=== PATIENT | female | born 2000 | race Caucasian/White ===

== ENCOUNTER 2023-10-17 19:55 | Emergency (ER) | payer BC, SELFPAY ==
[2023-10-17 19:58] VITALS: BP 161/100
[2023-10-17 20:13] LABS: % Basophils 0.4 % (0-2); % Immature Granulocytes 0.2 % (0-0.5); % Lymphocytes 36.6 % (20.5-51.1); % Monocytes 11.4 % (1.7-9.3); % Neutrophils 51.4 % (42.2-75.2); Absolute Lymphocytes 1.9 10^3/uL (1.2-3.4); Absolute Monocytes 0.6 10^3/uL (0.1-0.6); Absolute Neutrophils 2.6 10^3/uL (1.4-6.5); Hematocrit 35.4 % (37.0-47.0); Mean Corp Hgb Conc. 33.9 g/dL (33.0-37.0); Mean Corpuscular Hgb 26.4 pg (27.0-31.0); Mean Platelet Volume 10.5 fL (7.4-10.4); Nucleated Red Blood Cells % 0 %; Platelet Count 199 10^3/uL (130-400); Red Blood Cell Count 4.54 10^6/uL (4.20-5.40); Red Cell Dist. Width 13.1 % (11.5-14.5); White Blood Cell Count 5.1 10^3/uL (4.8-10.8)
[2023-10-17 20:27] LABS: ALT (SGPT) 13 U/L (0-35); AST (SGOT) 17 U/L (14-36); Albumin 4.2 g/dl (3.5-5.0); Alkaline Phosphatase 86 U/L (38-126); Blood Urea Nitrogen 29 mg/dl (7-17); Calcium 9.1 mg/dl (8.4-10.2); Carbon Dioxide 22 mmol/L (22-30); Chloride 103 mmol/L (98-107); Glucose 369 mg/dl (70-99); Potassium 4.7 mmol/L (3.5-5.1); Total Bilirubin 0.6 mg/dl (0.2-1.3); Total Protein 6.9 g/dl (6.3-8.2); eGFR 58.52
[2023-10-17 20:36] LABS: Sodium 131 mmol/L (135-145)
[2023-10-17] MEDS: NSS 1000 IV (23:38)
--- NOTE | 2023-10-17 23:49 | ED.GENMED ---
History of Present Illness
General
Chief Complaint: Skin Problem
Source: patient
Exam Limitations: none
Time Seen by Provider: 10/17/23 23:08
Nursing documentation reviewed up to this point in time: agreed with
Travel History
Have you had any contact with someone who has COVID-19?: No
Do you have any symptoms of coronavirus? Fever > 100 degrees, chills, cough, shortness of breath, sore throat, loss of taste or smell, muscle aches, or headache?: No
History of Present Illness
History of Present Illness:
This a pleasant 23-year-old female that presents with redness and pain on her right thigh. She is an insulin-dependent diabetic and had an insulin pump affixed to her right thigh. 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
ripping the IV pump out of her thigh. She noticed some redness. She states that she squeezed the area and some scant purulent discharge was expressed. She marked the area with a pen but the slight redness extended outside of the area so she came
into the emergency department. Denies fever or chills. Reports no nausea or vomiting. Patient has had cellulitis in the past and is concerned at this point.
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
ED Past Medical History: Asthma, IDDM, Hypothyroidism, Psychiatric, Other (EMPHASEMATOUS PYELONEPHRITIS, neutropenia) and Other (Anemia, Escherichia coli sepsis, multiple abscesses, Cellulitis, Pyelonephritis, vaginal herpes, polysubstance drug
abuse)
ED Past Surgical History: Appendectomy, Tonsilectomy (T&A) and Other (tympanostomy, buttocks I&D, NEPHROSTOMY RIGHT)
Social History
Tobacco: Former smoker
Alcohol: None
Drug: Marijuana, Narcotics, IVDA (Heroin user) and Other (Methamphetamine)
Personal: Single
Living: with family
Employment: Employed ([employer])
Family History
Family History: Other (Noncontributory)
Review of Systems
Review of Systems
Allergies reviewed?: Yes
All Other Systems: ROS reviewed and negative except as documented in HPI and ROS
Constitutional: Denies fever, fatigue or chills
EENT: Reports no symptoms
Respiratory: Reports no symptoms
Cardiac: Reports no symptoms
ABD/GI: Reports no symptoms
: Reports no symptoms
Musculoskeletal: Denies joint pain, muscle stiffness or edema
Skin: Reports other (Erythema)
Neurological: Denies dizzy or headache
Endocrine: Reports no symptoms
Hematologic/Lymphatic: Reports no symptoms
Psychiatric: Reports no symptoms
Phy Exam
General Physical Exam
General Presentation: well appearing and no apparent distress
General age: appears stated age
General Skin: warm and dry
General Habitus: normal
General Mental: alert
Cardiovascular Exam
Cardiovascular Exam: regular rate/rhythm and no edema
Pulmonary Exam
Pulmonary Exam: lungs clear and no respiratory distress
Neurological Exam
Neurological Exam: alert and oriented x3
Musculoskeletal Exam
Musculoskeletal Exam: full ROM, no edema and neuro vasc intact
Skin Exam
Skin Exam: warm/dry, redness (Right thigh), tenderness and warmth
Psychiatric Exam
Psychiatric Exam: normal mood/affect and anxious
Course
Orders/Labs/Results
Orders:
Orders
10/17/23 20:05
Complete Blood Count/With Diff Urgent
Comprehensive Metabolic Panel Urgent
HCG, Serum Qualitative Screen Urgent
Comment: ADD ON
10/17/23 23:22
0.9% Sodium Chloride 1000 ml [Nss] 1,000 ml IV BOLUS
10/17/23 23:23
Add On- LAB Urgent
Tests Added?: serum hcg
10/18/23 01:48
Doxycycline [Vibramycin] 100 mg PO NOW STA
Abnormal Lab Results
10/17/23
20:05
Hct 35.4 L %
(37.0-47.0)
MCV 78.0 L fL
(81.0-99.0)
MCH 26.4 L pg
(27.0-31.0)
MPV 10.5 H fL
(7.4-10.4)
Monocytes % 11.4 H %
(1.7-9.3)
Sodium 131 L mmol/L
(135-145)
BUN 29 H mg/dl
(7-17)
Creatinine 1.3 H mg/dL
(0.6-1.0)
Glucose 369 H mg/dl
(70-99)
10/17/23 20:05
10/17/23 20:05
Vital Signs
Initial and Last Documented VS:
Initial Vital Signs
Temp Pulse Resp BP Pulse Ox
98.7 F 92 18 161/100 100
10/17/23 19:58 10/17/23 19:58 10/17/23 19:58 10/17/23 19:58 10/17/23 19:58
Last Documented Vital Signs
Temp Pulse Resp BP Pulse Ox
98.7 F 84 16 120/79 97
10/17/23 19:58 10/18/23 02:14 10/18/23 02:14 10/18/23 02:14 10/18/23 02:14
*Critical Care Note
Total Time (30-74mins, 75-104mins- exclusive of procedures): Not Applicable
Update Note
Update Note:
Patient feeling better. Glucose is 170 and acceptable to her.
ED Attending Note
-
Portions of this chart may have been created with voice recognition software.� Occasional wrong word or��sound alike� substitutions may have occurred due to the inherent limitations of voice recognition software.
Discharge Plan
Departure
Patient Disposition: Home (Routine Discharge)
Date of Disposition: 10/18/23
Time of Disposition: 01:47
Patient with high blood pressure during this ER visit?: Yes
Condition: Good
Discharge Problem:
Cellulitis
Instructions: Cellulitis (Skin Infection), Adult (DC), BLOOD PRESSURE
Prescriptions:
New
doxycycline monohydrate 100 mg capsule
100 mg PO BID Qty: 20 0RF
No Action
levothyroxine 100 mcg capsule
100 mcg PO DAILY Qty: 60 0RF
Rx Instructions:
total 175 mcg take along with 75 mcg tab
levothyroxine [Synthroid] 75 mcg tablet
75 mcg PO DAILY Qty: 60 0RF
Rx Instructions:
total 175 mcg take along with 100 mcg tab
Medical Marijuana
0.5 ml PO BIDPRN PRN (Reason: ANXIETY)
fluticasone propion-salmeterol [Wixela Inhub] 250-50 mcg/dose blister with device
1 inh INHALATION R DAILY
acetaminophen 325 mg tablet
650 mg PO Q6HPRN PRN (Reason: MILD PAIN)
fluticasone propionate 50 mcg/actuation spray,suspension
1 spray INTRANASAL DAILYPRN PRN (Reason: ALLERGIES)
Insulin Pump [Patient's Own Insulin Pump]
0 unit SC .CONTINOUS
Patient Comments:
Due to change tomorrow
Rx Instructions:
03/19/23 PATIENT USING HUMALOG AND PATIENT'S DEVICE HOLDS 175 UNITS
cyclobenzaprine 10 mg Tablet
10 mg PO TID Qty: 30 0RF
acetaminophen [Pain Relief ES (acetaminophen)] 500 mg Tablet
1,000 mg PO QID Qty: 120 0RF
ferrous sulfate [FeroSul] 325 mg (65 mg iron) Tablet
325 mg PO DAILY Qty: 30 0RF
oxycodone 5 mg Tablet
5 mg PO Q4HPRN PRN (Reason: moderate pain) Qty: 20 0RF
polyethylene glycol 3350 17 gram/dose powder
17 g PO BID Qty: 510 0RF
sennosides-docusate sodium [Senna-S] 8.6-50 mg tablet
1 tab-cap PO BID Qty: 60 0RF
Referrals:
Juan A Martinez MD [Family Provider] -
Activity Restrictions/Additional Instructions:
It was a pleasure meeting you and taking part in your care. We hope for your continued healing and wellness.
Please read discharge instructions in their entirety. However, they are for general education and may not describe your exact diagnosis at discharge. Information on your ER visit and medical conditions were discussed with you along with appropriate
follow up information...
If indicated, please take your medications as instructed and indicated on discharge paperwork.
Please schedule a follow up appointment as directed. Call to schedule an appointment
Please return to the emergency department with ANY change in, persisting, or worsening of symptoms. If any of your symptoms do not improve, or persist, or become more severe within 6-12 hours, please return to the emergency department for further
care.
Please return to the emergency department if you develop a headache, neck pain/stiffness, fever greater than 100.4F, chest pain, shortness of breath, persistent nausea, vomiting, slurred speech, difficulty walking, numbness/tingling, weakness, signs
of infection or any other symptoms that are worrisome to you.
If you have any questions or concerns please do not hesitate to call the Hospital at
Interventions
Interventions:
*Risk Screen - Suicide Last Done: 10/17/23 19:59
*General Assessment Last Done: 10/17/23 19:59
*Neglect/Abuse Screening Last Done: 10/17/23 19:59
ED- Fall Risk Assessment Last Done: 10/18/23 00:03
*ED COVID-19 Vaccine History Last Done: 10/17/23 19:59
*Nursing Disposition Last Done: 10/18/23 02:14
ED-Skin Assessment Last Done: 10/18/23 01:18
Discharge Date and Time
Discharge Date/Time: 10/18/23 02:16
Print Language: KAZAKH
[2023-10-18 00:26] LABS: HCG, Serum Qualitative Screen Negative
[2023-10-18 01:17] VITALS: BP 125/88
[2023-10-18 02:05] VITALS: BMI 24.2
[2023-10-18] MEDS: VIBRAMYCIN 100 MG PO (02:06)
[2023-10-18 02:14] VITALS: BP 120/79
== END 2023-10-18 02:16 | disposition home or self-care (01) ==
LOC: EMR 19:55
PROVIDERS: Emergency Medicine; EMERGENCY PHYSICIAN Student in an Organized Health Care Education/Training Program; FAMILY PHYSICIAN Family Medicine
DX: L03.115 Cellulitis of right lower limb (principal); M79.651 Pain in right thigh; W22.8XXA Striking against or struck by other objects, initial encounter; Y93.89 Activity, other specified; Y92.89 Other specified places as the place of occurrence of the external cause; Y99.0 Civilian activity done for income or pay; R03.0 Elevated blood-pressure reading, without diagnosis of hypertension; E11.9 Type 2 diabetes mellitus without complications; J45.909 Unspecified asthma, uncomplicated; E03.9 Hypothyroidism, unspecified; D64.9 Anemia, unspecified; F19.11 Other psychoactive substance abuse, in remission; Z79.4 Long term (current) use of insulin; Z96.41 Presence of insulin pump (external) (internal); Z87.891 Personal history of nicotine dependence; Z88.1 Allergy status to other antibiotic agents
CPT/HCPCS: 99284; 96360; 80053; 84703; 85025

== ENCOUNTER 2023-10-22 00:57 | Emergency (ER) | payer BC, SELFPAY ==
[2023-10-22 01:01] VITALS: BP 155/111
[2023-10-22 01:26] LABS: % Basophils 0.4 % (0-2); % Immature Granulocytes 0.2 % (0-0.5); % Monocytes 12.2 % (1.7-9.3); % Neutrophils 50.2 % (42.2-75.2); Absolute Lymphocytes 1.7 10^3/uL (1.2-3.4); Absolute Monocytes 0.6 10^3/uL (0.1-0.6); Absolute Neutrophils 2.4 10^3/uL (1.4-6.5); Hemoglobin 12.6 g/dL (12.0-16.0); Mean Corp Hgb Conc. 33.2 g/dL (33.0-37.0); Mean Corpuscular Hgb 25.9 pg (27.0-31.0); Mean Corpuscular Volume 78.2 fL (81.0-99.0); Mean Platelet Volume 10.6 fL (7.4-10.4); Nucleated Red Blood Cells % 0 %; Platelet Count 222 10^3/uL (130-400); Red Blood Cell Count 4.86 10^6/uL (4.20-5.40); Red Cell Dist. Width 13.2 % (11.5-14.5); White Blood Cell Count 4.7 10^3/uL (4.8-10.8)
[2023-10-22 01:43] LABS: ALT (SGPT) 13 U/L (0-35); AST (SGOT) 16 U/L (14-36); Albumin 4.2 g/dl (3.5-5.0); Alkaline Phosphatase 103 U/L (38-126); Blood Urea Nitrogen 24 mg/dl (7-17); Calcium 9.6 mg/dl (8.4-10.2); Carbon Dioxide 21 mmol/L (22-30); Chloride 103 mmol/L (98-107); Glucose 340 mg/dl (70-99); Potassium 4.4 mmol/L (3.5-5.1); Sodium 135 mmol/L (135-145); Total Bilirubin 0.7 mg/dl (0.2-1.3); Total Protein 6.8 g/dl (6.3-8.2); eGFR 58.52
[2023-10-22 02:01] LABS: Urine Albumin 3+ (Neg - Trace); Urine Bilirubin Negative (Negative); Urine Character Clear (Clear); Urine Color Yellow; Urine Glucose 3+ (Negative); Urine Ketone 1+ (Negative); Urine Leukocyte Trace (Negative); Urine Nitrite Negative (Negative); Urine Occult Blood 2+ (Negative); Urine Specific Gravity 1.015 (<1.030); Urine Urobilinogen Negative (Neg - 1+)
[2023-10-22 02:27] LABS: Urine Squamous Cell >30 /LPF (Few)
[2023-10-22 02:32] LABS: Urine Bacteria Moderate (Negative); Urine Red Blood Cell 16-20 /HPF (0-2); Urine White Cell >100 /HPF (0-5)
--- NOTE | 2023-10-22 06:50 | ED.GENMED ---
History of Present Illness
General
Chief Complaint: Medication Reaction
Time Seen by Provider: 10/22/23 06:46
Travel History
Have you had any contact with someone who has COVID-19?: No
Do you have any symptoms of coronavirus? Fever > 100 degrees, chills, cough, shortness of breath, sore throat, loss of taste or smell, muscle aches, or headache?: No
History of Present Illness
History of Present Illness:
HPI: The patient was seen here 5 days ago diagnosed with cellulitis. She has IDDM and while working accidentally ripped half access out of right thigh. She was placed on doxycycline. She comes in today because of ongoing signs of infection on the
right thigh and now is developed right flank pain similar to when she has had kidney infections in the past. She states she had a temperature max of 101.
EXAM:
GENERAL: Well appearing in minimal distress
HEENT: Moist oral mucosa
CARDIOVASCULAR: No murmurs, normal heart rate, regular rhythm, No chest wall tenderness
PULMONARY: No respiratory distress, breath sounds are clear and equal
ABDOMEN: Soft with no peritoneal signs, minimal diffuse tenderness, very mild bilateral CVA tenderness
NEUROLOGIC: Excellent strength all extremities, no coordination deficits
PSYCHIATRIC: Appropriate mental status, normal insight and judgement
EXTREMITIES: Nontender, no edema, moves all extremities equally
SKIN: There is a 3 cm abscess versus indurated tissue to the lateral aspect mid right thigh
TIME OF INITIAL ENCOUNTER: 7 AM
NUMBER AND COMPLEXITY OF PROBLEMS ADDRESSED AT THE ENCOUNTER
� Chronic conditions affecting care: IDDM, PTSD, personality disorder, anxiety/depression, bipolar disorder, substance abuse, vitiligo, hypothyroidism
� Acute Exacerbation and/or Progression of Chronic Illness: This is an acute problem
� Differential Diagnosis includes: Cellulitis, pyelonephritis, abscess, feel bacteremia is unlikely
AMOUNT AND/OR COMPLEXITY OF DATA TO BE REVIEWED AND ANALYZED
� I performed an independent evaluation of and my interpretation is:
EKG:
CT:
X-rays:
Laboratory Studies: White count 4.7, hemoglobin 12.6, creatinine 1.3 with GFR of 58.5, glucose 340, urinalysis shows 1+ ketones, 2+ blood, greater than 100 WBC per high-power field. Of note there is a lot of squamous epithelial
cells.
Other:
� Review of other/old records: The creatinine chronically is around 1.3-1.4
� Clinical information was obtained by an independent historian: None needed
� Prescriptions/Medications Considered but not given:
� Further testing considered but not performed:
RISK OF COMPLICATIONS AND/OR MORBIDITY OR MORTALITY OF PATIENT MANAGEMENT
� Social determinants of health affecting care: Lives at home
� Discussion with other providers:
� Escalation of care including admission/observation vs risk of discharge considered: Other than hyperglycemia in known diabetic, her labs are relatively unremarkable. I did review old urinalyses which frequently show elevated
number of white cells. I incised and drained a relatively large amount of pus from the right thigh. Will give just a few more days of doxycycline. Wound culture will be sent. Consider renal dosing of Levaquin however the patient has a GFR of
about 58. I have placed her on Levaquin as she has strong suspicion for pyelonephritis. I reviewed old records and she has grown E. coli in the past that was sensitive to Levaquin, resistant to Bactrim.
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
ED Past Medical History: Asthma, IDDM, Hypothyroidism, Psychiatric, Other (EMPHASEMATOUS PYELONEPHRITIS, neutropenia) and Other (Anemia, Escherichia coli sepsis, multiple abscesses, Cellulitis, Pyelonephritis, vaginal herpes, polysubstance drug
abuse)
ED Past Surgical History: Appendectomy, Tonsilectomy (T&A) and Other (tympanostomy, buttocks I&D, NEPHROSTOMY RIGHT)
Social History
Tobacco: Former smoker
Alcohol: None
Drug: Marijuana, Narcotics, IVDA (Heroin user) and Other (Methamphetamine)
Personal: Single
Living: with family
Employment: Employed ([employer])
Family History
Family History: Other (Noncontributory)
Phy Exam
Physical Exam
Physical Exam:
See HPI
Course
Orders/Labs/Results
Orders:
Orders
10/22/23 01:10
CMP [Comprehensive Metabolic Panel] Urgent
Complete Blood Count/With Diff Urgent
Urinalysis Urgent
Date Specimen was Collected: 10/22/23
Time Specimen was Collected: 01:05
Urine Microscopic Urgent
Date Specimen was Collected: 10/22/23
Time Specimen was Collected: 01:05
10/22/23 07:28
LevoFLOXacin [Levaquin] 500 mg PO NOW STA
10/22/23 07:34
Wound Culture [Wound/Abscess/Other Culture] Urgent
ROBE Source: Abscess
Specimen Description:
Abnormal Lab Results
10/22/23
01:10
WBC 4.7 L 10^3/uL
(4.8-10.8)
MCV 78.2 L fL
(81.0-99.0)
MCH 25.9 L pg
(27.0-31.0)
MPV 10.6 H fL
(7.4-10.4)
Monocytes % 12.2 H %
(1.7-9.3)
Carbon Dioxide 21 L mmol/L
(22-30)
BUN 24 H mg/dl
(7-17)
Creatinine 1.3 H mg/dL
(0.6-1.0)
Glucose 340 H mg/dl
(70-99)
Urine Ketones 1+ A
(Negative)
Urine Occult Blood 2+ A
(Negative)
Ur Leukocyte Esterase Trace A
(Negative)
Urine RBC 16-20 A /HPF
(0-2)
Urine WBC >100 A /HPF
(0-5)
Urine Bacteria Moderate A
(Negative)
Urine Glucose 3+ A
(Negative)
Urine Albumin 3+ A
(Neg - Trace)
10/22/23 01:10
10/22/23 01:10
Vital Signs
Initial and Last Documented VS:
Initial Vital Signs
Temp Pulse Resp BP Pulse Ox
98.2 F 122 24 155/111 100
10/22/23 01:01 10/22/23 01:01 10/22/23 01:01 10/22/23 01:01 10/22/23 01:01
Last Documented Vital Signs
Temp Pulse Resp BP Pulse Ox
98.2 F 122 24 155/111 98
10/22/23 01:01 10/22/23 01:01 10/22/23 01:01 10/22/23 01:01 10/22/23 07:20
Procedures
Incision/Drainage/Joint Aspiration
Right Thigh:
Anethesia: 1% Lidocaine with Epi
Preparation: cleaned with alcohol wipe
Type of procedure: incise and drain
Nature of site: abscess
Description of abscess: less than 3cm
Loculations broken up: Yes
How much fluid was obtained?: number in mls (2)
Fluid description: purulent
Treatment: left open for drainage and bandaid applied
*Critical Care Note
Total Time (30-74mins, 75-104mins- exclusive of procedures): Not Applicable
ED Attending Note
-
Portions of this chart may have been created with voice recognition software.� Occasional wrong word or��sound alike� substitutions may have occurred due to the inherent limitations of voice recognition software.
Discharge Plan
Departure
Patient Disposition: Home (Routine Discharge)
Date of Disposition: 10/22/23
Time of Disposition: 07:28
Patient with high blood pressure during this ER visit?: Yes
Discharge Problem:
Abscess
Prescriptions:
New
levofloxacin 500 mg tablet
500 mg PO DAILY Qty: 6 0RF
No Action
levothyroxine 100 mcg capsule
100 mcg PO DAILY Qty: 60 0RF
Rx Instructions:
total 175 mcg take along with 75 mcg tab
levothyroxine [Synthroid] 75 mcg tablet
75 mcg PO DAILY Qty: 60 0RF
Rx Instructions:
total 175 mcg take along with 100 mcg tab
Medical Marijuana
0.5 ml PO BIDPRN PRN (Reason: ANXIETY)
fluticasone propion-salmeterol [Wixela Inhub] 250-50 mcg/dose blister with device
1 inh INHALATION R DAILY
acetaminophen 325 mg tablet
650 mg PO Q6HPRN PRN (Reason: MILD PAIN)
fluticasone propionate 50 mcg/actuation spray,suspension
1 spray INTRANASAL DAILYPRN PRN (Reason: ALLERGIES)
Insulin Pump [Patient's Own Insulin Pump]
0 unit SC .CONTINOUS
Patient Comments:
Due to change tomorrow
Rx Instructions:
03/19/23 PATIENT USING HUMALOG AND PATIENT'S DEVICE HOLDS 175 UNITS
cyclobenzaprine 10 mg Tablet
10 mg PO TID Qty: 30 0RF
acetaminophen [Pain Relief ES (acetaminophen)] 500 mg Tablet
1,000 mg PO QID Qty: 120 0RF
ferrous sulfate [FeroSul] 325 mg (65 mg iron) Tablet
325 mg PO DAILY Qty: 30 0RF
oxycodone 5 mg Tablet
5 mg PO Q4HPRN PRN (Reason: moderate pain) Qty: 20 0RF
polyethylene glycol 3350 17 gram/dose powder
17 g PO BID Qty: 510 0RF
sennosides-docusate sodium [Senna-S] 8.6-50 mg tablet
1 tab-cap PO BID Qty: 60 0RF
doxycycline monohydrate 100 mg capsule
100 mg PO BID Qty: 20 0RF
Referrals:
Juan A Martinez MD [Family Provider] -
Stand Alone Forms: Return to Work
Activity Restrictions/Additional Instructions:
I recommend just taking the doxycycline for only 2 more days. We did drain a relatively large amount of pus from the abscess which is the main treatment for this type of infection. I also recommend that you start Levaquin for the next week for the
possibly of urinary tract infection/kidney infection.
Interventions
Interventions:
*Risk Screen - Suicide Last Done: 10/22/23 01:01
*General Assessment Last Done: 10/22/23 07:16
*Neglect/Abuse Screening Last Done: 10/22/23 01:01
ED- Fall Risk Assessment Last Done: 10/22/23 07:16
*ED COVID-19 Vaccine History Last Done: 10/22/23 07:16
ED-Skin Assessment Last Done: 10/22/23 07:16
ED- Pulmonary Assessment Last Done: 10/22/23 07:16
Discharge Date and Time
Print Language: MONGOLIAN
[2023-10-22 07:16] VITALS: BMI 23.2
[2023-10-22 07:20] VITALS: BP 126/90
[2023-10-22] MEDS: LEVAQUIN 500 MG PO (07:32)
== END 2023-10-22 07:42 | disposition home or self-care (01) ==
LOC: EMR 00:57
PROVIDERS: Emergency Medicine; EMERGENCY PHYSICIAN Emergency Medicine; FAMILY PHYSICIAN Family Medicine
DX: L02.415 Cutaneous abscess of right lower limb (principal); E11.65 Type 2 diabetes mellitus with hyperglycemia; R03.0 Elevated blood-pressure reading, without diagnosis of hypertension; Z87.891 Personal history of nicotine dependence
CPT/HCPCS: 99283; 10060; 80053; 81003; 81015; 85025; 87070; 87147; 87186; 87205

== ENCOUNTER 2024-01-21 18:15 | Emergency (ER) | payer BC, SELFPAY ==
[2024-01-21 18:17] VITALS: BP 176/74
--- NOTE | 2024-01-21 19:40 | ED.GENMED ---
History of Present Illness
General
Chief Complaint: Skin Problem
Source: patient
Exam Limitations: none
Time Seen by Provider: 01/21/24 19:08
Nursing documentation reviewed up to this point in time: agreed with
History of Present Illness
History of Present Illness:
23-year-old female presents emergency room complaining of an abscess above her vagina that started 3 days ago. She describes pain without drainage or fever. She has had abscesses and cellulitis in the past. Her blood sugars have been normal.
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
ED Past Medical History: Asthma, IDDM, Hypothyroidism, Psychiatric, Other (EMPHASEMATOUS PYELONEPHRITIS, neutropenia) and Other (Anemia, Escherichia coli sepsis, multiple abscesses, Cellulitis, Pyelonephritis, vaginal herpes, polysubstance drug
abuse)
ED Past Surgical History: Appendectomy, Tonsilectomy (T&A) and Other (tympanostomy, buttocks I&D, NEPHROSTOMY RIGHT)
Social History
Tobacco: Former smoker
Alcohol: None
Drug: Marijuana, Narcotics, IVDA (Heroin user) and Other (Methamphetamine)
Personal: Single
Living: with family
Employment: Employed ([employer])
Family History
Family History: Other (Noncontributory)
Review of Systems
Review of Systems
Allergies reviewed?: Yes
All Other Systems: Not applicable
Constitutional: Reports no symptoms; Denies fever
EENT: Reports no symptoms
Respiratory: Reports no symptoms
Cardiac: Reports no symptoms
ABD/GI: Reports no symptoms
: Reports no symptoms
Musculoskeletal: Reports no symptoms
Skin: Reports rash
Neurological: Reports no symptoms
Endocrine: Reports no symptoms
Hematologic/Lymphatic: Reports no symptoms
Psychiatric: Reports no symptoms
Phy Exam
Physical Exam
Physical Exam:
Physical Exam
General: no apparent distress, not acutely ill
Neck: supple. no meningeal signs. normal posterior pharynx
HEENT: EOMI
Lungs: no acute respiratory distress.
Abdomen: not tender.
Neuro: alert and oriented. no focal neurological deficits
Skin: no rash, 1.5 cm abscess with redness, mons pubis
Psychiatric: well kept. interactive and cooperative
Extremities: no edema.
Course
Vital Signs
Initial and Last Documented VS:
Initial Vital Signs
Temp Pulse Resp BP Pulse Ox
99.5 F 112 20 176/74 99
01/21/24 18:17 01/21/24 18:17 01/21/24 18:17 01/21/24 18:17 01/21/24 18:17
Last Documented Vital Signs
Temp Pulse Resp BP Pulse Ox
99.5 F 112 20 176/74 99
01/21/24 18:17 01/21/24 18:17 01/21/24 18:17 01/21/24 18:17 01/21/24 18:17
Procedures
Incision/Drainage/Joint Aspiration
Middle Groin:
Anethesia: 1% Lidocaine with Epi
Preparation: cleaned with Betadine
Type of procedure: incise and drain
Nature of site: abscess
Description of abscess: less than 3cm
Loculations broken up: No
How much fluid was obtained?: scant amount
Fluid description: bloody
Treatment: left open for drainage and antibiotics started
MDM/Problems Addressed
Differential Diagnosis Includes:
abscess, bartholin's gland abscess
MDM/Problems Addressed:
33-year-old female with abscess at mons pubis. Incision and drainage completed. No fever. No signs of cellulitis. Stable for discharge.
Chronic conditions affecting care: DM
*Pulse Oximetry
Patient hypoxic: no
*Critical Care Note
Total Time (30-74mins, 75-104mins- exclusive of procedures): Not Applicable
Patient Management
Social determinants of health affecting care: Living situation
Escalation/DeEscalation of care consider admission/obs:
admit not indicated
ED Attending Note
-
Portions of this chart may have been created with voice recognition software.� Occasional wrong word or��sound alike� substitutions may have occurred due to the inherent limitations of voice recognition software.
Discharge Plan
Departure
Patient Disposition: Home (Routine Discharge)
Date of Disposition: 01/21/24
Time of Disposition: 19:48
Patient with high blood pressure during this ER visit?: Yes
Discharge Problem:
Abscess of groin
Instructions: BLOOD PRESSURE, Skin Abscess
Prescriptions:
New
cephalexin 500 mg capsule
500 mg PO BID 7 Days Qty: 14 0RF
No Action
levothyroxine 100 mcg capsule
100 mcg PO DAILY Qty: 60 0RF
Rx Instructions:
total 175 mcg take along with 75 mcg tab
levothyroxine [Synthroid] 75 mcg tablet
75 mcg PO DAILY Qty: 60 0RF
Rx Instructions:
total 175 mcg take along with 100 mcg tab
Medical Marijuana
0.5 ml PO BIDPRN PRN (Reason: ANXIETY)
fluticasone propion-salmeterol [Wixela Inhub] 250-50 mcg/dose blister with device
1 inh INHALATION R DAILY
acetaminophen 325 mg tablet
650 mg PO Q6HPRN PRN (Reason: MILD PAIN)
fluticasone propionate 50 mcg/actuation spray,suspension
1 spray INTRANASAL DAILYPRN PRN (Reason: ALLERGIES)
Insulin Pump [Patient's Own Insulin Pump]
0 unit SC .CONTINOUS
Patient Comments:
Due to change tomorrow
Rx Instructions:
03/19/23 PATIENT USING HUMALOG AND PATIENT'S DEVICE HOLDS 175 UNITS
cyclobenzaprine 10 mg Tablet
10 mg PO TID Qty: 30 0RF
acetaminophen [Pain Relief ES (acetaminophen)] 500 mg Tablet
1,000 mg PO QID Qty: 120 0RF
ferrous sulfate [FeroSul] 325 mg (65 mg iron) Tablet
325 mg PO DAILY Qty: 30 0RF
oxycodone 5 mg Tablet
5 mg PO Q4HPRN PRN (Reason: moderate pain) Qty: 20 0RF
polyethylene glycol 3350 17 gram/dose powder
17 g PO BID Qty: 510 0RF
sennosides-docusate sodium [Senna-S] 8.6-50 mg tablet
1 tab-cap PO BID Qty: 60 0RF
doxycycline monohydrate 100 mg capsule
100 mg PO BID Qty: 20 0RF
levofloxacin 500 mg tablet
500 mg PO DAILY Qty: 6 0RF
Referrals:
Juan A Martinez MD [Family Provider] -
Interventions
Interventions:
*Risk Screen - Suicide Last Done: 01/21/24 18:17
*General Assessment Last Done: 01/21/24 18:17
*Neglect/Abuse Screening Last Done: 01/21/24 18:17
Discharge Date and Time
Print Language: DIVEHI
[2024-01-21] MEDS: CLEOCIN 450 MG PO (20:06)
== END 2024-01-21 20:10 | disposition home or self-care (01) ==
LOC: EMR 18:15
PROVIDERS: EMERGENCY PHYSICIAN Emergency Medicine; FAMILY PHYSICIAN Family Medicine
DX: L02.214 Cutaneous abscess of groin (principal); J45.909 Unspecified asthma, uncomplicated; E11.9 Type 2 diabetes mellitus without complications; E03.9 Hypothyroidism, unspecified; D64.9 Anemia, unspecified; Z87.891 Personal history of nicotine dependence; Z90.49 Acquired absence of other specified parts of digestive tract
CPT/HCPCS: 99282; 10060

== ENCOUNTER 2024-02-23 19:12 | Emergency (ER) | payer BC, SELFPAY ==
[2024-02-23 19:12] VITALS: BMI 25.1
[2024-02-23 19:19] VITALS: BP 170/109
[2024-02-23 19:44] LABS: % Basophils 0.2 % (0-2); % Immature Granulocytes 0.3 % (0-0.5); % Lymphocytes 23.9 % (20.5-51.1); % Neutrophils 68.6 % (42.2-75.2); Absolute Lymphocytes 2.1 10^3/uL (1.2-3.4); Absolute Monocytes 0.6 10^3/uL (0.1-0.6); Hematocrit 37.4 % (37.0-47.0); Mean Corp Hgb Conc. 34.8 g/dL (33.0-37.0); Mean Corpuscular Hgb 26.8 pg (27.0-31.0); Mean Corpuscular Volume 77.1 fL (81.0-99.0); Mean Platelet Volume 9.6 fL (7.4-10.4); Nucleated Red Blood Cells % 0 %; Platelet Count 212 10^3/uL (130-400); Red Blood Cell Count 4.85 10^6/uL (4.20-5.40); Red Cell Dist. Width 13.1 % (11.5-14.5); White Blood Cell Count 8.8 10^3/uL (4.8-10.8)
[2024-02-23 19:56] LABS: HCG, Serum Qualitative Screen Negative
[2024-02-23 20:00] LABS: ALT (SGPT) 19 U/L (0-35); AST (SGOT) 25 U/L (14-36); Albumin 3.6 g/dl (3.5-5.0); Alkaline Phosphatase 71 U/L (38-126); Blood Urea Nitrogen 29 mg/dl (7-17); Calcium 8.5 mg/dl (8.4-10.2); Carbon Dioxide 25 mmol/L (22-30); Chloride 108 mmol/L (98-107); Glucose 87 mg/dl (70-99); Potassium 3.9 mmol/L (3.5-5.1); Sodium 137 mmol/L (135-145); Total Bilirubin 0.6 mg/dl (0.2-1.3); Total Protein 5.8 g/dl (6.3-8.2); eGFR > 60.00
[2024-02-23 20:05] LABS: NT-proBNP 214 pg/ml
[2024-02-23 22:00] VITALS: BP 125/88
--- NOTE | 2024-02-23 22:20 | ED.GENMED ---
History of Present Illness
<Janet Mondragon MD, Resident - Last Filed: 02/24/24 02:02>
General
Chief Complaint: Skin Problem
Source: patient
Time Seen by Provider: 02/23/24 21:58
History of Present Illness
History of Present Illness:
The patient is a 23 yo female who presented to ER complaining from skin rashes which was already settled down. Patient reports she had these skin issues for at least 1 month and she was recently prescribed steroids about 10 days ago by a physician
who is covering her PCP. She was started with 40 mg of steroid daily and was tapered in 10 days. Her last dose of steroid was yesterday morning. She reports she started to have skin rash today again. She reported that she has been taking
Benadryl and Zyrtec daily to help her skin problem. She denies allergic severe allergic reaction or having difficulty with her breathing. She was not seen by a microsoft application developer because of this problem. Additionally she reported some joint stiffness
especially in the mornings and in her stiffness resolves in about 4 hours. The patient denies fever, chills, swollen lips/difficulty breathing while having rashes.
The patient also reported having right flank pain for last one month and reported her PCP follows her for that reason and reported preferring to be followed up by her PCP for that reason.
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
ED Past Medical History: Asthma, IDDM, Hypothyroidism, Psychiatric, Other (EMPHYSEMATOUS PYELONEPHRITIS, neutropenia) and Other (Anemia, vitiligo, Escherichia coli sepsis, multiple abscesses, Cellulitis, Pyelonephritis, vaginal herpes,
polysubstance drug abuse)
ED Past Surgical History: Appendectomy, Tonsillectomy (T&A) and Other (tympanostomy, buttocks I&D, NEPHROSTOMY RIGHT)
Social History
Tobacco: Former smoker
Alcohol: None
Drug: Polysubstance use
Personal: Single
Living: with family
Family History
Family History: Other (Noncontributory)
If applicable-neuro sx onset
Date of onset of symptoms: 02/23/24
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
<Janet Mondragon MD, Resident - Last Filed: 02/24/24 02:02>
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
ED Past Medical History: Asthma, IDDM, Hypothyroidism, Psychiatric, Other (EMPHASEMATOUS PYELONEPHRITIS, neutropenia) and Other (Anemia, Escherichia coli sepsis, multiple abscesses, Cellulitis, Pyelonephritis, vaginal herpes, polysubstance drug
abuse)
ED Past Surgical History: Appendectomy, Tonsilectomy (T&A) and Other (tympanostomy, buttocks I&D, NEPHROSTOMY RIGHT)
Social History
Tobacco: Former smoker
Alcohol: None
Drug: Marijuana, Narcotics, IVDA (Heroin user) and Other (Methamphetamine)
Personal: Single
Living: with family
Employment: Employed ([employer])
Family History
Family History: Other (Noncontributory)
Phy Exam
<Janet Mondragon MD, Resident - Last Filed: 02/24/24 02:02>
General Physical Exam
General Presentation: well appearing and no apparent distress
General age: appears stated age
General Skin: warm
General Mental: alert
General Hydration: appears well hydrated
Cardiovascular Exam
Cardiovascular Exam: regular rate/rhythm and no edema
Pulmonary Exam
Pulmonary Exam: lungs clear, no respiratory distress, no crackles, no stridor and no wheezing
Neurological Exam
Neurological Exam: alert and oriented x3
Course
<Janet Mondragon MD, Resident - Last Filed: 02/24/24 02:02>
Orders/Labs/Results
Orders:
Orders
02/23/24 19:24
Test Result ONCE
02/23/24 19:35
CBC/With Diff [Complete Blood Count/With Diff] Urgent
CMP [Comprehensive Metabolic Panel] Urgent
HCG, Serum Qualitative Screen Urgent
Pro-BNP [NT-proBNP] Urgent
02/23/24 23:56
Dexamethasone Pf [Decadron] 10 mg PO NOW STA
Abnormal Lab Results
02/23/24
19:35
MCV 77.1 L fL
(81.0-99.0)
MCH 26.8 L pg
(27.0-31.0)
Chloride 108 H mmol/L
(98-107)
BUN 29 H mg/dl
(7-17)
Creatinine 1.2 H mg/dL
(0.6-1.0)
Total Protein 5.8 L g/dl
(6.3-8.2)
02/23/24 19:35
02/23/24 19:35
Vital Signs
Initial and Last Documented VS:
Initial Vital Signs
Temp Pulse Resp BP Pulse Ox
98.1 F 115 19 170/109 97
02/23/24 19:19 02/23/24 19:19 02/23/24 19:19 02/23/24 19:19 02/23/24 19:19
Last Documented Vital Signs
Temp Pulse Resp BP Pulse Ox
98.1 F 115 19 131/102 98
02/23/24 19:19 02/23/24 19:19 02/23/24 19:19 02/24/24 00:08 02/24/24 00:08
Lillianlt;Germain Henry, DO - Last Filed: 02/23/24 23:56>
Orders/Labs/Results
Orders:
Orders
02/23/24 19:24
Test Result ONCE
02/23/24 19:35
CBC/With Diff [Complete Blood Count/With Diff] Urgent
CMP [Comprehensive Metabolic Panel] Urgent
HCG, Serum Qualitative Screen Urgent
Pro-BNP [NT-proBNP] Urgent
02/23/24 23:56
Dexamethasone Pf [Decadron] 10 mg PO NOW STA
Abnormal Lab Results
02/23/24
19:35
MCV 77.1 L fL
(81.0-99.0)
MCH 26.8 L pg
(27.0-31.0)
Chloride 108 H mmol/L
(98-107)
BUN 29 H mg/dl
(7-17)
Creatinine 1.2 H mg/dL
(0.6-1.0)
Total Protein 5.8 L g/dl
(6.3-8.2)
02/23/24 19:35
02/23/24 19:35
Vital Signs
Initial and Last Documented VS:
Initial Vital Signs
Temp Pulse Resp BP Pulse Ox
98.1 F 115 19 170/109 97
02/23/24 19:19 02/23/24 19:19 02/23/24 19:19 02/23/24 19:19 02/23/24 19:19
Last Documented Vital Signs
Temp Pulse Resp BP Pulse Ox
98.1 F 115 19 131/102 98
02/23/24 19:19 02/23/24 19:19 02/23/24 19:19 02/24/24 00:08 02/24/24 00:08
<Janet Mondragon MD, Resident - Last Filed: 02/24/24 02:02>
MDM/Problems Addressed
Differential Diagnosis Includes:
[place] diseases, allergic reaction, infection, angioedema
MDM/Problems Addressed:
CBC, CMP, Pro-BNP, tests were ordered.
CBC, CMP and Pro-BNP results are unremarkable. Creatinine level of the patient was found 1.2 and it was 1.3 on 10/22/2023. There is no any significant changes regarding her creatinine levels and patient is aware of that patient is aware of her high
level of creatinine.
By the patient report, the patient has this problem at least for one month. It was discussed with the patient. Skin problem and joint problem of the patient's need to be assessed by a microsoft application developer and industrial gas servicer. The patient reported she
was able to manage her symptoms and her discomfort when she was on 20 mg of steroid daily. She reported 10 mg of steroid was not enough her to prevent her skin reactions recently. It was decided to prescribe steroid until the patient see her
primary care physician to be assessed for the referrals.
The patient reported that her PCP follows her for her kidney problem and reported that she prefers to be followed up by her PCP for this problem. She did not want to give urine sample.
<Germain Henry DO - Last Filed: 02/23/24 23:56>
MDM/Problems Addressed
Differential Diagnosis Includes:
Autoimmune diseases, allergic reaction, infection, angioedema
<Janet Mondragon MD, Resident - Last Filed: 02/24/24 02:02>
*Critical Care Note
Total Time (30-74mins, 75-104mins- exclusive of procedures): Not Applicable
ED Attending Note
<Janet Mondragon MD, Resident - Last Filed: 02/24/24 02:02>
-
Portions of this chart may have been created with voice recognition software.� Occasional wrong word or��sound alike� substitutions may have occurred due to the inherent limitations of voice recognition software.
<Germain Hnery DO - Last Filed: 02/23/24 23:56>
ED Attending Note
Patient seen and examined by attending physician: Yes
I performed the substantive portion of visit, reviewed & personally made and approve the management plan that is documented in note by myself or DEJUAN.: Yes
I performed a history and physical exam of patient and discussed management with resident, I reviewed resident's note and agree with documented findings and plan of care.: Yes
ED Attending Note:
23-year-old female with a 1 month history of welts on her body. She was seen by her primary care provider and started on steroids. She states that the steroids ended in the rash returned. Patient has been having swollen feet and right flank pain.
Denies fever or chills. Reports no chest pain or shortness of breath. Denies nausea or vomiting. Patient was seen in conjunction with the resident. I have reviewed and agree with her history and treatment plan. My independent physical exam,
patient not in any distress. Skin is normal. It is warm and dry without any evidence of urticaria. Moves all 4 extremities. Patient is mentating appropriately.
Discharge Plan
Departure
Patient Disposition: Home (Routine Discharge)
Date of Disposition: 02/23/24
Time of Disposition: 23:29
Patient with high blood pressure during this ER visit?: No
Condition: Good
Discharge Problem:
rashes
Instructions: Skin Rash (DC)
Prescriptions:
New
prednisone 10 mg tablet
10 mg PO BID MDD 20 mg Qty: 14 0RF
No Action
levothyroxine 100 mcg capsule
100 mcg PO DAILY Qty: 60 0RF
Rx Instructions:
total 175 mcg take along with 75 mcg tab
levothyroxine [Synthroid] 75 mcg tablet
75 mcg PO DAILY Qty: 60 0RF
Rx Instructions:
total 175 mcg take along with 100 mcg tab
Medical Marijuana
0.5 ml PO BIDPRN PRN (Reason: ANXIETY)
fluticasone propion-salmeterol [Wixela Inhub] 250-50 mcg/dose blister with device
1 inh INHALATION R DAILY
acetaminophen 325 mg tablet
650 mg PO Q6HPRN PRN (Reason: MILD PAIN)
fluticasone propionate 50 mcg/actuation spray,suspension
1 spray INTRANASAL DAILYPRN PRN (Reason: ALLERGIES)
Insulin Pump [Patient's Own Insulin Pump]
0 unit SC .CONTINOUS
Patient Comments:
Due to change tomorrow
Rx Instructions:
03/19/23 PATIENT USING HUMALOG AND PATIENT'S DEVICE HOLDS 175 UNITS
cyclobenzaprine 10 mg Tablet
10 mg PO TID Qty: 30 0RF
acetaminophen [Pain Relief ES (acetaminophen)] 500 mg Tablet
1,000 mg PO QID Qty: 120 0RF
ferrous sulfate [FeroSul] 325 mg (65 mg iron) Tablet
325 mg PO DAILY Qty: 30 0RF
oxycodone 5 mg Tablet
5 mg PO Q4HPRN PRN (Reason: moderate pain) Qty: 20 0RF
polyethylene glycol 3350 17 gram/dose powder
17 g PO BID Qty: 510 0RF
sennosides-docusate sodium [Senna-S] 8.6-50 mg tablet
1 tab-cap PO BID Qty: 60 0RF
doxycycline monohydrate 100 mg capsule
100 mg PO BID Qty: 20 0RF
levofloxacin 500 mg tablet
500 mg PO DAILY Qty: 6 0RF
clindamycin HCl 150 mg capsule
450 mg PO TID 7 Days Qty: 62 0RF
Referrals:
Juan A Martinez MD [Family Provider] -
Hawa Malone MD [Active] - Call in 1-3 days for appt
Tami Chu MD [Consulting Staff] - Next open appointment
Activity Restrictions/Additional Instructions:
Your prescriptions were sent to the pharmacy you requested.
It was a pleasure meeting you and taking part in your care. We hope for your continued healing and wellness.
Please read discharge instructions in their entirety. However, they are for general education and may not describe your exact diagnosis at discharge. Information on your ER visit and medical conditions were discussed with you along with appropriate
follow up information...
If indicated, please take your medications as instructed and indicated on discharge paperwork.
Please schedule a follow up appointment as directed with your PCP. �
Please return to the emergency department with ANY change in, persisting, or worsening of symptoms.� If any of your symptoms do not improve, or persist, or become more severe within 6-12 hours, please return to the emergency department for further
care.
Please return to the emergency department if you develop a headache, neck pain/stiffness, fever greater than 100.4F, chest pain, shortness of breath, persistent nausea, vomiting, slurred speech, difficulty walking, numbness/tingling, weakness, signs
of infection or any other symptoms that are worrisome to you.
Interventions
Interventions:
*Risk Screen - Suicide Last Done: 02/24/24 00:09
*General Assessment Last Done: 02/24/24 00:09
*Neglect/Abuse Screening Last Done: 02/24/24 00:09
ED- Fall Risk Assessment Last Done: 02/24/24 00:09
*ED COVID-19 Vaccine History Last Done: 02/24/24 00:09
*Nursing Disposition Last Done: 02/24/24 00:12
ED-Skin Assessment Last Done: 02/23/24 21:42
Discharge Date and Time
Discharge Date/Time: 02/24/24 00:14
Print Language: SETSWANA
[2024-02-24] MEDS: DECADRON 10 MG PO (00:05)
[2024-02-24 00:08] VITALS: BP 131/102
== END 2024-02-24 00:14 | disposition home or self-care (01) ==
LOC: EMR 19:12
PROVIDERS: Emergency Medicine; EMERGENCY PHYSICIAN Student in an Organized Health Care Education/Training Program; FAMILY PHYSICIAN Family Medicine
DX: R21 Rash and other nonspecific skin eruption (principal); Z87.891 Personal history of nicotine dependence
CPT/HCPCS: 99283; 80053; 83880; 84703; 85025

== ENCOUNTER 2024-05-15 22:38 | Inpatient (IN) | payer BC, SELFPAY ==
[2024-05-15 19:25] VITALS: BP 148/97
[2024-05-15 19:29] LABS: Glucose - Point of Care 80 mg/dl (70-99)
[2024-05-15 20:00] LABS: Urine Albumin 2+ (Neg - Trace); Urine Bilirubin Negative (Negative); Urine Character Clear (Clear); Urine Color Straw; Urine Glucose Negative (Negative); Urine Ketone Negative (Negative); Urine Leukocyte Negative (Negative); Urine Nitrite Negative (Negative); Urine Occult Blood 2+ (Negative); Urine Specific Gravity 1.015 (<1.030); Urine Urobilinogen Negative (Neg - 1+)
[2024-05-15 20:13] LABS: Urine Bacteria Few (Negative); Urine Red Blood Cell 21-25 /HPF (0-2); Urine White Cell 0-2 /HPF (0-5)
[2024-05-15 20:14] LABS: HCG, Serum Qualitative Screen Negative
[2024-05-15 20:17] LABS: ALT (SGPT) 16 U/L (0-35); AST (SGOT) 25 U/L (14-36); Alkaline Phosphatase 67 U/L (38-126); Blood Urea Nitrogen 22 mg/dl (7-17); Calcium 8.9 mg/dl (8.4-10.2); Carbon Dioxide 22 mmol/L (22-30); Chloride 107 mmol/L (98-107); Glucose 106 mg/dl (70-99); Potassium 4.3 mmol/L (3.5-5.1); Sodium 143 mmol/L (135-145); Total Bilirubin 0.6 mg/dl (0.2-1.3); Total Protein 6.7 g/dl (6.3-8.2); eGFR 45.62
[2024-05-15 20:38] LABS: Band Neutrophils 0 % (0-3); Hematocrit 35.1 % (37.0-47.0); Hemoglobin 11.7 g/dL (12.0-16.0); Lymphocytes 64 % (20-51); Mean Corp Hgb Conc. 33.3 g/dL (33.0-37.0); Mean Corpuscular Hgb 26.1 pg (27.0-31.0); Mean Corpuscular Volume 78.2 fL (81.0-99.0); Mean Platelet Volume 10.3 fL (7.4-10.4); Monocytes 36 % (2-9); Normal RBC Morphology Yes; Platelet Count 241 10^3/uL (130-400); Platelets Checked Yes; Red Blood Cell Count 4.49 10^6/uL (4.20-5.40); Red Cell Dist. Width 13.2 % (11.5-14.5); Segmented Neutrophils 0 % (42-75); White Blood Cell Count 1.9 10^3/uL (4.8-10.8)
[2024-05-15 20:39] LABS: Total Cells Counted 100
[2024-05-15 20:43] VITALS: BMI 25.0
[2024-05-15] MEDS: NSS 1000 IV (20:48)
[2024-05-15] MEDS: MORPHINE SULFATE 4 MG IV (20:49)
[2024-05-15 20:53] VITALS: BP 142/97
[2024-05-15] MEDS: DILAUDID 0.5 MG IV (21:19)
[2024-05-15] MEDS: ZOSYN 50 IV (21:20)
[2024-05-15 21:36] LABS: Lactic Acid < 0.5 mmol/L (0.7-2.0)
--- NOTE | 2024-05-15 21:41 | ED.GENMED ---
History of Present Illness
General
Chief Complaint: Flank Pain
Source: patient and records
Exam Limitations: none
Time Seen by Provider: 05/15/24 20:25
Nursing documentation reviewed up to this point in time: agreed with
History of Present Illness
History of Present Illness:
23-year-old female with history as documented notable for insulin-dependent diabetes, pyelonephritis, frequent UTIs who presents to the emergency room for evaluation of flank pain and urinary symptoms, fever. Patient reports that she has been
symptomatic for the past week�she said she initially started with malaise and low-grade fever and increased urinary frequency. Those symptoms have been consistent but she is having increasing left flank/abdominal pain. She says the symptoms are
identical to prior UTIs. She saw her PCP today and was given a prescription for Levaquin 500 mg daily and she took 1 dose of this but this evening she had fever to 100.3 �F and was having increased pain and so she came to the ER for assessment.
She denies any vaginal bleeding. She denies any vomiting but has had some mild nausea. Denies diarrhea or constipation. She denies any other complaints.
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
ED Past Medical History: Asthma, IDDM, Hypothyroidism, Psychiatric, Other (EMPHASEMATOUS PYELONEPHRITIS, neutropenia) and Other (Anemia, Escherichia coli sepsis, multiple abscesses, Cellulitis, Pyelonephritis, vaginal herpes, polysubstance drug
abuse)
ED Past Surgical History: Appendectomy, Tonsilectomy (T&A) and Other (tympanostomy, buttocks I&D, NEPHROSTOMY RIGHT)
Social History
Tobacco: Former smoker
Alcohol: None
Drug: Marijuana, Narcotics, IVDA (Heroin user) and Other (Methamphetamine)
Personal: Single
Living: with family
Employment: Employed ([employer])
Family History
Family History: Other (Noncontributory)
Review of Systems
Review of Systems
All Other Systems: ROS reviewed and negative except as documented in HPI and ROS
Constitutional: Reports fever, fatigue and chills
EENT: Denies sore throat
Respiratory: Denies cough or trouble breathing
Cardiac: Denies chest pain
ABD/GI: Reports abdominal pain and nausea; Denies vomiting or diarrhea
: Reports frequency and flank pain; Denies dysuria or bleeding
Musculoskeletal: Denies neck pain or back pain
Neurological: Denies dizzy or headache
Phy Exam
Physical Exam
Physical Exam:
General: Awake, alert, oriented x3; appears uncomfortable
Head: Normocephalic, atraumatic
Eyes: Conjunctiva normal, EOMI
Throat: Airway intact, somewhat dry mucous membranes
Neck: Trachea midline, supple without meningismus
Lungs: Clear to auscultation bilaterally, no wheezing, rales, rhonchi
Heart: Tachycardia with regular rhythm, no murmurs, gallops, or rubs
Abd: Soft, non distended, mild left lower quadrant tenderness with no masses, no peritoneal signs
Back: Left CVA tenderness
Neuro: No gross deficits
Extremities: Warm and well-perfused
Scores
Heart Failure Risk
Heart Failure Risk Score: Not Applicable
Heart Score for Chest Pain Patients
STEMI patient?: Not applicable
Withdrawal Assessment of Alcohol
Withdrawal Assessment Completed?: Not applicable
Sepsis
Sepsis Screening
Sepsis Assessment: Sepsis
Sepsis Screen
Sepsis Screen: Sepsis
Date: 05/15/24
Time: 22:54
Course
Orders/Labs/Results
Orders:
Orders
05/15/24 19:30
Electrocardiogram (*1) Urgent
Reason for Study: Chest Pain
EKG- Treatment ONCE
Test Result ONCE
05/15/24 19:45
Complete Blood Count/With Diff Urgent
Comprehensive Metabolic Panel Urgent
HCG, Serum Qualitative Screen Urgent
Manual Differential Urgent
Urinalysis Reflex To Culture Urgent
Date Specimen was Collected: 05/15/24
Time Specimen was Collected: 19:30
Urine Microscopic Reflex Cult Urgent
05/15/24 20:26
CT Abd/pel Without Iv Or Oral Urgent
Comment:
Reason For Exam: left flank pain
05/15/24 20:27
0.9% Sodium Chloride 1000 ml [Nss] 1,000 ml IV BOLUS
05/15/24 20:38
Morphine Sulfate 4 mg IV NOW STA
05/15/24 20:52
Piperacillin/Tazo 3.375 Gram [Zosyn] 3.375 gram in 50 ml IV NOW
05/15/24 21:13
HYDROmorphone [Dilaudid] 0.5 mg IV NOW STA
05/15/24 21:17
Lactate Level [Lactic Acid] Urgent
Blood Culture Q30M
ROBE Source: Blood/Venous
Specimen Description:
05/15/24 21:22
Blood Culture Q30M
ROBE Source: Blood/Venous
Specimen Description:
05/15/24 22:15
Acyclovir [Zovirax] 1,000 mg PO NOW STA
05/15/24 22:16
Admit/Transfer Patient As Directed
Co-Sign Provider:
Level of Care: Inpatient admission
Assign to:: Telemetry
Physician / Group: lemuel
Diagnosis: sepsis
Reason for Telemetry: Other
Other Reason for Telemetry: tacycardia
Date to Stop Telemetry: 05/17/24
Time to Stop Telemetry: 11:00
Reason for Hospitalization: sepsis
Expected length of stay greater than two midnights?: Yes
ELOS- Estimated Length of Stay in days: 3
I certify the patient meets the requirements for IP care: Yes
PRN Pain Medication Management As Directed
May give lesser potent ordered pain med per pt: Yes
preference::
Protocol:: Medication orders for pain may be administered in a
manner that supports deferring to patient preference
when the pt is:
- Requesting an ordered lesser potent pain medication.
Least to most potent pain medications are defined
as: acetaminophen < NSAID < tramadol < opioids
(morphine, oxycodone, hydromorphone).
- Requesting a lesser dose of the same medication IF
ORDERED.
- Requesting a less intrusive route of administration
if both routes are prescribed by the provider (PO <
IV).
05/15/24 22:17
Code Status As Directed
Resuscitation Status: Full Code
05/15/24 22:21
Consult Notification Routine
Specialty to Notify: Oncology
ONCOLOGY CONSULT Routine
Consulting Provider: Miguelangel Maloney
Was physician already notified: No
Reason for consult: leukpenia
05/15/24 22:29
Valacyclovir HCl [Valtrex] 1,000 mg PO ONCE ONE
05/17/24 11:00
DC Protocol for Telemetry ONCE
Abnormal Lab Results
05/15/24 05/15/24
19:45 21:17
WBC 1.9 L* 10^3/uL
(4.8-10.8)
Hgb 11.7 L g/dL
(12.0-16.0)
Hct 35.1 L %
(37.0-47.0)
MCV 78.2 L fL
(81.0-99.0)
MCH 26.1 L pg
(27.0-31.0)
Abs Neuts (Manual) 0.0 L* 10^3/uL
(1.4-6.5)
Segmented Neutrophils 0 L %
(42-75)
Lymphocytes (Manual) 64 H %
(20-51)
Monocytes (Manual) 36 H %
(2-9)
BUN 22 H mg/dl
(7-17)
Creatinine 1.6 H mg/dL
(0.6-1.0)
Glucose 106 H mg/dl
(70-99)
Lactic Acid < 0.5 L mmol/L
(0.7-2.0)
Ur Occult Blood Reflex 2+ A
(Negative)
Urine RBC 21-25 A /HPF
(0-2)
Urine Bacteria (Reflex) Few A
(Negative)
Urine Albumin (Reflex) 2+ A
(Neg - Trace)
05/15/24 19:45
05/15/24 19:45
Vital Signs
Initial and Last Documented VS:
Initial Vital Signs
Temp Pulse Resp BP Pulse Ox
37.6 C 122 18 148/97 99
05/15/24 19:25 05/15/24 19:25 05/15/24 19:25 05/15/24 19:25 05/15/24 19:25
Last Documented Vital Signs
Temp Pulse Resp BP Pulse Ox
37.6 C 100 16 142/97 98
05/15/24 19:25 05/15/24 22:30 05/15/24 22:30 05/15/24 20:53 05/15/24 22:30
MDM/Problems Addressed
Differential Diagnosis Includes:
UTI, nephrolithiasis, diverticulitis
MDM/Problems Addressed:
23-year-old female presents with fever, fatigue, urinary symptoms, flank pain�similar to prior UTIs. Tachycardic, borderline fever here, normal respiratory rate, normal pulse ox, normotensive. Physical exam as above. Place an IV send labs
including a CBC and a CMP, urinalysis. Check CT abdomen pelvis. Provide fluids and pain control. Reassess after the above.
Labs reviewed: CBC significant for leukopenia and severe neutropenia with ANC 0. CMP shows creatinine of 1.6 which is essentially stable. Added lactic and blood cultures. Urinalysis positive for bacteria, RBCs no significant pyuria but clinical
picture seems most consistent with urine infection. Will treat with Zosyn. Awaiting CT.
CT shows no stone but does show signs concerning for pyelonephritis. Heart rate improving, remains normotensive. Lactate was less than 2. Will admit for continued treatment of pyelonephritis and concern for sepsis. Discussed case with
hospitalist.
*Radiology
Radiology exam reviewed: radiology read reviewed
*Pulse Oximetry
Patient hypoxic: no
*EKG
Interpreted by ED Provider?: Yes
Heart Rate: 121
Rate: tachycardiac
Rhythm: sinus and sinus tachycardia
[place]: normal axis
Interval: normal interval
QRS Pattern: normal QRS
Ischemia: no ischemia
*Critical Care Note
Total Time (30-74mins, 75-104mins- exclusive of procedures): Not Applicable
Data Reviewed
Review of Other/Old Records Reveals: Labs and Records
Source: patient and records
Patient Management
Discussion with other providers: Hospitalist (Discussed with hospitalist)
Escalation/DeEscalation of care consider admission/obs:
Admission indicated
ED Attending Note
-
Portions of this chart may have been created with voice recognition software.� Occasional wrong word or��sound alike� substitutions may have occurred due to the inherent limitations of voice recognition software.
Discharge Plan
Departure
Patient Disposition: Admit
Date of Disposition: 05/15/24
Time of Disposition: 21:41
Admit to doctor: Lemuel
Presentation/result/management discussed w/ accepting MD/DO: Hospitalist
Discharge Problem:
Pyelonephritis, Sepsis
Interventions
Interventions:
*Risk Screen - Suicide Last Done: 05/15/24 19:25
*General Assessment Last Done: 05/15/24 19:25
*Neglect/Abuse Screening Last Done: 05/15/24 19:25
ED- Fall Risk Assessment Last Done: 05/15/24 21:46
*ED COVID-19 Vaccine History Last Done: 05/15/24 20:43
ZM-Vyjkxk-Daffluoqjs Assessment Last Done: 05/15/24 21:46
ED-Female Genitourinary Assessment Last Done: 05/15/24 21:46
--- NOTE | 2024-05-15 21:44 | HPS.HSE ---
Family Physician
-
Family Physician: Juan A Martinez
Chief Complaint
-
urinary frequency
left sided flank pain
History of Present Illness
23-year-old with manage medical history for asthma, type 1 diabetes, hypothyroidism, pyelonephritis, neutropenia, herpes presented to us with left-sided flank pain since last Saturday. Patient stated urinary frequency. Patient had a fever of 103.
Patient also noted to have herpes flare up in her mouth. Patient went to PCP today, her UA was positive for UTI, urine cultures were sent. Patient was started on Levaquin today. Patient also took Valtrex. Patient stated worsening left-sided
flank pain as well as chills which prompted her to come to the ER. Patient stated vomited once and had an episode of diarrhea in the ER. Patient denied any headache, dizziness, syncopal episode. Patient denied any chest pain or short of breath.
Patient was also noted to have leukopenia. She did see Dr. Caballero once. She got iron infusion. Never good to follow-up since then.
Patient received Zosyn for possible pyelonephritis. Admitting for further management
Medical History
Past Medical History
Past Medical History: Reports Other
Additional Past Medical History:
Bipolar
Anxiety
Posttraumatic stress disorder
Hypothyroidism
Type 1 diabetes
Asthma
(UTI
Deficiency anemia
Hyperkalemia
CKD stage II
Pyelonephritis
Past Surgical History: Reports Other
Additional Past Surgical History:
Tonsillectomy
Appendectomy
Social History
Tobacco: Smoker (Marijuana occasionally)
Alcohol: Occasional
Drug: None
Living: With Family
Employment: Employed
Family History
Family History: Not pertinent
Allergies / Home Medications
Allergies reflects when Allergies were last updated in [employer].
Home Medications with original date entered in [employer]
Allergy/Medication List:
Allergies
Allergy/AdvReac Type Severity Reaction Status Date / Time
vancomycin Allergy Mild Itching Verified 02/23/24 19:23
Home Medications
levothyroxine 100 mcg capsule 100 mcg PO DAILY Thyroid #60 caps 03/07/23
levothyroxine 75 mcg tablet (Synthroid) 75 mcg PO DAILY Thyroid #60 tabs 03/07/23
Insulin Pump [Patient's Own Insulin Pump] 0 unit SC .CONTINOUS 03/19/23
Medical Marijuana 0.5 ml PO BIDPRN PRN ANXIETY 03/19/23
acetaminophen 325 mg tablet 650 mg PO Q6HPRN PRN MILD PAIN 03/19/23
fluticasone 250 mcg-salmeterol 50 mcg/dose blistr powdr for inhalation (Wixela Inhub) 1 inh inhalation R DAILYPRN PRN sob 03/19/23
fluticasone propionate 50 mcg/actuation nasal spray,suspension 1 spray intranasal DAILY 03/19/23
levofloxacin 500 mg tablet 500 mg PO DAILY #6 tabs 10/22/23
albuterol sulfate 90 mcg/actuation aerosol inhaler 2 puff inhalation R Q4HPRN PRN sob 05/15/24
ferrous sulfate 325 mg (65 mg iron) tablet (FeroSul) 325 mg PO HS 05/15/24
medroxyprogesterone 150 mg/mL intramuscular syringe 150 mg IM [id number] 05/15/24
therapeutic multivitamin 1 tab PO DAILY 05/15/24
valacyclovir 1 gram tablet 1,000 mg PO BID 05/15/24
Review of Systems
-
Constitutional: Reports Fever and Chills
EENT: Reports No Symptoms
Respiratory: Reports No Symptoms
Cardiac: Reports No Symptoms
Abdomen/GI: Reports No Symptoms
: Reports Frequency and Flank Pain (Left-sided)
Musculoskeletal: Reports No Symptoms
Skin: Reports No Symptoms
Neurological: Reports No Symptoms
Endocrine: Reports No Symptoms
Hematologic/Lymphatic: Reports No Symptoms
Psych: Reports No Symptoms
Physical Exam
Vital Signs
Vital Signs
Temp Pulse Resp BP Pulse Ox
99.6 F 122 18 148/97 99
05/15/24 19:25 05/15/24 19:25 05/15/24 19:25 05/15/24 19:25 05/15/24 19:25
Physical Exam
General: Well Developed, Well Nourished and No Apparent Distress
HEENT: NormoCephalic, Moist mucous membranes and Atraumatic
Respiratory: Clear
Cardiac: S1/S2 and Regular Rhythm; No Murmur or Rub
GI: Soft, Non Tender, Non Distended and Normal Bowel Sounds; No Organomegaly
Rectal: Deferred by Provider
Genito-urinary: Costovertebral angle tend
Musculoskeletal: No Clubbing, No Cyanosis and No Edema
Skin: No Rash
Neuro: AO x 3 and Nonfocal/grossly intact
Psych: Calm
Laboratory Results
-
05/15/24 19:45
05/15/24 19:45
Laboratory Results
Lactic Acid < 0.5 mmol/L (0.7-2.0) L 05/15/24 21:17
Total Bilirubin 0.6 mg/dl (0.2-1.3) 05/15/24 19:45
AST 25 U/L (14-36) 05/15/24 19:45
ALT 16 U/L (0-35) 05/15/24 19:45
Alkaline Phosphatase 67 U/L (38-126) 05/15/24 19:45
Data Reviewed
-
CT Scan: Report Reviewed by me
Lab Data: Labs Reviewed by me
Impression/Plan
-
# sepsis likely related to pyelonephritis
-Sepsis as evident by WBC 1.9,Tachycardia
-CT abdomen pelvis with impression of No CT evidence for hydronephrosis or nephroureterolithiasis. Mild bilateral perinephric fat stranding with a similar appearance compared to the CT abdomen/pelvis from 03/19/2023. Findings are nonspecific but
recommend correlation for signs and symptoms of an ascending urinary tract infection.Moderate volume of colonic stool.
-Blood culture sent from ER
-IV cefepime continued
-Tylenol as needed for fever and pain
#GERBER on CKD 2 negative and dehydration
-Creatinine 1.6
-Continue fluids monitor BMP in a.m.
#Leukopenia
#Neutropenia
-Hematology consulted
#Herpes
-will give a dose of Valtrex
#Iron deficiency anemia
-Ferrous sulfate continued
#Type 1 diabetes, uncontrolled
-Patient uses an insulin pump, management as per diabetes nurse practitioner
#Mild intermittent asthma
Stable.� Continue Wixela and as needed albuterol
#History of substance abuse
Use in the past-sober now
#Hypothyroidism
Continue Synthroid
DVT prophylaxis
-Heparin subcu
Full code
--- NOTE | 2024-05-15 22:05 | W.PN.UPDATE ---
Update Note
Progress Note Update
Patient seen in conjunction with YIFAN. I agree with findings on history and physical and concur with the assessment and plan unless stated otherwise.
This is a 23-year-old female with a past medical history of type 1 diabetes on insulin, GERD, CKD, recurrent UTI and prior pyelonephritis as well as a history of leukopenia who presents to the emergency department with fever and right-sided flank
pain. Patient reports approximately 1 week of right-sided flank pain that radiates across the lower back. She denies abdominal pain but did have an episode of nausea and vomiting while she was in the ED. She also had 1 episode of diarrhea. She
reported that she went to see PMD thinking that she had recurrence of urinary tract infection or pyelonephritis states that his similar presentation was previously. A urinalysis and urine culture was done and she was found to have a microscopic
hematuria. Did think it was that she might also have a urinary tract infection and cultures were sent. Patient was started on levofloxacin. She took a dose of levofloxacin today and she continued to have fevers and chills and worsening flank pain
so she came to the emergency department. She also reports a recent oral herpes flare. This is associated with oral pain and neck and throat tenderness. She was started on Valtrex and she had the first 2 g today.
Patient had a prior leukopenic episode last year and was prescribed Granix. It appears that she never to go any of these injections. She reported that the bone marrow biopsy was done which was nonspecific for any particular condition. She
followed up with hematology and had a iron infusion but otherwise no additional treatments or her investigations.
In the emergency department the patient was febrile 29.6 (patient had a temp of 100.3 Fahrenheit at home, blood pressure was stable at 140/90 with a pulse of 122. White count was 1.9 with absolute neutrophil count of 0, hemoglobin was 11.7 with a
plate count of 241. Chemistries were notable for a creatinine of 1.6 and a BUN of 22. CT of the abdomen and pelvis was nonspecific but showed bilateral perinephric fat stranding that is consistent with ascending urinary tract infection. UA showed
RBCs but no WBCs leukocyte esterase and nitrites and only few bacteria.
1. Flank Pain and Fever - Possible nephritis. No florid pyuria but patient with leukopenia and neutropenia may mask findings. No other findings to explain flank pain and fever. CT scan with possibly prior and similar to prior CT 1 year ago.
- admit to med/surg
- blood cultures and urine cultures sent
- obtain external urine cultures prior to starting outpatient levaquin
- cefepime 2 g IV bid for pyelo
- consider ID consult
2. CKD III with mild GERBER - Mild volume loss on history.
- IV fluid with NS overnight
- avoid nephrotoxins
3. Neutropenia - Noted last year. Today CT scan shows spleen was almost normal size at 13.4 cm, no pathologically enlarged lymph nodes on abd CT this admission. Peripheral blood flow on 03/07/2023 was nondiagnostic. 03/2023 ESR 33, EDD negative,
rheumatoid factor less than 10.S/P Bone Marrow biopsy showing 'mildly hypercellular bone marrow (80% overall cellularity) with maturing trilinear hematopoiesis. Aspirate smears showed maturing trilinear hematopoiesis with no significant
morphological abnormalities and mild elevated ME ratio (4.3). Iron deposits are absent (0/6) in the clot and aspirate smear. Reticulin stain shows mild, patchy increase in reticulin fibers' Iron deficiency and nonspecific findings. Unclear
etiology but possibly associated with infection. Did not get the recommended Granix last year but WBC rebounded.
- hematology consult
4. Oral herpes sore
- complete course of valacyclovir for herpes reactivation
5. Type I DM
- patient own insulin pump
- bedside glucose achs
- diabetes management consult
Rest of plan as per MANAGER FORMS note
DVT PPX - hep sq
Code Status - Full code
[2024-05-15] MEDS: VALTREX 1000 MG PO (22:43)
[2024-05-16] VITALS (9 sets, daily range): BP systolic 120–178; BP diastolic 74–118; BMI 24.5
[2024-05-16] MEDS: DILAUDID 0.5 MG IV ×2 (01:31→05:50)
--- NOTE | 2024-05-16 01:40 | PTCARENOTE ---
Pt received from ED at 0020. Pt pleasant, AAOX3, VSS, and able to ambulate into room with assistance. Pt complains of 8/10 L flank pain. MEDICARE SALES REPRESENTATIVE notified and order for PRN Dilaudid placed by MEDICARE SALES REPRESENTATIVE and pain med administered. Pt also sustaining sinus tachy
(100-110), MEDICARE SALES REPRESENTATIVE made aware. Pt bed in lowest position and call shabazz within reach. Pt educated on importance of call shabazz usage, pt relays understanding and cooperation. Will continue with current plan of care.
[2024-05-16] MEDS: MAXIPIME 2000 MG IV ×2 (05:10→17:20)
[2024-05-16] MEDS: STERILE WATER FOR INJECTION 10 ML IV ×2 (05:10→17:21)
[2024-05-16] MEDS: NSS 1000 IV ×2 (05:22→14:18)
[2024-05-16] MEDS: SYNTHROID 75 MCG PO (05:24)
[2024-05-16] MEDS: SYNTHROID 100 MCG PO (05:46)
[2024-05-16] MEDS: ADVAIR HFA 115/21 MCG INHALER 2 PUFF INH ×2 (07:26→19:22)
[2024-05-16 07:32] LABS: Blood Urea Nitrogen 21 mg/dl (7-17); Calcium 7.8 mg/dl (8.4-10.2); Carbon Dioxide 20 mmol/L (22-30); Chloride 107 mmol/L (98-107); Estimated Creatinine Clearance 47 ml/min; Glucose 114 mg/dl (70-99); Potassium 4.4 mmol/L (3.5-5.1); Sodium 137 mmol/L (135-145); eGFR 49.29
[2024-05-16] MEDS: HEPARIN SC ×2 (08:03→19:47)
[2024-05-16 08:14] LABS: Glucose - Point of Care 116 mg/dl (70-99)
[2024-05-16 08:37] LABS: Hematocrit 28.6 % (37.0-47.0); Hemoglobin 9.7 g/dL (12.0-16.0); Mean Corp Hgb Conc. 33.9 g/dL (33.0-37.0); Mean Corpuscular Hgb 26.7 pg (27.0-31.0); Mean Corpuscular Volume 78.8 fL (81.0-99.0); Mean Platelet Volume 10.7 fL (7.4-10.4); Platelet Count 182 10^3/uL (130-400); Red Blood Cell Count 3.63 10^6/uL (4.20-5.40); Red Cell Dist. Width 13.2 % (11.5-14.5)
[2024-05-16] MEDS: DILAUDID 1 MG IV ×4 (10:22→22:31)
[2024-05-16 11:59] LABS: Glucose - Point of Care 115 mg/dl (70-99)
[2024-05-16] MEDS: GRANIX 300 MCG SC (12:06)
[2024-05-16 14:11] LABS: Band Neutrophils 0 % (0-3); Hypochromasia Slight; Lymphocytes 66 % (20-51); Monocytes 33 % (2-9); Normal RBC Morphology No; Platelets Checked Yes; Polychromasia Slight; Segmented Neutrophils 1 % (42-75); Total Cells Counted 100
[2024-05-16 14:12] LABS: Ovalocytes 1+
--- NOTE | 2024-05-16 14:32 | CON.ONC ---
Impression
Impression
Recurrent neutropenia without evidence of underlying hematopoiesis neoplasm
Plan
Plan
She remains anemic likely due to recurrent iron deficiency for which iron studies ordered to ascertain if repletion indicated. 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
symptomatic infections/hospitalization. G-CSF instituted. Discussed need for consistent follow-up as outpatient in this regard. Will follow-up during hospitalization
Patient History
History of Present Illness
23-year-old white female first evaluated for neutropenia during hospitalization at [facility] March 2023 for pyelonephritits during which time bone marrow biopsy was performed. She had no evidence for secondary causes of neutropenia
related to hypogammaglobulinemia, hepatosplenomegaly or medication associated toxicity. At the time of her assessment in the outpatient setting her bone marrow biopsy revealed no evidence of an underlying myelodysplastic syndrome nor overt
malignancy. She was seen in the office in follow-up and received 1 dose of IV iron and failed subsequent follow-up visits. She has a history of pyelonephritis recurrent with renal lithiasis and is now readmitted to the hospital for similar
complaints 1 year prior. Admission reveals similar CBC results with predominant neutropenia with mild anemia and intact platelet count. She notes progressive right flank pain over the past week with concomitant oral ulcerations. She noted
intermittent fevers at home. There is no family history of blood dyscrasias.
Patient Medication
�Medication �Instructions �Recorded �Confirmed �Last Taken �Type
levothyroxine 100 mcg capsule 100 mcg PO DAILY Thyroid #60 caps 03/07/23 05/15/24 05/15/24 Rx
levothyroxine 75 mcg tablet 75 mcg PO DAILY Thyroid #60 tabs 03/07/23 05/15/24 05/15/24 Rx
(Synthroid)
Insulin Pump [Patient's Own 0 unit SC .CONTINOUS 03/19/23 05/15/24 03/19/23 16:12 History
Insulin Pump]
Medical Marijuana 0.5 ml PO BIDPRN PRN ANXIETY 03/19/23 05/15/24 03/17/23 09:00 History
acetaminophen 325 mg tablet 650 mg PO Q6HPRN PRN MILD PAIN 03/19/23 05/15/24 05/15/24 History
fluticasone 250 mcg-salmeterol 50 1 inh inhalation R DAILYPRN PRN sob 03/19/23 05/15/24 03/18/23 21:00 History
mcg/dose blistr powdr for
inhalation (Wixela Inhub)
fluticasone propionate 50 1 spray intranasal DAILY 03/19/23 05/15/24 05/15/24 History
mcg/actuation nasal
spray,suspension
levofloxacin 500 mg tablet 500 mg PO DAILY #6 tabs 10/22/23 05/15/24 05/15/24 Rx
albuterol sulfate 90 mcg/actuation 2 puff inhalation R Q4HPRN PRN sob 05/15/24 05/15/24 Unknown History
aerosol inhaler
ferrous sulfate 325 mg (65 mg 325 mg PO HS 05/15/24 05/15/24 05/14/24 History
iron) tablet (FeroSul)
medroxyprogesterone 150 mg/mL 150 mg IM [id number] 05/15/24 05/15/24 Unknown History
intramuscular syringe
therapeutic multivitamin 1 tab PO DAILY 05/15/24 05/15/24 05/15/24 History
valacyclovir 1 gram tablet 1,000 mg PO BID 05/15/24 05/15/24 05/15/24 History
Active Medications
Generic Name Dose Route Start Last Admin
Trade Name Freq PRN Reason Stop Dose Admin
Acetaminophen 650 mg 05/16/24 02:21
Acetaminophen 325 Mg Tablet PO 06/13/24 02:20
Q4HPRN PRN
mild pain/SUE/temp> 100.4F
Albuterol 2 puff 05/16/24 02:21
Albuterol Hfa [90 Mcg/Dose] Inhaler INH
R Q4HPRN PRN
sob
Protocol
Bisacodyl 10 mg 05/16/24 02:21
Bisacodyl 10 Mg Rectal Suppository RECTAL 06/13/24 02:20
[id number] PRN
constipation
Cefepime HCl 2,000 mg 05/16/24 06:00 05/16/24 05:10
Cefepime Hcl 2,000 Mg/12.5 Ml Vial IV 2,000 mg
Q12H ANDI Administration
Ferrous Sulfate 325 mg 05/16/24 22:00
Ferrous Sulfate 325 Mg Tablet PO 06/13/24 21:59
HS ANDI
Heparin Sodium 5,000 units 05/16/24 08:00 05/16/24 08:03
Heparin 5,000 Units/Ml 1 Ml Vial SC 06/13/24 07:59 Not Given
Q12 ANDI
Hydromorphone HCl 0.5 mg 05/16/24 02:22 05/16/24 05:50
Hydromorphone 0.5 Mg/0.5 Ml Syringe IV 05/30/24 01:12 0.5 mg
Q4HPRN PRN Administration
moderate pain
Hydromorphone HCl 1 mg 05/16/24 02:22 05/16/24 14:18
Hydromorphone 1 Mg/Ml Carpuject IV 05/30/24 02:21 1 mg
Q4HPRN PRN Administration
severe pain
Sodium Chloride 1,000 mls @ 80 mls/hr 05/16/24 02:21 05/16/24 14:18
Nss IV 1,000 mls
[id number] ANDI Administration
Acyclovir Sodium 300 mg/ 56 mls @ 50 mls/hr 05/16/24 14:00
Sodium Chloride IV 05/26/24 13:59
Q12H ANDI
Levothyroxine Sodium 75 mcg 05/16/24 06:00 05/16/24 05:24
Levothyroxine 75 Mcg Tablet PO 06/13/24 05:59 75 mcg
DAILY@0600 ANDI Administration
Levothyroxine Sodium 100 mcg 05/16/24 06:00 05/16/24 05:46
Levothyroxine 100 Mcg Tablet PO 06/13/24 05:59 100 mcg
DAILY @ 0600 ANDI Administration
Multi-Ingredient Mouthwash/Gargle 10 ml 05/16/24 12:46
Magic (Miracle) Mouthwash 90 Ml Bottle PO
Q6HPRN PRN
Oral Ulcers
Non-Formulary Medication 1 spray 05/16/24 08:00
Fluticasone Propionate NASAL 06/13/24 07:59
DAILY ANDI
Non-Formulary Medication 0 unit 05/16/24 02:21
Insulin Pump [Patient's Own Insulin Pump] SC 06/13/24 02:20
.CONTINOUS ANDI
Polyethylene Glycol 17 grams 05/16/24 02:21
Polyethylene Glycol Powder 17 Grams Packet PO 06/13/24 02:20
DAILYPRN PRN
constipation
Fluticasone/Salmeterol 2 puff 05/16/24 08:00 05/16/24 07:26
Advair Hfa 115/21 Inhaler INH 06/13/24 07:59 2 puff
R BID ANDI Administration
Senna/Docusate Sodium 1 tablet 05/16/24 02:21
Docusate W/Senna (Jennifer-Colace) Tablet PO 06/13/24 02:20
BIDPRN PRN
constipation
Sodium Chloride 0 flush 05/16/24 03:00
Sodium Chloride 0.9% (Flush) Syringe IV 06/13/24 02:59
PER PROTOCOL ANDI
Sterile Water 10 ml 05/16/24 06:00 05/16/24 05:10
Sterile Water For Injection 10 Ml Vial IV 06/13/24 05:59 10 ml
Q12H ANDI Administration
Tbo-Filgrastim 300 mcg 05/16/24 11:24 05/16/24 12:06
Tbo-Filgrastim (Granix) 300 Mcg/0.5 Ml Syringe SC 06/13/24 11:23 300 mcg
DAILY ANDI Administration
Review of Systems
-
History Source: Patient
All Other Systems: Reviewed and Negative
Physical Exam
-
General: Appears in Distress and Pain
HEENT: Other (mucositis)
Cardiology: Normal Sinus Rhythm
Pulmonary: Clear
GI: Soft and Normal Bowel Sounds
Neurology: Non Focal
Labs
Lab Results
WBC 2.0 10^3/uL (4.8-10.8) L* 05/16/24 06:10
RBC 3.63 10^6/uL (4.20-5.40) L 05/16/24 06:10
Hgb 9.7 g/dL (12.0-16.0) L 05/16/24 06:10
Hct 28.6 % (37.0-47.0) L 05/16/24 06:10
MCV 78.8 fL (81.0-99.0) L 05/16/24 06:10
MCH 26.7 pg (27.0-31.0) L 05/16/24 06:10
MCHC 33.9 g/dL (33.0-37.0) 05/16/24 06:10
RDW 13.2 % (11.5-14.5) 05/16/24 06:10
Plt Count 182 10^3/uL (130-400) D 05/16/24 06:10
MPV 10.7 fL (7.4-10.4) H 05/16/24 06:10
Creatinine 1.5 mg/dL (0.6-1.0) H 05/16/24 06:10
Vital Signs
Vital Signs
Temp Pulse Resp BP Pulse Ox
99.8 F 105 18 120/80 99
05/16/24 11:00 05/16/24 11:00 05/16/24 11:00 05/16/24 11:00 05/16/24 11:00
[2024-05-16] MEDS: ZOVIRAX INJECTION 56 MG IV (14:34)
--- NOTE | 2024-05-16 15:56 | W.PN.HOSP.TC ---
Addendum entered and electronically signed by Tami Jones MD 05/16/24 16:46:
I saw and evaluated the patient independently. I reviewed the resident�s note and agree with findings and plan as documented by Dr. Reyes.
GENERAL: well developed, well nourished, female in no apparent distress
HEENT: NC/AT--oral ulcers noted--swollen glands in neck
HEART: regular rate and rhythm, +S1, +S2
LUNGS : clear to auscultation bilaterally
ABDOM: soft, nontender, nondistended, + bowel sounds
EXT: no cyanosis, clubbing, or edema
NEUROLOGIC: grossly intact
sepsis--POA-- with Concern for Pyelonephritis--immunosuppressed pt-- CT scan: mild bilateral perinephric fat stranding, similar appearance to CT from 1 year ago--UA: microscopic hematuria --cont cefepime for now--consult ID--follow cultures
CKD III with mild GERBER --baseline creat 1.2-1.3--avoid nephrotoxins--cont IVF--follow creat
Neutropenia (unclear why)/anemia of chronic disease--has had in past and had BM without significant findings--apprec heme--getting G-CSF-- Per heme: remains anemic likely due to recurrent iron deficiency for which iron studies ordered to ascertain
if repletion indicated. 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
regard--- Continue Ferrous Sulfate
Type 1 IDDM - ACHS Checks- Pt brought own insulin pump- Consult Diabetic MINE MANAGER
Mild Intermittent Asthma - Continue home meds: Wixela/PRN Albuterol
Hypothyroidism- Continue home meds: Synthroid
Oral Herpetic Lesions - Magic Mouth Wash- IV Acyclovir; renal/weight dosing (follow up with pharmacy for confirmation of dose/frequency)
DVT Proph- Heparin
code status -- FULL
Original Note:
Today's Communication/Plan
-
.
Assessment / Plan
Assessment / Plan
1. Concern for Pyelonephritis
- CT scan: mild bilateral perinephric fat stranding, similar appearance to CT from 1 year ago
- UA: microscopic hematuria
- Follow up blood cx/urine cx
- Pt started on Cefepime 2 g IV BID (Day 1)
- Infectious Disease made aware, will see patient in evening.
- Consider sepsis; patient tachycardic at admission with potential source of infection; however leukopenia is likely a chronic issue and it is hard to determine if it is a reaction to this acute event.
2. CKD III with mild GERBER
- CrCl 47; avoid or alter dose of nephrotoxic medications
- IV Fluids
- Daily BMPs
3. Neutropenia
- Prior BMB showing a mildly hypercellular BM; no AML or MDS
- WBC 1.9, 0.0 PMNs, Hb 11.7
- Hematology consulted, appreciate reccs
- Per heme: remains anemic likely due to recurrent iron deficiency for which iron studies ordered to ascertain if repletion indicated. 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
in symptomatic infections/hospitalization. G-CSF instituted. Discussed need for consistent follow-up as outpatient in this regard.
- Follow up manual differential
4. Type 1 IDDM
- ACHS Checks
- Pt brought own insulin pump
- Consult Diabetic MINE MANAGER
5. Mild Intermittent Asthma
- Continue home meds: Wixela/PRN Albuterol
6. Hypothyroidism
- Continue home meds: Synthroid
7. CHUCHO
- Continue Ferrous Sulfate
8. Oral Herpetic Lesions
- Magic Mouth Wash
- IV Acyclovir; renal/weight dosing (follow up with pharmacy for confirmation of dose/frequency)
9. DVT PPx
- Heparin
Anticipated Discharge: 24 - 48 hours
Subjective/Interval History
-
Date of Service: May 16, 2024
This is a 23-year-old female with a past medical history of type 1 IDDM, GERD, CKD, recurrent UTI and prior pyelonephritis as well as a history of leukopenia who presented to the ED yesterday with fever and right sided flank pain x 1 week. Pt noted
that this is similar to prior episodes of pyelonephritis. Pt denies a history of kidney stones despite previous documentation. Pt also c/o of painful oromucosal ulcers similar to previous oral herpes flares. Pt notes that the pain is inside the
bottom lip, right buccal mucosa, and radiates to the neck and throat. Pt does not note an interval improvement since being admitted last night.
Objective Data
-
Labs:
Laboratory Results
05/16/24
06:10
WBC 2.0 L*
Hgb 9.7 L
Hct 28.6 L
Plt Count 182 D
Sodium 137
Potassium 4.4
Chloride 107
Carbon Dioxide 20 L
BUN 21 H
Creatinine 1.5 H
Glucose 114 H
Calcium 7.8 L
Vital Signs:
Vital Signs
Temp Pulse Resp BP Pulse Ox
99.8 F 105 18 120/80 99
05/16/24 11:00 05/16/24 11:00 05/16/24 11:00 05/16/24 11:00 05/16/24 11:00
I&O
05/15/24 05/16/24 05/17/24
06:59 06:59 06:59
Intake Total 720 / 720
Balance 720 / 720
Review of Systems
-
History Source: Patient
Constitutional: Reports Fever (controlled)
EENT: Reports Sore Throat, Mouth Pain and Other (referred neck pain)
Respiratory: Reports No Symptoms
Cardiac: Reports No Symptoms
Abdomen/GI: Reports No Symptoms
Genitourinary: Reports Frequency and Flank Pain
Neuro: Reports No Symptoms
Physical Exam
-
General: Appears in Distress and Pain
HEENT: Normocephalic, Atraumatic and Other (sara-mucosal ulcerations consistent with oral herpes flare)
Respiratory: Clear to Auscultation
Cardiac: Regular Rhythm and S1/S2
GI: Soft and Nontender
Skin: Warm
Neuro: Awake, Alert and Other (Negative Kernig's Sign)
Psych: Calm
Data Reviewed
-
CT Scan: Report Reviewed by me and Discussed with Patient
Labs: Labs Reviewed by me and Discussed with Patient
--- NOTE | 2024-05-16 16:40 | CON.ID ---
Consultation
-
Date/Time Consultation Requested: 05/16/24 13:18
Date/Time Consultation Performed: 05/16/24 16:40
Requesting Provider: Dr Reyes
Performing Provider: Dr Mayo
Reason for Consultation: urinary frequency left sided flank pain
Chief Complaint / Past History
Chief Complaint
urinary frequency
left sided flank pain
History of Present Illness
Ms Romeo is a 23 year old female with history of DM1 historically with poor control (last a1c on file 02/27 was 14) now on insulin pump, cyclic neutropenia syndrome, recurrent herpes oralis/genital herpes, who presented here 05/15 for L sided flank
pain x 5 days, urinary frequency, fever of 103. Also with dysphgia for water and food and a herpes lesion on the lower lip. She saw her pcp same day as arrival, ua was positive, urine culture sent and she was given a dose of levaquin and started
valtrex. She noted worsening L flank pain and chills nad decided to come to the ER. Also vomited once and had liquid stool x1. No chest pain, shortness of breath, dizziness or syncope.
Reports too many episodes of herpes to count this year. Has been considering suppression.
Since arrival here tmax 100.7, bp stable, HR 118, wbc on arrival 1.9 and now 2.0, hgb 11.7, plt 182, ANC 0.0, Cr 1.6 on arrival her baseline is 1.3 and today 1.5, ua no pyuria and few bacteria, 05/15 CT a/p without contrast: no
nephroureterolithiasis, possible uti, beta hcg is negative, she is currently on cefepime and acyclovir.
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
Additional Past Medical History:
Bipolar
Anxiety
Posttraumatic stress disorder
Hypothyroidism
Type 1 diabetes
Asthma
Deficiency anemia
Hyperkalemia
CKD stage II
Additional Past Surgical History:
Tonsillectomy
Appendectomy
Allergy History:
vancomycin Allergy (Verified 05/15/24 22:20)
Itching
Medications Reviewed: Yes
Social History
Tobacco: Smoker
Alcohol: Occasional
Drug: Marijuana
Family History
Family History: Not Pertinent
Review of Systems
Review of Systems
General: Fever and Chills
All systems: All other systems were reviewed and were negative
Vital Signs
Temp Pulse Resp BP Pulse Ox
98.6 F 118 18 145/100 98
05/16/24 15:00 05/16/24 15:00 05/16/24 15:00 05/16/24 15:00 05/16/24 15:00
Physical Exam
Physical Exam
Constitutional: Acutely Ill and Chronically Ill
Pharynx: Other (single ulcer on the inner lower lip)
Cardiovascular: Regular Rate and S1/S2; Negative Murmur or Rub
Pulmonary: Clear and Symmetric; Negative Wheezes, Rales or Rhonchi
Gastrointestinal: Soft, Non Tender, Non Distended and Normal Bowel Sounds
Skin: Warm and Dry; Negative Rash or Jaundice
Neurological: Awake
Lab / Diagnostic Study Results
05/16/24 06:10
05/16/24 06:10
Total Counted 100 05/16/24 06:10
Abs Neuts (Manual) 0.0 10^3/uL (1.4-6.5) L* 05/16/24 06:10
Segmented Neutrophils 1 % (42-75) L 05/16/24 06:10
Band Neutrophils 0 % (0-3) 05/16/24 06:10
Lymphocytes (Manual) 66 % (20-51) H 05/16/24 06:10
Lactic Acid < 0.5 mmol/L (0.7-2.0) L 05/15/24 21:17
Ur Squamous Epith Cells 6-10 /LPF (Few) 05/15/24 19:45
Microbiology Results
Micro:
05/15/24 21:22 Blood Culture - Pending
Blood/Venous
05/15/24 21:17 Blood Culture - Pending
Blood/Venous
Assessment / Plan
Febrile Neutropenia
Cyclic Neutropenia Syndrome
Dm1 - historically uncontrolled
CKD
- blood cultures x2 in progress
- ua without significant pyuria, added on urine culture given symptoms, imaging and neutropenia
- will look for outpatient urine culture done at PCP office as well - not expected until saturday
- agree with cefepime - dosed for renal function
Suspected Herpes Esophagitis
Herpes Oralis
- in the setting of immunosuppression favor the 10 mg/kg q12 hour dose; 5 mg/kg q12 is also used - dose adjusted
- when consistently taking PO with ease will switch back to oral valacyclovir
DM1
- director of social media marketing control essential to neutrophil function, would likely decrease the pace of her episodes of herpes etc; will discuss with her further when clinically improved
Care Review
Plan reviewed with: Other Provider (clinical pharmacy - [facility] - acyclovir)
[2024-05-16 16:55] LABS: Glucose - Point of Care 142 mg/dl (70-99)
[2024-05-16] MEDS: MAGIC OR MIRACLE MOUTHWASH 10 ML PO (19:41)
[2024-05-16] MEDS: HEPARIN 5000 UNITS SC (19:56)
[2024-05-16 21:31] LABS: Glucose - Point of Care 145 mg/dl (70-99)
[2024-05-16] MEDS: FEOSOL 325 MG PO (22:30)
[2024-05-16] MEDS: ZOVIRAX INJECTION 112 MG IV (22:30)
[2024-05-16] MEDS: TYLENOL 650 MG PO (23:40)
[2024-05-17] MEDS: DILAUDID 1 MG IV ×2 (02:31→06:36)
[2024-05-17 03:00] VITALS: BP 125/88
[2024-05-17] MEDS: STERILE WATER FOR INJECTION 10 ML IV ×2 (06:01→18:12)
[2024-05-17] MEDS: MAXIPIME 2000 MG IV ×2 (06:01→18:00)
[2024-05-17 06:30] LABS: Hematocrit 26.2 % (37.0-47.0); Hemoglobin 8.5 g/dL (12.0-16.0); Mean Corp Hgb Conc. 32.4 g/dL (33.0-37.0); Mean Corpuscular Hgb 26.1 pg (27.0-31.0); Mean Corpuscular Volume 80.4 fL (81.0-99.0); Mean Platelet Volume 10.9 fL (7.4-10.4); Platelet Count 154 10^3/uL (130-400); Red Blood Cell Count 3.26 10^6/uL (4.20-5.40); Reticulocyte Count 1.8 % (0.4-2.8); White Blood Cell Count 2.9 10^3/uL (4.8-10.8)
[2024-05-17] MEDS: SYNTHROID 75 MCG PO (06:33)
[2024-05-17] MEDS: SYNTHROID 100 MCG PO (06:33)
[2024-05-17] MEDS: NSS 1000 IV (06:41)
[2024-05-17 06:46] LABS: Blood Urea Nitrogen 18 mg/dl (7-17); Calcium 8.2 mg/dl (8.4-10.2); Carbon Dioxide 18 mmol/L (22-30); Chloride 109 mmol/L (98-107); Estimated Creatinine Clearance 51 ml/min; Glucose 153 mg/dl (70-99); Potassium 4.6 mmol/L (3.5-5.1); Sodium 137 mmol/L (135-145); eGFR 53.54
[2024-05-17 06:50] LABS: Iron < 20 ug/dl (37-170)
[2024-05-17 06:56] LABS: Total Iron Binding Capacity 168 ug/dl (265-497)
[2024-05-17 07:00] VITALS: BP 155/113
[2024-05-17] MEDS: ADVAIR HFA 115/21 MCG INHALER 2 PUFF INH ×2 (07:36→19:28)
[2024-05-17 07:51] LABS: Folate 17.3 ng/ml (2.76-20); Vitamin B12 745 pg/ml (239-931)
[2024-05-17 07:57] LABS: Glucose - Point of Care 176 mg/dl (70-99)
[2024-05-17 09:00] LABS: Band Neutrophils 16 % (0-3); Lymphocytes 42 % (20-51); Monocytes 38 % (2-9); Segmented Neutrophils 3 % (42-75)
[2024-05-17 09:01] LABS: Atypical Lymphocytes 1 %
[2024-05-17 09:02] LABS: Anisocytosis 1+; Hypochromasia 1+; Normal RBC Morphology No; Ovalocytes 1+; Platelets Checked Yes; Polychromasia 1+; Total Cells Counted 100
[2024-05-17 09:03] LABS: Absolute Neutrophils -Man Diff 0.5 10^3/uL (1.4-6.5)
[2024-05-17 09:25] LABS: Glycohemoglobin (HgbA1c) 9.6 % (4.0-5.6)
[2024-05-17] MEDS: ZOVIRAX INJECTION 112 MG IV ×2 (10:06→18:12)
[2024-05-17] MEDS: GRANIX 300 MCG SC (10:06)
[2024-05-17] MEDS: MAGIC OR MIRACLE MOUTHWASH 10 ML PO ×2 (10:11→22:28)
[2024-05-17] MEDS: TYLENOL 650 MG PO (10:19)
[2024-05-17] MEDS: HEPARIN 5000 UNITS SC ×2 (10:21→22:06)
[2024-05-17 11:00] VITALS: BP 132/86
--- NOTE | 2024-05-17 12:11 | W.PN.ID1 ---
Addendum entered and electronically signed by Amy Mayo MD 05/17/24 14:07:
small furuncle on the L postierior sclap - tender
in the setting of neutropenia treat for s aureus
warm compresses - if draining then would get culture
start vancomycin for now, offered doxycycline however she reports rash with that, avoid bactrim (renal function), linezolid (bm suppression)
vanc will be run slowly given h/o red man syndrome
Original Note:
Date of Service
Date of Service: May 17, 2024
Today's Communication
c/w cefepime
increased acyclovir dose for improved renal function
Assessment / Plan
Febrile Neutropenia
Cyclic Neutropenia Syndrome
Dm1 - historically uncontrolled
CKD
- blood cultures x2 in progress no growth to date
- ua without significant pyuria, added on urine culture given symptoms, imaging and neutropenia - may be falsely negative with recent levaquin (which would imply levaquin was effective)
- will look for outpatient urine culture done at PCP office as well - not expected until saturday
- agree with cefepime - dosed for renal function
Suspected Herpes Esophagitis
Herpes Oralis
GERBER on CKD
- in the setting of immunosuppression favor the 10 mg/kg dosing - increased to q8 hours given improved renal function today
- when consistently taking PO with ease will switch back to oral valacyclovir
DM1
- senior living control an essential adjunct treatment to improve her limited neutrophil function, would likely decrease the pace of her episodes of herpes etc; discussed with patient who reports she has become motivated in about the last month to
really start taking care of her DM1 both for her sake and her sons. I shared that we do see improvement with her A1c already compared to historically.
- with pump a1c now 9.6
Chief Complaint
-: Fever and Other (Neutropenia, presumed HSV esophagitis)
Subjective / Review of Systems
afebrile x24 hours
bp stable
neutrophil count improving
able to drink a few sips of tea, took a few pills with difficult this am - an improvement though not yet normal
Vital Signs / Physical Exam
Vital Signs
Vital Signs
Temp Pulse Resp BP Pulse Ox
98.2 F 94 16 155/113 99
05/17/24 07:00 05/17/24 07:46 05/17/24 07:46 05/17/24 07:00 05/17/24 07:46
Physical Exam
Constitutional: Acutely Ill and Non-toxic
Head: Other (herpetic lesion on the lip)
Cardiovascular: Regular Rate and S1/S2; Negative Murmur or Rub
Pulmonary: Clear and Symmetric; Negative Wheezes or Rales
Gastrointestinal: Soft, Non Tender, Non Distended and Normal Bowel Sounds
Genito-Urinary: CVA Tenderness
Skin: Warm and Dry; Negative Rash or Jaundice
Objective Data
Lab Data
Lab Results
05/17/24 05:48
05/17/24 05:48
Estimated Creat Clear 51 ml/min 05/17/24 05:48
Lactic Acid < 0.5 mmol/L (0.7-2.0) L 05/15/24 21:17
Total Bilirubin 0.6 mg/dl (0.2-1.3) 05/15/24 19:45
AST 25 U/L (14-36) 05/15/24 19:45
ALT 16 U/L (0-35) 05/15/24 19:45
Alkaline Phosphatase 67 U/L (38-126) 05/15/24 19:45
Most recent labs reviewed.
Micro Results:
05/15/24 19:45 Urine Culture - Pending
Urine
05/15/24 21:22 Blood Culture - Preliminary
Blood/Venous No Growth in 24 hours- Final report to follow
05/15/24 21:17 Blood Culture - Preliminary
Blood/Venous No Growth in 24 hours- Final report to follow
[2024-05-17] MEDS: DILAUDID 0.5 MG IV ×2 (12:15→22:27)
[2024-05-17 12:28] LABS: Glucose - Point of Care 193 mg/dl (70-99)
--- NOTE | 2024-05-17 13:15 | W.PN.HOSP.TC ---
Addendum entered and electronically signed by Tami Jones MD 05/17/24 14:09:
I saw and evaluated the patient independently. I reviewed the resident�s note and agree with findings and plan as documented by Dr. Reyes.
GENERAL: well developed, well nourished, female in no apparent distress
HEENT: NC/AT--oral ulcers noted--swollen glands in neck
HEART: regular rate and rhythm, +S1, +S2
LUNGS : clear to auscultation bilaterally
ABDOM: soft, nontender, nondistended, + bowel sounds
EXT: no cyanosis, clubbing, or edema
NEUROLOGIC: grossly intact
sepsis--POA-- with Concern for Pyelonephritis as cause--immunosuppressed pt-- CT scan: mild bilateral perinephric fat stranding, similar appearance to CT from 1 year ago--UA: microscopic hematuria --cont cefepime for now--apprec ID-- cultures
negative so far
CKD III with mild GERBER --baseline creat 1.2-1.3--avoid nephrotoxins--cont IVF--follow creat
Neutropenia (unclear why)/anemia of chronic disease--has had in past and had BM without significant findings--apprec heme--getting G-CSF-- Per heme: remains anemic likely due to recurrent iron deficiency for which iron studies ordered-- She likely
has an underlying cyclic neutropenia syndrome for which inconsistent occurrence of infection results in symptomatic infections/hospitalization--Discussed need for consistent follow-up as outpatient in this regard--- Continue Ferrous Sulfate
Type 1 IDDM - ACHS Checks- Pt brought own insulin pump- Consult Diabetic BUSINESS PLANNING MANAGER
Mild Intermittent Asthma - Continue home meds: Wixela/PRN Albuterol
Hypothyroidism- Continue home meds: Synthroid
Oral Herpetic Lesions - Magic Mouth Wash- IV Acyclovir; renal/weight dosing (follow up with pharmacy for confirmation of dose/frequency)--apprec ID
DVT Proph- Heparin
code status -- FULL
Original Note:
Today's Communication/Plan
-
.
Assessment / Plan
Assessment / Plan
1. Concern for Pyelonephritis
- CT scan: mild bilateral perinephric fat stranding, similar appearance to CT from 1 year ago
- UA: microscopic hematuria
- Follow up blood cx/urine cx; blood cx x 2 no growth so far, urine pending.
- Pt started on Cefepime 2 g IV BID (Day 2)
- Infectious Disease made aware, will see patient in evening.
- Sepsis present on admission.
2. CKD III with mild GERBER
- CrCl 47; avoid or alter dose of nephrotoxic medications
- IV Fluids
- Daily BMPs
3. Neutropenia
- Prior BMB showing a mildly hypercellular BM; no AML or MDS
- WBC 1.9, 0.0 PMNs, Hb 11.7
- Hematology consulted, appreciate reccs
- Per heme: remains anemic likely due to recurrent iron deficiency for which iron studies ordered to ascertain if repletion indicated. 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
in symptomatic infections/hospitalization. G-CSF instituted. Discussed need for consistent follow-up as outpatient in this regard.
- CBC w/ Diff
4. Type 1 IDDM
- ACHS Checks
- Pt brought own insulin pump
- Consult Diabetic BUSINESS PLANNING MANAGER
5. Mild Intermittent Asthma
- Continue home meds: Wixela/PRN Albuterol
6. Hypothyroidism
- Continue home meds: Synthroid
7. CHUCHO
- Continue Ferrous Sulfate
- Iron studies show ACD picture.
8. Oral Herpetic Lesions
- Magic Mouth Wash PRN; improvement per patient
- IV Acyclovir; renal/weight dosing (follow up with pharmacy for confirmation of dose/frequency)
- Dosing increased by ID; improving renal function.
- Plan to convert to oral valcyclovir as tolerated tomorrow.
9. DVT PPx
- Heparin
10. Hx IVDA
- Dilaudid PRN frequency decreased to q6h severe pain
- Added Toradol for moderate pain
Anticipated Discharge: 24 - 48 hours
Subjective/Interval History
-
Date of Service: May 17, 2024
Patient states that there has not been much improvement in oral pain, neck pain and left sided back pain. States magic mouth wash helps for 30 minutes but then relief wanes. Pt was able to take sips of liquids this morning which is an improvement.
Pt denies feeling febrile, CP, SOB, abdominal complaints.
Objective Data
-
Labs:
Laboratory Results
05/17/24
05:48
WBC 2.9 L
Hgb 8.5 L
Hct 26.2 L
Plt Count 154
Sodium 137
Potassium 4.6
Chloride 109 H
Carbon Dioxide 18 L
BUN 18 H
Creatinine 1.4 H
Glucose 153 H
Calcium 8.2 L
Vital Signs:
Vital Signs
Temp Pulse Resp BP Pulse Ox
97.9 F 100 18 132/86 100
05/17/24 11:00 05/17/24 11:00 05/17/24 11:00 05/17/24 11:00 05/17/24 11:00
I&O
05/16/24 05/17/24 05/18/24
06:59 06:59 06:59
Intake Total 720 / 720 1919
Balance 720 / 720 1919
Review of Systems
-
History Source: Patient
EENT: Reports Sore Throat and Other (oral pain, neck pain)
Respiratory: Reports No Symptoms
Cardiac: Reports No Symptoms
Abdomen/GI: Reports No Symptoms
Genitourinary: Reports Frequency and Other (flank pain)
Skin: Reports No Symptoms
Neuro: Reports No Symptoms
Physical Exam
-
General: Well Developed and Other (appears uncomfortable and ill, but sitting up and talking, improved from yesterday. )
HEENT: Normocephalic, Atraumatic and Other (oral mucosal ulcerations; stiff neck musculature; Kernig's negative. Windows wide open in room without photophobia. )
Respiratory: Clear to Auscultation
Cardiac: Regular Rhythm and S1/S2
GI: Soft and Nontender
Genito-urinary: Deferred by me
Skin: Warm and Dry
Neuro: Awake, Alert, AO x 3 and Nonfocal/Grossly Intact
Psych: Calm
Data Reviewed
-
Labs: Labs Reviewed by me and Discussed with Patient
[2024-05-17] MEDS: NON-FORMULARY ITEM 3.4 UNIT SC (13:16)
--- NOTE | 2024-05-17 14:26 | PHA.VAN.IN ---
Assessment
- Assessment
Renal Function: Appears elevated from baseline
Maximum Temperature: 98.8
Minimum Temperature: 97.9
Concomitant Antimicrobials: Cefepime, Acyclovir
Historical Micro: History of MRSA infection (10/2023)
Plan
- Plan
Initial / Loading Dose: Vanc 1500mg--24mg/kg--administration pending
Maintenance Regimen: Dose by level
Monitoring: Random 05/18
Pharmacokinetics Vancomycin I
- -
Patient Age: 23
Patient Sex: Female
Vancomycin Day #: 1
Indication: Skin And Soft Tissue
Requesting Provider: Maria Esther
Pertinent Antimicrobial Allergies:
Doxycycline = rash. Vanco = itching and history of Jordy Syndrome. Infuse slowly.
Height / Weight:
Height 5 ft 3 in
Actual Weight 62.823 kg
IBW in k.4
Adjusted BW in k.6
Pertinent Past Medical History: GERBER on CKD2; Baseline SCr 1.2-1.3; On Levaquin outpt; h/o Jordy Syndrome
- Vital Signs / Lab Results
Temp Pulse Resp BP Pulse Ox
97.9 F 100 18 132/86 100
05/17/24 11:00 05/17/24 11:00 05/17/24 11:00 05/17/24 11:00 05/17/24 11:00
Lab Results - Hematology
05/15/24 05/16/24 05/17/24
19:45 06:10 05:48
WBC 1.9 L* 2.0 L* 2.9 L
Band Neutrophils 0 0 16 H D
Lab Results - Chemistry
05/15/24 05/16/24 05/17/24
19:45 06:10 05:48
BUN 22 H 21 H 18 H
Creatinine 1.6 H 1.5 H 1.4 H
Estimated Creat Clear 47 51
Albumin 4.0
05/15/24
21:17
Lactic Acid < 0.5 L
Lab Results - Urine
05/15/24
19:45
Urine Nitrite (Reflex) Negative
Leukocyte Esterase Rfl Negative
Urine WBC (Reflex) 0-2
Ur Squamous Epith Cells 6-10
Urine Bacteria (Reflex) Few A
Microbiology Results
05/15/24 21:22 Blood Culture - Preliminary
Blood/Venous No Growth in 24 hours- Final report to follow
05/15/24 21:17 Blood Culture - Preliminary
Blood/Venous No Growth in 24 hours- Final report to follow
--- NOTE | 2024-05-17 14:35 | CM ---
CM met with pt bedside
Pt resides with her mother, brother, and 2 y/o son in a 2nd floor apartment
No elevator, 13 steps up
Pt is independent with her ADLs
Pt has an insulin pump and dexcom
She receives her DM supplies through [facility]
PCP- Juan A Martinez
Rx- [facility]
Mother/Sadnra is primary contact
Admissions notified
Discharge Disposition- home, no needs anticipated
[2024-05-17] MEDS: VANCOCIN 530 MG IV (14:54)
[2024-05-17 15:00] VITALS: BP 160/111
[2024-05-17 16:34] LABS: Glucose - Point of Care 148 mg/dl (70-99)
[2024-05-17] MEDS: TORADOL 15 MG IV (16:36)
[2024-05-17] MEDS: BENADRYL 50 MG IV (17:58)
--- NOTE | 2024-05-17 19:31 | PTCARENOTE ---
Vancomycin was started/infectious disease. Pt became itchy and felt hot in reaction to the ABx. Reached out to ID and got an order for Benadryl. Vanco was paused. The benadryl was given. Orders were due for IV maxipime and Acyclovir so those were
given as a way to give the pt a break from the vanco. Once joanna acyclovir was done, the vanco was restarted at a slightly slower rate that original order. (150ml/hour was the new rate)
[2024-05-17 19:51] VITALS: BP 130/78
[2024-05-17] MEDS: FEOSOL 325 MG PO (22:08)
[2024-05-17 22:34] LABS: Glucose - Point of Care 162 mg/dl (70-99)
[2024-05-17 23:40] VITALS: BP 131/82
[2024-05-18] MEDS: NSS 1000 IV (00:47)
[2024-05-18] MEDS: NSS IV ×2 (00:47→10:00)
[2024-05-18] MEDS: ZOVIRAX INJECTION 112 MG IV ×2 (01:06→10:00)
[2024-05-18 03:20] VITALS: BP 125/82
[2024-05-18] MEDS: TORADOL 15 MG IV (03:37)
[2024-05-18] MEDS: MAGIC OR MIRACLE MOUTHWASH 10 ML PO ×2 (04:34→09:16)
[2024-05-18] MEDS: SYNTHROID 100 MCG PO (06:30)
[2024-05-18] MEDS: SYNTHROID 75 MCG PO (06:30)
[2024-05-18] MEDS: MAXIPIME 2000 MG IV ×2 (06:31→17:06)
[2024-05-18] MEDS: STERILE WATER FOR INJECTION 10 ML IV ×2 (06:31→17:06)
[2024-05-18 07:00] VITALS: BP 150/93
[2024-05-18] MEDS: ADVAIR HFA 115/21 MCG INHALER INH ×2 (07:21→19:47)
[2024-05-18 08:39] LABS: Hematocrit 26.5 % (37.0-47.0); Hemoglobin 8.9 g/dL (12.0-16.0); Mean Corp Hgb Conc. 33.6 g/dL (33.0-37.0); Mean Corpuscular Hgb 26.5 pg (27.0-31.0); Mean Corpuscular Volume 78.9 fL (81.0-99.0); Mean Platelet Volume 10.6 fL (7.4-10.4); Platelet Count 184 10^3/uL (130-400); Red Blood Cell Count 3.36 10^6/uL (4.20-5.40); Red Cell Dist. Width 13.2 % (11.5-14.5); White Blood Cell Count 9.3 10^3/uL (4.8-10.8)
[2024-05-18 08:51] LABS: Glucose - Point of Care 126 mg/dl (70-99)
[2024-05-18] MEDS: DILAUDID 0.5 MG IV ×2 (09:15→15:39)
[2024-05-18] MEDS: HEPARIN 5000 UNITS SC ×2 (09:16→21:16)
[2024-05-18] MEDS: GRANIX 300 MCG SC (09:24)
[2024-05-18 09:30] LABS: Blood Urea Nitrogen 17 mg/dl (7-17); Calcium 8.6 mg/dl (8.4-10.2); Carbon Dioxide 14 mmol/L (22-30); Chloride 114 mmol/L (98-107); Estimated Creatinine Clearance 51 ml/min; Glucose 122 mg/dl (70-99); Potassium 4.7 mmol/L (3.5-5.1); Sodium 140 mmol/L (135-145); eGFR 53.54
--- NOTE | 2024-05-18 10:11 | PN.DE.MGMTRT ---
Insulin Management
- -
05/18/2024: Consulted for insulin pump management
23 year old female well known to Diabetes team from previous hospital admission, where she was treated for Sepsis, Pyelonephritis, Leukopenia and Neutropenia.
She presented to the ED on 05/15/24 c/o Left Flank pain and urinary frequency due to pyelonephritis,
PMH: Recurrent Pyelonephritis, hypothyroidism neutropenia, herpes and T1DM managed on an insulin pump-Omnipod with CGM- Dexcom G6.
Pt was using Tandem T-Slim and transitioned to Ominpod towards the end of last year. Routinely sees Endo and thyroid associates- Dr. Rodas, was last seen back in September. Current A1C is 9.6%, improved from 14.1% in 02/2023. Cr 1.4, eGFR 53.54
Pt awake, alert, sitting up in bed, able to eat lunch, offers no complaints, able to discuss diabetes management.
States her blood sugars have significantly improved since transitioning to Omnipod. Report her pump is currently in Automated mode and glucose has overall been well controlled.
States she recently adjusted her insulin pump settings due to nocturnal hypoglycemia because she was afraid of experiencing further episodes of hypoglycemia.
current insulin settings are
Basal rate
6am- 6pm 1.75 units
6pm - 12am 1.0
12am - 6am 0.85
ICR 12am -12am 1:10
ISF 1:40
Target 130
24 hour basal total 32.1 units.
Will check 3am blood sugar
Pt is independent with insulin pump use and states hse id familiar with the bedside worksheet and has been using it to document her insulin adm.
Will cont to follow
Diabetes History
- -
Type of Diabetes: 1
Pre-Admission Diabetes Regimen
05/18/24
08:21
Creatinine 1.4 H
Lab Results
Hemoglobin A1c 9.6 % (4.0-5.6) H 05/17/24 05:48
Insulin Pump Settings
IP Diabetes Regimen
05/17/24 05/17/24 05/17/24
12:21 16:33 22:25
Glucose
POC Glucose 193 H 148 H 162 H
05/18/24 05/18/24
08:21 08:48
Glucose 122 H
POC Glucose 126 H
Meal type: Dinner
Meal type: Lunch
Amount consumed: 75%
Amount consumed: 40%
Patient Education
--- NOTE | 2024-05-18 10:19 | PHA.VAN.FU ---
Vancomycin Assessment / Plan
- Assessment
Renal Function: Stable (~1.4)
WBC's are: WNL
Neutropenia: ANC ~500
In the past 24 hrs, patient has been: Afebrile
Concomitant Antimicrobials: acyclovir; cefepime
- Assessment - Therapeutic Drug Monitoring
Random Level: 16 ~18 hrs post 1500 mg dose ( infused at slower rate )
- Dosing Plan
Continue: dose by random level for now
Dosing by Level: Re-dose today (1000 mg X 1 at 1200 today)
PK predicts dose of 1000 mg q24 will yield AUC 505, Peak 34; trough 11.8; T 1/2 = 15.1 using wt 63 kg; est CrCL = 50 ml/min; Vd 0.7
- Monitoring Plan
Random Level: 05/19/24 0600
- Follow Up
Pharmacy will continue to follow.
Vancomycin Follow UP
- -
Patient Age: 23
Patient Sex: Female
Vancomycin Day #: 2
Indication: Skin And Soft Tissue
Requesting Provider: Maria Esther
Pertinent Antimicrobial Allergies:
Doxycycline = rash. Vanco = itching and history of Jordy Syndrome. Infuse slowly.
Height / Weight:
Height 5 ft 3 in
Actual Weight 62.823 kg
IBW in k.4
Adjusted BW in k.6
Pertinent Past Medical History: GERBER on CKD2; Baseline SCr 1.2-1.3; On Levaquin outpt; h/o Jordy Syndrome
- Vital Signs / Lab Results
Temp Pulse Resp BP Pulse Ox
98.1 F 103 16 150/93 97
05/18/24 07:00 05/18/24 07:00 05/18/24 07:00 05/18/24 07:00 05/18/24 07:00
Lab Results - Hematology
05/15/24 05/16/24 05/17/24
19:45 06:10 05:48
WBC 1.9 L* 2.0 L* 2.9 L
Band Neutrophils 0 0 16 H D
05/18/24
08:21
WBC 9.3
Band Neutrophils
Lab Results - Chemistry
05/15/24 05/16/24 05/17/24
19:45 06:10 05:48
BUN 22 H 21 H 18 H
Creatinine 1.6 H 1.5 H 1.4 H
Estimated Creat Clear 47 51
Albumin 4.0
05/18/24
08:21
BUN 17
Creatinine 1.4 H
Estimated Creat Clear 51
Albumin
05/15/24
21:17
Lactic Acid < 0.5 L
Microbiology Results
05/15/24 21:22 Blood Culture - Preliminary
Blood/Venous No Growth in 48 hours- Final report to follow
05/15/24 21:17 Blood Culture - Preliminary
Blood/Venous No Growth in 48 hours- Final report to follow
Therapeutic Drug Monitoring
Random Vancomycin 16.0 ug/ml 05/18/24 08:21
[2024-05-18 11:00] VITALS: BP 132/86
--- NOTE | 2024-05-18 11:12 | CM ---
Chart reviewed and transplant case manager spoke with patient and plan is to home when stable.
Plan; Home at discharge.
--- NOTE | 2024-05-18 12:08 | W.PN.ONC ---
Today's Communication / Plan
-
Her white count is up to 9000, differential is pending, but I would have to presume most of them are neutrophils. Continue antibiotics. Unclear why the urine culture is still pending after 3 days. Urinary infections are an unusual manifestation
of neutropenic problems.
Upon discharge, she should be followed up in our office. I would anticipate checking blood counts on her every Saturday and to get some sense of potential underlying rhythm.
Impression
Impression
Recurrent neutropenia without evidence of underlying hematopoiesis neoplasm
Plan
Plan
She remains anemic likely due to recurrent iron deficiency for which iron studies ordered to ascertain if repletion indicated. 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
symptomatic infections/hospitalization. G-CSF instituted. Discussed need for consistent follow-up as outpatient in this regard. Will follow-up during hospitalization
Subjective/Objective
Subjective/Objective
She is feeling a little better. Her pain is improved. Physical examination is unchanged.
Vital Signs:
Vital Signs
Temp Pulse Resp BP Pulse Ox
98.1 F 103 16 150/93 97
05/18/24 07:00 05/18/24 07:00 05/18/24 07:00 05/18/24 07:00 05/18/24 07:00
Lab Results:
Laboratory Data
WBC 9.3 10^3/uL (4.8-10.8) 05/18/24 08:21
Hgb 8.9 g/dL (12.0-16.0) L 05/18/24 08:21
Plt Count 184 10^3/uL (130-400) 05/18/24 08:21
eGFR 53.54 05/18/24 08:21
Orders
Orders
Orders From Last 24 Hours
05/18/24 11:56
Manual Differential Urgent
05/19/24 06:00
Manual Differential IN AM
[2024-05-18] MEDS: VANCOCIN 200 IV (12:26)
[2024-05-18] MEDS: BENADRYL 50 MG IV (12:38)
[2024-05-18] MEDS: TYLENOL 650 MG PO (12:38)
[2024-05-18 12:57] LABS: Glucose - Point of Care 139 mg/dl (70-99)
--- NOTE | 2024-05-18 13:15 | W.PN.UPDATE ---
Addendum entered and electronically signed by Chaparro Frazier MD 05/18/24 14:37:
Correction, metabolic acidosis is NON-AG.
Original Note:
Update Note
Progress Note Update
I saw and evaluated the patient. I reviewed the resident�s note and agree with findings and plan as documented in the resident�s note.
No new complaints.
Gen: NAD, AAOx3.
Eyes: EOMI, PERRLA, no scleral icterus.
Neck: supple.
CV: RRR, +S1/S2, no m/r/g.
Resp: CTAB, no rales, wheezes, or rhonchi.
Skin: No rashes.
Neuro: CN 2-12 intact, non-focal.
Psych: Normal mood and affect.
Sepsis, POA, due to acute pyelonephritis and oral (and suspected esophageal) HSV
-febrile neutropenia in the setting of cyclic neutropenia syndrome without underlying evidence of hematological malignancy
-cont Acyclovir/Cefepime
-furuncle on forehead, Vanco started. Warm compresses, Cx if able.
GERBER on CKD3a:
-cont IVFs but change to IVFs with bicarb as pt now with AG met acidosis. Not with BG 122 this is very unlikely DKA. Check beta hydroxybutyric acid. Lactic acid normal.
Other problems:
DM1: cont insulin pump. a1c 9.6%, c/s family life educator.
Mild intermittent asthma
Hypothyroidism: cont Levoxyl
FULL/Heparin
Total time spent on today's encounter was 50 minutes which included time spent in counseling the patient/family regarding diagnosis and treatment plan as listed above, goals of care, and symptom management. Case was discussed with nursing staff,
specialists, and care coordinators/case management. All labs and imaging personally reviewed by me. Remainder the time spent in detailed review of previous records, lab data, imaging, and other medical provider documentation.
[2024-05-18 13:23] LABS: Hematocrit 30.4 % (37.0-47.0); Hemoglobin 9.8 g/dL (12.0-16.0); Mean Corp Hgb Conc. 32.2 g/dL (33.0-37.0); Mean Corpuscular Hgb 26.1 pg (27.0-31.0); Mean Corpuscular Volume 81.1 fL (81.0-99.0); Mean Platelet Volume 10.2 fL (7.4-10.4); Platelet Count 195 10^3/uL (130-400); Red Blood Cell Count 3.75 10^6/uL (4.20-5.40); Red Cell Dist. Width 13.3 % (11.5-14.5); White Blood Cell Count 10.8 10^3/uL (4.8-10.8)
[2024-05-18 13:24] LABS: Absolute Neutrophils -Man Diff 7.6 10^3/uL (1.4-6.5); Band Neutrophils 23 % (0-3); Lymphocytes 14 % (20-51); Metamyelocytes 1 % (-); Monocytes 14 % (2-9); Segmented Neutrophils 48 % (42-75)
[2024-05-18 13:25] LABS: Anisocytosis 1+; Hypochromasia 1+; Normal RBC Morphology No; Ovalocytes FEW; Platelets Checked Yes; Polychromasia 1+; Total Cells Counted 100
[2024-05-18 14:07] LABS: Lactic Acid 0.6 mmol/L (0.7-2.0)
[2024-05-18] MEDS: SODIUM BICARBONATE 1150 MEQ IV (14:46)
[2024-05-18 14:51] LABS: B-Hydroxybutyrate 1.16 mmol/L (0.02-0.27)
[2024-05-18 15:00] VITALS: BP 135/95
--- NOTE | 2024-05-18 15:12 | W.PN.HOSP.TC ---
Today's Communication/Plan
-
.
Assessment / Plan
Assessment / Plan
1. Concern for Pyelonephritis
- CT scan: mild bilateral perinephric fat stranding, similar appearance to CT from 1 year ago
- UA: microscopic hematuria
- blood cx x 2 no growth so far, urine pending.
- Pt started on Cefepime 2 g IV BID (Day 3)
- Appreciate Infectious Disease
- Sepsis present on admission.
2. CKD III with mild GERBER
- CrCl 47; avoid or alter dose of nephrotoxic medications
- IV Fluids
- Daily BMPs
3. Neutropenia
- Prior BMB showing a mildly hypercellular BM; no AML or MDS
- WBC 10.8, 7.6 PMNs, Hb 9.8
- Hematology consulted, appreciate reccs
- Per heme: remains anemic likely due to recurrent iron deficiency for which iron studies ordered to ascertain if repletion indicated. 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
in symptomatic infections/hospitalization. G-CSF instituted. Discussed need for consistent follow-up as outpatient in this regard.
- CBC w/ Diff; Manual Diff in AM
4. Type 1 IDDM
- ACHS Checks
- Pt brought own insulin pump
- Consult Diabetic SILVER CLEANER
5. Mild Intermittent Asthma
- Continue home meds: Wixela/PRN Albuterol
6. Hypothyroidism
- Continue home meds: Synthroid
7. CHUCHO
- Continue Ferrous Sulfate
- Iron studies show ACD picture.
8. Oral Herpetic Lesions
- Magic Mouth Wash PRN; improvement per patient
- IV Acyclovir; renal/weight dosing (follow up with pharmacy for confirmation of dose/frequency)
- Dosing increased by ID; improving renal function.
- Plan to convert to oral valcyclovir as tolerated.
9. DVT PPx
- Heparin
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
- Dilaudid PRN frequency decreased to q6h severe pain
- Added Toradol for moderate pain
11. Non-AG Metabolic Acidosis
- Changed IVF to w/ HCO3
Anticipated Discharge: 24 - 48 hours
Subjective/Interval History
-
Date of Service: May 18, 2024
Patient feeling a little better compared to yesterday. No new complaints.
Objective Data
-
Labs:
Laboratory Results
05/18/24 05/18/24
08:21 11:56
WBC 9.3 10.8
Hgb 8.9 L 9.8 L
Hct 26.5 L 30.4 L
Plt Count 184 195
Sodium 140
Potassium 4.7
Chloride 114 H
Carbon Dioxide 14 L*
BUN 17
Creatinine 1.4 H
Glucose 122 H
Calcium 8.6
Vital Signs:
Vital Signs
Temp Pulse Resp BP Pulse Ox
97.8 F 94 18 132/86 97
05/18/24 11:00 05/18/24 11:00 05/18/24 11:00 05/18/24 11:00 05/18/24 13:12
I&O
05/17/24 05/18/24 05/19/24
06:59 06:59 06:59
Intake Total 1919 / 2621
Balance 1919 / 2621
Review of Systems
-
History Source: Patient
Constitutional: Reports No Symptoms
EENT: Reports Other (oral pain, reffered neck pain)
Respiratory: Reports No Symptoms
Cardiac: Reports No Symptoms
Genitourinary: Reports Flank Pain
Neuro: Reports No Symptoms
Physical Exam
-
General: Comfortable
HEENT: Normocephalic, Atraumatic and Other (oral mucosal ulcerations)
Respiratory: Clear to Auscultation
Cardiac: Regular Rhythm and S1/S2
GI: Soft and Nontender
Genito-urinary: Deferred by me
Skin: Warm
Neuro: Awake and Alert
Psych: Calm
[2024-05-18 16:47] LABS: Glucose - Point of Care 150 mg/dl (70-99)
[2024-05-18] MEDS: PT'S OWN INSULIN PUMP - HumaLOG SC ×2 (17:07→22:46)
[2024-05-18] MEDS: PT'S OWN INSULIN PUMP - HumaLOG 10 UNIT SC (17:37)
--- NOTE | 2024-05-18 17:41 | W.PN.ID1 ---
Date of Service
Date of Service: May 18, 2024
Today's Communication
- outpatient urine culture 10K mixed prosper
- follow clinically another day - may consider further imaging (MRI with contrast) pending PE tomorrow
- c/w cefepime for now
switched to valtrex
continue vanc for now
Assessment / Plan
Febrile Neutropenia - resolved
Cyclic Neutropenia Syndrome
Dm1 - historically uncontrolled
CKD
- blood cultures x2 in progress no growth to date
- ua without significant pyuria, added on urine culture given symptoms, imaging and neutropenia - may be falsely negative with recent levaquin (which would imply levaquin was effective)
- outpatient urine culture 10K mixed prosper
- follow clinically another day - may consider further imaging (MRI with contrast) pending PE tomorrow
- agree with cefepime - dosed for renal function
Suspected Herpes Esophagitis
Herpes Oralis
GERBER on CKD
- switched to valtrex to complete 7 more days at 1 gm BID then can start 500 mg PO qday as suppression
- when consistently taking PO with ease will switch back to oral valacyclovir
Furuncle L posterior scalp
- continue vancomycin for tonight
- mrsa nasal screen to assist selecting oral therapy
DM1
- [place] [facility] control an essential adjunct treatment to improve her limited neutrophil function, would likely decrease the pace of her episodes of herpes etc; discussed with patient who reports she has become motivated in about the last month to
really start taking care of her DM1 both for her sake and her sons. I shared that we do see improvement with her A1c already compared to historically.
- with pump a1c now 9.6
Chief Complaint
-: Fever and Other (Neutropenia, presumed HSV esophagitis)
Subjective / Review of Systems
afebrile
'I feel ok, better than before'
able to swallow pills
furuncle improved - no longer fluctuant
Vital Signs / Physical Exam
Vital Signs
Vital Signs
Temp Pulse Resp BP Pulse Ox
97.3 F 102 16 135/95 98
05/18/24 15:00 05/18/24 15:00 05/18/24 15:00 05/18/24 15:00 05/18/24 15:00
Physical Exam
Constitutional: No Acute Distress
Cardiovascular: Regular Rate and S1/S2; Negative Murmur or Rub
Pulmonary: Clear and Symmetric; Negative Wheezes or Rales
Gastrointestinal: Soft, Non Tender, Non Distended and Normal Bowel Sounds
Skin: Warm and Dry; Negative Rash or Jaundice
Objective Data
Lab Data
Lab Results
05/18/24 11:56
05/18/24 08:21
Estimated Creat Clear 51 ml/min 05/18/24 08:21
Lactic Acid 0.6 mmol/L (0.7-2.0) L 05/18/24 13:41
Total Bilirubin 0.6 mg/dl (0.2-1.3) 05/15/24 19:45
AST 25 U/L (14-36) 05/15/24 19:45
ALT 16 U/L (0-35) 05/15/24 19:45
Alkaline Phosphatase 67 U/L (38-126) 05/15/24 19:45
Most recent labs reviewed.
Micro Results:
05/18/24 16:59 Nasal Screen MRSA (PCR) - Pending
Nose
05/15/24 19:45 Urine Culture - Final
Urine No Significant Growth
05/15/24 21:22 Blood Culture - Preliminary
Blood/Venous No Growth in 48 hours- Final report to follow
05/15/24 21:17 Blood Culture - Preliminary
Blood/Venous No Growth in 48 hours- Final report to follow
[2024-05-18] MEDS: VALTREX 1000 MG PO (21:17)
[2024-05-18] MEDS: FEOSOL 325 MG PO (21:20)
[2024-05-18 22:14] LABS: Glucose - Point of Care 121 mg/dl (70-99)
[2024-05-18 23:47] VITALS: BP 133/80
[2024-05-19] MEDS: DILAUDID 0.5 MG IV ×4 (00:49→21:08)
[2024-05-19] MEDS: SODIUM BICARBONATE 1150 MEQ IV (02:22)
[2024-05-19 03:14] LABS: Glucose - Point of Care 223 mg/dl (70-99)
[2024-05-19] MEDS: STERILE WATER FOR INJECTION 10 ML IV ×2 (06:39→16:42)
[2024-05-19] MEDS: SYNTHROID 75 MCG PO (06:39)
[2024-05-19] MEDS: SYNTHROID 100 MCG PO (06:39)
[2024-05-19] MEDS: MAXIPIME 2000 MG IV ×2 (06:40→16:42)
[2024-05-19 07:00] LABS: Glucose - Point of Care 191 mg/dl (70-99)
[2024-05-19] MEDS: PT'S OWN INSULIN PUMP - HumaLOG 0.5 UNIT SC ×2 (07:30→12:37)
[2024-05-19 07:56] VITALS: BP 159/99
[2024-05-19] MEDS: VALTREX 1000 MG PO ×2 (08:00→21:03)
[2024-05-19 08:11] LABS: Hematocrit 27.4 % (37.0-47.0); Hemoglobin 9.1 g/dL (12.0-16.0); Mean Corp Hgb Conc. 33.2 g/dL (33.0-37.0); Mean Corpuscular Hgb 26.5 pg (27.0-31.0); Mean Corpuscular Volume 79.9 fL (81.0-99.0); Mean Platelet Volume 10.2 fL (7.4-10.4); Platelet Count 186 10^3/uL (130-400); Red Blood Cell Count 3.43 10^6/uL (4.20-5.40); Red Cell Dist. Width 13.3 % (11.5-14.5); White Blood Cell Count 17.3 10^3/uL (4.8-10.8)
[2024-05-19] MEDS: ADVAIR HFA 115/21 MCG INHALER INH (08:26)
[2024-05-19] MEDS: HEPARIN 5000 UNITS SC ×2 (08:27→21:02)
[2024-05-19 08:32] LABS: Vancomycin Random 14.7 ug/ml
[2024-05-19 08:46] LABS: Blood Urea Nitrogen 19 mg/dl (7-17); Calcium 8.8 mg/dl (8.4-10.2); Carbon Dioxide 22 mmol/L (22-30); Chloride 108 mmol/L (98-107); Estimated Creatinine Clearance 51 ml/min; Glucose 163 mg/dl (70-99); Potassium 4.1 mmol/L (3.5-5.1); Sodium 142 mmol/L (135-145); eGFR 53.54
[2024-05-19 08:50] LABS: Absolute Neutrophils -Man Diff 13.6 10^3/uL (1.4-6.5); Band Neutrophils 15 % (0-3); Segmented Neutrophils 64 % (42-75)
[2024-05-19 08:51] LABS: Lymphocytes 15 % (20-51); Monocytes 6 % (2-9); Normal RBC Morphology Yes; Platelets Checked Yes; Total Cells Counted 100
--- NOTE | 2024-05-19 09:08 | PN.DE.MGMTRT ---
Insulin Management
- -
05/19/2024: Consulted for insulin pump management Follow up
23 year old female well known to Diabetes team from previous hospital admission, where she was treated for Sepsis, Pyelonephritis, Leukopenia and Neutropenia.
She presented to the ED on 05/15/24 c/o Left Flank pain and urinary frequency due to pyelonephritis,
PMH: Recurrent Pyelonephritis, hypothyroidism neutropenia, herpes and T1DM managed on an insulin pump-Omnipod with CGM- Dexcom G6.
Pt was using Tandem T-Slim and transitioned to Ominpod towards the end of last year. Routinely sees Endo and thyroid associates- Dr. Rodas, was last seen back in September. Current A1C is 9.6%, improved from 14.1% in 02/2023. Cr 1.4, eGFR 53.54
Pt awake, alert, ambulating to BR at time of my visit, offers no complaints, able to discuss diabetes management.
States her blood sugars have significantly improved since transitioning to Omnipod. Report her pump is currently in Automated mode and glucose has overall been well controlled.
States she recently adjusted her insulin pump settings due to nocturnal hypoglycemia because she was afraid of experiencing further episodes of hypoglycemia.
current insulin settings are
Basal rate:
12am - 6am 0.85
6am- 6pm 1.75 units
6pm - 12am 1.0
24 hour basal total 32.1 units.
ICR 12am -12am 1:10
ISF 1:40
Target 130
3am blood sugar 223. Discussed with patient, she is agreeable; will repeat 3am glucose tonight and if elevated with change basal rate .
Pt is independent with insulin pump use and states she is familiar with the bedside worksheet and has been using it to document her insulin adm.
Will cont to follow
Diabetes History
- -
Type of Diabetes: 1
Pre-Admission Diabetes Regimen
05/18/24 05/19/24
08:21 07:42
Creatinine 1.4 H 1.4 H
Lab Results
Hemoglobin A1c 9.6 % (4.0-5.6) H 05/17/24 05:48
Insulin Pump Settings
IP Diabetes Regimen
05/18/24 05/18/24 05/18/24
08:21 12:54 16:30
Glucose 122 H
POC Glucose 139 H 150 H
05/18/24 05/19/24 05/19/24
22:13 03:12 06:58
Glucose
POC Glucose 121 H 223 H 191 H
05/19/24
07:42
Glucose 163 H
POC Glucose
Patient Education
--- NOTE | 2024-05-19 09:11 | CM ---
Addendum entered by Lola Cramer 05/19/24 14:01:
Oncology is requesting outpatient labs on patient. internet marketing manager received a consult that patient had financial barriers to outpatient testing and pillowcase maker met with patient and patient states that she uses [facility] as [facility] is out of network with
insurance. Patient owes [facility] and is on payment plan. Patient states she is unable to meet payments and pillowcase maker suggested that she discuss this with [facility] to see if she can reduce payments per month.
Original Note:
Chart reviewed, plan remains to home with family when stable.
Plan; Home with family when stable.
--- NOTE | 2024-05-19 09:32 | PHA.VAN.FU ---
Addendum entered and electronically signed by Sheryl Perla RPH 05/19/24 09:40:
Will infuse dose over 90 mins
Original Note:
Vancomycin Assessment / Plan
- Assessment
Renal Function: Stable
WBC's are: Trending Up
In the past 24 hrs, patient has been: Afebrile
Concomitant Antimicrobials: cefepime, acyclovir
- Assessment - Therapeutic Drug Monitoring
Random Level: 14.7 - drawn ~19H after previous dose of 1000mg
- Dosing Plan
Dosing by Level: Re-dose today (Vanc 1000mg)
- Monitoring Plan
Random Level: 05/20 0600
Level(s) appropriate: Recheck trough at minimum of weekly intervals
- Follow Up
Pharmacy will continue to follow.
Vancomycin Follow UP
- -
Patient Age: 23
Patient Sex: Female
Vancomycin Day #: 3
Indication: Skin And Soft Tissue
Requesting Provider: Dr. Mayo
Pertinent Antimicrobial Allergies:
Doxycycline - rash
Vanco - itching, infusion reaction
Height / Weight:
Height 5 ft 3 in
Actual Weight 62.823 kg
IBW in k.4
Adjusted BW in k.6
Pertinent Past Medical History: CKD (SCr 1.2-1.3); Vancomycin infusion reactions
- Vital Signs / Lab Results
Temp Pulse Resp BP Pulse Ox
98.8 F 105 18 159/99 95
05/19/24 07:56 05/19/24 07:56 05/19/24 07:56 05/19/24 07:56 05/19/24 07:56
Lab Results - Hematology
05/16/24 05/17/24 05/18/24
06:10 05:48 08:21
WBC 2.9 L 9.3
Band Neutrophils 0 16 H D
05/18/24 05/19/24
11:56 07:42
WBC 10.8 17.3 H
Band Neutrophils 23 H D 15 H D
Lab Results - Chemistry
05/17/24 05/18/24 05/19/24
05:48 08:21 07:42
BUN 18 H 17 19 H
Creatinine 1.4 H 1.4 H 1.4 H
Estimated Creat Clear 51 51 51
05/18/24
13:41
Lactic Acid 0.6 L
Microbiology Results
05/15/24 21:22 Blood Culture - Preliminary
Blood/Venous No Growth in 72 hours- Final report to follow
05/15/24 21:17 Blood Culture - Preliminary
Blood/Venous No Growth in 72 hours- Final report to follow
05/18/24 16:59 Nasal Screen MRSA (PCR) - Final
Nose MRSA not detected - performed by PCR methodology.
05/15/24 19:45 Urine Culture - Final
Urine No Significant Growth
Therapeutic Drug Monitoring
Random Vancomycin 14.7 ug/ml 05/19/24 07:42
--- NOTE | 2024-05-19 10:24 | W.PN.ID1 ---
Date of Service
Date of Service: May 19, 2024
Today's Communication
MRI with and without contrast
Assessment / Plan
Acute lumbar back pain
Febrile Neutropenia - resolved
Cyclic Neutropenia Syndrome
Dm1 - historically uncontrolled
CKD
- blood cultures x2 in progress no growth to date
- ua without significant pyuria, added on urine culture given symptoms, imaging and neutropenia - may be falsely negative with recent levaquin (which would imply levaquin was effective)
- outpatient urine culture 10K mixed prosper
- pain most prominent over the L iliac crest - MRI lumbar spine with and without contrast - patient tells me she may need some anxiolytics - relayed to hospitalist team
- c/w with cefepime for now - dosed for renal function
Suspected Herpes Esophagitis
Herpes Oralis
GERBER on CKD
- c/w valtrex to complete 6 more days at 1 gm BID then can start 500 mg PO qday as suppression
- if her Ob (who has been managing her herpes is comfortable, they can take over suppression, if not I can see patient in follow up at her request)
Furuncle L posterior scalp - resolved
- mrsa nasal screen negative
- stopped vancomycin
DM1
- marine oil terminal superintendent control an essential adjunct treatment to improve her limited neutrophil function, would likely decrease the pace of her episodes of herpes etc; discussed with patient who reports she has become motivated in about the last month to
really start taking care of her DM1 both for her sake and her sons. I shared that we do see improvement with her A1c already compared to historically.
- with pump a1c now 9.6
Chief Complaint
-: Fever and Other (Neutropenia, presumed HSV esophagitis)
Subjective / Review of Systems
afebrile
bp stable
tolerating current therapies
reports ongoing intermittent sharp/stabbing pain - when I ask her to show me the most tender area she indicates over the L iliac crest/psoas region, also still some cva tenderness
furuncle is not fluctuant
swallowing with ease now
Vital Signs / Physical Exam
Vital Signs
Vital Signs
Temp Pulse Resp BP Pulse Ox
98.8 F 105 18 159/99 95
05/19/24 07:56 05/19/24 07:56 05/19/24 07:56 05/19/24 07:56 05/19/24 07:56
Physical Exam
Constitutional: No Acute Distress
Cardiovascular: Regular Rate and S1/S2; Negative Murmur or Rub
Pulmonary: Clear and Symmetric; Negative Wheezes or Rales
Gastrointestinal: Soft, Non Tender, Non Distended and Normal Bowel Sounds
Musculoskeletal: Other (marked tenderness over the L iliac crest/psoas, less tenderness over the CVA)
Skin: Warm, Dry and Other (L scalp furuncle not fluctuant, becoming flat); Negative Rash or Jaundice
Objective Data
Lab Data
Lab Results
05/19/24 07:42
05/19/24 07:42
Estimated Creat Clear 51 ml/min 05/19/24 07:42
Lactic Acid 0.6 mmol/L (0.7-2.0) L 05/18/24 13:41
Total Bilirubin 0.6 mg/dl (0.2-1.3) 05/15/24 19:45
AST 25 U/L (14-36) 05/15/24 19:45
ALT 16 U/L (0-35) 05/15/24 19:45
Alkaline Phosphatase 67 U/L (38-126) 05/15/24 19:45
Most recent labs reviewed.
Micro Results:
05/15/24 21:22 Blood Culture - Preliminary
Blood/Venous No Growth in 72 hours- Final report to follow
05/15/24 21:17 Blood Culture - Preliminary
Blood/Venous No Growth in 72 hours- Final report to follow
05/18/24 16:59 Nasal Screen MRSA (PCR) - Final
Nose MRSA not detected - performed by PCR methodology.
05/15/24 19:45 Urine Culture - Final
Urine No Significant Growth
Care Review
Plan reviewed with: Physician (Dr Frazier and Dr Reyes - MRI and anxiolytics)
--- NOTE | 2024-05-19 11:15 | W.PN.ONC ---
Today's Communication / Plan
-
neutropenia resolved w/ GCSF
anti-infectives per ID
rec. outpatient CBC 2x/week to assess pattern of neutropenia, but she has financial barriers - will ask CM to help
heme f/u as outpatient, to consider regular GCSF dosing
outpatient iron infusions, hold for now w/ acute infections
Impression
Impression
cyclic neutropenia
recurrent fevers, oral ulcers
T1DM
anemia - suspect mixed picture of chronic disease/infection and iron def
Plan
Plan
neutropenia resolved w/ GCSF
anti-infectives per ID
rec. outpatient CBC 2x/week to assess pattern of neutropenia, but she has financial barriers - will ask CM to help
heme f/u as outpatient, to consider regular GCSF dosing
outpatient iron infusions, hold for now w/ acute infections
Subjective/Objective
Subjective/Objective
feeling a bit better today, awaiting MRI lumbar spine to evaluate pain
states she doesn't think she can do 2x/week CBCs as outpatient due to cost - currently has a large bill from outpatient labs
Vital Signs:
Vital Signs
Temp Pulse Resp BP Pulse Ox
98.8 F 105 18 159/99 95
05/19/24 07:56 05/19/24 07:56 05/19/24 07:56 05/19/24 07:56 05/19/24 07:56
Lab Results:
Laboratory Data
WBC 17.3 10^3/uL (4.8-10.8) H 05/19/24 07:42
Hgb 9.1 g/dL (12.0-16.0) L 05/19/24 07:42
Plt Count 186 10^3/uL (130-400) 05/19/24 07:42
eGFR 53.54 05/19/24 07:42
[2024-05-19 11:55] LABS: Glucose - Point of Care 197 mg/dl (70-99)
--- NOTE | 2024-05-19 12:20 | W.PN.UPDATE ---
Update Note
Progress Note Update
I saw and evaluated the patient. I reviewed the resident�s note and agree with findings and plan as documented in the resident�s note.
Patient is anxious about MRI. No other new complaints.
Patient seen and examined with nurse Tatiana Arellano present at bedside:
Gen: NAD, AAOx3.
Eyes: EOMI, PERRLA, no scleral icterus.
Neck: supple.
CV: remains RRR, +S1/S2, no m/r/g.
Resp: remains CTAB, no rales, wheezes, or rhonchi.
Skin: No rashes.
Neuro: CN 2-12 intact, non-focal.
Psych: Tearful
Sepsis, POA, due to acute pyelonephritis and oral (and suspected esophageal) HSV
-febrile neutropenia in the setting of cyclic neutropenia syndrome without underlying evidence of hematological malignancy
-cont Valtrex/Cefepime
-MRI pelvis today (discussed with Dr. Mayo)
Other problems:
GERBER on CKD3a: with non-AG met acidosis, resolved with IVFs
DM1: cont insulin pump. a1c 9.6%, family educator following. Check 0300 BG which will determine possible change in basal rate.
Mild intermittent asthma
Hypothyroidism: cont Levoxyl
FULL/Heparin
--- NOTE | 2024-05-19 12:27 | W.PN.HOSP.TC ---
Today's Communication/Plan
-
.
Assessment / Plan
Assessment / Plan
1. Concern for Pyelonephritis
- CT scan: mild bilateral perinephric fat stranding, similar appearance to CT from 1 year ago
- UA: microscopic hematuria
- blood cx x 2 no growth so far
- Pt started on Cefepime 2 g IV BID (Day 4)
- Appreciate Infectious Disease
- Outpatient U/A does not show signs of overt infection; feels flank pain may be of another etiology. MRI ordered today.
- Sepsis criteria present on admission.
2. CKD III with mild GERBER
- CrCl 47; avoid or alter dose of nephrotoxic medications
- IV Fluids
- Daily BMPs
3. Neutropenia
- Prior BMB showing a mildly hypercellular BM; no AML or MDS
- WBC 2.0 --> 10.8 --> 17.3 (due to GCSF); continue to monitor.
- Hematology consulted, appreciate reccs
- Per heme: remains anemic likely due to recurrent iron deficiency for which iron studies ordered to ascertain if repletion indicated. 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
in symptomatic infections/hospitalization. G-CSF instituted. Discussed need for consistent follow-up as outpatient in this regard.
- Serial CBCs
4. Type 1 IDDM
- ACHS Checks
- Pt brought own insulin pump
- Consult Diabetic PRODUCT ARCHITECT
5. Mild Intermittent Asthma
- Continue home meds: Wixela/PRN Albuterol
6. Hypothyroidism
- Continue home meds: Synthroid
7. CHUCHO
- Continue Ferrous Sulfate
- Iron studies show ACD picture.
8. Oral Herpetic Lesions
- Magic Mouth Wash PRN; improvement per patient
- IV Acyclovir; renal/weight dosing (follow up with pharmacy for confirmation of dose/frequency)
- Dosing increased by ID; improving renal function.
- Converted to oral valtrex
9. DVT PPx
- Heparin
10. Hx IVDA
- Dilaudid PRN frequency decreased to q6h severe pain
- Added Toradol for moderate pain
11. Non-AG Metabolic Acidosis
- Changed IVF to w/ HCO3
- HCO3 improving; bicarb d/c
Anticipated Discharge: 24 - 48 hours
Subjective/Interval History
-
Date of Service: May 19, 2024
Pt notes an interval improvement in back pain, mouth pain, neck pain and neck range of motion. States that she is feeling better overall. Pt is sitting up in bed and looking more conversant though still mildly uncomfortable.
Objective Data
-
Labs:
Laboratory Results
05/19/24
07:42
WBC 17.3 H
Hgb 9.1 L
Hct 27.4 L
Plt Count 186
Sodium 142
Potassium 4.1
Chloride 108 H
Carbon Dioxide 22
BUN 19 H
Creatinine 1.4 H
Glucose 163 H
Calcium 8.8
Vital Signs:
Vital Signs
Temp Pulse Resp BP Pulse Ox
98.8 F 105 18 159/99 95
05/19/24 07:56 05/19/24 07:56 05/19/24 07:56 05/19/24 07:56 05/19/24 07:56
I&O
05/18/24 05/19/24 05/20/24
06:59 06:59 06:59
Intake Total 2621 / 2621 2540 / 2540
Balance 2621 254 / 254
Review of Systems
-
History Source: Patient
Constitutional: Reports No Symptoms
EENT: Reports Mouth Pain
Respiratory: Reports No Symptoms
Cardiac: Reports No Symptoms
Abdomen/GI: Reports No Symptoms
Genitourinary: Reports Flank Pain
Musculoskeletal: Reports No Symptoms
Skin: Reports No Symptoms
Physical Exam
-
General: Well Developed, Conversant and Other (uncomfortable, but better today than yesterday. )
HEENT: Normocephalic, Atraumatic, Moist Mucous Membranes and Other (healing oral ulcerations )
Respiratory: Clear to Auscultation
Cardiac: Regular Rhythm and S1/S2
GI: Soft and Nontender
Genito-urinary: Deferred by me
Skin: Warm and Dry
Neuro: Awake and Alert
Psych: Calm
Data Reviewed
-
Labs: Labs Reviewed by me and Discussed with Patient
[2024-05-19] MEDS: TORADOL 15 MG IV (12:33)
[2024-05-19 15:13] VITALS: BP 149/97
[2024-05-19] MEDS: ATIVAN 0.5 MG PO (15:17)
[2024-05-19 16:37] LABS: Glucose - Point of Care 158 mg/dl (70-99)
[2024-05-19] MEDS: PT'S OWN INSULIN PUMP - HumaLOG 10 UNIT SC (18:19)
[2024-05-19] MEDS: ADVAIR HFA 115/21 MCG INHALER 2 PUFF INH (19:53)
[2024-05-19] MEDS: FEOSOL 325 MG PO (21:03)
[2024-05-19 21:28] LABS: Glucose - Point of Care 133 mg/dl (70-99)
[2024-05-19] MEDS: PT'S OWN INSULIN PUMP - HumaLOG SC (21:32)
[2024-05-19 23:13] VITALS: BP 145/81
[2024-05-20 03:05] LABS: Glucose - Point of Care 183 mg/dl (70-99)
[2024-05-20] MEDS: TORADOL 15 MG IV ×2 (03:06→20:08)
[2024-05-20] MEDS: STERILE WATER FOR INJECTION 10 ML IV (05:40)
[2024-05-20] MEDS: SYNTHROID 100 MCG PO (05:40)
[2024-05-20] MEDS: MAXIPIME 2000 MG IV (05:40)
[2024-05-20] MEDS: SYNTHROID 75 MCG PO (05:46)
[2024-05-20 07:09] LABS: Glucose - Point of Care 193 mg/dl (70-99)
[2024-05-20 07:30] VITALS: BP 150/91
[2024-05-20] MEDS: ADVAIR HFA 115/21 MCG INHALER 2 PUFF INH ×2 (07:58→19:35)
--- NOTE | 2024-05-20 07:58 | PN.DE.MGMTRT ---
Insulin Management
- -
05/20/2024: Consulted for insulin pump management Follow up
23 year old female well known to Diabetes team from previous hospital admission, where she was treated for Sepsis, Pyelonephritis, Leukopenia and Neutropenia.
She presented to the ED on 05/15/24 c/o Left Flank pain and urinary frequency due to pyelonephritis,
PMH: Recurrent Pyelonephritis, hypothyroidism neutropenia, herpes and T1DM managed on an insulin pump-Omnipod with CGM- Dexcom G6.
Pt was using Tandem T-Slim and transitioned to Ominpod towards the end of last year. Routinely sees Endo and thyroid associates- Dr. Rodas, was last seen back in September. Current A1C is 9.6%, improved from 14.1% in 02/2023. Cr 1.4, eGFR 53.54
Pt awake, alert, sitting in bed at time of my visit, offers no complaints, able to discuss diabetes management.
States her blood sugars have significantly improved since transitioning to Omnipod. Report her pump is currently in Automated mode and glucose has overall been well controlled.
States she recently adjusted her insulin pump settings due to nocturnal hypoglycemia because she was afraid of experiencing further episodes of hypoglycemia.
current insulin settings are
Basal rate:
12am - 6am 0.95
6am- 6pm 1.75 units
6pm - 12am 1.0
24 hour basal total 32.6 units.
ICR 12am -12am 1:10
ISF 1:40
Target 130
05/20 3am blood sugar on 05/19 223, repeat 3AM glucose 183. Discussed with patient, will change basal rate @ 12 am to .95 . Will again check 3am glucose to determine if further basal insulin changes needed.
Pt is independent with insulin pump use and states she is familiar with the bedside worksheet and has been using it to document her insulin adm.
Will cont to follow
Diabetes History
- -
Type of Diabetes: 1
Pre-Admission Diabetes Regimen
05/19/24
07:42
Creatinine 1.4 H
Lab Results
Hemoglobin A1c 9.6 % (4.0-5.6) H 05/17/24 05:48
Insulin Pump Settings
IP Diabetes Regimen
05/19/24 05/19/24 05/19/24
07:42 11:54 16:36
Glucose 163 H
POC Glucose 197 H 158 H
05/19/24 05/20/24 05/20/24
21:24 03:04 07:08
Glucose
POC Glucose 133 H 183 H 193 H
Meal type: Lunch
Meal type: Breakfast
Amount consumed: 70%
Amount consumed: 100%
Patient Education
[2024-05-20] MEDS: DILAUDID 0.5 MG IV ×3 (08:33→22:06)
[2024-05-20] MEDS: VALTREX 1000 MG PO ×2 (08:34→19:59)
[2024-05-20] MEDS: HEPARIN 5000 UNITS SC ×2 (08:34→19:59)
[2024-05-20 08:46] LABS: Blood Urea Nitrogen 20 mg/dl (7-17); Calcium 8.5 mg/dl (8.4-10.2); Carbon Dioxide 23 mmol/L (22-30); Chloride 108 mmol/L (98-107); Estimated Creatinine Clearance 51 ml/min; Glucose 181 mg/dl (70-99); Potassium 3.8 mmol/L (3.5-5.1); Sodium 140 mmol/L (135-145); eGFR 53.54
[2024-05-20 08:49] LABS: Hematocrit 25.8 % (37.0-47.0); Hemoglobin 8.4 g/dL (12.0-16.0); Mean Corp Hgb Conc. 32.6 g/dL (33.0-37.0); Mean Corpuscular Volume 79.9 fL (81.0-99.0); Mean Platelet Volume 10.1 fL (7.4-10.4); Platelet Count 171 10^3/uL (130-400); Red Blood Cell Count 3.23 10^6/uL (4.20-5.40); Red Cell Dist. Width 13.3 % (11.5-14.5); White Blood Cell Count 12.3 10^3/uL (4.8-10.8)
--- NOTE | 2024-05-20 09:31 | W.PN.ID1 ---
Date of Service
Date of Service: May 20, 2024
Today's Communication
- unasyn
HIDA
Assessment / Plan
Suspected Acalculous Cholecystitis
Acute lumbar back pain
Febrile Neutropenia - resolved
Cyclic Neutropenia Syndrome
Dm1 - historically uncontrolled
CKD
- MRI lumbar spine - possible cholecysitits incidentally noted - abd US and LFTs ordered - US possible acalculous martinez, lfts are normal\\
- for HIDA tomorrow - if positive would favor medical management or cholecystectomy - would hesitate to place a cholecystomy tube when it is unclear if she will comply with follow up for cyclic neutropenia
- blood cultures x2 in progress no growth to date
- inpatient and outpatient urine cultures no c/w UTI
- start unasyn
Suspected Herpes Esophagitis
Herpes Oralis
GERBER on CKD
- c/w valtrex to complete 5 more days at 1 gm BID then can start 500 mg PO qday as suppression
- if her Ob (who has been managing her herpes is comfortable, they can take over suppression, if not I can see patient in follow up at her request)
Furuncle L posterior scalp - resolved
- mrsa nasal screen negative
- on unasyn
Chief Complaint
-: Fever and Other (Neutropenia, presumed HSV esophagitis)
Subjective / Review of Systems
afebrile
bp stable
abdominal pain ongoing
Vital Signs / Physical Exam
Vital Signs
Vital Signs
Temp Pulse Resp BP Pulse Ox
98.6 F 97 20 150/91 95
05/20/24 07:30 05/20/24 07:30 05/20/24 07:30 05/20/24 07:30 05/20/24 07:30
Physical Exam
Constitutional: No Acute Distress and Chronically Ill
Cardiovascular: Regular Rate and S1/S2; Negative Murmur or Rub
Pulmonary: Clear and Symmetric; Negative Wheezes or Rales
Gastrointestinal: Soft, Non Distended and Normal Bowel Sounds
Skin: Warm, Dry and Other (furuncle faint pink, no longer painful); Negative Rash or Jaundice
Objective Data
Lab Data
Lab Results
05/20/24 07:36
05/20/24 07:36
Estimated Creat Clear 51 ml/min 05/20/24 07:36
Lactic Acid 0.6 mmol/L (0.7-2.0) L 05/18/24 13:41
Total Bilirubin 0.6 mg/dl (0.2-1.3) 05/15/24 19:45
AST 25 U/L (14-36) 05/15/24 19:45
ALT 16 U/L (0-35) 05/15/24 19:45
Alkaline Phosphatase 67 U/L (38-126) 05/15/24 19:45
Most recent labs reviewed.
Micro Results:
05/15/24 21:22 Blood Culture - Preliminary
Blood/Venous No Growth in 4 days- Final report to follow
05/15/24 21:17 Blood Culture - Preliminary
Blood/Venous No Growth in 4 days- Final report to follow
05/18/24 16:59 Nasal Screen MRSA (PCR) - Final
Nose MRSA not detected - performed by PCR methodology.
05/15/24 19:45 Urine Culture - Final
Urine No Significant Growth
abd US: The gallbladder is mildly distended. No gallstones, however there is no bladder wall thickening and pericholecystic fluid. Positive sonographic Borjas's sign. Findings may be related to acalculus cholecystitis. If diagnosis is in doubt
clinically, consider HIDA scan.
Care Review
Plan reviewed with: Physician (Dr Karin mccurdy)
[2024-05-20] MEDS: PT'S OWN INSULIN PUMP - HumaLOG SC ×2 (09:40→14:12)
--- NOTE | 2024-05-20 10:29 | W.PN.HOSP.TC ---
Today's Communication/Plan
-
.
Assessment / Plan
Assessment / Plan
1. Concern for Pyelonephritis
- CT scan: mild bilateral perinephric fat stranding, similar appearance to CT from 1 year ago
- UA: microscopic hematuria
- blood cx x 2 no growth so far
- Pt started on Cefepime 2 g IV BID (Day 4)
- Appreciate Infectious Disease
- Outpatient U/A does not show signs of overt infection; feels flank pain may be of another etiology. MRI ordered today.
- MRI shows L3/L4 disc bulge with disc/neuroforaminal protrusion/pericholecystic fluid.
- Sepsis criteria present on admission.
2. CKD III with mild GERBER
- CrCl 47; avoid or alter dose of nephrotoxic medications
- IV Fluids
- Daily BMPs
3. Neutropenia
- Prior BMB showing a mildly hypercellular BM; no AML or MDS
- WBC 2.0 --> 10.8 --> 17.3 (due to GCSF); continue to monitor.
- Hematology consulted, appreciate reccs
- Per heme: remains anemic likely due to recurrent iron deficiency for which iron studies ordered to ascertain if repletion indicated. 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
in symptomatic infections/hospitalization. G-CSF instituted. Discussed need for consistent follow-up as outpatient in this regard.
- Serial CBCs
4. Type 1 IDDM
- ACHS Checks
- Pt brought own insulin pump
- Consult Diabetic COST CONTROL SPECIALIST
5. Mild Intermittent Asthma
- Continue home meds: Wixela/PRN Albuterol
6. Hypothyroidism
- Continue home meds: Synthroid
7. CHUCHO
- Continue Ferrous Sulfate
- Iron studies show ACD picture.
8. Oral Herpetic Lesions
- Magic Mouth Wash PRN; improvement per patient
- IV Acyclovir; renal/weight dosing (follow up with pharmacy for confirmation of dose/frequency)
- Dosing increased by ID; improving renal function.
- Converted to oral valtrex
9. DVT PPx
- Heparin
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
- Dilaudid PRN frequency decreased to q6h severe pain
- Added Toradol for moderate pain
11. Non-AG Metabolic Acidosis
- Changed IVF to w/ HCO3
- HCO3 improving; bicarb d/c
12. Pericholecystic fluid on MRI/RUQ Tenderness on Examination
- US this morning showed mild distension, positive Sonographic [place]
- HIDA scan tomorrow morning after NPO and no opiate medication after midnight
Anticipated Discharge: 24 - 48 hours
Subjective/Interval History
-
Date of Service: May 20, 2024
Patient notes an interval improvement both in the number of oral sores and pain associated with oral sores. Patient notes an interval improvement in back pain, particularly when managed with pain medications. This morning, the patient states that
she is having abdominal pain. She locates the pain in the epigastrium and the right upper quadrant. She describes the pain as a vague dullness. States the pain started this morning, and she woke up with it, though does not know if it is because she
is hungry.
Objective Data
-
Labs:
Laboratory Results
05/20/24 05/20/24
07:36 09:31
WBC 12.3 H
Hgb 8.4 L
Hct 25.8 L
Plt Count 171
Sodium 140
Potassium 3.8
Chloride 108 H
Carbon Dioxide 23
BUN 20 H
Creatinine 1.4 H
Glucose 181 H
Calcium 8.5
Total Bilirubin Pending Cancelled
AST Pending Cancelled
ALT Pending Cancelled
Alkaline Phosphatase Pending Cancelled
Vital Signs:
Vital Signs
Temp Pulse Resp BP Pulse Ox
98.6 F 97 20 150/91 95
05/20/24 07:30 05/20/24 07:30 05/20/24 07:30 05/20/24 07:30 05/20/24 07:30
I&O
05/19/24 05/20/24 05/21/24
06:59 06:59 06:59
Intake Total 2540 / 2540 960 / 960
Output Total 0 / 0
Balance 2540 / 2540 960 / 960
Review of Systems
-
History Source: Patient
Constitutional: Reports No Symptoms
EENT: Reports Mouth Pain (improving)
Respiratory: Reports No Symptoms
Cardiac: Reports No Symptoms
Abdomen/GI: Reports Abdominal Pain (new)
Genitourinary: Reports Flank Pain (improving)
Musculoskeletal: Reports No Symptoms
Neuro: Reports No Symptoms
Physical Exam
-
General: Well Developed, Well Nourished and Other (appears uncomfortable, though improved from admission)
HEENT: Normocephalic, Atraumatic, Moist Mucous Membranes and Other (interval improvement in mouth sores, and ability to open mouth secondary to pain )
Respiratory: Clear to Auscultation
Cardiac: Regular Rhythm
GI: Soft, Nondistended and Other (nontender to palpation in the lower quadrants and LUQ. Mildly tender to palpation in the epigastrium. Upon beginning to palpate the RUQ, the patient became nauseous and requested an emesis basin. Pt did not vomit
while I was in the room. )
Genito-urinary: Deferred by me
Musculoskeletal: No Edema
Skin: Warm and Dry
Neuro: Awake, Alert and AO x 3
Psych: Calm
Data Reviewed
-
MRI: Report Reviewed by me and Discussed with Patient
Labs: Labs Reviewed by me and Discussed with Patient
[2024-05-20 10:53] LABS: ALT (SGPT) 18 U/L (0-35); AST (SGOT) 20 U/L (14-36); Albumin 2.7 g/dl (3.5-5.0); Alkaline Phosphatase 116 U/L (38-126); Direct Bilirubin 0.1 mg/dl (0.0-0.4); Total Bilirubin 0.2 mg/dl (0.2-1.3)
--- NOTE | 2024-05-20 11:56 | CM ---
Chart reviewed and plan is to home with family when stable.
Plan; Home no needs.
[2024-05-20 12:21] LABS: Glucose - Point of Care 184 mg/dl (70-99)
--- NOTE | 2024-05-20 12:50 | W.PN.UPDATE ---
Update Note
Progress Note Update
I saw and evaluated the patient. I reviewed the resident�s note and agree with findings and plan as documented in the resident�s note.
Complains of right upper quadrant pain
Patient seen and examined with nurse Miguelina Thompson present at bedside:
Gen: NAD, AAOx3.
Eyes: EOMI, PERRLA, no scleral icterus.
Neck: supple.
CV: continues to remain RRR, +S1/S2, no m/r/g.
Resp: continues to remain CTAB, no rales, wheezes, or rhonchi.
Abd: +BS, soft, ND, RUQ TTP
Skin: No rashes.
Neuro: CN 2-12 intact, non-focal.
Psych: Normal mood and affect
RUQ U/S:
1. The gallbladder is mildly distended. No gallstones, however there is no bladder wall thickening and pericholecystic fluid. Positive sonographic Borjas's sign. Findings may be related to acalculus cholecystitis. If diagnosis is in doubt
clinically, consider HIDA scan.
2. No biliary ductal dilation.
3. Mild splenomegaly.
4. Pancreas was not well visualized due to overlying bowel gas.
MRI L-spine:
At L3-L4 there is a small disc bulge with superimposed left foraminal disc protrusion with resultant mild left neuroforaminal narrowing with apparent contacting of the exiting left L3 nerve. There are no findings suggestive of
discitis/osteomyelitis. There is no abnormal enhancement within the lumbar spine. There is prominent fluid signal along the gallbladder, likely pericholecystic fluid which can be seen as a sequelae of liver disease or cholecystitis most of the
etiologies. Consider dedicated abdominal ultrasound for further evaluation. This appears to be new from recent prior CT.
Sepsis, POA, due to oral (and suspected esophageal) HSV and possibly acalculous cholecystitis
-febrile neutropenia in the setting of cyclic neutropenia syndrome without underlying evidence of hematological malignancy
-cont Valtrex/Cefepime
-imaging above, no evidence of discitis or osteomyelitis in the lumbar spine. Concern for acalculous cholecystitis.
-note, LFTs unremarkable
-Check HIDA scan (NPO and no opioids after MN)
Other problems:
GERBER on CKD3a: with non-AG met acidosis, resolved with IVFs
DM1: cont insulin pump. a1c 9.6%, medical educator following. Check 0300 BG to determine further changes in basal rate.
Mild intermittent asthma
Hypothyroidism: cont Levoxyl
FULL/Heparin
[2024-05-20] MEDS: PT'S OWN INSULIN PUMP - HumaLOG 3.2 UNIT SC (13:05)
[2024-05-20 14:48] VITALS: BP 156/102
[2024-05-20] MEDS: UNASYN IV ×2 (16:12→22:05)
[2024-05-20 16:59] LABS: Glucose - Point of Care 152 mg/dl (70-99)
[2024-05-20] MEDS: PT'S OWN INSULIN PUMP - HumaLOG 6.4 UNIT SC (17:08)
[2024-05-20 20:51] LABS: Glucose - Point of Care 210 mg/dl (70-99)
[2024-05-20] MEDS: FEOSOL 325 MG PO (22:06)
[2024-05-20] MEDS: PT'S OWN INSULIN PUMP - HumaLOG 0.75 UNIT SC (22:16)
[2024-05-20 23:30] VITALS: BP 141/91
[2024-05-21] MEDS: SYNTHROID 100 MCG PO (05:05)
[2024-05-21] MEDS: SYNTHROID 75 MCG PO (05:05)
[2024-05-21] MEDS: UNASYN IV ×4 (05:05→21:20)
[2024-05-21 05:59] LABS: Glucose - Point of Care 132 mg/dl (70-99)
[2024-05-21 07:30] VITALS: BP 165/108
[2024-05-21 07:37] LABS: Glucose - Point of Care 136 mg/dl (70-99)
[2024-05-21] MEDS: ADVAIR HFA 115/21 MCG INHALER 2 PUFF INH (07:43)
--- NOTE | 2024-05-21 07:44 | PN.DE.MGMTRT ---
Insulin Management
- -
05/21/2024: Consulted for insulin pump management Follow up
23 year old female well known to Diabetes team from previous hospital admission, where she was treated for Sepsis, Pyelonephritis, Leukopenia and Neutropenia.
She presented to the ED on 05/15/24 c/o Left Flank pain and urinary frequency due to pyelonephritis,
PMH: Recurrent Pyelonephritis, hypothyroidism neutropenia, herpes and T1DM managed on an insulin pump-Omnipod with CGM- Dexcom G6.
Pt was using Tandem T-Slim and transitioned to Ominpod towards the end of last year. Routinely sees Endo and thyroid associates- Dr. Rodas, was last seen back in September. Current A1C is 9.6%, improved from 14.1% in 02/2023. Cr 1.4, eGFR 53.54
Pt awake, alert, sitting in bed at time of my visit, offers no complaints, able to discuss diabetes management.
States her blood sugars have significantly improved since transitioning to Omnipod. Report her pump is currently in Automated mode and glucose has overall been well controlled.
States she recently adjusted her insulin pump settings due to nocturnal hypoglycemia because she was afraid of experiencing further episodes of hypoglycemia.
current insulin settings are
Basal rate:
12am - 6am 0.95
6am- 6pm 1.75 units
6pm - 12am 1.0
24 hour basal total 32.6 units.
ICR 12am -12am 1:10
ISF 1:40
Target 130
05/20 3am blood sugar on 05/19 223, repeat 3AM glucose 183. Discussed with patient, will change basal rate @ 12 am to .95 . Will again check 3am glucose to determine if further basal insulin changes needed.
05/21 Glucose checked at 5:56am, 132, fasting 136. Will make no further adjustments to basal rates.
Pt is independent with insulin pump use and states she is familiar with the bedside worksheet and has been using it to document her insulin adm.
Will cont to follow
Diabetes History
- -
Type of Diabetes: 1
Pre-Admission Diabetes Regimen
05/20/24
07:36
Creatinine 1.4 H
Lab Results
Hemoglobin A1c 9.6 % (4.0-5.6) H 05/17/24 05:48
Insulin Pump Settings
IP Diabetes Regimen
05/20/24 05/20/24 05/20/24
07:36 12:14 16:56
Glucose 181 H
POC Glucose 184 H 152 H
05/20/24 05/21/24 05/21/24
20:50 05:56 07:16
Glucose
POC Glucose 210 H 132 H 136 H
Meal type: Breakfast
Amount consumed: 55%
Patient Education
[2024-05-21] MEDS: PT'S OWN INSULIN PUMP - HumaLOG SC ×3 (08:21→21:29)
[2024-05-21] MEDS: ZOFRAN 4 MG IV ×2 (08:27→14:18)
[2024-05-21 08:43] LABS: % Basophils 0.3 % (0-2); % Immature Granulocytes 2.3 % (0-0.5); % Lymphocytes 16.8 % (20.5-51.1); % Monocytes 8.2 % (1.7-9.3); % Neutrophils 72.4 % (42.2-75.2); Absolute Immature Granulocytes 0.2 10^3/uL (0-0.05); Absolute Lymphocytes 1.3 10^3/uL (1.2-3.4); Absolute Monocytes 0.7 10^3/uL (0.1-0.6); Absolute Neutrophils 5.7 10^3/uL (1.4-6.5); Hematocrit 26.8 % (37.0-47.0); Hemoglobin 8.8 g/dL (12.0-16.0); Mean Corp Hgb Conc. 32.8 g/dL (33.0-37.0); Mean Corpuscular Hgb 26.3 pg (27.0-31.0); Mean Corpuscular Volume 80.2 fL (81.0-99.0); Mean Platelet Volume 10.3 fL (7.4-10.4); Nucleated Red Blood Cells % 0 %; Platelet Count 159 10^3/uL (130-400); Red Blood Cell Count 3.34 10^6/uL (4.20-5.40); Red Cell Dist. Width 13.2 % (11.5-14.5); White Blood Cell Count 7.9 10^3/uL (4.8-10.8)
[2024-05-21 08:46] LABS: ALT (SGPT) 16 U/L (0-35); AST (SGOT) 18 U/L (14-36); Albumin 3.1 g/dl (3.5-5.0); Alkaline Phosphatase 126 U/L (38-126); Blood Urea Nitrogen 19 mg/dl (7-17); Calcium 8.4 mg/dl (8.4-10.2); Carbon Dioxide 23 mmol/L (22-30); Chloride 107 mmol/L (98-107); Estimated Creatinine Clearance 51 ml/min; Glucose 132 mg/dl (70-99); Potassium 3.9 mmol/L (3.5-5.1); Sodium 142 mmol/L (135-145); Total Bilirubin 0.2 mg/dl (0.2-1.3); Total Protein 5.5 g/dl (6.3-8.2); eGFR 53.54
--- NOTE | 2024-05-21 09:15 | W.PN.HOSP.TC ---
Today's Communication/Plan
-
.
Assessment / Plan
Assessment / Plan
1. Concern for Pyelonephritis
- CT scan: mild bilateral perinephric fat stranding, similar appearance to CT from 1 year ago
- UA: microscopic hematuria
- blood cx x 2 no growth so far
- Pt started on Cefepime 2 g IV BID (Day 5)
- Appreciate Infectious Disease
- Outpatient U/A does not show signs of overt infection; feels flank pain may be of another etiology. MRI ordered today.
- MRI shows L3/L4 disc bulge with disc/neuroforaminal protrusion/pericholecystic fluid.
- Sepsis criteria present on admission.
2. CKD III with mild GERBER
- CrCl 47; avoid or alter dose of nephrotoxic medications
- IV Fluids
- Daily BMPs
3. Neutropenia
- Prior BMB showing a mildly hypercellular BM; no AML or MDS
- WBC 2.0 --> 10.8 --> 17.3 --> 7.9 (due to GCSF); continue to monitor.
- Hematology consulted, appreciate reccs
- Per heme: remains anemic likely due to recurrent iron deficiency for which iron studies ordered to ascertain if repletion indicated. 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
in symptomatic infections/hospitalization. G-CSF instituted. Discussed need for consistent follow-up as outpatient in this regard.
- Serial CBCs
4. Type 1 IDDM
- ACHS Checks
- Pt brought own insulin pump
- Consult Diabetic INSPECTOR CASING
5. Mild Intermittent Asthma
- Continue home meds: Wixela/PRN Albuterol
6. Hypothyroidism
- Continue home meds: Synthroid
7. CHUCHO
- Continue Ferrous Sulfate
- Iron studies show ACD picture.
8. Oral Herpetic Lesions
- Magic Mouth Wash PRN; improvement per patient
- IV Acyclovir; renal/weight dosing (follow up with pharmacy for confirmation of dose/frequency)
- Dosing increased by ID; improving renal function.
- Converted to oral valtrex
9. DVT PPx
- Heparin
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
- Dilaudid PRN frequency decreased to q6h severe pain
- Added Toradol for moderate pain
11. Non-AG Metabolic Acidosis
- Changed IVF to w/ HCO3
- HCO3 improving; bicarb d/c
12. Pericholecystic fluid on MRI/RUQ Tenderness on Examination
- US yesterday showed mild distension, positive Sonographic [place]
- HIDA scan this morning, follow up results.
13. Headache
- Notes hx of migraines; no overt photophobia, Kernigs negative
- Given dose of Imitrex; consult neurology if continues despite abortive meds
Anticipated Discharge: 24 - 48 hours
Subjective/Interval History
-
Date of Service: May 21, 2024
Patient was NPO and no opiate medications after midnight in preperation for her HIDA scan this morning. Patient states that she woke up with a unilateral aching headache on the right side of her head. Patient noted nausea this morning that was not
alleviated by IV Zofran prior to her scan. Pt also endorses continued abdominal pain in the epigastrium and RUQ. Pt denies vomiting, notes oral pain and neck pain improved from admission.
Objective Data
-
Labs:
Laboratory Results
05/21/24
07:13
WBC 7.9
Hgb 8.8 L
Hct 26.8 L
Plt Count 159
Sodium 142
Potassium 3.9
Chloride 107
Carbon Dioxide 23
BUN 19 H
Creatinine 1.4 H
Glucose 132 H
Calcium 8.4
Total Bilirubin 0.2
AST 18
ALT 16
Alkaline Phosphatase 126
Vital Signs:
Vital Signs
Temp Pulse Resp BP Pulse Ox
98.1 F 89 18 165/108 97
05/21/24 07:30 05/21/24 07:48 05/21/24 07:48 05/21/24 07:30 05/21/24 07:48
I&O
05/20/24 05/21/24 05/22/24
06:59 06:59 06:59
Intake Total 960 / 960 600 / 600
Output Total 0 / 0
Balance 960 / 960 600 / 600
Review of Systems
-
History Source: Patient
Constitutional: Reports No Symptoms
Respiratory: Reports No Symptoms
Cardiac: Reports No Symptoms
Abdomen/GI: Reports Abdominal Pain and Nausea
Genitourinary: Reports No Symptoms
Neuro: Reports Headache
Physical Exam
-
General: Well Developed, Well Nourished and Pain
HEENT: Normocephalic, Atraumatic, Neck Non Tender and Other (Kernig's sign negative; patient sitting in bright room without issue. )
Respiratory: Clear to Auscultation
Cardiac: Regular Rhythm and S1/S2
GI: Tender (mild, RUP, epigastrium)
Genito-urinary: Deferred by me
Skin: Warm and Dry
Neuro: Awake, Alert and Oriented
Psych: Calm
Data Reviewed
-
Ultrasound: Report Reviewed by me and Discussed with Patient
Labs: Labs Reviewed by me and Discussed with Patient
--- NOTE | 2024-05-21 09:50 | W.PN.ID1 ---
Date of Service
Date of Service: May 21, 2024
Today's Communication
awaiting HIDA
c/w unasyn
new headache today, overall suspect migraine, if not responding then would consider LP
Assessment / Plan
Suspected Acalculous Cholecystitis
Acute lumbar back pain
Febrile Neutropenia - resolved
Cyclic Neutropenia Syndrome
Dm1 - historically uncontrolled
CKD
- MRI lumbar spine - possible cholecystitis incidentally noted - US possible acalculous martinez, lfts are normal
- for HIDA - if positive would favor medical management or cholecystectomy - would hesitate to place a cholecystomy tube when it is unclear if she will comply with follow up for cyclic neutropenia
- blood cultures x2 in progress no growth to date
- inpatient and outpatient urine cultures no c/w UTI
- c/w unasyn
Headache
H/o Migraine
- agree with treatment as for migraine
- if not responding may consider LP
Suspected Herpes Esophagitis
Herpes Oralis
GERBER on CKD
- c/w valtrex to complete 4 more days at 1 gm BID then can start 500 mg PO qday as suppression
- if her Ob (who has been managing her herpes is comfortable, they can take over suppression, if not I can see patient in follow up at her request)
Furuncle L posterior scalp - resolving
- mrsa nasal screen negative
- on unasyn
Chief Complaint
-: Fever and Other (Neutropenia, presumed HSV esophagitis)
Subjective / Review of Systems
afebrile
bp stable
leukocytosis and L shift resolved
progression of headache today, does have a history of migraines - complains of nausea with the light, nausea is new, not frankly photophobic
ongoing abdominal pain
frustrated
Vital Signs / Physical Exam
Vital Signs
Vital Signs
Temp Pulse Resp BP Pulse Ox
98.1 F 89 18 165/108 97
05/21/24 07:30 05/21/24 07:48 05/21/24 07:48 05/21/24 07:30 05/21/24 07:48
Physical Exam
Constitutional: No Acute Distress and Chronically Ill
Head: Other (no dora photophobia, some pain in the neck with neck flexion)
Cardiovascular: Regular Rate and S1/S2; Negative Murmur or Rub
Pulmonary: Clear and Symmetric; Negative Wheezes or Rales
Gastrointestinal: Soft, Tender (worse in the RUQ), Non Distended and Normal Bowel Sounds
Skin: Warm and Dry; Negative Rash or Jaundice
Objective Data
Lab Data
Lab Results
05/21/24 07:13
05/21/24 07:13
Estimated Creat Clear 51 ml/min 05/21/24 07:13
Lactic Acid 0.6 mmol/L (0.7-2.0) L 05/18/24 13:41
Total Bilirubin 0.2 mg/dl (0.2-1.3) 05/21/24 07:13
AST 18 U/L (14-36) 05/21/24 07:13
ALT 16 U/L (0-35) 05/21/24 07:13
Alkaline Phosphatase 126 U/L (38-126) 05/21/24 07:13
Most recent labs reviewed.
Micro Results:
05/15/24 21:22 Blood Culture - Final
Blood/Venous No Growth - Final Report
05/15/24 21:17 Blood Culture - Final
Blood/Venous No Growth - Final Report
05/18/24 16:59 Nasal Screen MRSA (PCR) - Final
Nose MRSA not detected - performed by PCR methodology.
05/15/24 19:45 Urine Culture - Final
Urine No Significant Growth
abd US: The gallbladder is mildly distended. No gallstones, however there is no bladder wall thickening and pericholecystic fluid. Positive sonographic Borjas's sign. Findings may be related to acalculus cholecystitis. If diagnosis is in doubt
clinically, consider HIDA scan.
--- NOTE | 2024-05-21 10:12 | W.PN.ONC2 ---
Today's Communication / Plan
-
OP follow up will be arranged upon discharge
Impression
Impression
cyclic neutropenia
recurrent fevers, HSV ulcers, possible cholecystitis
T1DM
anemia - suspect mixed picture of chronic disease/infection and iron def
Plan
Plan
neutropenia resolved w/ GCSF
anti-infectives per ID
HIDA scan
rec. outpatient CBC 2x/week to assess pattern of neutropenia, but she has financial barriers - will ask CM to help
heme f/u as outpatient, to consider regular GCSF dosing
outpatient iron infusions, hold for now w/ acute infections
Subjective/Objective
Subjective
headache, nausea, and RUQ discomfort
Vital Signs:
Vital Signs
Temp Pulse Resp BP Pulse Ox
98.1 F 89 18 165/108 97
05/21/24 07:30 05/21/24 07:48 05/21/24 07:48 05/21/24 07:30 05/21/24 07:48
Lab Results:
Laboratory Data
WBC 7.9 10^3/uL (4.8-10.8) 05/21/24 07:13
Hgb 8.8 g/dL (12.0-16.0) L 05/21/24 07:13
Plt Count 159 10^3/uL (130-400) 05/21/24 07:13
eGFR 53.54 05/21/24 07:13
--- NOTE | 2024-05-21 10:54 | W.PN.UPDATE ---
Update Note
Progress Note Update
I saw and evaluated the patient. I reviewed the resident�s note and agree with findings and plan as documented in the resident�s note.
Complains of right upper quadrant pain and right-sided headache
Patient seen and examined with Dr. Joseph Reyes present at bedside:
Gen: NAD, AAOx3.
Eyes: EOMI, PERRLA, no scleral icterus.
Neck: supple.
CV: RRR, +S1/S2, no m/r/g.
Resp: CTAB, no rales, wheezes, or rhonchi.
Abd: remains +BS, soft, ND, RUQ TTP
Skin: No rashes.
Neuro: CN 2-12 intact, non-focal.
Psych: Normal mood and affect
RUQ U/S:
1. The gallbladder is mildly distended. No gallstones, however there is no bladder wall thickening and pericholecystic fluid. Positive sonographic Borjas's sign. Findings may be related to acalculus cholecystitis. If diagnosis is in doubt
clinically, consider HIDA scan.
2. No biliary ductal dilation.
3. Mild splenomegaly.
4. Pancreas was not well visualized due to overlying bowel gas.
MRI L-spine:
At L3-L4 there is a small disc bulge with superimposed left foraminal disc protrusion with resultant mild left neuroforaminal narrowing with apparent contacting of the exiting left L3 nerve. There are no findings suggestive of
discitis/osteomyelitis. There is no abnormal enhancement within the lumbar spine. There is prominent fluid signal along the gallbladder, likely pericholecystic fluid which can be seen as a sequelae of liver disease or cholecystitis most of the
etiologies. Consider dedicated abdominal ultrasound for further evaluation. This appears to be new from recent prior CT.
Sepsis, POA, due to oral (and suspected esophageal) HSV and possibly acalculous cholecystitis
-febrile neutropenia in the setting of cyclic neutropenia syndrome without underlying evidence of hematological malignancy
-cont Valtrex/Unasyn as per ID
-imaging above, no evidence of discitis or osteomyelitis in the lumbar spine. Concern for acalculous cholecystitis.
-note, LFTs unremarkable
-Check HIDA scan
-leukocytosis now resolved
Headache:
-Imitrex PRN
Other problems:
GERBER on CKD3a: with non-AG met acidosis, resolved with IVFs
DM1: cont insulin pump. a1c 9.6%, nurses educator following.
Mild intermittent asthma
Hypothyroidism: cont Levoxyl
FULL/Heparin
[2024-05-21] MEDS: DILAUDID 0.5 MG IV ×2 (11:17→20:09)
[2024-05-21] MEDS: HEPARIN 5000 UNITS SC (11:18)
[2024-05-21] MEDS: VALTREX 1000 MG PO ×2 (11:18→20:01)
[2024-05-21 12:09] LABS: Glucose - Point of Care 163 mg/dl (70-99)
[2024-05-21] MEDS: IMITREX 25 MG PO (12:35)
[2024-05-21] MEDS: PT'S OWN INSULIN PUMP - HumaLOG 0.5 UNIT SC (12:35)
[2024-05-21] MEDS: BENADRYL 25 MG IV (16:25)
[2024-05-21] MEDS: COMPAZINE 10 MG IV (16:26)
[2024-05-21] MEDS: MAXALT MLT (ORALLY DISINTEGRATING) 10 MG PO (16:28)
[2024-05-21] MEDS: ATIVAN 0.5 MG IV ×2 (17:08→21:21)
[2024-05-21] MEDS: NSS (PRESERVATIVE FREE) 0.25 ML IV ×2 (17:08→21:21)
[2024-05-21 17:53] LABS: Glucose - Point of Care 140 mg/dl (70-99)
[2024-05-21] MEDS: ADVAIR HFA 115/21 MCG INHALER INH (20:00)
[2024-05-21] MEDS: HEPARIN SC ×2 (20:02→20:05)
[2024-05-21 20:45] LABS: Glucose - Point of Care 122 mg/dl (70-99)
[2024-05-21] MEDS: FEOSOL 325 MG PO (21:21)
[2024-05-21 23:30] VITALS: BP 164/102
[2024-05-21 23:56] VITALS: BP 164/102
[2024-05-22] MEDS: UNASYN IV ×2 (04:27→09:38)
[2024-05-22] MEDS: DILAUDID 0.5 MG IV ×4 (04:27→23:54)
[2024-05-22] MEDS: SYNTHROID 75 MCG PO (05:31)
[2024-05-22] MEDS: SYNTHROID 100 MCG PO (05:31)
[2024-05-22 07:00] VITALS: BP 168/106
[2024-05-22 07:12] LABS: % Basophils 0.2 % (0-2); % Immature Granulocytes 3.1 % (0-0.5); % Lymphocytes 15.2 % (20.5-51.1); % Monocytes 8.3 % (1.7-9.3); % Neutrophils 73.2 % (42.2-75.2); Absolute Immature Granulocytes 0.3 10^3/uL (0-0.05); Absolute Lymphocytes 1.3 10^3/uL (1.2-3.4); Absolute Monocytes 0.7 10^3/uL (0.1-0.6); Absolute Neutrophils 6.4 10^3/uL (1.4-6.5); Hemoglobin 8.8 g/dL (12.0-16.0); Mean Corp Hgb Conc. 32.6 g/dL (33.0-37.0); Mean Corpuscular Hgb 26.2 pg (27.0-31.0); Mean Corpuscular Volume 80.4 fL (81.0-99.0); Mean Platelet Volume 9.9 fL (7.4-10.4); Nucleated Red Blood Cells % 0 %; Platelet Count 152 10^3/uL (130-400); Red Blood Cell Count 3.36 10^6/uL (4.20-5.40); Red Cell Dist. Width 13.2 % (11.5-14.5); White Blood Cell Count 8.7 10^3/uL (4.8-10.8)
--- NOTE | 2024-05-22 07:44 | PN.DE.MGMTRT ---
Insulin Management
- -
05/22/2024: Consulted for insulin pump management F/U:
23 year old female well known to Diabetes team from previous hospital admission, where she was treated for Sepsis, Pyelonephritis, Leukopenia and Neutropenia.
She presented to the ED on 05/15/24 c/o Left Flank pain and urinary frequency due to pyelonephritis,
PMH: Recurrent Pyelonephritis, hypothyroidism neutropenia, herpes and T1DM managed on an insulin pump-Omnipod with CGM- Dexcom G6.
Pt was using Tandem T-Slim and transitioned to Ominpod towards the end of last year. Routinely sees Endo and thyroid associates- Dr. Rodas, was last seen back in September. Current A1C is 9.6%, improved from 14.1% in 02/2023. Cr 1.4, eGFR 53.54
Pt awake, alert, sitting in bed at time of my visit, offers no complaints, able to discuss diabetes management.
States her blood sugars have significantly improved since transitioning to Omnipod. Report her pump is currently in Automated mode and glucose has overall been well controlled. States she recently adjusted her insulin pump settings due to nocturnal
hypoglycemia because she was afraid of experiencing further episodes of hypoglycemia.
current insulin pump settings are
Basal rate:
12am - 6am 0.95
6am- 6pm 1.75 units
6pm - 12am 1.0
24 hour basal total 32.6 units.
ICR 12am -12am 1:10
ISF 1:40
Target 130
Premeal blood sugar stable and in range 136 to 163. Will make no adjustments to basal rates.
Pt is independent with insulin pump use and states she is familiar with the bedside worksheet and has been using it to document her insulin adm.
Will cont to follow
Diabetes History
- -
Type of Diabetes: 1
Pre-Admission Diabetes Regimen
05/21/24
07:13
Creatinine 1.4 H
Lab Results
Hemoglobin A1c 9.6 % (4.0-5.6) H 05/17/24 05:48
Insulin Pump Settings
IP Diabetes Regimen
05/21/24 05/21/24 05/21/24
07:13 12:08 17:52
Glucose 132 H
POC Glucose 163 H 140 H
05/21/24
20:45
Glucose
POC Glucose 122 H
Patient Education
[2024-05-22 08:02] LABS: ALT (SGPT) 13 U/L (0-35); AST (SGOT) 17 U/L (14-36); Alkaline Phosphatase 112 U/L (38-126); Blood Urea Nitrogen 16 mg/dl (7-17); Calcium 8.4 mg/dl (8.4-10.2); Carbon Dioxide 20 mmol/L (22-30); Chloride 110 mmol/L (98-107); Estimated Creatinine Clearance 51 ml/min; Glucose 125 mg/dl (70-99); Potassium 4.2 mmol/L (3.5-5.1); Sodium 144 mmol/L (135-145); Total Bilirubin 0.4 mg/dl (0.2-1.3); Total Protein 5.4 g/dl (6.3-8.2); eGFR 53.54
[2024-05-22 08:07] LABS: Glucose - Point of Care 140 mg/dl (70-99)
[2024-05-22] MEDS: ADVAIR HFA 115/21 MCG INHALER INH ×2 (08:27→19:29)
[2024-05-22] MEDS: VALTREX 1000 MG PO (09:36)
[2024-05-22] MEDS: PT'S OWN INSULIN PUMP - HumaLOG SC ×3 (09:38→17:06)
[2024-05-22] MEDS: HEPARIN SC (09:39)
--- NOTE | 2024-05-22 09:44 | CM ---
Chart reviewed and patient to return to home when stable, case sharri will follow with patient progress.
Plan; Home with family when stable.
[2024-05-22] MEDS: TYLENOL 650 MG PO (09:57)
--- NOTE | 2024-05-22 10:01 | W.PN.UPDATE ---
Update Note
Progress Note Update
I saw and evaluated the patient. I reviewed the resident�s note and agree with findings and plan as documented in the resident�s note.
Patient reports only minimal headache at this time
Patient seen and examined with Dr. Joseph Reyes present at bedside:
Gen: NAD, AAOx3.
Eyes: EOMI, PERRLA, no scleral icterus.
Neck: supple.
CV: Remains RRR, +S1/S2, no m/r/g.
Resp: Remains CTAB, no rales, wheezes, or rhonchi.
Abd: +BS, soft, ND, mild RUQ TTP
Skin: No rashes.
Neuro: CN 2-12 intact, non-focal.
Psych: Normal mood and affect
RUQ U/S:
1. The gallbladder is mildly distended. No gallstones, however there is no bladder wall thickening and pericholecystic fluid. Positive sonographic Borjas's sign. Findings may be related to acalculus cholecystitis. If diagnosis is in doubt
clinically, consider HIDA scan.
2. No biliary ductal dilation.
3. Mild splenomegaly.
4. Pancreas was not well visualized due to overlying bowel gas.
MRI L-spine:
At L3-L4 there is a small disc bulge with superimposed left foraminal disc protrusion with resultant mild left neuroforaminal narrowing with apparent contacting of the exiting left L3 nerve. There are no findings suggestive of
discitis/osteomyelitis. There is no abnormal enhancement within the lumbar spine. There is prominent fluid signal along the gallbladder, likely pericholecystic fluid which can be seen as a sequelae of liver disease or cholecystitis most of the
etiologies. Consider dedicated abdominal ultrasound for further evaluation. This appears to be new from recent prior CT.
HIDA: No scintigraphic evidence of cystic duct or common bile duct obstruction.
Sepsis, POA, due to oral (and suspected esophageal) HSV and possibly acalculous cholecystitis
-febrile neutropenia in the setting of cyclic neutropenia syndrome without underlying evidence of hematological malignancy
-cont Valtrex/Unasyn as per ID
-imaging above, no evidence of discitis or osteomyelitis in the lumbar spine. Concern for acalculous cholecystitis.
-note, LFTs unremarkable
-HIDA NEG
-leukocytosis now resolved
-will d/w ID
Other problems:
Headache, s/p migraine cocktail
GERBER on CKD3a: with non-AG met acidosis, resolved with IVFs
DM1: cont insulin pump. a1c 9.6%, breastfeeding educator following.
Mild intermittent asthma
Hypothyroidism: cont Levoxyl
FULL/Heparin
[2024-05-22 12:01] VITALS: BP 160/100
--- NOTE | 2024-05-22 12:05 | PTCARENOTE ---
patient's BP remains elevated 160/100 post pain medication administration. MD Reyes notified of patients BP trends. per MD Reyes 'sending for LP so will hold off on BP med for now ill take another look after the procedure' patient Ox4. Patient in
NAD. will continue to monitor.
--- NOTE | 2024-05-22 12:05 | W.PN.ID1 ---
Date of Service
Date of Service: May 22, 2024
Today's Communication
LP.
Start IV acyclovir
DC Unasyn
Rib Xray
Assessment / Plan
Acute lumbar back pain
Febrile Neutropenia - resolved
Cyclic Neutropenia Syndrome
Dm1 - historically uncontrolled
CKD
- blood cultures x2 in progress no growth to date
- inpatient and outpatient urine cultures no c/w UTI
- MRI lumbar spine - possible cholecystitis incidentally noted - US possible acalculous martinez, lfts are normal
- HIDA scan normal. Suspected acalculous cholecystitis ruled out
- DC Unasyn
-RUQ pain could be due to right lower breast/rib pain
- Check rib xray
Headache - ?HSV
H/o Migraine
- SUE without significant improvement on treatment for migraine
- Recommend LP for cell count/diff, protein, glucose, meningoencephalitis panel, culture, VDRL, cryptococcal antigen.
- Replace po valacyclovir with empiric IV acyclovir for now.
Suspected Herpes Esophagitis
Herpes Oralis
GERBER on CKD
- On IV acyclovir. Hold valtrex (to complete 4 more days at 1 gm BID then can start 500 mg PO qday as suppression )
- if her Ob (who has been managing her herpes is comfortable, they can take over suppression, if not, Dr. Mayo can see patient in follow up at her request)
Furuncle L posterior scalp - resolving
- mrsa nasal screen negative
Chief Complaint
-: Other (Neutropenia, presumed HSV esophagitis)
Subjective / Review of Systems
c/o of severe right sided SUE, no significant improvement from yesterday.
Also has severe right chest pain medial to right breast to inferior.
Vital Signs / Physical Exam
Vital Signs
Vital Signs
Temp Pulse Resp BP Pulse Ox
98.9 F 104 18 160/100 96
05/22/24 07:00 05/22/24 07:00 05/22/24 07:00 05/22/24 12:01 05/22/24 07:00
Physical Exam
Constitutional: Other (Looks uncomfortable)
Eyes: No Conjunctival Hemorrhage, Sclera Anicteric and Other (no photophobia)
Oropharyngeal: Ulcers (inner lip and buccal mucosa)
Cardiovascular: S1/S2 and Other (tachycardic)
Pulmonary: Clear and Other (+ tenderness over lower right sternum to rib)
Gastrointestinal: Soft, Non Distended and Normal Bowel Sounds
Genito-Urinary: Negative CVA Tenderness
Extremities: Negative Edema
Skin: Negative Rash
Neurological: AO x 3 and Meningeal Signs (somewhat stiff)
Objective Data
Lab Data
Lab Results
05/22/24 06:49
05/22/24 06:49
Estimated Creat Clear 51 ml/min 05/22/24 06:49
Lactic Acid 0.6 mmol/L (0.7-2.0) L 05/18/24 13:41
Total Bilirubin 0.4 mg/dl (0.2-1.3) 05/22/24 06:49
AST 17 U/L (14-36) 05/22/24 06:49
ALT 13 U/L (0-35) 05/22/24 06:49
Alkaline Phosphatase 112 U/L (38-126) 05/22/24 06:49
Most recent labs reviewed.
Micro Results:
05/15/24 21:22 Blood Culture - Final
Blood/Venous No Growth - Final Report
05/15/24 21:17 Blood Culture - Final
Blood/Venous No Growth - Final Report
05/18/24 16:59 Nasal Screen MRSA (PCR) - Final
Nose MRSA not detected - performed by PCR methodology.
05/15/24 19:45 Urine Culture - Final
Urine No Significant Growth
abd US: The gallbladder is mildly distended. No gallstones, however there is no bladder wall thickening and pericholecystic fluid. Positive sonographic Borjas's sign. Findings may be related to acalculus cholecystitis. If diagnosis is in doubt
clinically, consider HIDA scan.
HIDA scan: normal
Care Review
Plan reviewed with: Physician (Drs. dillon, Amy)
[2024-05-22 13:25] LABS: INR 1.01; PT 13.6 Sec (11.4-14.6)
[2024-05-22 13:30] VITALS: BP 156/68; BP_SYST 91
--- NOTE | 2024-05-22 14:00 | W.PN.HOSP.TC ---
Today's Communication/Plan
-
.
Assessment / Plan
Assessment / Plan
1. Concern for Pyelonephritis
- CT scan: mild bilateral perinephric fat stranding, similar appearance to CT from 1 year ago
- UA: microscopic hematuria
- blood cx x 2 no growth so far
- Appreciate Infectious Disease
- Outpatient U/A does not show signs of overt infection; feels flank pain may be of another etiology. MRI ordered today.
- MRI shows L3/L4 disc bulge with disc/neuroforaminal protrusion/pericholecystic fluid.
- Sepsis criteria present on admission.
2. CKD III with mild GERBER
- CrCl 47; avoid or alter dose of nephrotoxic medications
- IV Fluids
- Daily BMPs
3. Neutropenia
- Prior BMB showing a mildly hypercellular BM; no AML or MDS
- WBC 2.0 --> 10.8 --> 17.3 --> 7.9 (due to GCSF); continue to monitor.
- Hematology consulted, appreciate reccs
- Per heme: remains anemic likely due to recurrent iron deficiency for which iron studies ordered to ascertain if repletion indicated. 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
in symptomatic infections/hospitalization. G-CSF instituted. Discussed need for consistent follow-up as outpatient in this regard.
- Serial CBCs
4. Type 1 IDDM
- ACHS Checks
- Pt brought own insulin pump
- Consult Diabetic ELECTRICAL MAINTENANCE MAN
5. Mild Intermittent Asthma
- Continue home meds: Wixela/PRN Albuterol
6. Hypothyroidism
- Continue home meds: Synthroid
7. CHUCHO
- Continue Ferrous Sulfate
- Iron studies show ACD picture.
8. Oral Herpetic Lesions
- Magic Mouth Wash PRN; improvement per patient
- IV Acyclovir; renal/weight dosing (follow up with pharmacy for confirmation of dose/frequency)
- Dosing increased by ID; improving renal function.
- Converted to oral valtrex
- (05/22): Converted back to IV Acyclovir given headache concern. (See Below)
9. DVT PPx
- Heparin
10. Hx IVDA
- Dilaudid PRN frequency decreased to q6h severe pain
- Added Toradol for moderate pain
11. Non-AG Metabolic Acidosis
- Changed IVF to w/ HCO3
- HCO3 improving; bicarb d/c
12. Pericholecystic fluid on MRI/RUQ Tenderness on Examination
- US yesterday showed mild distension, positive Sonographic [place]
- HIDA scan yesterday, negative for pathology.
- Patient continues to have pain in the area. Rib XR r/o fx.
13. Headache
- Notes hx of migraines; no overt photophobia, Kernigs negative
- Given dose of Imitrex; consult neurology if continues despite abortive meds/workup.
- Continues to have headaches; in the setting of oral mucocutaneous herpes and herpes esophagitis, LP to be performed today to r/o meningitis.
Anticipated Discharge: 24 - 48 hours
Subjective/Interval History
-
Date of Service: May 22, 2024
Patient states that she still has right sided headaches with no improvement from yesterday and right upper quadrant pain with some improvement from yesterday with pain medications.
Objective Data
-
Labs:
Laboratory Results
05/22/24 05/22/24
06:49 13:02
WBC 8.7
Hgb 8.8 L
Hct 27.0 L
Plt Count 152
PT 13.6
INR 1.01
Sodium 144
Potassium 4.2
Chloride 110 H
Carbon Dioxide 20 L
BUN 16
Creatinine 1.4 H
Glucose 125 H
Calcium 8.4
Total Bilirubin 0.4
AST 17
ALT 13
Alkaline Phosphatase 112
Vital Signs:
Vital Signs
Temp Pulse Resp BP Pulse Ox
98.9 F 104 18 160/100 96
05/22/24 07:00 05/22/24 07:00 05/22/24 07:00 05/22/24 12:01 05/22/24 07:00
I&O
05/21/24 05/22/24 05/23/24
06:59 06:59 06:59
Intake Total 600 / 600 2377 / 2377
Balance 600 / 600 2377 / 2377
Review of Systems
-
History Source: Patient
Constitutional: Reports No Symptoms
EENT: Reports No Symptoms Reported
Respiratory: Reports No Symptoms
Cardiac: Reports No Symptoms
Abdomen/GI: Reports Abdominal Pain
Genitourinary: Reports No Symptoms
Musculoskeletal: Reports No Symptoms
Skin: Reports No Symptoms
Neuro: Reports Headache
Physical Exam
-
General: Well Developed, Well Nourished, No Apparent Distress and Other (mild distress; patient appears more comfortable and less toxic than days past)
HEENT: Normocephalic, Atraumatic and Moist Mucous Membranes
Respiratory: Clear to Auscultation
Cardiac: Regular Rhythm and S1/S2
GI: Soft and Tender (mild, RUQ, epigastrium)
Musculoskeletal: No Cyanosis and No Edema
Skin: Warm and Dry
Neuro: Awake, Alert, Oriented, No Motor Deficits and Nonfocal/Grossly Intact
Psych: Calm
Data Reviewed
-
Medical Tests (Nuc Med, Echo etc): Report Reviewed by me and Discussed with Patient
Labs: Labs Reviewed by me and Discussed with Patient
[2024-05-22 14:45] VITALS: BP 157/96
[2024-05-22] MEDS: NORVASC PO (14:59)
[2024-05-22 15:00] VITALS: BP 167/98
[2024-05-22] MEDS: ZOVIRAX INJECTION 112 MG IV ×2 (15:21→22:00)
[2024-05-22 16:12] LABS: Glucose - Point of Care 153 mg/dl (70-99)
[2024-05-22 16:23] LABS: CSF Color Colorless; CSF Tube # 4; CSF Tube # Clarity Clear
[2024-05-22 16:24] LABS: CSF Lymphocytes 98 %; Red Cell Count/CSF 1 mm^3; Spinal Fluid Macrophages 2 %; White Blood Cell Count/CSF 2 mm^3 (0-5)
[2024-05-22 16:58] LABS: CSF Clarity Clear; CSF Color Colorless; CSF Tube # 1; Red Cell Count/CSF 34 mm^3; Spinal Fluid Granulocytes 4 %; Spinal Fluid Lymphocytes 82 %; Spinal Fluid Macrophages 14 %; White Cell Count/CSF 1 mm^3 (0-5)
[2024-05-22] MEDS: NORVASC 5 MG PO (17:01)
[2024-05-22] MEDS: PT'S OWN INSULIN PUMP - HumaLOG 11.7 UNIT SC (17:57)
[2024-05-22] MEDS: HEPARIN 5000 UNITS SC (19:53)
[2024-05-22] MEDS: NSS (PRESERVATIVE FREE) 0.25 ML IV (19:57)
[2024-05-22] MEDS: ATIVAN 0.5 MG IV (19:57)
[2024-05-22] MEDS: FEOSOL 325 MG PO (19:57)
[2024-05-22 21:51] LABS: Glucose - Point of Care 226 mg/dl (70-99)
[2024-05-22] MEDS: PT'S OWN INSULIN PUMP - HumaLOG 1.25 UNIT SC (22:03)
[2024-05-22 23:47] VITALS: BP 142/85
[2024-05-23] MEDS: SYNTHROID 75 MCG PO (05:17)
[2024-05-23] MEDS: SYNTHROID 100 MCG PO (05:17)
[2024-05-23] MEDS: ZOVIRAX INJECTION 112 MG IV (05:18)
[2024-05-23] MEDS: DILAUDID 0.5 MG IV (05:55)
[2024-05-23 06:54] LABS: % Basophils 0.1 % (0-2); % Immature Granulocytes 2.8 % (0-0.5); % Lymphocytes 19.2 % (20.5-51.1); % Monocytes 9.7 % (1.7-9.3); % Neutrophils 68.2 % (42.2-75.2); Absolute Immature Granulocytes 0.2 10^3/uL (0-0.05); Absolute Lymphocytes 1.6 10^3/uL (1.2-3.4); Absolute Monocytes 0.8 10^3/uL (0.1-0.6); Absolute Neutrophils 5.6 10^3/uL (1.4-6.5); Hematocrit 25.5 % (37.0-47.0); Hemoglobin 8.5 g/dL (12.0-16.0); Mean Corp Hgb Conc. 33.3 g/dL (33.0-37.0); Mean Corpuscular Hgb 26.4 pg (27.0-31.0); Mean Corpuscular Volume 79.2 fL (81.0-99.0); Mean Platelet Volume 10.1 fL (7.4-10.4); Nucleated Red Blood Cells % 0 %; Platelet Count 157 10^3/uL (130-400); Red Blood Cell Count 3.22 10^6/uL (4.20-5.40); Red Cell Dist. Width 13.2 % (11.5-14.5); White Blood Cell Count 8.2 10^3/uL (4.8-10.8)
[2024-05-23 07:00] VITALS: BP 156/96
[2024-05-23 07:18] LABS: ALT (SGPT) 15 U/L (0-35); AST (SGOT) 19 U/L (14-36); Albumin 2.9 g/dl (3.5-5.0); Alkaline Phosphatase 111 U/L (38-126); Blood Urea Nitrogen 16 mg/dl (7-17); Calcium 8.2 mg/dl (8.4-10.2); Carbon Dioxide 22 mmol/L (22-30); Chloride 110 mmol/L (98-107); Estimated Creatinine Clearance 55 ml/min; Glucose 142 mg/dl (70-99); Potassium 3.9 mmol/L (3.5-5.1); Sodium 142 mmol/L (135-145); Total Bilirubin 0.3 mg/dl (0.2-1.3); Total Protein 5.3 g/dl (6.3-8.2); eGFR 58.52
[2024-05-23] MEDS: ADVAIR HFA 115/21 MCG INHALER 2 PUFF INH (07:57)
[2024-05-23 08:21] LABS: Glucose - Point of Care 152 mg/dl (70-99)
[2024-05-23] MEDS: ZOFRAN 4 MG IV (08:39)
[2024-05-23] MEDS: HEPARIN SC (08:43)
[2024-05-23] MEDS: PT'S OWN INSULIN PUMP - HumaLOG SC ×2 (08:43→12:37)
--- NOTE | 2024-05-23 09:35 | W.PN.HOSP.TC ---
Addendum entered and electronically signed by Chaparro Frazier MD 05/23/24 13:13:
Patient cleared for discharge by Dr. Ayala.
Total time spent on d/c = 38 min. This included today's physical exam, progress note, review of laboratory and diagnostic data, preparation of discharge documents and prescriptions, and discussions about the pt's hospital course and discharge plan
with the patient and other medical delivery driver involved in the patient's care.
Original Note:
Today's Communication/Plan
-
follow CSF studies
Assessment / Plan
Assessment / Plan
Patient seen and examined with nurse Rena Taylor present at bedside:
Gen: NAD, AAOx3.
Eyes: EOMI, PERRLA, no scleral icterus.
Neck: supple.
CV: continues to remain RRR, +S1/S2, no m/r/g.
Resp: continues to remain CTAB, no rales, wheezes, or rhonchi.
Abd: +BS, soft, ND, NT to light palpation
Skin: No rashes.
Neuro: CN 2-12 intact, non-focal.
Psych: Normal mood and affect
RUQ U/S:
1. The gallbladder is mildly distended. No gallstones, however there is no bladder wall thickening and pericholecystic fluid. Positive sonographic Borjas's sign. Findings may be related to acalculus cholecystitis. If diagnosis is in doubt
clinically, consider HIDA scan.
2. No biliary ductal dilation.
3. Mild splenomegaly.
4. Pancreas was not well visualized due to overlying bowel gas.
MRI L-spine:
At L3-L4 there is a small disc bulge with superimposed left foraminal disc protrusion with resultant mild left neuroforaminal narrowing with apparent contacting of the exiting left L3 nerve. There are no findings suggestive of
discitis/osteomyelitis. There is no abnormal enhancement within the lumbar spine. There is prominent fluid signal along the gallbladder, likely pericholecystic fluid which can be seen as a sequelae of liver disease or cholecystitis most of the
etiologies. Consider dedicated abdominal ultrasound for further evaluation. This appears to be new from recent prior CT.
HIDA: No scintigraphic evidence of cystic duct or common bile duct obstruction.
Sepsis, POA, due to oral (and suspected esophageal) HSV and possibly meningitis:
-febrile neutropenia in the setting of cyclic neutropenia syndrome without underlying evidence of hematological malignancy
-cont Acyclovir at this time (was on abx prior, now off) as per ID
-imaging above, no evidence of discitis or osteomyelitis in the lumbar spine. Concern for acalculous cholecystitis.
-note, LFTs unremarkable
-HIDA NEG
-leukocytosis now resolved
-LP done 05/22/24. CSF clear, WBC 2, unremarkable. Note glucose and protein need to be added on.
-Follow rest of CSF studies including cryptococcal antigen, VDRL, meningitis/encephalitis panel
Other problems:
Headache, s/p migraine cocktail
GERBER on CKD3a: with non-AG met acidosis, resolved with IVFs
DM1: cont insulin pump. a1c 9.6%, cosmetology educator following.
Mild intermittent asthma
Hypothyroidism: cont Levoxyl
FULL/Heparin
Anticipated Discharge: 24 - 48 hours
Subjective/Interval History
-
Date of Service: May 23, 2024
Patient reports mild to moderate headache. Had vomiting earlier this morning.
Objective Data
-
Labs:
Laboratory Results
05/23/24
06:42
WBC 8.2
Hgb 8.5 L
Hct 25.5 L
Plt Count 157
Sodium 142
Potassium 3.9
Chloride 110 H
Carbon Dioxide 22
BUN 16
Creatinine 1.3 H
Glucose 142 H
Calcium 8.2 L
Total Bilirubin 0.3
AST 19
ALT 15
Alkaline Phosphatase 111
Vital Signs:
Vital Signs
Temp Pulse Resp BP Pulse Ox
99.3 F 111 20 142/85 92
05/22/24 23:47 05/22/24 23:47 05/22/24 23:47 05/22/24 23:47 05/22/24 23:47
I&O
05/22/24 05/23/24 05/24/24
06:59 06:59 06:59
Intake Total 2377 / 2377 240 / 240
Balance 2377 / 2377 240 / 240
[2024-05-23] MEDS: NORVASC 5 MG PO (10:05)
--- NOTE | 2024-05-23 11:02 | W.PN.ID1 ---
Date of Service
Date of Service: May 23, 2024
Today's Communication
Resume valtrex (to complete 2 more days at 1 gm BID then can start 500 mg PO qday as suppression )
Assessment / Plan
Acute lumbar back pain
Febrile Neutropenia - resolved
Cyclic Neutropenia Syndrome
Dm1 - historically uncontrolled
CKD
- blood cultures x2 in progress no growth to date
- inpatient and outpatient urine cultures no c/w UTI
- MRI lumbar spine - possible cholecystitis incidentally noted - US possible acalculous martinez, lfts are normal
- HIDA scan normal. Acalculous cholecystitis ruled out
-RUQ pain could be due to right lower rib pain - ? costochondritis
Right sided Headache - suspect migraine
H/o Migraine
- CSF: only 2 wbc, meningoencephalitis panel negative, culture neg to date.
VDRL, CRAG pending
- DC IV acuclovir
Suspected Herpes Esophagitis
Herpes Oralis
GERBER on CKD
- Resume valtrex (to complete 2 more days at 1 gm BID then can start 500 mg PO qday as suppression )
- if her Ob (who has been managing her herpes is comfortable, they can take over suppression, if not, Dr. Mayo can see patient in follow up at her request)
Furuncle L posterior scalp - resolved
- mrsa nasal screen negative
Chief Complaint
-: Other (Neutropenia, presumed HSV esophagitis)
Subjective / Review of Systems
Still with right side SUE and right side chest/breast pain.
Vital Signs / Physical Exam
Vital Signs
Vital Signs
Temp Pulse Resp BP Pulse Ox
98.6 F 93 19 156/96 97
05/23/24 07:00 05/23/24 07:00 05/23/24 07:00 05/23/24 07:00 05/23/24 07:00
Physical Exam
Constitutional: Non-toxic
Eyes: No Conjunctival Hemorrhage and Sclera Anicteric
Oropharyngeal: Ulcers and Other
Cardiovascular: Regular Rate and S1/S2
Pulmonary: Other (point tenderness right lower sternum to right rib)
Gastrointestinal: Soft, Non Tender, Non Distended and Normal Bowel Sounds
Extremities: Negative Edema
Wound: Other (left scalp furuncle resolved)
Neurological: AO x 3; Negative Meningeal Signs (more supple today)
Objective Data
Lab Data
Lab Results
05/23/24 06:42
05/23/24 06:42
PT 13.6 Sec (11.4-14.6) 05/22/24 13:02
INR 1.01 05/22/24 13:02
Estimated Creat Clear 55 ml/min 05/23/24 06:42
Lactic Acid 0.6 mmol/L (0.7-2.0) L 05/18/24 13:41
Total Bilirubin 0.3 mg/dl (0.2-1.3) 05/23/24 06:42
AST 19 U/L (14-36) 05/23/24 06:42
ALT 15 U/L (0-35) 05/23/24 06:42
Alkaline Phosphatase 111 U/L (38-126) 05/23/24 06:42
Most recent labs reviewed.
Micro Results:
05/22/24 14:30 CSF Culture - Preliminary
Csf No Growth After 18-24 Hours
Gram Stain - Preliminary
05/22/24 14:30 Meningitis/Encephalitis Panel (PCR) - Final
Csf
05/15/24 21:22 Blood Culture - Final
Blood/Venous No Growth - Final Report
05/15/24 21:17 Blood Culture - Final
Blood/Venous No Growth - Final Report
05/18/24 16:59 Nasal Screen MRSA (PCR) - Final
Nose MRSA not detected - performed by PCR methodology.
05/15/24 19:45 Urine Culture - Final
Urine No Significant Growth
abd US: The gallbladder is mildly distended. No gallstones, however there is no bladder wall thickening and pericholecystic fluid. Positive sonographic Borjas's sign. Findings may be related to acalculus cholecystitis. If diagnosis is in doubt
clinically, consider HIDA scan.
HIDA scan: normal
Care Review
Plan reviewed with: Physician ()
[2024-05-23 12:02] LABS: Glucose - Point of Care 165 mg/dl (70-99)
[2024-05-23] MEDS: ATIVAN 0.5 MG PO (12:16)
[2024-05-23] MEDS: TYLENOL 650 MG PO (12:31)
--- NOTE | 2024-05-23 13:12 | CM ---
Patient is for discharge to home today with family no needs.
Plan; Home with family
--- NOTE | 2024-05-23 13:15 | W.DCSUMMARY ---
Discharge Summary
Discharge Data
Date of Admission: 05/15/24
Date of Discharge: 05/23/24
-
Pending Results: Yes
Additional Pending Results:
CSF cryptococcal antigen and VDRL
Hospital Course
Primary diagnoses:
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
Acute kidney injury on chronic kidney disease with nonanion gap metabolic acidosis
Migraine headaches
Cyclic neutropenia syndrome
Secondary diagnoses:
Type 1 diabetes mellitus
Mild intermittent asthma
Hypothyroidism
Consultants:
Infectious disease
Hematology
Diabetes nurse practitioner
Imaging:
RUQ U/S:
1. The gallbladder is mildly distended. No gallstones, however there is no bladder wall thickening and pericholecystic fluid. Positive sonographic Borjas's sign. Findings may be related to acalculus cholecystitis. If diagnosis is in doubt
clinically, consider HIDA scan.
2. No biliary ductal dilation.
3. Mild splenomegaly.
4. Pancreas was not well visualized due to overlying bowel gas.
MRI L-spine:
At L3-L4 there is a small disc bulge with superimposed left foraminal disc protrusion with resultant mild left neuroforaminal narrowing with apparent contacting of the exiting left L3 nerve. There are no findings suggestive of
discitis/osteomyelitis. There is no abnormal enhancement within the lumbar spine. There is prominent fluid signal along the gallbladder, likely pericholecystic fluid which can be seen as a sequelae of liver disease or cholecystitis most of the
etiologies. Consider dedicated abdominal ultrasound for further evaluation. This appears to be new from recent prior CT.
HIDA: No scintigraphic evidence of cystic duct or common bile duct obstruction.
23-year-old female presented with chief complaints of urinary frequency and left-sided flank pain as outlined in the H&P done on admission. Hospital course by problem list:
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 Patient had extensive workup as evidenced by the imaging above.
Prior to admission she was on antibiotics and was on antibiotics while hospitalized. They were stopped prior to discharge. She was continued on Valtrex and then given IV acyclovir. As her workup progressed, it was noted that urine studies prior
to admission and during admission were not consistent with UTI/pyelonephritis. MRI L-spine did not show any evidence of discitis or osteomyelitis. There was concern for acalculous cholecystitis but she had normal liver function tests and had a
negative HIDA scan. Her leukocytosis resolved. She had a lumbar puncture on 05/22/24 which did not show evidence of infection. Her meningitis/encephalitis PCR panel was negative. CSF showed 2 white cells and was clear, not suggestive of CSF
infection. Blood cultures were no growth. At the time of discharge infectious disease recommended 2 further days of Valtrex 1 g twice daily followed by maintenance Valtrex 500 mg twice daily.
Acute kidney injury on chronic kidney disease with nonanion gap metabolic acidosis: Patient's creatinine improved from 1.6-1.3 with IV fluids. Her non-anion gap metabolic acidosis resolved with IV fluids containing bicarbonate.
Discharge Plan
-
Patient Disposition: Home (Routine Discharge)
Discharge Diagnosis/Procedures: Herpes esophagitis and oralis, acute kidney injury on chronic kidney disease, migraine headaches, cyclic neutropenia
Diet: Diabetic, Carb Controlled
Activity: As tolerated
Driving Restrictions: As prior to admission
Activity Restrictions/Additional Instructions:
You will take 5 more doses of the 1 g of Valtrex twice daily. Then you will start Valtrex 500 mg twice daily.
Referrals:
Juan A Martinez MD [Family Provider] - in less than 1 week
Prescriptions:
New
amlodipine 5 mg Tablet
5 mg PO DAILY Qty: 30 0RF
valacyclovir 500 mg Tablet
500 mg PO DAILY Qty: 30 0RF
Continued
levothyroxine 100 mcg capsule
100 mcg PO DAILY Qty: 60 0RF
Rx Instructions:
total 175 mcg take along with 75 mcg tab
levothyroxine [Synthroid] 75 mcg tablet
75 mcg PO DAILY Qty: 60 0RF
Rx Instructions:
total 175 mcg take along with 100 mcg tab
Medical Marijuana
0.5 ml PO BIDPRN PRN (Reason: ANXIETY)
fluticasone propion-salmeterol [Wixela Inhub] 250-50 mcg/dose blister with device
1 inh INHALATION R DAILYPRN PRN (Reason: sob)
acetaminophen 325 mg tablet
650 mg PO Q6HPRN PRN (Reason: MILD PAIN)
fluticasone propionate 50 mcg/actuation spray,suspension
1 spray INTRANASAL DAILY
Insulin Pump [Patient's Own Insulin Pump]
0 unit SC .CONTINOUS
Rx Instructions:
03/19/23 PATIENT USING HUMALOG AND PATIENT'S DEVICE HOLDS 175 UNITS
therapeutic multivitamin Tablet
1 tab PO DAILY
albuterol sulfate 90 mcg/actuation Hfa Aerosol Inhaler
2 puff INHALATION R Q4HPRN PRN (Reason: sob)
medroxyprogesterone 150 mg/mL Syringe
150 mg IM [id number]
ferrous sulfate [FeroSul] 325 mg (65 mg iron) tablet
325 mg PO HS
valacyclovir 1 gram Tablet
1,000 mg PO BID Qty: 5 0RF
Discontinued
levofloxacin 500 mg tablet
500 mg PO DAILY Qty: 6 0RF
Patient Comments:
05/15/24: to take for 10 days, started 05/15/24.
Discharge Orders:
Discharge Patient (As Directed); Ordered 05/23/24
Ordered By: Chaparro Frazier
Discharge Date and Time
Print Language: ROMANSH
[2024-05-23 14:33] VITALS: BP 158/88
[2024-05-25 00:46] LABS: C.neoformans Antigen Negative (Negative)
[2024-05-26 09:07] LABS: CSF VDRL (T. pallidum) Non Reactive (Non Reactive)
== END 2024-05-23 14:45 | disposition home or self-care (01) | DRG 872 ==
LOC: 4 WEST ACU 22:38
PROVIDERS: Emergency Medicine; Internal Medicine; Internal Medicine Hematology & Oncology; Radiology Vascular & Interventional Radiology; Registered Nurse; ADMITTING PHYSICIAN Internal Medicine; ATTENDING PHYSICIAN Internal Medicine; CONSULT PHYSICIAN Internal Medicine Hematology & Oncology; CONSULT PHYSICIAN Student in an Organized Health Care Education/Training Program; EMERGENCY PHYSICIAN Emergency Medicine; FAMILY PHYSICIAN Family Medicine
PROC: 009U3ZX Drainage of Spinal Canal, Percutaneous Approach, Diagnostic (ICD-10-PCS; 2024-05-22)
DX: A41.9 Sepsis, unspecified organism (principal); B00.89 Other herpesviral infection; N17.9 Acute kidney failure, unspecified; N10 Acute pyelonephritis; D84.9 Immunodeficiency, unspecified; K20.80 Other esophagitis without bleeding; N18.31 Chronic kidney disease, stage 3a; D70.4 Cyclic neutropenia; D50.9 Iron deficiency anemia, unspecified; E03.9 Hypothyroidism, unspecified; J45.20 Mild intermittent asthma, uncomplicated; E10.22 Type 1 diabetes mellitus with diabetic chronic kidney disease
CPT/HCPCS: 62328; 72158; 74176; 76700; 78226; 80048; 80053; 80202; 81003; 81015; 82010; 82248; 82607; 82728; 82746; 82962; 83036; 83540; 83550; 83605; 84703; 85025; 85027; 85045; 85610; 86592; 87015; 87040; 87070; 87086; 87205; 87327; 87483; 87641; 89051; 93005; 94640; 96361; 96365; 96375; 99285; A9537; J1447

== ENCOUNTER 2024-05-27 20:26 | Emergency (ER) | payer BC, SELFPAY ==
--- NOTE | 2024-05-27 21:45 | ED.GENMED ---
History of Present Illness
General
Chief Complaint: Urinary Symptoms
Source: patient
Exam Limitations: none
Time Seen by Provider: 05/27/24 21:06
Nursing documentation reviewed up to this point in time: agreed with
History of Present Illness
History of Present Illness:
23 yr old female with a past medical history of pyelonephritis, insulin dependent and diabetes hypothyroidism herpes presents today for evaluation. Patient was recently admitted May 15 and discharged May 23 for sepsis due to herpes
esophagitis and oralis and acute kidney injury with history of chronic kidney disease. Patient reports while here she did receive Dilaudid and has been constipated for the past at least 5 days. She denies any associated nausea vomiting. She has
been eating with this. Today however she presents because she has not been able to urinate for the past 7 hours and complains of lower abdominal discomfort
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
ED Past Medical History: Asthma, IDDM, Hypothyroidism, Psychiatric, Other (EMPHASEMATOUS PYELONEPHRITIS, neutropenia) and Other (Anemia, Escherichia coli sepsis, multiple abscesses, Cellulitis, Pyelonephritis, vaginal herpes, polysubstance drug
abuse)
ED Past Surgical History: Appendectomy, Tonsilectomy (T&A) and Other (tympanostomy, buttocks I&D, NEPHROSTOMY RIGHT)
Social History
Tobacco: Former smoker
Alcohol: None
Drug: Marijuana, Narcotics, IVDA (Heroin user) and Other (Methamphetamine)
Personal: Single
Living: with family
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
Family History
Family History: Other (Noncontributory)
Review of Systems
Review of Systems
Allergies reviewed?: Yes
All Other Systems: ROS reviewed and negative except as documented in HPI and ROS
Constitutional: Reports no symptoms; Denies fever, fatigue or chills
ABD/GI: Reports constipated; Denies nausea or vomiting
: Reports difficulty voiding
Musculoskeletal: Reports no symptoms
Skin: Reports no symptoms
Neurological: Reports no symptoms
Psychiatric: Reports no symptoms
Phy Exam
General Physical Exam
General Presentation: no apparent distress
General age: appears stated age
General Skin: warm and dry
General Habitus: normal
General Mental: alert
General Hydration: appears well hydrated
Gastrointestinal Exam
Gastrointestinal Exam: soft and other (Tender over suprapubic region; + small external hemorrhoid)
Neurological Exam
Neurological Exam: alert
Musculoskeletal Exam
Musculoskeletal Exam: full ROM
Skin Exam
Skin Exam: normal color and warm/dry
Psychiatric Exam
Psychiatric Exam: normal mood/affect
Course
Orders/Labs/Results
Orders:
Orders
05/27/24 21:47
Vanegas [Vanegas Placement- Treatment] ONCE
Reason for insertion: Acute Retention
05/27/24 22:08
Obstruct Series W/PA Chest [CR Obstruct Series W/pa Chest] Urgent
Comment:
Reason For Exam: constipation
05/27/24 22:45
Complete Blood Count/With Diff Urgent
Comprehensive Metabolic Panel Urgent
05/27/24 23:08
Urinalysis Reflex To Culture Urgent
Date Specimen was Collected: 05/27/24
Time Specimen was Collected: 23:00
Urine Microscopic Reflex Cult Urgent
Urine Culture Urgent
ROBE Source: U
Specimen Description:
Date Specimen was Collected: 05/27/24
Time Specimen was Collected: 23:00
05/27/24 23:16
Enema- Treatment ONCE
Type: Milk of Molasses
Amount: x1
Abnormal Lab Results
05/27/24 05/27/24
22:45 23:08
RBC 3.53 L 10^6/uL
(4.20-5.40)
Hgb 9.2 L g/dL
(12.0-16.0)
Hct 28.4 L %
(37.0-47.0)
MCV 80.5 L fL
(81.0-99.0)
MCH 26.1 L pg
(27.0-31.0)
MCHC 32.4 L g/dL
(33.0-37.0)
RDW 14.6 H %
(11.5-14.5)
MPV 10.5 H fL
(7.4-10.4)
Chloride 112 H mmol/L
(98-107)
BUN 21 H mg/dl
(7-17)
Creatinine 1.2 H mg/dL
(0.6-1.0)
Glucose 141 H mg/dl
(70-99)
Calcium 8.3 L mg/dl
(8.4-10.2)
Total Protein 5.8 L g/dl
(6.3-8.2)
Ur Occult Blood Reflex 1+ A
(Negative)
Leukocyte Esterase Rfl Trace A
(Negative)
Urine RBC 11-15 A /HPF
(0-2)
Urine WBC (Reflex) 50-60 A /HPF
(0-5)
Urine Bacteria (Reflex) Moderate A
(Negative)
Urine Glucose 1+ A
(Negative)
Urine Albumin (Reflex) 3+ A
(Neg - Trace)
05/27/24 22:45
05/27/24 22:45
Vital Signs
Initial and Last Documented VS:
Initial Vital Signs
Temp Pulse Resp BP Pulse Ox
98.5 F 98 18 146/89 99
05/28/24 00:57 05/28/24 00:57 05/28/24 00:57 05/28/24 00:57 05/28/24 00:57
Last Documented Vital Signs
Temp Pulse Resp BP Pulse Ox
98.5 F 98 18 146/89 99
05/28/24 00:57 05/28/24 00:57 05/28/24 00:57 05/28/24 00:57 05/28/24 00:57
Rim Turning Finisher consulted with Physician
Rim Turning Finisher consulted with physician?: Yes
Name of Physician Consulted: DR Nelson
MDM/Problems Addressed
Differential Diagnosis Includes:
Not limited to urinary retention
MDM/Problems Addressed:
As documented patient is a 23-year-old female who presents with constipation and urinary retention. She has been constipated for greater than 5 days after being admitted here recently. During admission she reports she received Dilaudid which
constipated her. She has not been able to move her bowels for at least the past 5 days. She denies any associate nausea vomiting has been eating with this. Today however she presented because she has also had urinary retention for the past 7
hours. Patient presented very uncomfortable + bladder scan was 329 ml of urine. Pt was tender over the suprapubic area. Vanegas catheter was inserted with significant urine drainage. Patient felt relief of lower abdominal distention.
x-ray does show large volume of colonic stool compatible with constipation.
Case reviewed with ED physician patient was given an local molasses enema and was able to produce a significant amount of stool with relief. In addition Vanegas catheter was removed and patient was able to urinate on her own. Labs reviewed and
unremarkable
Patient was discharged home however I did review urinalysis once patient was discharged which did appear infected. I did speak with patient at home and will call in patient's cefdinir. Again she denies any fever or chills.
*Radiology
Radiology exam reviewed: radiology read reviewed
*Pulse Oximetry
Patient hypoxic: no
*Critical Care Note
Total Time (30-74mins, 75-104mins- exclusive of procedures): Not Applicable
Data Reviewed
Review of Other/Old Records Reveals: Labs and Discharge Summary
ED Attending Note
-
Portions of this chart may have been created with voice recognition software.� Occasional wrong word or��sound alike� substitutions may have occurred due to the inherent limitations of voice recognition software.
Discharge Plan
Departure
Patient Disposition: Home (Routine Discharge)
Date of Disposition: 05/28/24
Time of Disposition: 00:48
Patient with high blood pressure during this ER visit?: Yes
Condition: Fair
Discharge Problem:
Constipation, URINARY RETENTION
Instructions: Constipation, Adult ED, Urinary retention - Discharge instructions, BLOOD PRESSURE
Prescriptions:
New
cefdinir 300 mg capsule
300 mg PO BID Qty: 14 0RF
No Action
levothyroxine 100 mcg capsule
100 mcg PO DAILY Qty: 60 0RF
Rx Instructions:
total 175 mcg take along with 75 mcg tab
levothyroxine [Synthroid] 75 mcg tablet
75 mcg PO DAILY Qty: 60 0RF
Rx Instructions:
total 175 mcg take along with 100 mcg tab
Medical Marijuana
0.5 ml PO BIDPRN PRN (Reason: ANXIETY)
fluticasone propion-salmeterol [Wixela Inhub] 250-50 mcg/dose blister with device
1 inh INHALATION R DAILYPRN PRN (Reason: sob)
acetaminophen 325 mg tablet
650 mg PO Q6HPRN PRN (Reason: MILD PAIN)
fluticasone propionate 50 mcg/actuation spray,suspension
1 spray INTRANASAL DAILY
Insulin Pump [Patient's Own Insulin Pump]
0 unit SC .CONTINOUS
Rx Instructions:
03/19/23 PATIENT USING HUMALOG AND PATIENT'S DEVICE HOLDS 175 UNITS
therapeutic multivitamin Tablet
1 tab PO DAILY
albuterol sulfate 90 mcg/actuation Hfa Aerosol Inhaler
2 puff INHALATION R Q4HPRN PRN (Reason: sob)
medroxyprogesterone 150 mg/mL Syringe
150 mg IM [id number]
ferrous sulfate [FeroSul] 325 mg (65 mg iron) tablet
325 mg PO HS
amlodipine 5 mg Tablet
5 mg PO DAILY Qty: 30 0RF
valacyclovir 500 mg Tablet
500 mg PO DAILY Qty: 30 0RF
valacyclovir 1 gram Tablet
1,000 mg PO BID Qty: 5 0RF
Referrals:
NONE,* [Active] -
Activity Restrictions/Additional Instructions:
Please continue to take MiraLAX for constipation. Use [id number] stool softener such as Colace. Increase water intake, increase diet in fresh fruits and vegetables high-fiber including berries grains oats. Avoid constipating foods such as
bananas.
Follow-up with your family doctor in the next of days return if any worsening of symptoms
Interventions
Interventions:
*Risk Screen - Suicide Last Done: 05/27/24 20:29
*General Assessment Last Done: 05/27/24 20:29
*Neglect/Abuse Screening Last Done: 05/27/24 20:29
ED- Fall Risk Assessment Last Done: 05/28/24 01:03
*ED COVID-19 Vaccine History Last Done: 05/27/24 20:29
*Nursing Disposition Last Done: 05/28/24 01:03
ED-Female Genitourinary Assessment Last Done: 05/27/24 22:40
Discharge Date and Time
Discharge Date/Time: 05/28/24 01:04
Print Language: TAMAZIGHT
[2024-05-27 22:56] LABS: % Basophils 0.2 % (0-2); % Immature Granulocytes 0.2 % (0-0.5); % Lymphocytes 23.4 % (20.5-51.1); % Monocytes 8.3 % (1.7-9.3); % Neutrophils 67.9 % (42.2-75.2); Absolute Lymphocytes 1.4 10^3/uL (1.2-3.4); Absolute Monocytes 0.5 10^3/uL (0.1-0.6); Hematocrit 28.4 % (37.0-47.0); Hemoglobin 9.2 g/dL (12.0-16.0); Mean Corp Hgb Conc. 32.4 g/dL (33.0-37.0); Mean Corpuscular Hgb 26.1 pg (27.0-31.0); Mean Corpuscular Volume 80.5 fL (81.0-99.0); Mean Platelet Volume 10.5 fL (7.4-10.4); Nucleated Red Blood Cells % 0 %; Platelet Count 211 10^3/uL (130-400); Red Blood Cell Count 3.53 10^6/uL (4.20-5.40); Red Cell Dist. Width 14.6 % (11.5-14.5); White Blood Cell Count 5.8 10^3/uL (4.8-10.8)
[2024-05-27 23:05] LABS: ALT (SGPT) 17 U/L (0-35); AST (SGOT) 17 U/L (14-36); Albumin 3.5 g/dl (3.5-5.0); Alkaline Phosphatase 71 U/L (38-126); Blood Urea Nitrogen 21 mg/dl (7-17); Calcium 8.3 mg/dl (8.4-10.2); Carbon Dioxide 22 mmol/L (22-30); Chloride 112 mmol/L (98-107); Glucose 141 mg/dl (70-99); Potassium 4.3 mmol/L (3.5-5.1); Sodium 142 mmol/L (135-145); Total Bilirubin 0.4 mg/dl (0.2-1.3); Total Protein 5.8 g/dl (6.3-8.2); eGFR > 60.00
[2024-05-27 23:23] LABS: Urine Albumin 3+ (Neg - Trace); Urine Bilirubin Negative (Negative); Urine Character Clear (Clear); Urine Glucose 1+ (Negative); Urine Ketone Negative (Negative); Urine Leukocyte Trace (Negative); Urine Nitrite Negative (Negative); Urine Occult Blood 1+ (Negative); Urine Urobilinogen Negative (Neg - 1+)
[2024-05-27 23:36] LABS: Urine Color Yellow
[2024-05-28] LABS: Urine Bacteria Moderate (Negative); Urine White Cell 50-60 /HPF (0-5)
[2024-05-28 00:57] VITALS: BP 146/89
== END 2024-05-28 01:04 | disposition home or self-care (01) ==
LOC: EMR 20:26
PROVIDERS: Nurse Practitioner; EMERGENCY PHYSICIAN Emergency Medicine; FAMILY PHYSICIAN Family Medicine
DX: K59.00 Constipation, unspecified (principal); R33.9 Retention of urine, unspecified; E11.22 Type 2 diabetes mellitus with diabetic chronic kidney disease; N18.9 Chronic kidney disease, unspecified; E03.9 Hypothyroidism, unspecified; J45.909 Unspecified asthma, uncomplicated; Z87.891 Personal history of nicotine dependence; Z90.49 Acquired absence of other specified parts of digestive tract
CPT/HCPCS: 99283; 74022; 80053; 81003; 81015; 85025; 87086

== ENCOUNTER 2024-09-01 03:21 | Inpatient (IN) | payer BC, SELFPAY ==
[2024-08-31 21:00] VITALS: BP 189/120
[2024-08-31 21:30] LABS: ALT (SGPT) 11 U/L (0-35); AST (SGOT) 17 U/L (14-36); Albumin 3.4 g/dl (3.5-5.0); Alkaline Phosphatase 85 U/L (38-126); Blood Urea Nitrogen 21 mg/dl (7-17); Calcium 8.5 mg/dl (8.4-10.2); Carbon Dioxide 18 mmol/L (22-30); Chloride 104 mmol/L (98-107); Glucose 370 mg/dl (70-99); Potassium 4.5 mmol/L (3.5-5.1); Sodium 129 mmol/L (135-145); Total Bilirubin 0.5 mg/dl (0.2-1.3); Total Protein 5.9 g/dl (6.3-8.2); eGFR 48.98
[2024-08-31 21:37] LABS: B-Hydroxybutyrate 0.52 mmol/L (0.02-0.27)
[2024-08-31 21:41] LABS: % Monocytes 16.7 % (1.7-9.3); % Neutrophils 17.3 % (42.2-75.2); Absolute Lymphocytes 1.4 10^3/uL (1.2-3.4); Absolute Monocytes 0.4 10^3/uL (0.1-0.6); Absolute Neutrophils 0.4 10^3/uL (1.4-6.5); Hematocrit 34.6 % (37.0-47.0); Hemoglobin 11.7 g/dL (12.0-16.0); Mean Corp Hgb Conc. 33.8 g/dL (33.0-37.0); Mean Corpuscular Hgb 25.7 pg (27.0-31.0); Mean Corpuscular Volume 75.9 fL (81.0-99.0); Mean Platelet Volume 9.6 fL (7.4-10.4); Nucleated Red Blood Cells % 0 %; Platelet Count 189 10^3/uL (130-400); Red Blood Cell Count 4.56 10^6/uL (4.20-5.40); Red Cell Dist. Width 14.2 % (11.5-14.5); White Blood Cell Count 2.1 10^3/uL (4.8-10.8)
[2024-08-31 21:49] LABS: HCG, Serum Qualitative Screen Negative
[2024-08-31 22:24] VITALS: BP 140/99
[2024-08-31] MEDS: NSS 1000 IV (22:26)
[2024-08-31 22:35] LABS: Free T4 0.71 ng/dl (0.78-2.19)
[2024-08-31 23:00] VITALS: BP 136/99
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
[2024-09-01] VITALS (11 sets, daily range): BP systolic 122–152; BP diastolic 82–104; BMI 23.8
[2024-09-01] MEDS: DUONEB 3 ML INH (00:23)
[2024-09-01] MEDS: NSS 1000 IV ×4 (00:27→21:12)
[2024-09-01 00:37] LABS: Urine Albumin 4+ (Neg - Trace); Urine Bilirubin Negative (Negative); Urine Character Clear (Clear); Urine Color Yellow; Urine Glucose 4+ (Negative); Urine Ketone Negative (Negative); Urine Leukocyte 1+ (Negative); Urine Nitrite Negative (Negative); Urine Occult Blood 3+ (Negative); Urine Specific Gravity 1.015 (<1.030); Urine Urobilinogen Negative (Neg - 1+)
[2024-09-01 00:52] LABS: COVID-19 Antigen Negative (Negative)
[2024-09-01 01:00] LABS: Lactic Acid 0.9 mmol/L (0.7-2.0)
[2024-09-01 01:11] LABS: Urine Hyaline Cast 0-2 /LPF (0-2); Urine Squamous Cell 16-20 /LPF (Few)
[2024-09-01 01:14] LABS: Urine Bacteria Few (Negative); Urine White Cell 21-25 /HPF (0-5); Urine Yeast Moderate (Negative)
[2024-09-01] MEDS: MAXIPIME 1000 MG IV (01:33)
[2024-09-01] MEDS: TAMIFLU 75 MG PO ×2 (01:33→19:46)
--- NOTE | 2024-09-01 03:04 | HPS.HSE ---
Family Physician
-
Family Physician: Juan A Martinez
Chief Complaint
-
Cough, Rhinorrhea, Fatigue
History of Present Illness
Patient is a 24y F with PMH significant for cyclic neutropenia and recurrent infections, DM-I on insulin pump who presents to ED complaining of cold / flu symptoms x 2-3 days. Patient describes runny nose, cough, myalgias and fatigue. She took
a home test yesterday that was positive for influenza. Patient states that she had fever at home as well. She presented to the ED for further evaluation.
Here in the ED patient is afebrile thus far. She is neutropenic with ANC = 400. She is positive for Influenza A.
Medical History
Past Medical History
Past Medical History: Reports Other
Additional Past Medical History:
Cyclic Neutropenia
Bipolar Disorder
Anxiety
Posttraumatic stress disorder
Hypothyroidism
Type 1 diabetes
Asthma
Iron Deficiency Anemia
CKD stage II
Pyelonephritis
Past Surgical History: Reports Other
Additional Past Surgical History:
Tonsillectomy
Appendectomy
Social History
Tobacco: Smoker (Marijuana occasionally)
Alcohol: Occasional
Drug: None
Living: With Family
Employment: Employed
Family History
Family History: Not pertinent
Allergies / Home Medications
Allergies reflects when Allergies were last updated in [facility].
Home Medications with original date entered in [facility]
Allergy/Medication List:
Allergies
Allergy/AdvReac Type Severity Reaction Status Date / Time
doxycycline Allergy Mild Rash Verified 08/31/24 21:03
vancomycin Allergy Red Man Verified 08/31/24 21:03
Syndrome
Home Medications
levothyroxine 100 mcg capsule 100 mcg PO DAILY Thyroid #60 caps 03/07/23
levothyroxine 75 mcg tablet (Synthroid) 75 mcg PO DAILY Thyroid #60 tabs 03/07/23
Insulin Pump [Patient's Own Insulin Pump] 0 unit SC .CONTINOUS 03/19/23
Medical Marijuana 0.5 ml PO BIDPRN PRN ANXIETY 03/19/23
acetaminophen 325 mg tablet 650 mg PO Q6HPRN PRN mild pain/SUE 03/19/23
fluticasone 250 mcg-salmeterol 50 mcg/dose blistr powdr for inhalation (Wixela Inhub) 1 inh inhalation R DAILYPRN PRN sob 03/19/23
fluticasone propionate 50 mcg/actuation nasal spray,suspension 1 spray intranasal DAILY 03/19/23
albuterol sulfate 90 mcg/actuation aerosol inhaler 2 puff inhalation R Q4HPRN PRN sob 05/15/24
medroxyprogesterone 150 mg/mL intramuscular syringe 150 mg IM [id number] 05/15/24
amoxicillin 875 mg-potassium clavulanate 125 mg tablet 1 tab PO BID 08/31/24
famotidine 20 mg tablet (Pepcid) 20 mg PO DAILY 08/31/24
hydroxyzine HCl 25 mg tablet 25 mg PO HS 08/31/24
sumatriptan succinate 50 mg tablet 50 mg PO DAILYPRN PRN migraine 08/31/24
Review of Systems
-
History Source: Patient
A 12 point ROS was completed and negative except as noted: Yes
Constitutional: Reports Fever, Fatigue and Chills
EENT: Reports Runny Nose; Denies Sore Throat
Respiratory: Reports Cough; Denies Trouble Breathing
Cardiac: Denies Chest Pain or Palpitations
Abdomen/GI: Denies Abdominal Pain, Nausea, Vomiting or Diarrhea
: Reports Frequency; Denies Dysuria or Bleeding
Musculoskeletal: Denies Joint Pain or Edema
Neurological: Reports Headache; Denies Dizzy
Physical Exam
Vital Signs
Vital Signs
Temp Pulse Resp BP Pulse Ox
97.8 F 114 20 134/82 98
09/01/24 01:32 08/31/24 21:00 08/31/24 21:00 09/01/24 02:00 09/01/24 02:45
Physical Exam
General: Other (24y F in no acute distress.)
HEENT: Moist mucous membranes and Other (Rhinorrhea.)
Respiratory: Other (Diffuse rales throughout all lung garcia.)
Cardiac: S1/S2 and Regular Rhythm; No Murmur
GI: Soft, Non Tender, Non Distended and Normal Bowel Sounds
Musculoskeletal: No Clubbing, No Cyanosis and No Edema
Neuro: AO x 3
Laboratory Results
-
08/31/24 21:09
08/31/24 21:09
Laboratory Results
Lactic Acid Cancelled 09/01/24 04:15
Total Bilirubin 0.5 mg/dl (0.2-1.3) 08/31/24 21:09
AST 17 U/L (14-36) 08/31/24 21:09
ALT 11 U/L (0-35) 08/31/24 21:09
Alkaline Phosphatase 85 U/L (38-126) 08/31/24 21:09
Impression/Plan
-
A/P: Patient is a 24y F with PMH significant for cyclic neutropenia, DM-I and recurrent infections who presents to ED complaining of fever and several days of flu symptoms.
Influenza A
Sepsis secondary to the above
Cyclic Neutropenia
- Admit for further evaluation and treatment.
- Patient presents with tachycardia, tachypnea, neutropenia and positive Flu A assay.
- Tamiflu BID.
- Supportive care including IVFs, antipyretics, albuterol, etc.
- Follow proper precautions (for flu and neutropenia).
- Follow for clinical improvement.
- Follow for improvement in ANC.
- CXR was done as an outpatient today and is unremarkable.
Possible UTI
- UA with WBC. Patient reports recent urinary frequency but no dysuria, etc.
- Continue cefepime for now pending culture data.
- Follow for any new / worsening symptoms.
DM-I with Hyperglycemia
- Bolused with insulin via her pump in the ED.
- No anion gap suggestive of DKA.
- Continue basal : bolus insulin regimen with patient's own pump.
- Follow glucose for improvement. Follow labs / lytes.
- Update A1C.
Mild Hyponatremia
- Na corrected to 133 after taking hyperglycemia into account.
- Follow for improvement with IVFs.
GERBER on CKD III
- SCr = 1.5 compared to baseline 1.2 - mild GERBER.
- Follow for changes in renal function with IVFs as noted above.
Hypothyroidism
- TFTs done suggest under-replacement of T4.
- Patient reports compliance with all medications, etc.
- Increase T 4 supplementation to 200mcg daily.
- Repeat TFTs in 4-6 weeks.
Chronic Iron Deficiency Anemia
- Stable. Hgb actually increased from known baseline (likely due to degree of volume depletion).
- Follow for changes with IVFs.
DVT Prophylaxis: Subcut Heparin
Code Status: Full
[2024-09-01] MEDS: SYNTHROID 200 MCG PO (04:46)
[2024-09-01 05:14] LABS: Hematocrit 28.7 % (37.0-47.0); Hemoglobin 9.7 g/dL (12.0-16.0); Mean Corp Hgb Conc. 33.8 g/dL (33.0-37.0); Mean Corpuscular Hgb 25.3 pg (27.0-31.0); Mean Corpuscular Volume 74.7 fL (81.0-99.0); Platelet Count 163 10^3/uL (130-400); Red Blood Cell Count 3.84 10^6/uL (4.20-5.40); White Blood Cell Count 2.1 10^3/uL (4.8-10.8)
[2024-09-01 05:17] LABS: Blood Urea Nitrogen 17 mg/dl (7-17); Calcium 7.4 mg/dl (8.4-10.2); Carbon Dioxide 14 mmol/L (22-30); Chloride 114 mmol/L (98-107); Estimated Creatinine Clearance 59 ml/min; Glucose 218 mg/dl (70-99); Sodium 136 mmol/L (135-145); eGFR > 60.00
--- NOTE | 2024-09-01 05:43 | PTCARENOTE ---
Pt's carbon dioxide 14, made aware. labs orfered for 1200.
[2024-09-01] MEDS: TAMIFLU 30 MG PO ×2 (08:06→10:23)
[2024-09-01] MEDS: PEPCID 20 MG PO (08:06)
[2024-09-01 09:14] LABS: Glycohemoglobin (HgbA1c) 10.2 % (4.0-5.6)
[2024-09-01] MEDS: ATARAX 25 MG PO ×2 (09:42→22:17)
--- NOTE | 2024-09-01 09:43 | CON.ID ---
Chief Complaint / Past History
Chief Complaint
Cough, Rhinorrhea, Fatigue
History of Present Illness
Ms Romeo is a 24 year old female with history of DM1 on insulin pump, cyclic neutropenia (planned for outpatient GCSF however failing to follow up with oncology), chronic urticaria (hydroxyzine and famotidine), CKD, chronic noncompliance who
presented here for a 2-3 day history of fever, cough (nonproductive), runny nose, myalgias, fatigue, home test was positive for flu. Also dysuria, urgency and intermittent abdominal pain.
Yet to see allergy outpatient or oncology outpatient.
Also with recurrent herpes oralis - too numerous to count last year - not yet on suppression.
Since arrival here she has been afebrile, bp stable, saturating well on room air, wbc 2.1, hgb 8.7, plt 163, ANC 400, Cr 1.2 (her baseline) na intiailly 129 now 136, CO2 14, lactic acid 0.9, a1c 10.2, BHB 0.52, hcg negative, UA moderate pyuria with
21-25 wbc/hpf and moderate yeast, covid ag negative, CXR no infiltrates, blood cultures x2 in progress, flu A pcr positive, urine culture pending.
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
Additional Past Medical History:
Cyclic Neutropenia
Bipolar Disorder
Anxiety
Posttraumatic stress disorder
Hypothyroidism
Type 1 diabetes
Asthma
Iron Deficiency Anemia
CKD stage II
Pyelonephritis
Endometriosis
PCOS
Additional Past Surgical History:
Tonsillectomy
Appendectomy
Allergy History:
doxycycline Allergy (Mild, Verified 08/31/24 21:03)
Rash
vancomycin Allergy (Verified 08/31/24 21:03)
Red Man Syndrome
Medications Reviewed: Yes
Social History
Tobacco: Smoker
Alcohol: Occasional
Drug: None
Family History
Family History: Not Pertinent
Review of Systems
Review of Systems
General: Fever and Chills
All systems: All other systems were reviewed and were negative
Vital Signs
Temp Pulse Resp BP Pulse Ox
98.9 F 101 18 123/104 100
09/01/24 07:24 09/01/24 07:24 09/01/24 07:24 09/01/24 07:00 09/01/24 07:25
Physical Exam
Physical Exam
Constitutional: Acutely Ill
Cardiovascular: Regular Rate and S1/S2; Negative Murmur or Rub
Pulmonary: Clear, Symmetric and Non Labored; Negative Wheezes, Rales or Rhonchi
Gastrointestinal: Soft, Non Tender, Non Distended and Normal Bowel Sounds
Genito-Urinary: Suprapubic Tenderness
Skin: Warm, Dry and Rash (hives on the bilateral arms); Negative Jaundice
Neurological: Awake
Lab / Diagnostic Study Results
09/01/24 04:37
Abs Immat Gran (auto) 0.0 10^3/uL (0-0.05) 08/31/24 21:09
Absolute Neuts (auto) 0.4 10^3/uL (1.4-6.5) L* 08/31/24 21:09
Absolute Lymphs (auto) 1.4 10^3/uL (1.2-3.4) 08/31/24 21:09
Absolute Monos (auto) 0.4 10^3/uL (0.1-0.6) 08/31/24 21:09
Absolute Basos (auto) 0.0 10^3/uL (0-0.2) 08/31/24 21:09
Immature Gran % 0.0 % (0-0.5) 08/31/24 21:09
Neutrophils % 17.3 % (42.2-75.2) L 08/31/24 21:09
Lymphocytes % 66.0 % (20.5-51.1) H 08/31/24 21:09
Monocytes % 16.7 % (1.7-9.3) H 08/31/24 21:09
Eosinophils % 0.0 % (0-6) 08/31/24 21:09
Basophils % 0.0 % (0-2) 08/31/24 21:09
Lactic Acid Cancelled 09/01/24 04:15
Ur Squamous Epith Cells 16-20 /LPF (Few) 09/01/24 00:10
Microbiology Results
Micro:
09/01/24 00:10 Influenza Types A & B (ANIKA) - Final
Nasal Swab Influenza A Positive, NAAT
09/01/24 00:10 Urine Culture - Pending
Urine
09/01/24 00:10 Blood Culture - Pending
Blood/Venous
09/01/24 00:10 Blood Culture - Pending
Blood/Venous
Assessment / Plan
Influenza
Cyclic Neutropenia
Currently Neutropenic
H/o recurrent HSV oralis
CKD
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
DM1- with ongoing poor control last a1c 10.2
DKA
Possible candidal UTI
Ongoing Noncompliance
- blood cultures x2 in progress - were obtained at the same time
- flu A PCR positive
- increased tamiflu dose to 75 mg PO BID, acknowledge she is near the cut off for dose adjustment however given neutropenia feel the benefits outweigh the potential risks
- screen for nasal colonization with MRSA - negative
- start amoxicillin 1 gm PO TID x5 days
- start fluconazole 400 mg PO qday x7 days
- recheck QTc in the AM
- restart suppressive valtrex given history of HSV oralis 'too numerous to count' over the last year
- my office called [facility] - unfortunately she failed to their clinic outpatient with several no shows and cancellations; I agree with inpatient oncology consultation and appreciate their input
- I feel that her neutropenia may in part be related to her poorly controlled DM1 and have continued to legal counsel Ms Romeo of how essential it is both for neutropenia and for prevention of recurrent infections that she get DM1 under strict control.
Needs close follow up with endocrinology outpatient.
Chronic Urticaria
- ongoing for months
- note correlation between DM1 and chronic urticaria
- can continue atarax for present, also on famotidine
- prefer to avoid systemic steroids if possible; can trial hydrocortisone cream
- recommend outpatient referral to allergy
Care Review
Plan reviewed with: Physician (Dr Ventura - prefer to avoid steroids)
[2024-09-01] MEDS: GRANIX 300 MCG SC (10:33)
[2024-09-01 11:13] LABS: Iron 31 ug/dl (37-170)
--- NOTE | 2024-09-01 11:17 | CON.ONC ---
Impression
Impression
Symptomatic influenza A
Cyclic neutropenia
T1DM
Plan
Plan
I started Granix, to be dose daily
Monitor CBC w/ diff
Iron studies pending
Discussed the importance of outpatient f/u with me, to monitor CBC closely and consider ppx GCSF to minimize infections and hospital stays
Will follow along
Patient History
History of Present Illness
This is a 24yo F, well know to us from prior hospitalization with likely cyclic neutropenia, who presented with symptomatic influenza A (fever, chills, malaise). WBC is 2.1, with ANC of 400. She's been started on Tamiflu.
Hgb was 11.7 at admission yesterday, dropped to 9.7 with hydration, with MCV of 74.7. Iron studies are pending.
Past-Medical/Surgical History
Past Medical History: Reports Other
Additional Past Medical History:
Cyclic Neutropenia
Bipolar Disorder
Anxiety
Posttraumatic stress disorder
Hypothyroidism
Type 1 diabetes
Asthma
Iron Deficiency Anemia
CKD stage II
Pyelonephritis
Past Surgical History: Reports Other
Additional Past Surgical History:
Tonsillectomy
Appendectomy
Social History
Tobacco: Smoker (Marijuana occasionally)
Alcohol: Occasional
Drug: None
Living: With Family
Employment: Employed
Family History
Family History: Not pertinent
Patient Medication
�Medication �Instructions �Recorded �Confirmed �Last Taken �Type
levothyroxine 100 mcg capsule 100 mcg PO DAILY Thyroid #60 caps 03/07/23 08/31/24 05/15/24 Rx
levothyroxine 75 mcg tablet 75 mcg PO DAILY Thyroid #60 tabs 03/07/23 08/31/24 05/15/24 Rx
(Synthroid)
Insulin Pump [Patient's Own 0 unit SC .CONTINOUS Diabetes 0908/31/24 03/19/23 16:12 History
Insulin Pump]
Medical Marijuana 0.5 ml PO BIDPRN PRN ANXIETY 03/19/23 08/31/24 03/17/23 09:00 History
acetaminophen 325 mg tablet 650 mg PO Q6HPRN PRN mild pain/SUE 03/19/23 08/31/24 05/15/24 History
fluticasone 250 mcg-salmeterol 50 1 inh inhalation R DAILYPRN PRN sob 03/19/23 08/31/24 03/18/23 21:00 History
mcg/dose blistr powdr for
inhalation (Wixela Inhub)
fluticasone propionate 50 1 spray intranasal DAILY Congestion 03/19/23 08/31/24 05/15/24 History
mcg/actuation nasal
spray,suspension
albuterol sulfate 90 mcg/actuation 2 puff inhalation R Q4HPRN PRN sob 05/15/24 08/31/24 Unknown History
aerosol inhaler
medroxyprogesterone 150 mg/mL 150 mg IM [id number] Hormonal Agent 05/15/24 08/31/24 Unknown History
intramuscular syringe
amoxicillin 875 mg-potassium 1 tab PO BID Infection 08/31/24 08/31/24 Unknown History
clavulanate 125 mg tablet
famotidine 20 mg tablet (Pepcid) 20 mg PO DAILY Gastrointestinal 08/31/24 08/31/24 Unknown History
Issue
hydroxyzine HCl 25 mg tablet 25 mg PO HS Sleep 08/31/24 08/31/24 Unknown History
sumatriptan succinate 50 mg tablet 50 mg PO DAILYPRN PRN migraine 08/31/24 08/31/24 Unknown History
Active Medications
Generic Name Dose Route Start Last Admin
Trade Name Freq PRN Reason Stop Dose Admin
Acetaminophen 650 mg 09/01/24 03:43
Acetaminophen 325 Mg Tablet PO 09/29/24 03:42
Q4HPRN PRN
Mild Pain / Temp > 101
Albuterol 2 puff 09/01/24 03:43
Albuterol Hfa [90 Mcg/Dose] Inhaler INH
R Q4HPRN PRN
sob
Protocol
Amoxicillin 1,000 mg 09/01/24 10:00
Amoxicillin 500 Mg Capsule PO
Q8H ANDI
Dextrose 12.5 grams 09/01/24 03:43
Dextrose 50% (0.5 Grams/Ml) 50 Ml Syringe IV 09/29/24 03:42
[id number] PRN
hypoglycemia
Protocol
Enoxaparin Sodium 40 mg 09/01/24 18:00
Enoxaparin Sodium 40 Mg/0.4 Ml Syringe SC 09/29/24 17:59
QPM ANDI
Famotidine 20 mg 09/01/24 08:00 09/01/24 08:06
Famotidine 20 Mg Tablet PO 09/29/24 07:59 20 mg
DAILY ANDI Administration
Glucagon 1 mg 09/01/24 03:43
Glucagon 1 Mg Vial IM 09/29/24 03:42
PRN PRN
hypoglycemia
Protocol
Hydroxyzine HCl 25 mg 09/01/24 22:00
Hydroxyzine 25 Mg Tablet PO 09/29/24 21:59
HS ANDI
Sodium Chloride 1,000 mls @ 125 mls/hr 09/01/24 03:43 09/01/24 04:43
Nss IV 1,000 mls
.Q8H ANDI Administration
Levothyroxine Sodium 200 mcg 09/01/24 06:00 09/01/24 04:46
Levothyroxine 200 Mcg Tablet PO 09/29/24 05:59 200 mcg
DAILY @ 0600 ANDI Administration
Oseltamivir Phosphate 75 mg 09/01/24 20:00
Oseltamivir (Tamiflu) 75 Mg Capsule PO 09/06/24 19:59
BID ANDI
Patient Own Medication 0 units 09/01/24 11:30
Insulin Pump - Patient's Own SC 09/29/24 11:29
ACHS ANDI
Patient Own Medication 0 units 09/01/24 09:27
Insulin Pump - Patient's Own SC 09/29/24 09:26
PRN PRN
per patient bolus
Sodium Chloride 0 flush 09/01/24 04:00
Sodium Chloride 0.9% (Flush) Syringe IV 09/29/24 03:59
PER PROTOCOL ANDI
Tbo-Filgrastim 300 mcg 09/01/24 09:00 09/01/24 10:33
Tbo-Filgrastim (Granix) 300 Mcg/0.5 Ml Syringe SC 09/29/24 08:59 300 mcg
DAILY ANDI Administration
Valacyclovir HCl 500 mg 09/01/24 10:00
Valacyclovir Hcl 500 Mg Tablet PO 09/11/24 09:59
BID ANDI
Physical Exam
-
General: Well Developed, No Apparent Distress and Comfortable
HEENT: Negative Jaundice
Neurology: Non Focal
Skin: Warm and Dry
Psych: Calm and Intact Judgement/Insight
Labs
Lab Results
WBC 2.1 10^3/uL (4.8-10.8) L* 09/01/24 04:37
RBC 3.84 10^6/uL (4.20-5.40) L 09/01/24 04:37
Hgb 9.7 g/dL (12.0-16.0) L 09/01/24 04:37
Hct 28.7 % (37.0-47.0) L 09/01/24 04:37
MCV 74.7 fL (81.0-99.0) L 09/01/24 04:37
MCH 25.3 pg (27.0-31.0) L 09/01/24 04:37
MCHC 33.8 g/dL (33.0-37.0) 09/01/24 04:37
RDW 14.0 % (11.5-14.5) 09/01/24 04:37
Plt Count 163 10^3/uL (130-400) 09/01/24 04:37
MPV 10.0 fL (7.4-10.4) 09/01/24 04:37
Abs Immat Gran (auto) 0.0 10^3/uL (0-0.05) 08/31/24 21:09
Absolute Neuts (auto) 0.4 10^3/uL (1.4-6.5) L* 08/31/24 21:09
Absolute Lymphs (auto) 1.4 10^3/uL (1.2-3.4) 08/31/24 21:09
Absolute Monos (auto) 0.4 10^3/uL (0.1-0.6) 08/31/24 21:09
Absolute Eos (auto) 0.0 10^3/uL (0-0.7) 08/31/24 21:09
Absolute Basos (auto) 0.0 10^3/uL (0-0.2) 08/31/24 21:09
Immature Gran % 0.0 % (0-0.5) 08/31/24 21:09
Neutrophils % 17.3 % (42.2-75.2) L 08/31/24 21:09
Lymphocytes % 66.0 % (20.5-51.1) H 08/31/24 21:09
Monocytes % 16.7 % (1.7-9.3) H 08/31/24 21:09
Eosinophils % 0.0 % (0-6) 08/31/24 21:09
Basophils % 0.0 % (0-2) 08/31/24 21:09
Creatinine 1.2 mg/dL (0.6-1.0) H 09/01/24 04:37
Vital Signs
Vital Signs
Temp Pulse Resp BP Pulse Ox
98.9 F 95 18 151/100 100
09/01/24 07:24 09/01/24 09:30 09/01/24 09:30 09/01/24 09:30 09/01/24 09:30
[2024-09-01 11:23] LABS: Percent Saturation 17 % (20-50); Total Iron Binding Capacity 173 ug/dl (265-497)
[2024-09-01 11:42] LABS: Glucose - Point of Care 144 mg/dl (70-99)
[2024-09-01 12:19] LABS: Ferritin 45.6 ng/ml (6.24-137)
[2024-09-01 12:55] LABS: Blood Urea Nitrogen 15 mg/dl (7-17); Calcium 7.9 mg/dl (8.4-10.2); Carbon Dioxide 20 mmol/L (22-30); Chloride 115 mmol/L (98-107); Estimated Creatinine Clearance 59 ml/min; Glucose 75 mg/dl (70-99); Potassium 4.3 mmol/L (3.5-5.1); Sodium 138 mmol/L (135-145); eGFR > 60.00
[2024-09-01] MEDS: AMOXIL 1000 MG PO ×2 (12:59→19:45)
[2024-09-01] MEDS: BENADRYL 25 MG IV (12:59)
[2024-09-01] MEDS: DIFLUCAN 400 MG PO (12:59)
[2024-09-01] MEDS: VALTREX 500 MG PO ×2 (12:59→19:46)
[2024-09-01] MEDS: HYDROCORTISONE 2.5% CREAM 1 APPLIC TOPICAL ×2 (13:02→19:47)
--- NOTE | 2024-09-01 13:41 | PN.DE.MGMTRT ---
Insulin Management
- -
09/01/2024: Consulted for insulin pump
23 year old female well known to Diabetes team from previous hospital admission, where she was treated for Sepsis, Pyelonephritis, Leukopenia and Neutropenia.
Admitted flu like symptoms, Flu A +, neutropenic.
PMH: Recurrent Pyelonephritis, hypothyroidism neutropenia, herpes and T1DM managed on an insulin pump-Omnipod with CGM- Dexcom G6.
Currently using Ominpod routinely sees Endo and thyroid associates- Dr. Rodas. Current A1C is 10.2%, Cr 1.2, eGFR > 60.
Due to patient neutropenic state and + flu I did not enter patient room. Discussed pump settings with nurse.
Current pump settings:
Basal rate:
12am 0.95
6am 1.75 units
6pm 1.0
24 hour basal total 32.6 units.
ICR 12am -12am 1:10
ISF 1:40
Target 130
Patient has orders to use pump. Will make no changes to current pump settings.
Diabetes History
- -
Type of Diabetes: 1
Pre-Admission Diabetes Regimen
08/31/24 09/01/24 09/01/24
21:09 04:37 12:20
Creatinine 1.5 H 1.2 H 1.2 H
Lab Results
Hemoglobin A1c 10.2 % (4.0-5.6) H 09/01/24 04:37
Insulin Pump Settings
IP Diabetes Regimen
08/31/24 09/01/24 09/01/24
21:09 04:37 11:40
Glucose 370 H 218 H
POC Glucose 144 H
09/01/24
12:20
Glucose 75
POC Glucose
Patient Education
[2024-09-01 16:26] LABS: Glucose - Point of Care 137 mg/dl (70-99)
--- NOTE | 2024-09-01 16:35 | CM ---
Met with patient to obtain information for assessment. Patient stated that she lives with her son, brother and mother in an apartment with 14 steps to enter. She described herself as independent with her ADLs, personal care, bathing and dressing.
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 She drives and can transport herself to her appointments and does all of her shopping. 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
Patient has not had VN. She denied any DME. Patient has not been to a SNF.
Patient has a prescription plan and uses, [facility] for all of her medications.
Her PCP is, Juan A Martinez
Plan: Case management will continue to follow and assist with discharge planning. Home when stable.
[2024-09-01] MEDS: PATIENT'S OWN INSULIN PUMP SC (17:37)
[2024-09-01] MEDS: LOVENOX 40 MG SC (17:38)
[2024-09-01] MEDS: PATIENT'S OWN INSULIN PUMP 6 UNITS SC (17:55)
[2024-09-01] MEDS: BENADRYL 50 MG IV (18:43)
[2024-09-01 21:18] LABS: Glucose - Point of Care 42 mg/dl (70-99)
[2024-09-01 21:47] LABS: Glucose - Point of Care 55 mg/dl (70-99)
[2024-09-01 22:09] LABS: Glucose - Point of Care 78 mg/dl (70-99)
[2024-09-01] MEDS: PATIENT'S OWN INSULIN PUMP 3 UNITS SC (22:21)
--- NOTE | 2024-09-01 23:46 | PTCARENOTE ---
Pt reported to RN she felt 'shaky', pt's own Dexcom reading blood sugar of 53. Accuchek obtained by PCT with hospital equipment, resulted 42. 4oz of apple juice and a pack of zuleika crackers given, repeat accuchek 55. Another 4oz of apple juice
given, repeat accuchek 78. Pt has personal insulin pump attached to her R thigh, pt states she placed her insulin pump on hold ~2115. Entered pt's room on rounds, pt states her Dexcom reads a blood sugar of 163, she restarted her insulin pump ~2315
at 1unit/hr.
[2024-09-02] VITALS (7 sets, daily range): BP systolic 132–185; BP diastolic 95–119
[2024-09-02 00:36] LABS: Glucose - Point of Care 141 mg/dl (70-99)
[2024-09-02 03:21] LABS: Glucose - Point of Care 142 mg/dl (70-99)
[2024-09-02] MEDS: AMOXIL 1000 MG PO ×3 (04:53→19:54)
[2024-09-02] MEDS: SYNTHROID 200 MCG PO (04:54)
[2024-09-02] MEDS: NSS 1000 IV (04:59)
[2024-09-02 07:36] LABS: Glucose - Point of Care 87 mg/dl (70-99)
[2024-09-02] MEDS: VALTREX 500 MG PO ×2 (09:46→19:55)
[2024-09-02] MEDS: GRANIX 300 MCG SC (09:46)
[2024-09-02] MEDS: PEPCID 20 MG PO (09:46)
[2024-09-02] MEDS: TAMIFLU 75 MG PO ×2 (09:46→19:55)
[2024-09-02] MEDS: DIFLUCAN 400 MG PO (09:46)
[2024-09-02] MEDS: HYDROCORTISONE 2.5% CREAM 1 APPLIC TOPICAL ×2 (09:47→19:54)
[2024-09-02 10:00] LABS: Hematocrit 30.4 % (37.0-47.0); Hemoglobin 9.9 g/dL (12.0-16.0); Mean Corp Hgb Conc. 32.6 g/dL (33.0-37.0); Mean Corpuscular Hgb 25.8 pg (27.0-31.0); Mean Corpuscular Volume 79.2 fL (81.0-99.0); Mean Platelet Volume 10.3 fL (7.4-10.4); Platelet Count 165 10^3/uL (130-400); Red Blood Cell Count 3.84 10^6/uL (4.20-5.40); Red Cell Dist. Width 14.3 % (11.5-14.5); White Blood Cell Count 2.3 10^3/uL (4.8-10.8)
[2024-09-02 10:06] LABS: Blood Urea Nitrogen 10 mg/dl (7-17); Carbon Dioxide 18 mmol/L (22-30); Chloride 117 mmol/L (98-107); Estimated Creatinine Clearance 54 ml/min; Glucose 116 mg/dl (70-99); Potassium 4.2 mmol/L (3.5-5.1); Sodium 138 mmol/L (135-145); eGFR 58.16
[2024-09-02] MEDS: PATIENT'S OWN INSULIN PUMP SC ×2 (11:08→17:41)
[2024-09-02 11:42] LABS: Absolute Neutrophils -Man Diff 0.4 10^3/uL (1.4-6.5); Band Neutrophils 4 % (0-3); Lymphocytes 62 % (20-51); Metamyelocytes 1 % (-); Monocytes 17 % (2-9); Myelocytes 1 % (-); Segmented Neutrophils 15 % (42-75)
[2024-09-02 11:43] LABS: Normal RBC Morphology No; Platelets Checked Yes
[2024-09-02 11:44] LABS: Anisocytosis 1+; Hypochromasia 1+; Ovalocytes 1+; Total Cells Counted 100
[2024-09-02 11:50] LABS: Glucose - Point of Care 192 mg/dl (70-99)
--- NOTE | 2024-09-02 12:21 | W.PN.ONC2 ---
Today's Communication / Plan
-
.
Impression
Impression
Symptomatic influenza A
Cyclic neutropenia
T1DM
Plan
Plan
Granix, to be dose daily
Monitor CBC w/ diff
anemia with component of CHUCHO, ferritin 45, IS 17, Iron 31. start oral iron every other day and continue at discharge
Discussed the importance of outpatient f/u with me, to monitor CBC closely and consider ppx GCSF to minimize infections and hospital stays and repletion of iron
Will follow along
Subjective/Objective
Subjective
no new complaints
Vital Signs:
Vital Signs
Temp Pulse Resp BP Pulse Ox
99.2 F 90 16 151/100 98
09/02/24 08:10 09/02/24 08:10 09/02/24 08:10 09/02/24 08:10 09/02/24 08:10
Lab Results:
Laboratory Data
WBC 2.3 10^3/uL (4.8-10.8) L* 09/02/24 09:36
Hgb 9.9 g/dL (12.0-16.0) L 09/02/24 09:36
Plt Count 165 10^3/uL (130-400) 09/02/24 09:36
eGFR 58.16 09/02/24 09:41
Physical Exam
General: Well Developed, No Apparent Distress and Comfortable
HEENT: Negative Jaundice
Neurology: Non Focal
Skin: Warm and Dry
Psych: Calm and Intact Judgement/Insight
--- NOTE | 2024-09-02 12:23 | W.PN.HOSP.TC ---
Today's Communication/Plan
-
Assessment / Plan
Assessment / Plan
NAD
Scleral Anicteric
MMM
No JVD
CTABL
RRR, S1/S2
Soft, NT, ND, BS+
Warm, Dry, diffuse [place] area
AAOx3
Influenza A in the setting of cyclic neutropenia
Continue Tamiflu twice daily
Neutropenia
S/p G-CSF. Hematology following.
History of recurrent HSV oralis
Continue Valtrex
Diabetes type 1, poor control, A1c 10.2
Diabetes inpatient team following. Continue long and short acting insulin. Goal blood glucose 1 40-1 80
Hypothyroidism
Continue supplementation
Repeat TFTs in 4 to 6 weeks
Anticipated Discharge: > 48 hours
Subjective/Interval History
-
Date of Service: September 02, 2024
seen an dexamiend. hives imprved after 50mgg iv benadryl at 7pm last night. return around 6am. she feels like she wants to scratch her skin off
Objective Data
-
Labs:
Laboratory Results
09/02/24 09/02/24
09:36 09:41
WBC 2.3 L*
Hgb 9.9 L
Hct 30.4 L
Plt Count 165
Sodium 138
Potassium 4.2
Chloride 117 H
Carbon Dioxide 18 L
BUN 10
Creatinine 1.3 H
Glucose 116 H
Calcium 8.0 L
Vital Signs:
Vital Signs
Temp Pulse Resp BP Pulse Ox
99.2 F 90 16 151/100 98
09/02/24 08:10 09/02/24 08:10 09/02/24 08:10 09/02/24 08:10 09/02/24 08:10
I&O
09/01/24 09/02/24 09/03/24
06:59 06:59 06:59
Intake Total 2560 / 2560
Balance 2560 / 2560
[2024-09-02] MEDS: BENADRYL 50 MG IV ×2 (13:16→19:56)
[2024-09-02] MEDS: PATIENT'S OWN INSULIN PUMP 7.8 UNITS SC (13:22)
[2024-09-02] MEDS: FEOSOL 325 MG PO (16:37)
[2024-09-02] MEDS: LOVENOX 40 MG SC (16:38)
[2024-09-02 16:57] LABS: Glucose - Point of Care 62 mg/dl (70-99)
[2024-09-02 17:17] LABS: Glucose - Point of Care 110 mg/dl (70-99)
[2024-09-02 17:48] LABS: Glucose - Point of Care 71 mg/dl (70-99)
--- NOTE | 2024-09-02 18:34 | PTCARENOTE ---
Staff into assess patient vomiting in bathroom, diaphoretic, c/o 'chest pain between breasts shooting towards back.' VSS obtained a documented. EKG obtained. Blood sugar checked, 71. Dr. Ventura aware of all the above.
[2024-09-02] MEDS: ATARAX 25 MG PO (21:13)
[2024-09-02 21:26] LABS: Glucose - Point of Care 244 mg/dl (70-99)
[2024-09-02] MEDS: PATIENT'S OWN INSULIN PUMP 1.05 UNITS SC (21:28)
[2024-09-02] MEDS: TYLENOL 650 MG PO (23:51)
--- NOTE | 2024-09-03 02:47 | PTCARENOTE ---
late entry 0: pt b/p 150-160/100's with automatic, 150/108 Manual. pt c/o lt side head pain that goes all the way to her back. pt noted to be ambulating in room at this time and previous was sleeping. Geoff El aware. Tylenol given
--- NOTE | 2024-09-03 02:51 | PTCARENOTE ---
0100 pt now c/o lt side flank pain, pt is afebrile, Becca notified, Kpad ordered but machine unavailable at this time per Nsg Supv. Pt requesting ice pack. pt states head no longer hurts.
[2024-09-03] MEDS: AMOXIL 1000 MG PO ×3 (03:47→21:24)
[2024-09-03] MEDS: BENADRYL 50 MG IV ×4 (03:52→21:29)
[2024-09-03] MEDS: SYNTHROID 200 MCG PO (05:05)
[2024-09-03 06:58] LABS: Hematocrit 29.6 % (37.0-47.0); Hemoglobin 9.7 g/dL (12.0-16.0); Mean Corp Hgb Conc. 32.8 g/dL (33.0-37.0); Mean Corpuscular Hgb 25.2 pg (27.0-31.0); Mean Corpuscular Volume 76.9 fL (81.0-99.0); Platelet Count 139 10^3/uL (130-400); Red Blood Cell Count 3.85 10^6/uL (4.20-5.40); Red Cell Dist. Width 14.3 % (11.5-14.5); White Blood Cell Count 2.7 10^3/uL (4.8-10.8)
[2024-09-03 07:00] VITALS: BP 168/108
[2024-09-03 07:18] LABS: Blood Urea Nitrogen 11 mg/dl (7-17); Calcium 8.5 mg/dl (8.4-10.2); Carbon Dioxide 21 mmol/L (22-30); Chloride 114 mmol/L (98-107); Estimated Creatinine Clearance 50 ml/min; Glucose 122 mg/dl (70-99); Potassium 4.2 mmol/L (3.5-5.1); Sodium 139 mmol/L (135-145); eGFR 53.21
[2024-09-03 07:48] LABS: Glucose - Point of Care 104 mg/dl (70-99)
[2024-09-03] MEDS: GRANIX 300 MCG SC (07:54)
[2024-09-03] MEDS: TAMIFLU 75 MG PO ×2 (07:54→21:24)
[2024-09-03] MEDS: VALTREX 500 MG PO ×2 (07:54→21:24)
[2024-09-03] MEDS: DIFLUCAN 400 MG PO (07:54)
[2024-09-03] MEDS: PEPCID 20 MG PO (07:54)
[2024-09-03] MEDS: TYLENOL 650 MG PO ×2 (07:58→14:20)
[2024-09-03] MEDS: HYDROCORTISONE 2.5% CREAM 1 APPLIC TOPICAL ×2 (07:59→18:03)
--- NOTE | 2024-09-03 08:47 | W.PN.ONC2 ---
Today's Communication / Plan
-
.
Impression
Impression
Symptomatic influenza A
Cyclic neutropenia
T1DM
back pain
Plan
Plan
Granix, to be dose daily
Monitor CBC w/ diff
anemia with component of CHUCHO, ferritin 45, IS 17, Iron 31. start oral iron every other day and continue at discharge
continue to monitor CBC closely OP and consider ppx GCSF to minimize infections and hospital stays and repletion of iron
f/u UA & culture
start claritin-back pain may be induced by GCSF
Will follow along
Subjective/Objective
Subjective
concerned that she is developing UTI d/t new back pain
Vital Signs:
Vital Signs
Temp Pulse Resp BP Pulse Ox
98.1 F 95 18 150/108 100
09/02/24 23:15 09/02/24 23:15 09/02/24 23:15 09/02/24 23:18 09/03/24 08:18
Lab Results:
Laboratory Data
WBC 2.7 10^3/uL (4.8-10.8) L 09/03/24 06:28
Hgb 9.7 g/dL (12.0-16.0) L 09/03/24 06:28
Plt Count 139 10^3/uL (130-400) 09/03/24 06:28
eGFR 53.21 09/03/24 06:28
Physical Exam
General: Well Developed, No Apparent Distress and Comfortable
HEENT: Negative Jaundice
Neurology: Non Focal
Skin: Warm and Dry
Psych: Calm and Intact Judgement/Insight
Orders
Orders
Orders From Last 24 Hours
09/02/24 17:00
Ferrous Sulfate [Feosol] 325 mg PO Q48H
[2024-09-03] MEDS: PATIENT'S OWN INSULIN PUMP 5 UNITS SC (09:30)
--- NOTE | 2024-09-03 09:30 | W.PN.ID1 ---
Date of Service
Date of Service: September 03, 2024
Today's Communication
- c/w tamiflu dose to 75 mg PO BID, acknowledge she is near the cut off for dose adjustment however given neutropenia feel the benefits outweigh the potential risks
- c/w amoxicillin 1 gm PO TID day 3 of 5 days - could be extended if neutropenia ongoing
- start fluconazole 400 mg PO qday day 3 of 7 days
- QTc acceptable
- c/w suppressive valtrex given history of HSV oralis 'too numerous to count' over the last year - on discharge please give a 60 day supply
Assessment / Plan
Influenza
Cyclic Neutropenia
Currently Neutropenic
H/o recurrent HSV oralis
CKD
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
DM1- with ongoing poor control last a1c 10.2
DKA
Possible candidal UTI
Ongoing Noncompliance
- blood cultures x2 in progress - were obtained at the same time - no growth to date
- flu A PCR positive
- c/w tamiflu dose to 75 mg PO BID, acknowledge she is near the cut off for dose adjustment however given neutropenia feel the benefits outweigh the potential risks
- c/w amoxicillin 1 gm PO TID day 3 of 5 days - could be extended if neutropenia ongoing
- start fluconazole 400 mg PO qday day 3 of 7 days
- QTc acceptable
- c/w suppressive valtrex given history of HSV oralis 'too numerous to count' over the last year - on discharge please give a 60 day supply
- I feel that her neutropenia may in part be related to her poorly controlled DM1 and have continued to budget counselor Ms Romeo of how essential it is both for neutropenia and for prevention of recurrent infections that she get DM1 under strict control.
Needs close follow up with endocrinology outpatient.
Chronic Urticaria
- ongoing for months
- note correlation between DM1 and chronic urticaria
- can continue atarax for present, also on famotidine
- prefer to avoid systemic steroids if possible; can trial hydrocortisone cream
- recommend outpatient referral to allergy
Chief Complaint
-: Other (cyclic neutropenia, fever, flu)
Subjective / Review of Systems
afebrile
bp stable
remains on room air
wbc count improved today, ANC pending
Vital Signs / Physical Exam
Vital Signs
Vital Signs
Temp Pulse Resp BP Pulse Ox
98.1 F 95 18 150/108 100
09/02/24 23:15 09/02/24 23:15 09/02/24 23:15 09/02/24 23:18 09/03/24 08:18
Physical Exam
Constitutional: No Acute Distress
Cardiovascular: Regular Rate and S1/S2; Negative Murmur or Rub
Pulmonary: Clear and Symmetric; Negative Wheezes or Rales
Gastrointestinal: Soft, Non Tender, Non Distended and Normal Bowel Sounds
Skin: Warm and Dry; Negative Rash or Jaundice
Objective Data
Lab Data
Lab Results
09/03/24 06:28
09/03/24 06:28
Estimated Creat Clear 50 ml/min 09/03/24 06:28
Lactic Acid Cancelled 09/01/24 04:15
Total Bilirubin 0.5 mg/dl (0.2-1.3) 08/31/24 21:09
AST 17 U/L (14-36) 08/31/24 21:09
ALT 11 U/L (0-35) 08/31/24 21:09
Alkaline Phosphatase 85 U/L (38-126) 08/31/24 21:09
Most recent labs reviewed.
repeat UA done today - no pyuria and yeast no longer seen
Micro Results:
09/01/24 00:10 Blood Culture - Preliminary
Blood/Venous No Growth in 48 hours- Final report to follow
09/01/24 00:10 Blood Culture - Preliminary
Blood/Venous No Growth in 48 hours- Final report to follow
09/01/24 00:10 Urine Culture - Final
Urine No Significant Growth
09/01/24 09:40 Nasal Screen MRSA (PCR) - Final
Nose MRSA not detected - performed by PCR methodology.
09/01/24 00:10 Influenza Types A & B (ANIKA) - Final
Nasal Swab Influenza A Positive, NAAT
[2024-09-03 09:37] LABS: Band Neutrophils 1 % (0-3); Lymphocytes 74 % (20-51); Monocytes 13 % (2-9); Platelets Checked Yes; Segmented Neutrophils 12 % (42-75)
[2024-09-03 09:38] LABS: Anisocytosis Slight; Normal RBC Morphology No; Ovalocytes Slight; Total Cells Counted 100
[2024-09-03 09:39] LABS: Absolute Neutrophils -Man Diff 0.3 10^3/uL (1.4-6.5)
--- NOTE | 2024-09-03 10:34 | PN.CDI ---
CDI
- -
CDI:
Physician Documentation Request
Admit Date: 09/01/24 03:21
Dear Doctor Lorenzo,
Clinical Indicators:
The diagnosis of Sepsis was documented on 08/12, but is not consistently noted in subsequent documentation.
09/01 ED Report, 'She has been having fevers and chills.'
09/01 H & P, 'Influenza A Sepsis secondary to the above...Patient presents with tachycardia, tachypnea, neutropenia and positive Flu A assay
HR trend:
08/31/24
21:00 09/01/24
07:24 09/01/24
09:30
Pulse 114 101 95
09/01/24
11:37 09/01/24
15:04 09/01/24
23:20
Pulse 100 96 96
Please clarify the following:
Sepsis was present on admission and is now resolved.
Sepsis was present on admission and is still being monitored, evaluated or treated
Sepsis was ruled out
Other, please specify
Use of terms such as suspected, likely, concern for, or probable (associated with a specific diagnosis that is being evaluated, monitored, or treated as if it exists) are acceptable and can be coded in the inpatient setting, when documented at the
time of discharge.
Thank you,
Mary Beth Stone RN BSN
CDI Specialist
available via tiger text
Please use your independent medical judgment in providing your response.
--- NOTE | 2024-09-03 10:40 | PN.CDI ---
CDI
- -
CDI:
Physician Documentation Request
Admit Date: 09/01/24 03:21
Dear Doctor Lorenzo,
Clinical Indicators:
Patient admitted with Influenza A.
GERBER on CKD III, present on admission
IVF: NSS
Serum bicarbonate levels:
08/31/24 09/01/24 09/01/24
21:09 04:37 12:20
Carbon Dioxide 18 L 14 L* 20 L
09/02/24
09:41
Carbon Dioxide 18 L
Based on the above, could you clarify in the progress notes, the appropriate diagnosis, if significant, that supports the above abnormalities and additional evaluation, monitoring and/or treatment rendered:
Metabolic acidosis
Abnormal lab values, clinically insignificant
Other, please specify
Use of terms such as suspected, likely, concern for, or probable (associated with a specific diagnosis that is being evaluated, monitored, or treated as if it exists) are acceptable and can be coded in the inpatient setting, when documented at the
time of discharge.
Thank you,
Mary Beth Stone RN BSN
CDI Specialist
available via tiger text
Please use your independent medical judgment in providing your response.
--- NOTE | 2024-09-03 10:46 | PN.CDI ---
CDI
- -
CDI:
Physician Documentation Request
Admit Date: 09/01/24 03:21
Dear Doctor Lorenzo,
Clinical Indicators:
Patient admitted with Influenza A.
PMH includes cyclic neutropenia and IDDM
Hematology PN, '...consider ppx GCSF to minimize infections and hospital stays'
ID consult '...essential it is both for neutropenia and for prevention of recurrent infections that she get DM1 under strict control.'
Based on the above, could you clarify in the progress notes, the appropriate diagnosis, if significant, that supports the above abnormalities and additional evaluation, monitoring and/or treatment rendered:
Immunosuppressed
No evidence of immunosuppression
Other, please specify
Use of terms such as suspected, likely, concern for, or probable (associated with a specific diagnosis that is being evaluated, monitored, or treated as if it exists) are acceptable and can be coded in the inpatient setting, when documented at the
time of discharge.
Thank you,
Mary Beth Stone RN BSN
CDI Specialist
available via tiger text
Please use your independent medical judgment in providing your response.
[2024-09-03 11:09] LABS: Urine Albumin 4+ (Neg - Trace); Urine Bilirubin Negative (Negative); Urine Character Clear (Clear); Urine Color Yellow; Urine Glucose 1+ (Negative); Urine Ketone Negative (Negative); Urine Leukocyte Negative (Negative); Urine Nitrite Negative (Negative); Urine Occult Blood 3+ (Negative); Urine Specific Gravity 1.015 (<1.030); Urine Urobilinogen Negative (Neg - 1+)
[2024-09-03] MEDS: CLARITIN 10 MG PO (11:23)
[2024-09-03 11:37] LABS: Glucose - Point of Care 245 mg/dl (70-99)
[2024-09-03 12:48] LABS: Urine Amorphous Seen
[2024-09-03 12:51] LABS: Urine Bacteria Few (Negative); Urine Hyaline Cast 0-2 /LPF (0-2)
[2024-09-03] MEDS: PATIENT'S OWN INSULIN PUMP 2.7 UNITS SC (14:18)
--- NOTE | 2024-09-03 14:25 | W.PN.HOSP.TC ---
Addendum entered and electronically signed by Jimmy Ventura MD 09/03/24 17:39:
Sepsis was present on admission and is now resolved
Metabolic acidosis
Immunosuppressed
Original Note:
Today's Communication/Plan
-
Assessment / Plan
Assessment / Plan
NAD
Scleral Anicteric
MMM
No JVD
CTABL
RRR, S1/S2
Soft, NT, ND, BS+
Warm, Dry, diffuse [place] area
AAOx3
Influenza A in the setting of cyclic neutropenia
Continue Tamiflu twice daily
Neutropenia
S/p G-CSF. Hematology following.
-Now gcsf daily
-Continue amoxcillin and fluconazole
History of recurrent HSV oralis
Continue Valtrex
Diabetes type 1, poor control, A1c 10.2
Diabetes inpatient team following. Continue long and short acting insulin. Goal blood glucose 1 40-1 80
Hypothyroidism
Continue supplementation
Repeat TFTs in 4 to 6 weeks
Anticipated Discharge: > 48 hours
Subjective/Interval History
-
Date of Service: September 03, 2024
seen and examined
no new complaints
hives improved with increased bendaryl dosing
Objective Data
-
Labs:
Laboratory Results
09/03/24
06:28
WBC 2.7 L
Hgb 9.7 L
Hct 29.6 L
Plt Count 139
Sodium 139
Potassium 4.2
Chloride 114 H
Carbon Dioxide 21 L
BUN 11
Creatinine 1.4 H
Glucose 122 H
Calcium 8.5
Vital Signs:
Vital Signs
Temp Pulse Resp BP Pulse Ox
98.3 F 94 17 168/108 100
09/03/24 07:00 09/03/24 07:00 09/03/24 07:00 09/03/24 07:00 09/03/24 08:18
I&O
09/02/24 09/03/24 09/04/24
06:59 06:59 06:59
Intake Total 2560 / 2560 1200 / 1200
Balance 2560 / 2560 1200 / 1200
--- NOTE | 2024-09-03 14:57 | CM ---
Per activity notes, patient functioning at baseline, still requiring acute care.
Plan: Case management will continue to follow and assist with discharge planning. Home when medically cleared.
[2024-09-03 15:29] VITALS: BP 145/98
[2024-09-03 16:38] LABS: Glucose - Point of Care 120 mg/dl (70-99)
[2024-09-03] MEDS: LOVENOX 40 MG SC (18:01)
[2024-09-03] MEDS: PATIENT'S OWN INSULIN PUMP 3 UNITS SC (19:00)
[2024-09-03 21:20] LABS: Glucose - Point of Care 131 mg/dl (70-99)
[2024-09-03] MEDS: ATARAX 25 MG PO (21:24)
[2024-09-03 23:49] VITALS: BP 148/92
[2024-09-04] MEDS: SYNTHROID 200 MCG PO (04:09)
[2024-09-04] MEDS: BENADRYL 50 MG IV ×3 (04:09→12:56)
[2024-09-04] MEDS: AMOXIL 1000 MG PO ×2 (04:09→12:14)
[2024-09-04 07:06] LABS: Hematocrit 30.9 % (37.0-47.0); Hemoglobin 10.5 g/dL (12.0-16.0); Mean Corpuscular Volume 76.5 fL (81.0-99.0); Mean Platelet Volume 9.7 fL (7.4-10.4); Platelet Count 123 10^3/uL (130-400); Red Blood Cell Count 4.04 10^6/uL (4.20-5.40); Red Cell Dist. Width 14.3 % (11.5-14.5); White Blood Cell Count 4.9 10^3/uL (4.8-10.8)
[2024-09-04 07:43] LABS: Glucose - Point of Care 176 mg/dl (70-99)
[2024-09-04 07:48] VITALS: BP 162/99
[2024-09-04 08:01] LABS: Blood Urea Nitrogen 17 mg/dl (7-17); Calcium 8.5 mg/dl (8.4-10.2); Carbon Dioxide 24 mmol/L (22-30); Chloride 109 mmol/L (98-107); Estimated Creatinine Clearance 44 ml/min; Glucose 208 mg/dl (70-99); Potassium 4.4 mmol/L (3.5-5.1); Sodium 138 mmol/L (135-145); eGFR 45.33
[2024-09-04] MEDS: TAMIFLU 75 MG PO (08:45)
[2024-09-04] MEDS: CLARITIN 10 MG PO (08:45)
[2024-09-04] MEDS: DIFLUCAN 400 MG PO (08:45)
[2024-09-04] MEDS: VALTREX 500 MG PO (08:45)
[2024-09-04] MEDS: PEPCID 20 MG PO (08:45)
[2024-09-04] MEDS: HYDROCORTISONE 2.5% CREAM 1 APPLIC TOPICAL (08:46)
[2024-09-04] MEDS: PATIENT'S OWN INSULIN PUMP 3.6 UNITS SC (08:50)
[2024-09-04] MEDS: GRANIX 300 MCG SC (08:53)
--- NOTE | 2024-09-04 09:54 | W.PN.HOSP.TC ---
Today's Communication/Plan
-
Assessment / Plan
Assessment / Plan
NAD
Scleral Anicteric
MMM
No JVD
CTABL
RRR, S1/S2
Soft, NT, ND, BS+
Warm, Dry, diffuse [place] area
AAOx3
Influenza A in the setting of cyclic neutropenia
Continue Tamiflu twice daily
Neutropenia
S/p G-CSF. Hematology following.
-Now gcsf daily
-Continue amoxcillin and fluconazole
History of recurrent HSV oralis
Continue Valtrex
Diabetes type 1, poor control, A1c 10.2
Diabetes inpatient team following. Continue long and short acting insulin. Goal blood glucose 1 40-1 80
Hypothyroidism
Continue supplementation
Repeat TFTs in 4 to 6 weeks
Awaiting ANC today if improved. Potentially could be discharged if cleared by hematology and infectious disease
Anticipated Discharge: Within 24 hours
Subjective/Interval History
-
Date of Service: September 04, 2024
Seen and examined. No new complaints. No acute overnight events.
Continues to have diffuse itchiness. Improved with hydroxyzine Pepcid and Benadryl
Objective Data
-
Labs:
Laboratory Results
09/04/24
06:35
WBC 4.9
Hgb 10.5 L
Hct 30.9 L
Plt Count 123 L
Sodium 138
Potassium 4.4
Chloride 109 H
Carbon Dioxide 24
BUN 17
Creatinine 1.6 H
Glucose 208 H
Calcium 8.5
Vital Signs:
Vital Signs
Temp Pulse Resp BP Pulse Ox
98.3 F 91 16 162/99 99
09/04/24 07:48 09/04/24 07:48 09/04/24 07:48 09/04/24 07:48 09/04/24 07:48
I&O
09/03/24 09/04/24 09/05/24
06:59 06:59 06:59
Intake Total 1200 / 1200 300 / 300
Output Total 480 / 480
Balance 1200 / 1200 -180 / -180
[2024-09-04 11:38] LABS: Glucose - Point of Care 202 mg/dl (70-99)
[2024-09-04 11:54] LABS: Atypical Lymphocytes 3 %; Band Neutrophils 18 % (0-3); Lymphocytes 41 % (20-51); Metamyelocytes 2 % (-); Monocytes 10 % (2-9); Myelocytes 2 % (-); Segmented Neutrophils 24 % (42-75)
[2024-09-04 11:55] LABS: Normal RBC Morphology Yes; Platelets Checked Yes; Total Cells Counted 100
--- NOTE | 2024-09-04 12:36 | W.PN.ID1 ---
Date of Service
Date of Service: September 04, 2024
Today's Communication
Can dc home from ID standpoint.
See below recs.
Assessment / Plan
Influenza A
Cyclic Neutropenia
Neutropenia now resolved with G-CSF
H/o recurrent HSV oralis
CKD
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
DM1- with ongoing poor control last a1c 10.2
DKA
Possible candidal UTI
Ongoing Noncompliance
- blood cultures x2 no growth to date
- flu A PCR positive
- c/w tamiflu dose to 75 mg PO BID to complete 5 days (2 more doses)
- dc amoxicillin 1 gm PO TID day 4
- Continue fluconazole 400 mg PO qday day 4 of 7 days
- QTc acceptable
- c/w suppressive valtrex given history of HSV oralis 'too numerous to count' over the last year - on discharge please give a 60 day supply
Chronic Urticaria
- ongoing for months
- note correlation between DM1 and chronic urticaria
- can continue atarax for present, also on famotidine
- prefer to avoid systemic steroids if possible; can trial hydrocortisone cream
- recommend outpatient referral to allergy
Chief Complaint
-: Other (cyclic neutropenia, fever, flu)
Subjective / Review of Systems
Feeling better.
Vital Signs / Physical Exam
Vital Signs
Vital Signs
Temp Pulse Resp BP Pulse Ox
98.3 F 91 16 162/99 99
09/04/24 07:48 09/04/24 07:48 09/04/24 07:48 09/04/24 07:48 09/04/24 07:48
Physical Exam
Constitutional: No Acute Distress
Cardiovascular: Regular Rate and S1/S2
Pulmonary: Clear
Gastrointestinal: Soft, Non Tender, Non Distended and Normal Bowel Sounds
Extremities: Negative Edema
Skin: Dry
Neurological: AO x 3
Objective Data
Lab Data
Lab Results
09/04/24 06:35
09/04/24 06:35
Estimated Creat Clear 44 ml/min 09/04/24 06:35
Lactic Acid Cancelled 09/01/24 04:15
Total Bilirubin 0.5 mg/dl (0.2-1.3) 08/31/24 21:09
AST 17 U/L (14-36) 08/31/24 21:09
ALT 11 U/L (0-35) 08/31/24 21:09
Alkaline Phosphatase 85 U/L (38-126) 08/31/24 21:09
Most recent labs reviewed.
Micro Results:
09/01/24 00:10 Blood Culture - Preliminary
Blood/Venous No Growth in 72 hours- Final report to follow
09/01/24 00:10 Blood Culture - Preliminary
Blood/Venous No Growth in 72 hours- Final report to follow
09/01/24 00:10 Urine Culture - Final
Urine No Significant Growth
09/01/24 09:40 Nasal Screen MRSA (PCR) - Final
Nose MRSA not detected - performed by PCR methodology.
09/01/24 00:10 Influenza Types A & B (ANIKA) - Final
Nasal Swab Influenza A Positive, NAAT
--- NOTE | 2024-09-04 13:38 | W.DCSUMMARY ---
Addendum entered and electronically signed by Jimmy Ventura MD 09/04/24 14:34:
Added repeat CBC in 1 week with outpatient PCP
Original Note:
Discharge Summary
Discharge Data
Date of Admission: 09/01/24
Date of Discharge: 09/04/24
-
Pending Results: No
Hospital Course
24y F with PMH significant for cyclic neutropenia and recurrent infections, DM-I on insulin pump
Presented with the flu started on Tamiflu complete 5-day course. Additionally he was found to have neutropenia with a known history of cyclic neutropenia will see follow-up with outpatient hematology. Evaluated by hematology and infectious
diseases inpatient. Started on G-CSF with improvement in white count/neutrophil count. ID started fluconazole Valtrex. Complete 7-day course of fluconazole and 60-day course of Valtrex. Completed amoxicillin course in hospital. Will need
outpatient hematology and PCP follow-up.
Discharge Plan
-
Patient Disposition: Home (Routine Discharge)
Discharge Diagnosis/Procedures: flu
neutropenia
Condition: Good
Diet: As tolerated
Activity: As tolerated
Activity Restrictions/Additional Instructions:
Presented with the flu started on Tamiflu complete 5-day course. Additionally he was found to have neutropenia with a known history of cyclic neutropenia will see follow-up with outpatient hematology. Evaluated by hematology and infectious
diseases inpatient. Started on G-CSF with improvement in white count/neutrophil count. ID started fluconazole Valtrex. Complete 7-day course of fluconazole and 60-day course of Valtrex. Completed amoxicillin course in hospital. Will need
outpatient hematology and PCP follow-up.
Referrals:
Juan A Martinez MD [Family Provider] -
Miguelangel Maloney DO [Active] - in one to two weeks
Prescriptions:
New
loratadine 10 mg Tablet
10 mg PO DAILY Qty: 30 0RF
fluconazole 200 mg Tablet
400 mg PO DAILY 3 Days Qty: 3 0RF
ferrous sulfate [FeroSul] 325 mg (65 mg iron) Tablet
325 mg PO Q48H Qty: 30 0RF
acetaminophen 325 mg Tablet
650 mg PO Q4HPRN PRN (Reason: Mild Pain / Temp > 101) Qty: 30 0RF
oseltamivir 75 mg Capsule
75 mg PO BID 2 Days Qty: 4 0RF
levothyroxine 200 mcg Tablet
200 mcg PO DAILY @ 0600 30 Days Qty: 30 0RF
valacyclovir [Valtrex] 500 mg tablet
500 mg PO BID 60 Days Qty: 120 0RF
Continued
levothyroxine 100 mcg capsule
100 mcg PO DAILY Qty: 60 0RF
Rx Instructions:
total 175 mcg take along with 75 mcg tab
Medical Marijuana
0.5 ml PO BIDPRN PRN (Reason: ANXIETY)
fluticasone propion-salmeterol [Wixela Inhub] 250-50 mcg/dose blister with device
1 inh INHALATION R DAILYPRN PRN (Reason: sob)
acetaminophen 325 mg tablet
650 mg PO Q6HPRN PRN (Reason: mild pain/SUE)
Insulin Pump [Patient's Own Insulin Pump]
0 unit SC .CONTINOUS
Rx Instructions:
03/19/23 PATIENT USING HUMALOG AND PATIENT'S DEVICE HOLDS 175 UNITS
albuterol sulfate 90 mcg/actuation Hfa Aerosol Inhaler
2 puff INHALATION R Q4HPRN PRN (Reason: sob)
medroxyprogesterone 150 mg/mL Syringe
150 mg IM [id number]
sumatriptan succinate 50 mg Tablet
50 mg PO DAILYPRN PRN (Reason: migraine)
famotidine [Pepcid] 20 mg Tablet
20 mg PO DAILY
hydroxyzine HCl 25 mg Tablet
25 mg PO HS
fluticasone propionate 50 mcg/actuation spray,suspension
1 spray INTRANASAL DAILY 5 Days Qty: 16 0RF
Discontinued
levothyroxine [Synthroid] 75 mcg tablet
75 mcg PO DAILY Qty: 60 0RF
Rx Instructions:
total 175 mcg take along with 100 mcg tab
amoxicillin-pot clavulanate [Augmentin] 875-125 mg Tablet
1 tab PO BID
Discharge Date and Time
Print Language: ARABIC
--- NOTE | 2024-09-04 14:17 | W.PN.ONC2 ---
Today's Communication / Plan
-
.
Impression
Impression
Symptomatic influenza A
Cyclic neutropenia
T1DM
back pain
Plan
Plan
d/c granix for ANC >2000
Monitor CBC w/ diff
anemia with component of CHUCHO, ferritin 45, IS 17, Iron 31. start oral iron every other day and continue at discharge
continue to monitor CBC closely OP and consider ppx GCSF to minimize infections and hospital stays and repletion of iron
start Claritin -back pain may be induced by GCSF
no objection to discharge
Subjective/Objective
Subjective
no new complaints
Vital Signs:
Vital Signs
Temp Pulse Resp BP Pulse Ox
98.3 F 91 16 162/99 99
09/04/24 07:48 09/04/24 07:48 09/04/24 07:48 09/04/24 07:48 09/04/24 07:48
Lab Results:
Laboratory Data
WBC 4.9 10^3/uL (4.8-10.8) 09/04/24 06:35
Hgb 10.5 g/dL (12.0-16.0) L 09/04/24 06:35
Plt Count 123 10^3/uL (130-400) L 09/04/24 06:35
eGFR 45.33 09/04/24 06:35
Physical Exam
HEENT: Moist Mucous Membranes; No Jaundice
Cardiology: Normal Sinus Rhythm
Pulmonary: Clear
GI: Soft
Extremities: Pulses Present; No Edema
[2024-09-04 15:11] VITALS: BP 166/107
[2024-09-04] MEDS: PATIENT'S OWN INSULIN PUMP SC (15:38)
== END 2024-09-04 15:26 | disposition home or self-care (01) | DRG 872 ==
LOC: 3 WEST ACU 03:21
PROVIDERS: Emergency Medicine; ADMITTING PHYSICIAN Hospitalist; ATTENDING PHYSICIAN Hospitalist; EMERGENCY PHYSICIAN Emergency Medicine; FAMILY PHYSICIAN Family Medicine; OTHER PHYSICIAN Internal Medicine Hematology & Oncology; OTHER PHYSICIAN Student in an Organized Health Care Education/Training Program
DX: A41.51 Sepsis due to Escherichia coli [E. coli] (principal); N17.9 Acute kidney failure, unspecified; E87.20 Acidosis, unspecified; D84.9 Immunodeficiency, unspecified; B00.89 Other herpesviral infection; J10.1 Influenza due to other identified influenza virus with other respiratory manifestations; D70.4 Cyclic neutropenia; F43.10 Post-traumatic stress disorder, unspecified; E10.65 Type 1 diabetes mellitus with hyperglycemia; E03.9 Hypothyroidism, unspecified; F41.9 Anxiety disorder, unspecified; F31.9 Bipolar disorder, unspecified; F17.200 Nicotine dependence, unspecified, uncomplicated; F11.10 Opioid abuse, uncomplicated; F19.10 Other psychoactive substance abuse, uncomplicated; E10.22 Type 1 diabetes mellitus with diabetic chronic kidney disease; E86.9 Volume depletion, unspecified; N80.9 Endometriosis, unspecified; E28.2 Polycystic ovarian syndrome; L50.8 Other urticaria; N18.2 Chronic kidney disease, stage 2 (mild); D50.9 Iron deficiency anemia, unspecified; J45.909 Unspecified asthma, uncomplicated; M54.9 Dorsalgia, unspecified; Z96.41 Presence of insulin pump (external) (internal); Z79.890 Hormone replacement therapy; Z79.51 Long term (current) use of inhaled steroids; Z79.4 Long term (current) use of insulin; Z87.440 Personal history of urinary (tract) infections; Z88.1 Allergy status to other antibiotic agents; Z11.52 Encounter for screening for COVID-19; Z91.199 Patient's noncompliance with other medical treatment and regimen due to unspecified reason; Z22.322 Carrier or suspected carrier of Methicillin resistant Staphylococcus aureus
CPT/HCPCS: 71046; 80048; 80053; 81003; 81015; 82010; 82728; 82962; 83036; 83540; 83550; 83605; 84439; 84443; 84703; 85025; 85027; 87040; 87086; 87502; 87641; 87811; 93005; 94640; 96361; 96374; 99285; J1447

== ENCOUNTER 2024-09-10 18:08 | Emergency (ER) | payer BC, SELFPAY ==
[2024-09-10 18:20] VITALS: BP 155/101
[2024-09-10 18:52] LABS: % Basophils 0.5 % (0-2); % Immature Granulocytes 0.4 % (0-0.5); % Lymphocytes 14.6 % (20.5-51.1); % Monocytes 6.9 % (1.7-9.3); % Neutrophils 77.6 % (42.2-75.2); Absolute Basophils 0.1 10^3/uL (0-0.2); Absolute Immature Granulocytes 0.1 10^3/uL (0-0.05); Absolute Lymphocytes 1.7 10^3/uL (1.2-3.4); Absolute Monocytes 0.8 10^3/uL (0.1-0.6); Absolute Neutrophils 8.9 10^3/uL (1.4-6.5); Hematocrit 32.9 % (37.0-47.0); Hemoglobin 10.8 g/dL (12.0-16.0); Mean Corp Hgb Conc. 32.8 g/dL (33.0-37.0); Mean Corpuscular Hgb 25.3 pg (27.0-31.0); Mean Platelet Volume 10.5 fL (7.4-10.4); Nucleated Red Blood Cells % 0 %; Platelet Count 141 10^3/uL (130-400); Red Blood Cell Count 4.27 10^6/uL (4.20-5.40); Red Cell Dist. Width 14.5 % (11.5-14.5); White Blood Cell Count 11.5 10^3/uL (4.8-10.8)
[2024-09-10 19:00] LABS: Urine Albumin 4+ (Neg - Trace); Urine Bilirubin Negative (Negative); Urine Character Clear (Clear); Urine Color Yellow; Urine Glucose 2+ (Negative); Urine Ketone Negative (Negative); Urine Leukocyte Negative (Negative); Urine Nitrite Negative (Negative); Urine Occult Blood 2+ (Negative); Urine Urobilinogen Negative (Neg - 1+)
[2024-09-10 19:03] LABS: HCG, Serum Qualitative Screen Negative
[2024-09-10 19:06] LABS: ALT (SGPT) 18 U/L (0-35); AST (SGOT) 25 U/L (14-36); Albumin 3.2 g/dl (3.5-5.0); Alkaline Phosphatase 118 U/L (38-126); Blood Urea Nitrogen 26 mg/dl (7-17); Calcium 8.2 mg/dl (8.4-10.2); Carbon Dioxide 22 mmol/L (22-30); Chloride 105 mmol/L (98-107); Glucose 295 mg/dl (70-99); Sodium 132 mmol/L (135-145); Total Bilirubin 0.6 mg/dl (0.2-1.3); Total Protein 5.7 g/dl (6.3-8.2); eGFR 45.33
[2024-09-10 19:08] LABS: Urine Bacteria Moderate (Negative)
[2024-09-10 19:09] LABS: Urine White Cell 60-70 /HPF (0-5)
[2024-09-10 19:15] LABS: COVID-19 Antigen Negative (Negative)
--- NOTE | 2024-09-10 22:43 | ED.GENMED ---
History of Present Illness
General
Chief Complaint: Back Pain
Source: patient, records and previous hospital records
Exam Limitations: none
Time Seen by Provider: 09/10/24 22:31
Nursing documentation reviewed up to this point in time: agreed with
History of Present Illness
History of Present Illness:
24-year-old female with diabetes hypothyroid cyclic neutropenia recurrent UTIs presents with right flank pain nausea fever chills admitted recently with influenza neutropenia seen by oncology and ID
Does not have kidney stones reportedly has pain in her bilateral flank
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
ED Past Medical History: Asthma, IDDM, Hypothyroidism, Psychiatric, Other (EMPHASEMATOUS PYELONEPHRITIS, neutropenia) and Other (Anemia, Escherichia coli sepsis, multiple abscesses, Cellulitis, Pyelonephritis, vaginal herpes, polysubstance drug
abuse)
ED Past Surgical History: Appendectomy, Tonsilectomy (T&A) and Other (tympanostomy, buttocks I&D, NEPHROSTOMY RIGHT)
Social History
Tobacco: Former smoker
Alcohol: None
Drug: Marijuana, Narcotics, IVDA (Heroin user) and Other (Methamphetamine)
Personal: Single
Living: with family
Employment: Employed ([employer])
Family History
Family History: Other (Noncontributory)
Review of Systems
Review of Systems
All Other Systems: Not applicable
Constitutional: Reports fever and fatigue
Respiratory: Reports no symptoms
Cardiac: Reports no symptoms
ABD/GI: Reports abdominal pain and nausea
: Reports dysuria, frequency and flank pain
Skin: Reports no symptoms
Endocrine: Reports no symptoms
Hematologic/Lymphatic: Reports no symptoms
Phy Exam
Physical Exam
Physical Exam:
Physical Exam
General: Chronically ill-appearing
Neck: Dry lips
Heart: s1/s2 regular rate and rhythm, no murmur. equal radial pulses.
Lungs: no acute respiratory distress. clear bilaterally
Abdomen: Tender in the right greater than left flank
Neuro: alert and oriented. no focal neurological deficits
Skin: no rash
Psychiatric: well kept. interactive and cooperative
Extremities: no edema.
Sepsis
Sepsis Screening
Sepsis Assessment: Sepsis Ruled Out
Sepsis Screen
Sepsis Screen: Sepsis Ruled Out
Date: 09/11/24
Time: 00:33
Course
Orders/Labs/Results
Orders:
Orders
09/10/24 18:25
Test Result ONCE
09/10/24 18:37
COVID-19 Antigen Urgent
Source: Nasal Swab
Complete Blood Count/With Diff Urgent
Comprehensive Metabolic Panel Urgent
HCG, Serum Qualitative Screen Urgent
Urinalysis Reflex To Culture Urgent
Date Specimen was Collected: 09/10/24
Time Specimen was Collected: 18:25
Urine Microscopic Reflex Cult Urgent
INF RAPID [Influenza A+B Rapid Molecular] Urgent
ROBE Source: Nasal Swab
Specimen Description:
Date Specimen was Collected: 09/10/24
Time Specimen was Collected: 18:25
Urine Culture Urgent
ROBE Source: U
Specimen Description:
Date Specimen was Collected: 09/10/24
Time Specimen was Collected: 18:25
09/10/24 22:40
0.9% Sodium Chloride 1000 ml [Nss] 1,000 ml IV BOLUS
Renal Only US [US Renal Only W/O Bladder] Urgent
Comment:
Reason For Exam: flank pain
09/10/24 22:41
Acetaminophen [Tylenol] 650 mg PO NOW STA
09/10/24 22:42
CefTRIAXone [Rocephin] 1,000 mg IV NOW STA
09/10/24 23:26
Sterile Water [Sterile Water For Injection] 10 ml .ROUTE .[facility]
09/10/24 23:28
Blood Culture Q30M
ROBE Source: Blood/Venous
Specimen Description:
Blood Culture Q30M
ROBE Source: Blood/Venous
Specimen Description:
09/11/24 00:30
Morphine Sulfate 4 mg IV NOW STA
Abnormal Lab Results
09/10/24
18:37
WBC 11.5 H 10^3/uL
(4.8-10.8)
Hgb 10.8 L g/dL
(12.0-16.0)
Hct 32.9 L %
(37.0-47.0)
MCV 77.0 L fL
(81.0-99.0)
MCH 25.3 L pg
(27.0-31.0)
MCHC 32.8 L g/dL
(33.0-37.0)
MPV 10.5 H fL
(7.4-10.4)
Abs Immat Gran (auto) 0.1 H 10^3/uL
(0-0.05)
Absolute Neuts (auto) 8.9 H 10^3/uL
(1.4-6.5)
Absolute Monos (auto) 0.8 H 10^3/uL
(0.1-0.6)
Neutrophils % 77.6 H %
(42.2-75.2)
Lymphocytes % 14.6 L %
(20.5-51.1)
Sodium 132 L mmol/L
(135-145)
BUN 26 H mg/dl
(7-17)
Creatinine 1.6 H mg/dL
(0.6-1.0)
Glucose 295 H mg/dl
(70-99)
Calcium 8.2 L mg/dl
(8.4-10.2)
Total Protein 5.7 L g/dl
(6.3-8.2)
Albumin 3.2 L g/dl
(3.5-5.0)
Ur Occult Blood Reflex 2+ A
(Negative)
Urine RBC 7-10 A /HPF
(0-2)
Urine WBC (Reflex) 60-70 A /HPF
(0-5)
Urine Bacteria (Reflex) Moderate A
(Negative)
Urine Glucose 2+ A
(Negative)
Urine Albumin (Reflex) 4+ A
(Neg - Trace)
09/10/24 18:37
09/10/24 18:37
Vital Signs
Initial and Last Documented VS:
Initial Vital Signs
Temp Pulse Resp BP Pulse Ox
98.3 F 78 18 155/101 94
09/10/24 18:20 09/10/24 18:20 09/10/24 18:20 09/10/24 18:20 09/10/24 18:20
Last Documented Vital Signs
Temp Pulse Resp BP Pulse Ox
98.3 F 78 18 147/106 100
09/10/24 18:20 09/10/24 18:20 09/10/24 18:20 09/11/24 00:00 09/11/24 00:15
MDM/Problems Addressed
Differential Diagnosis Includes:
UTI pyelonephritis viral syndrome
MDM/Problems Addressed:
Fever UTIs
Chronic conditions affecting care: Immunosuppressed and Kidney disease
Acute Exacerbation and/or Progression of Chronic Illness: Immunosuppressed and Kidney disease
*Critical Care Note
Total Time (30-74mins, 75-104mins- exclusive of procedures): Not Applicable
Update Note
Update Note:
1145 ultrasound report noted
12:30 AM patient looks better still has some mild pain and requested pain med, she will like to go home which is not unreasonable will start her on antibiotics check urine culture
ED Attending Note
-
Portions of this chart may have been created with voice recognition software.� Occasional wrong word or��sound alike� substitutions may have occurred due to the inherent limitations of voice recognition software.
Discharge Plan
Departure
Patient Disposition: Home (Routine Discharge)
Date of Disposition: 09/11/24
Time of Disposition: 00:31
Patient with high blood pressure during this ER visit?: No
Condition: Good
Discharge Problem:
Pyelonephritis
Instructions: Urinary tract infection in adults - ED discharge instructions
Prescriptions:
New
amoxicillin-pot clavulanate 875-125 mg tablet
1 tab PO BID Qty: 20 0RF
oxycodone 5 mg tablet
5 mg PO Q6H PRN (Reason: Pain) Qty: 10 0RF
No Action
Medical Marijuana
0.5 ml PO BIDPRN PRN (Reason: ANXIETY)
fluticasone propion-salmeterol [Wixela Inhub] 250-50 mcg/dose blister with device
1 inh INHALATION R DAILYPRN PRN (Reason: sob)
acetaminophen 325 mg tablet
650 mg PO Q6HPRN PRN (Reason: mild pain/SUE)
Insulin Pump [Patient's Own Insulin Pump]
0 unit SC .CONTINOUS
Rx Instructions:
03/19/23 PATIENT USING HUMALOG AND PATIENT'S DEVICE HOLDS 175 UNITS
albuterol sulfate 90 mcg/actuation Hfa Aerosol Inhaler
2 puff INHALATION R Q4HPRN PRN (Reason: sob)
medroxyprogesterone 150 mg/mL Syringe
150 mg IM [id number]
sumatriptan succinate 50 mg Tablet
50 mg PO DAILYPRN PRN (Reason: migraine)
famotidine [Pepcid] 20 mg Tablet
20 mg PO DAILY
hydroxyzine HCl 25 mg Tablet
25 mg PO HS
loratadine 10 mg Tablet
10 mg PO DAILY Qty: 30 0RF
fluconazole 200 mg Tablet
400 mg PO DAILY 3 Days Qty: 3 0RF
ferrous sulfate [FeroSul] 325 mg (65 mg iron) Tablet
325 mg PO Q48H Qty: 30 0RF
acetaminophen 325 mg Tablet
650 mg PO Q4HPRN PRN (Reason: Mild Pain / Temp > 101) Qty: 30 0RF
oseltamivir 75 mg Capsule
75 mg PO BID 2 Days Qty: 4 0RF
levothyroxine 200 mcg Tablet
200 mcg PO DAILY @ 0600 30 Days Qty: 30 0RF
fluticasone propionate 50 mcg/actuation spray,suspension
1 spray INTRANASAL DAILY 5 Days Qty: 16 0RF
valacyclovir [Valtrex] 500 mg tablet
500 mg PO BID 60 Days Qty: 120 0RF
Referrals:
Juan A Martinez MD [Family Provider] - Next open appointment
Activity Restrictions/Additional Instructions:
Return to the ER for worsening symptoms
Interventions
Interventions:
*Risk Screen - Suicide Last Done: 09/10/24 18:20
*General Assessment Last Done: 09/11/24 00:28
*Neglect/Abuse Screening Last Done: 09/11/24 00:28
*ED- Fall Risk Assessment Last Done: 09/11/24 00:28
*ED COVID-19 Vaccine History Last Done: 09/11/24 00:28
ED-Musculoskeletal Assessment Last Done: 09/11/24 00:27
Discharge Date and Time
Print Language: YI
[2024-09-10] MEDS: TYLENOL 650 MG PO (23:29)
[2024-09-10] MEDS: NSS 1000 IV (23:37)
[2024-09-10] MEDS: ROCEPHIN 1000 MG IV (23:37)
[2024-09-10 23:40] VITALS: BP 140/126
[2024-09-11] VITALS: BP 147/106
[2024-09-11] MEDS: MORPHINE SULFATE 4 MG IV (00:36)
[2024-09-11 01:00] VITALS: BP 137/108
== END 2024-09-11 01:31 | disposition home or self-care (01) ==
LOC: EMR 18:08
PROVIDERS: Student in an Organized Health Care Education/Training Program; EMERGENCY PHYSICIAN Emergency Medicine; FAMILY PHYSICIAN Family Medicine
DX: N12 Tubulo-interstitial nephritis, not specified as acute or chronic (principal); E11.9 Type 2 diabetes mellitus without complications; D70.4 Cyclic neutropenia; D84.81 Immunodeficiency due to conditions classified elsewhere; E03.9 Hypothyroidism, unspecified; J45.909 Unspecified asthma, uncomplicated; Z87.440 Personal history of urinary (tract) infections; Z87.891 Personal history of nicotine dependence; Z90.49 Acquired absence of other specified parts of digestive tract
CPT/HCPCS: 99284; 96374; 96375; 76775; 80053; 81003; 81015; 84703; 85025; 87040; 87086; 87502; 87811

== ENCOUNTER 2024-09-27 17:04 | Inpatient (IN) | payer BC, SELFPAY ==
[2024-09-27 12:21] VITALS: BP 143/102
[2024-09-27 12:54] LABS: Urine Albumin 4+ (Neg - Trace); Urine Bilirubin Negative (Negative); Urine Character Clear (Clear); Urine Color Yellow; Urine Glucose 3+ (Negative); Urine Ketone Negative (Negative); Urine Leukocyte Negative (Negative); Urine Nitrite Negative (Negative); Urine Occult Blood 2+ (Negative); Urine Urobilinogen Negative (Neg - 1+)
[2024-09-27 12:55] LABS: Hematocrit 33.6 % (37.0-47.0); Hemoglobin 11.3 g/dL (12.0-16.0); Mean Corp Hgb Conc. 33.6 g/dL (33.0-37.0); Mean Corpuscular Volume 77.4 fL (81.0-99.0); Mean Platelet Volume 9.8 fL (7.4-10.4); Platelet Count 302 10^3/uL (130-400); Red Blood Cell Count 4.34 10^6/uL (4.20-5.40); Red Cell Dist. Width 14.5 % (11.5-14.5)
[2024-09-27 13:06] LABS: Urine Squamous Cell 0-2 /LPF (Few); Urine White Cell 0-2 /HPF (0-5)
[2024-09-27 13:07] LABS: HCG, Serum Qualitative Screen Negative
[2024-09-27 13:09] LABS: ALT (SGPT) 14 U/L (0-35); AST (SGOT) 16 U/L (14-36); Albumin 3.6 g/dl (3.5-5.0); Alkaline Phosphatase 93 U/L (38-126); Blood Urea Nitrogen 19 mg/dl (7-17); Calcium 9.1 mg/dl (8.4-10.2); Carbon Dioxide 26 mmol/L (22-30); Chloride 104 mmol/L (98-107); Glucose 171 mg/dl (70-99); Sodium 135 mmol/L (135-145); Total Bilirubin 0.4 mg/dl (0.2-1.3); Total Protein 6.2 g/dl (6.3-8.2); eGFR 53.21
[2024-09-27 13:17] LABS: Absolute Neutrophils -Man Diff 0.7 10^3/uL (1.4-6.5); Atypical Lymphocytes 5 %; Band Neutrophils 3 % (0-3); Lymphocytes 60 % (20-51); Monocytes 10 % (2-9); Segmented Neutrophils 22 % (42-75)
[2024-09-27 13:19] LABS: Normal RBC Morphology No; Platelets Checked Yes
[2024-09-27 13:20] LABS: Anisocytosis 1+; Microcytosis 3+; Ovalocytes Slight; Total Cells Counted 100
--- NOTE | 2024-09-27 13:29 | ED.GENMED ---
History of Present Illness
General
Chief Complaint: Flank Pain
Source: patient
Exam Limitations: none
Time Seen by Provider: 09/27/24 13:08
Nursing documentation reviewed up to this point in time: agreed with
History of Present Illness
History of Present Illness:
24-year-old female with past medical history of diabetes, hypothyroidism, GERD presenting to the emergency department today with concerns of worsening back back pain in setting of recent recurrent urinary tract infections. Does of a history of
neutropenia that is currently being evaluated by hematology. Claims that she had fever at home yesterday and throughout the week this week. No nausea vomiting.
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
ED Past Medical History: Asthma, IDDM, Hypothyroidism, Psychiatric, Other (EMPHASEMATOUS PYELONEPHRITIS, neutropenia) and Other (Anemia, Escherichia coli sepsis, multiple abscesses, Cellulitis, Pyelonephritis, vaginal herpes, polysubstance drug
abuse)
ED Past Surgical History: Appendectomy, Tonsilectomy (T&A) and Other (tympanostomy, buttocks I&D, NEPHROSTOMY RIGHT)
Social History
Tobacco: Former smoker
Alcohol: None
Drug: Marijuana, Narcotics, IVDA (Heroin user) and Other (Methamphetamine)
Personal: Single
Living: with family
Employment: Employed ([employer])
Family History
Family History: Other (Noncontributory)
Review of Systems
Review of Systems
Allergies reviewed?: Yes
All Other Systems: ROS reviewed and negative except as documented in HPI and ROS
Phy Exam
Physical Exam
Physical Exam:
GENERAL: Alert , in no apparent distress
EYE: pupils equal and reactive
NECK: Supple, no significant adenopathy.
ENT: o/p clr, mmm.
CARDIAC: Regular rate and rhythm .
LUNGS: Clear breath sounds bilaterally, no acute respiratory distress, no wheezes/rales/rhonchi
ABDOMEN: CVA tenderness to palpation and percussion bilaterally soft, without focal tenderness, no r/g, no cvat
NEUROLOGICAL: Alert and oriented, no focal neuro deficits
SKIN: Warm and dry, skin intact.
MUSCULOSKELETAL: No edema, well perfused.
PSYCH: Normal and appropriate interaction.
Course
Orders/Labs/Results
Orders:
Orders
09/27/24 12:32
Test Result ONCE
09/27/24 12:41
CMP [Comprehensive Metabolic Panel] Urgent
Complete Blood Count/With Diff Urgent
HCG, Serum Qualitative Screen Urgent
Manual Differential Urgent
Urinalysis Reflex To Culture Urgent
Date Specimen was Collected: 09/27/24
Time Specimen was Collected: 12:33
Urine Microscopic Reflex Cult Urgent
09/27/24 13:31
CT Abd/Pel (IV only)-DH only Urgent
Comment:
Reason For Exam: bl flank pain
09/27/24 16:19
CefTRIAXone [Rocephin] 2,000 mg IV NOW STA
09/27/24 16:30
Blood Culture Q30M
ROBE Source: Blood/Venous
Specimen Description:
09/27/24 17:00
Blood Culture Q30M
ROBE Source: Blood/Venous
Specimen Description:
Abnormal Lab Results
09/27/24
12:41
WBC 3.0 L 10^3/uL
(4.8-10.8)
Hgb 11.3 L g/dL
(12.0-16.0)
Hct 33.6 L %
(37.0-47.0)
MCV 77.4 L fL
(81.0-99.0)
MCH 26.0 L pg
(27.0-31.0)
Abs Neuts (Manual) 0.7 L* 10^3/uL
(1.4-6.5)
Segmented Neutrophils 22 L %
(42-75)
Lymphocytes (Manual) 60 H %
(20-51)
Monocytes (Manual) 10 H %
(2-9)
BUN 19 H mg/dl
(7-17)
Creatinine 1.4 H mg/dL
(0.6-1.0)
Glucose 171 H mg/dl
(70-99)
Total Protein 6.2 L g/dl
(6.3-8.2)
Ur Occult Blood Reflex 2+ A
(Negative)
Urine RBC 3-6 A /HPF
(0-2)
Urine Glucose 3+ A
(Negative)
Urine Albumin (Reflex) 4+ A
(Neg - Trace)
09/27/24 12:41
09/27/24 12:41
Vital Signs
Initial and Last Documented VS:
Initial Vital Signs
Temp Pulse BP Pulse Ox
97.7 F 94 143/102 100
09/27/24 12:21 09/27/24 12:21 09/27/24 12:21 09/27/24 12:21
Last Documented Vital Signs
Temp Pulse BP Pulse Ox
97.7 F 94 143/102 100
09/27/24 12:21 09/27/24 12:21 09/27/24 12:21 09/27/24 12:21
MDM/Problems Addressed
MDM/Problems Addressed:
24-year-old female presenting to the emergency department today with concerns of intermittent fevers at home neutropenia worsening back pain history of recurrent urinary tract infections and pyeloitis. Pyelonephritis. Here white count of 3.0
absolute neutrophil count of 0.7. CT scan was obtained that showed ureteritis as well as pyelitis. Concerning the patient is immunosuppressed plan for IV antibiotics observation overnight.
*Critical Care Note
Total Time (30-74mins, 75-104mins- exclusive of procedures): Not Applicable
ED Attending Note
-
Portions of this chart may have been created with voice recognition software.� Occasional wrong word or��sound alike� substitutions may have occurred due to the inherent limitations of voice recognition software.
Discharge Plan
Departure
Patient Disposition: Admit
Date of Disposition: 09/27/24
Time of Disposition: 16:30
Admit to: Med/Surg
Admit to doctor: Kenrick
Presentation/result/management discussed w/ accepting MD/DO: Hospitalist
Patient with high blood pressure during this ER visit?: No
Condition: Good
Covid-19: Not Applicable
Discharge Problem:
Neutropenia, Ureteritis
Prescriptions:
No Action
Medical Marijuana
0.5 ml PO BIDPRN PRN (Reason: ANXIETY)
fluticasone propion-salmeterol [Wixela Inhub] 250-50 mcg/dose blister with device
1 inh INHALATION R DAILYPRN PRN (Reason: sob)
acetaminophen 325 mg tablet
650 mg PO Q6HPRN PRN (Reason: mild pain/SUE)
Insulin Pump [Patient's Own Insulin Pump]
0 unit SC .CONTINOUS
Rx Instructions:
03/19/23 PATIENT USING HUMALOG AND PATIENT'S DEVICE HOLDS 175 UNITS
albuterol sulfate 90 mcg/actuation Hfa Aerosol Inhaler
2 puff INHALATION R Q4HPRN PRN (Reason: sob)
medroxyprogesterone 150 mg/mL Syringe
150 mg IM [id number]
sumatriptan succinate 50 mg Tablet
50 mg PO DAILYPRN PRN (Reason: migraine)
famotidine [Pepcid] 20 mg Tablet
20 mg PO DAILY
hydroxyzine HCl 25 mg Tablet
25 mg PO HS
loratadine 10 mg Tablet
10 mg PO DAILY Qty: 30 0RF
fluconazole 200 mg Tablet
400 mg PO DAILY 3 Days Qty: 3 0RF
ferrous sulfate [FeroSul] 325 mg (65 mg iron) Tablet
325 mg PO Q48H Qty: 30 0RF
acetaminophen 325 mg Tablet
650 mg PO Q4HPRN PRN (Reason: Mild Pain / Temp > 101) Qty: 30 0RF
oseltamivir 75 mg Capsule
75 mg PO BID 2 Days Qty: 4 0RF
levothyroxine 200 mcg Tablet
200 mcg PO DAILY @ 0600 30 Days Qty: 30 0RF
fluticasone propionate 50 mcg/actuation spray,suspension
1 spray INTRANASAL DAILY 5 Days Qty: 16 0RF
valacyclovir [Valtrex] 500 mg tablet
500 mg PO BID 60 Days Qty: 120 0RF
amoxicillin-pot clavulanate 875-125 mg tablet
1 tab PO BID Qty: 20 0RF
oxycodone 5 mg tablet
5 mg PO Q6H PRN (Reason: Pain) Qty: 10 0RF
Referrals:
Juan A Martinez MD [Family Provider] -
Discharge Date and Time
Print Language: BULGARIAN
[2024-09-27 16:42] LABS: Glucose - Point of Care 59 mg/dl (70-99)
[2024-09-27] MEDS: ROCEPHIN 2000 MG IV (16:49)
--- NOTE | 2024-09-27 16:52 | HPS.HSE ---
Family Physician
-
Family Physician: Juan A Martinez
Chief Complaint
-
back pain
History of Present Illness
24-year-old female past medical history of recurrent kidney infections status post nephrostomy tube 3 years ago, cyclical neutropenia, HSV oralis, type 1 diabetes on insulin pump, hypothyroidism, CKD 3, iron deficiency anemia, presenting with
worsening back pain. 4 days ago she developed pain in her right flank/back radiating across her back as well as to her anterior abdomen. She saw her primary care physician the next day and was prescribed Levaquin. A day after that she developed
chills and fever. She has been having nausea and vomiting. She has urinary burning. Denies diarrhea. Denies chest pain or shortness of breath.
Uses medical marijuana. She quit smoking a few years ago. Denies alcohol use.
She states that her blood sugars have been in the 600 yesterday so she took extra insulin through her insulin pump. Blood sugar today has been 60.
Medical History
Past Medical History
Past Medical History: Reports Other (recurrent kidney infections status post nephrostomy tube 3 years ago, cyclical neutropenia, HSV oralis, type 1 diabetes on insulin pump, hypothyroidism, CKD 3, iron deficiency anemia)
Past Surgical History: Reports Other (Appendectomy, Tonsilectomy (T&A) and Other (tympanostomy, buttocks I&D, NEPHROSTOMY RIGHT))
Social History
Tobacco: Former Smoker
Alcohol: None
Drug: Marijuana
Family History
Family History: Not pertinent
Allergies / Home Medications
Allergies reflects when Allergies were last updated in [facility].
Home Medications with original date entered in [facility]
Allergy/Medication List:
Allergies
Allergy/AdvReac Type Severity Reaction Status Date / Time
doxycycline Allergy Mild Rash Verified 09/10/24 18:20
vancomycin Allergy Red Man Verified 09/10/24 18:20
Syndrome
Home Medications
Insulin Pump [Patient's Own Insulin Pump] 0 unit SC .CONTINOUS Diabetes 03/19/23
Medical Marijuana 0.5 ml PO BIDPRN PRN ANXIETY 03/19/23
acetaminophen 325 mg tablet 650 mg PO Q6HPRN PRN mild pain/SUE 03/19/23
fluticasone 250 mcg-salmeterol 50 mcg/dose blistr powdr for inhalation (Wixela Inhub) 1 inh inhalation R DAILYPRN PRN sob 03/19/23
albuterol sulfate 90 mcg/actuation aerosol inhaler 2 puff inhalation R Q4HPRN PRN sob 05/15/24
medroxyprogesterone 150 mg/mL intramuscular syringe 150 mg IM [id number] Hormonal Agent 05/15/24
famotidine 20 mg tablet (Pepcid) 20 mg PO DAILY Gastrointestinal Issue 08/31/24
hydroxyzine HCl 25 mg tablet 25 mg PO HS Sleep 08/31/24
sumatriptan succinate 50 mg tablet 50 mg PO DAILYPRN PRN migraine 08/31/24
acetaminophen 325 mg tablet 650 mg (2 x 325 mg) PO Q4HPRN PRN Mild Pain / Temp > 101 #30 tabs 09/04/24
ferrous sulfate 325 mg (65 mg iron) tablet (FeroSul) 325 mg PO Q48H #30 tabs 09/04/24
fluconazole 200 mg tablet 400 mg (2 x 200 mg) PO DAILY 3 days #3 tabs 09/04/24
fluticasone propionate 50 mcg/actuation nasal spray,suspension 1 spray intranasal DAILY Congestion 5 days #16 grams 09/04/24
levothyroxine 200 mcg tablet 200 mcg PO DAILY @ 0600 30 days #30 tabs 09/04/24
loratadine 10 mg tablet 10 mg PO DAILY #30 tabs 09/04/24
oseltamivir 75 mg capsule 75 mg PO BID 2 days #4 caps 09/04/24
valacyclovir 500 mg tablet (Valtrex) 500 mg PO BID 60 days #120 tabs 09/04/24
amoxicillin 875 mg-potassium clavulanate 125 mg tablet 1 tab PO BID #20 tabs 09/11/24
oxycodone 5 mg tablet 5 mg PO Q6H PRN Pain #10 tabs 09/11/24
Review of Systems
-
History Source: Patient
A 12 point ROS was completed and negative except as noted: Yes
Constitutional: Reports No Symptoms
EENT: Reports No Symptoms
Respiratory: Reports No Symptoms
Cardiac: Reports No Symptoms
Abdomen/GI: Reports See HPI
: Reports See HPI
Musculoskeletal: Reports No Symptoms
Skin: Reports No Symptoms
Neurological: Reports No Symptoms
Endocrine: Reports No Symptoms
Hematologic/Lymphatic: Reports No Symptoms
Psych: Reports No Symptoms
Physical Exam
Vital Signs
Vital Signs
Temp Pulse BP Pulse Ox
97.7 F 94 143/102 100
09/27/24 12:21 09/27/24 12:21 09/27/24 12:21 09/27/24 12:21
Physical Exam
General: Well Developed, Well Nourished and No Apparent Distress
HEENT: NormoCephalic, Moist mucous membranes and Atraumatic
Respiratory: Clear
Cardiac: S1/S2 and Regular Rhythm; No Murmur or Rub
GI: Soft, Non Distended, Normal Bowel Sounds and Tender (bilterally, bilteral flanks ); No Organomegaly
Rectal: Deferred by Provider
Musculoskeletal: No Clubbing, No Cyanosis and No Edema
Skin: No Rash
Neuro: Nonfocal/grossly intact
Laboratory Results
-
09/27/24 12:41
09/27/24 12:41
Laboratory Results
Total Bilirubin 0.4 mg/dl (0.2-1.3) 09/27/24 12:41
AST 16 U/L (14-36) 09/27/24 12:41
ALT 14 U/L (0-35) 09/27/24 12:41
Alkaline Phosphatase 93 U/L (38-126) 09/27/24 12:41
Data Reviewed
-
Lab Data: Labs Reviewed by me
Old Records: Reviewed
Impression/Plan
-
IMPRESSION:
PLAN:
# Ureteritis/pyelitis/possible pyelonephritis
# History of recurrent kidney infections with prior nephrostomy tube
-Urinalysis unremarkable due to being on Levaquin
-CT abdomen pelvis shows prominence of the bilateral renal collecting systems with mild urothelial thickening and enhancement of both renal pelves and bilateral ureters most suspicious for ureteritis and pyelitis, possible pyelonephritis with
bilateral perinephric fat stranding
-Urine culture
-Check blood cultures
-IV fluids
-Ceftriaxone
# Neutropenia secondary to urethritis/pyelitis
#History of cyclical neutropenia
-Absolute neutrophils of 0.7
# Hypoglycemia secondary to infection
# Type 1 diabetes with insulin pump
-Variable blood sugar secondary to infection
-Blood sugar 59 here but was 600 yesterday
-Hold insulin pump for now
-Insulin sliding scale
History of HSV oralis
Hypothyroidism
-Continue levothyroxine
CKD 3
-Renal function at baseline
History of iron deficiency anemia
-Continue iron supplement
Full code
DVT prophylaxis�heparin
Regular diet
[2024-09-27 18:20] VITALS: BP 133/85
[2024-09-27] MEDS: DILAUDID 0.5 MG IV (19:42)
[2024-09-27] MEDS: NSS 1000 IV (19:45)
[2024-09-27] MEDS: HEPARIN 5000 UNITS SC (19:45)
[2024-09-27 19:58] VITALS: BP 152/100; BMI 22.6
[2024-09-27] MEDS: ATARAX 25 MG PO (21:18)
[2024-09-27 21:26] LABS: Glucose - Point of Care 151 mg/dl (70-99)
[2024-09-27 23:20] VITALS: BP 130/88
[2024-09-28] MEDS: DILAUDID 0.5 MG IV ×7 (00:52→22:29)
[2024-09-28] MEDS: NSS 1000 IV (05:29)
[2024-09-28] MEDS: SYNTHROID 200 MCG PO (05:29)
[2024-09-28 08:00] VITALS: BP 136/91
[2024-09-28 08:07] LABS: Glucose - Point of Care 131 mg/dl (70-99)
[2024-09-28] MEDS: ADVAIR HFA 115/21 MCG INHALER 2 PUFF INH ×2 (08:24→20:49)
[2024-09-28 08:36] LABS: Hematocrit 29.1 % (37.0-47.0); Hemoglobin 9.6 g/dL (12.0-16.0); Mean Corpuscular Hgb 25.7 pg (27.0-31.0); Mean Platelet Volume 10.2 fL (7.4-10.4); Platelet Count 240 10^3/uL (130-400); Red Blood Cell Count 3.73 10^6/uL (4.20-5.40); Red Cell Dist. Width 14.4 % (11.5-14.5); White Blood Cell Count 2.9 10^3/uL (4.8-10.8)
[2024-09-28] MEDS: PEPCID 20 MG PO (08:59)
[2024-09-28] MEDS: HEPARIN 5000 UNITS SC ×2 (08:59→22:14)
[2024-09-28 09:10] LABS: Blood Urea Nitrogen 14 mg/dl (7-17)
[2024-09-28 09:11] LABS: ALT (SGPT) 11 U/L (0-35); AST (SGOT) 12 U/L (14-36); Albumin 2.6 g/dl (3.5-5.0); Alkaline Phosphatase 78 U/L (38-126); Calcium 8.1 mg/dl (8.4-10.2); Chloride 108 mmol/L (98-107); Estimated Creatinine Clearance 50 ml/min; Potassium 4.3 mmol/L (3.5-5.1); Total Bilirubin 0.3 mg/dl (0.2-1.3); Total Protein 4.9 g/dl (6.3-8.2); eGFR 53.21
[2024-09-28 09:19] LABS: Carbon Dioxide 22 mmol/L (22-30); Glucose 125 mg/dl (70-99); Sodium 134 mmol/L (135-145)
[2024-09-28 09:21] LABS: % Basophils 0.3 % (0-2); % Immature Granulocytes 0.3 % (0-0.5); % Lymphocytes 54.6 % (20.5-51.1); % Monocytes 16.7 % (1.7-9.3); % Neutrophils 28.1 % (42.2-75.2); Absolute Lymphocytes 1.6 10^3/uL (1.2-3.4); Absolute Monocytes 0.5 10^3/uL (0.1-0.6); Absolute Neutrophils 0.8 10^3/uL (1.4-6.5); Nucleated Red Blood Cells % 0 %
--- NOTE | 2024-09-28 09:22 | W.PN.HOSP.TC ---
Today's Communication/Plan
-
Continue IV antibiotic
Assessment / Plan
Assessment / Plan
Physical exam:
General: Well Developed, Well Nourished and No Apparent Distress
HEENT: Normocephalic, Atraumatic and Moist Mucous Membranes
Respiratory: Clear to Auscultation; Negative Wheezes, Rales or Rhonchi
Cardiac: Regular Rhythm and S1/S2
GI: Soft, Nontender and Nondistended
Musculoskeletal: No Clubbing, No Cyanosis and No Edema
Neuro: Awake, Alert and Oriented
Psych: Calm
A/P:
Possible pyelonephritis (possibility of interstitial cystitis as well):
Given her immunosuppression I think is reasonable to continue broad-spectrum antibiotics
All cultures negative today
Stop IV fluid
Neutropenia:
History of cyclic neutropenia
Continue monitor hematopoietic cell count
Diabetes mellitus type 1:
Restart insulin pump
CKD:
Avoid nephrotoxic
Monitor renal function
History of HSV oralis:
Continue antiviral
Hypothyroidism:
Continue thyroid replacement
DVT prophylaxis:
Heparin SQ
CODE STATUS:
Full code
Anticipated Discharge: 24 - 48 hours
Subjective/Interval History
-
Date of Service: September 28, 2024
Patient complains of urinary urgency and frequency. Afebrile today.
Objective Data
-
Labs:
Laboratory Results
09/28/24
07:59
WBC 2.9 L
Hgb 9.6 L
Hct 29.1 L
Plt Count 240 D
Sodium 134 L
Potassium 4.3
Chloride 108 H
Carbon Dioxide 22
BUN 14
Creatinine 1.4 H
Glucose 125 H
Calcium 8.1 L
Total Bilirubin 0.3
AST 12 L
ALT 11
Alkaline Phosphatase 78
Vital Signs:
Vital Signs
Temp Pulse Resp BP Pulse Ox
97.4 F 83 16 136/91 100
09/28/24 08:00 09/28/24 08:30 09/28/24 08:30 09/28/24 08:00 09/28/24 08:30
--- NOTE | 2024-09-28 09:27 | PTCARENOTE ---
Assumed care of pt at change of shift. AAOx3, c/o of abd pain R > L. Informed pt that next PRN dilaudid dose can be given at 0930, pt agreeable. Call shabazz within reach.
[2024-09-28] MEDS: BENADRYL 25 MG PO (10:42)
--- NOTE | 2024-09-28 11:50 | CM ---
CM reviewed chart, patient seen bedside, very tearful. Patient reports anxiety of losing her job as she has been hospitalized many times. Patient reports she is working to get FMLA but unsure if she will get it. Patient reports she has a two year
old son. Patient reports she has been at job about a year, is in communication with HR. Patient reports she lives with her mother, brother, and son in a multiple story apartment, flight of steps to apartment, no DME, VN/SNF. Patient is independent
with ADLs/IADLs. Patient confirms PCP Dr. Martinez, pharmacy [facility]. Patient reports she does have support from family but doesn't talk to them too much about her medical situation. Update to Nurse. CM offered support to patient, will
continue to follow for all discharge planning needs.
Plan; home no needs likely
[2024-09-28 12:01] LABS: Glucose - Point of Care 258 mg/dl (70-99)
--- NOTE | 2024-09-28 12:26 | PTCARENOTE ---
Patient informed RN she had been self-bolusing with Humalog insulin pump this morning. MD Solorio made aware, orders placed for pt to use own insulin pump. Informed pt that she must let us know whenever she administers a bolus and that we will
continue with accu checks. Pt reports that at 0929 she had administered 3.6u, and at 1130 she administered 1u. From [id number], her pump delivers 1.75u total. From 1800-000 her pump delivers 1u total. From 0000 to 0600 her pump delivers 0.95u total.
Plan of care ongoing.
[2024-09-28] MEDS: TYLENOL 650 MG PO (15:05)
[2024-09-28 15:36] VITALS: BP 138/92
[2024-09-28 16:48] LABS: Glucose - Point of Care 111 mg/dl (70-99)
[2024-09-28] MEDS: STERILE WATER FOR INJECTION 10 ML IV (16:51)
[2024-09-28] MEDS: ROCEPHIN 1000 MG IV (16:51)
[2024-09-28] MEDS: ZOFRAN 4 MG IV (18:13)
[2024-09-28] MEDS: ATARAX 25 MG PO (22:14)
[2024-09-28 22:48] LABS: Glucose - Point of Care 197 mg/dl (70-99)
[2024-09-28 23:14] VITALS: BP 137/93
[2024-09-29] MEDS: DILAUDID 0.5 MG IV ×5 (02:37→20:04)
[2024-09-29] MEDS: SYNTHROID 200 MCG PO (05:54)
[2024-09-29 07:20] LABS: Glucose - Point of Care 224 mg/dl (70-99)
[2024-09-29 07:25] VITALS: BP 144/95
[2024-09-29] MEDS: PEPCID 20 MG PO (07:44)
[2024-09-29] MEDS: HEPARIN 5000 UNITS SC ×2 (07:45→19:56)
[2024-09-29] MEDS: FLUSH (NSS) 2 FLUSH IV (07:48)
[2024-09-29] MEDS: ADVAIR HFA 115/21 MCG INHALER 2 PUFF INH ×2 (07:48→19:25)
[2024-09-29 08:19] LABS: % Basophils 0.3 % (0-2); % Immature Granulocytes 0.3 % (0-0.5); % Lymphocytes 45.5 % (20.5-51.1); % Monocytes 14.4 % (1.7-9.3); % Neutrophils 39.5 % (42.2-75.2); Absolute Lymphocytes 1.7 10^3/uL (1.2-3.4); Absolute Monocytes 0.5 10^3/uL (0.1-0.6); Absolute Neutrophils 1.5 10^3/uL (1.4-6.5); Hemoglobin 9.1 g/dL (12.0-16.0); Mean Corp Hgb Conc. 33.7 g/dL (33.0-37.0); Mean Corpuscular Hgb 26.2 pg (27.0-31.0); Mean Corpuscular Volume 77.8 fL (81.0-99.0); Mean Platelet Volume 10.5 fL (7.4-10.4); Nucleated Red Blood Cells % 0 %; Platelet Count 226 10^3/uL (130-400); Red Blood Cell Count 3.47 10^6/uL (4.20-5.40); Red Cell Dist. Width 14.5 % (11.5-14.5); White Blood Cell Count 3.7 10^3/uL (4.8-10.8)
[2024-09-29 08:53] LABS: Blood Urea Nitrogen 17 mg/dl (7-17); Calcium 8.6 mg/dl (8.4-10.2); Carbon Dioxide 22 mmol/L (22-30); Chloride 112 mmol/L (98-107); Estimated Creatinine Clearance 37 ml/min; Glucose 205 mg/dl (70-99); Potassium 5.2 mmol/L (3.5-5.1); Sodium 137 mmol/L (135-145); eGFR 36.89
--- NOTE | 2024-09-29 09:19 | W.PN.HOSP.TC ---
Addendum entered and electronically signed by Karthik Solorio MD 09/29/24 15:27:
Possible acute pyelonephritis
Original Note:
Today's Communication/Plan
-
Antibiotics. Pain control.
Assessment / Plan
Assessment / Plan
Physical exam:
General: Well Developed, Well Nourished and No Apparent Distress
HEENT: Normocephalic, Atraumatic and Moist Mucous Membranes
Respiratory: Clear to Auscultation; Negative Wheezes, Rales or Rhonchi
Cardiac: Regular Rhythm and S1/S2
GI: Soft, Nontender and Nondistended
Musculoskeletal: No Clubbing, No Cyanosis and No Edema
Neuro: Awake, Alert and Oriented
Psych: Calm
A/P:
Possible pyelonephritis (possibility of interstitial cystitis as well):
Given her immunosuppression I think was reasonable to continue broad-spectrum antibiotics but at this point not quite certain so we will request ID for further evaluation.
All cultures negative today
Stop IV fluid
GERBER on CKD:
Hold NSAIDs
Monitor renal function and electrolyte
Nephrology eval
Hyperkalemia:
Mild
If more than 5.5 would use Lokelma
Continue to monitor
Neutropenia:
History of cyclic neutropenia
Continue monitor hematopoietic cell count
Diabetes mellitus type 1:
Restart insulin pump
CKD:
Avoid nephrotoxic
Monitor renal function
History of HSV oralis:
Continue antiviral
Hypothyroidism:
Continue thyroid replacement
DVT prophylaxis:
Heparin SQ
CODE STATUS:
Full code
Anticipated Discharge: 24 - 48 hours
Subjective/Interval History
-
Date of Service: September 29, 2024
Patient states the pain is about the same but some mild improvement. Afebrile
Objective Data
-
Labs:
Laboratory Results
09/29/24
07:43
WBC 3.7 L
Hgb 9.1 L
Hct 27.0 L
Plt Count 226
Sodium 137
Potassium 5.2 H
Chloride 112 H
Carbon Dioxide 22
BUN 17
Creatinine 1.9 H
Glucose 205 H
Calcium 8.6
Vital Signs:
Vital Signs
Temp Pulse Resp BP Pulse Ox
97.9 F 80 16 144/95 98
09/29/24 07:25 09/29/24 07:51 09/29/24 07:51 09/29/24 07:25 09/29/24 07:25
I&O
09/28/24 09/29/24 09/30/24
06:59 06:59 06:59
Intake Total 800 / 800
Balance 800 / 800
[2024-09-29] MEDS: TYLENOL 1000 MG PO ×3 (11:10→23:07)
[2024-09-29] MEDS: FLUSH (NSS) 1 FLUSH IV ×3 (11:50→17:28)
[2024-09-29 12:10] LABS: Glucose - Point of Care 164 mg/dl (70-99)
[2024-09-29] MEDS: PT'S OWN INSULIN PUMP - HumaLOG 3.25 UNIT SC (12:11)
--- NOTE | 2024-09-29 12:37 | PN.DE.MGMTRT ---
Insulin Management
- -
09/29/2024 Diabetes Management Consult Insulin Pump
Patient admitted 09/27 with flank pain, possible pyelonephritis. Patient know to me from multiple prior admissions. PMH of recurrent kidney infections status post nephrostomy tube 3 years ago, cyclical neutropenia, HSV oralis, type 1 diabetes on
insulin pump, hypothyroidism, CKD 3, iron deficiency anemia. Prior to admission using OmniPod 5 with DexCom G6 and humalog insulin. A1C 10.2%, cr 1.9, eGFR 36.89.
Patient is awake alert and oriented, talking on phone, able to answer questions briefly. Insulin pump settings as follows:
Basal rate I:CHO ratio Correction Factor Target
12am .95 10 40 130
6am 1.75 10 40 130
6pm 1 10 40 130
24 hour basal total 32.6 units.
Will make no change to current pump settings. Patient states she sees [facility] but admits she has not been there in over a year.
Discussed with nurse.
Will follow.
Diabetes History
- -
Type of Diabetes: 1
Pre-Admission Diabetes Regimen
09/29/24
07:43
Creatinine 1.9 H
Insulin Pump Settings
IP Diabetes Regimen
09/28/24 09/28/24 09/29/24
16:45 22:47 07:19
Glucose
POC Glucose 111 H 197 H 224 H
09/29/24 09/29/24
07:43 12:08
Glucose 205 H
POC Glucose 164 H
Meal type: Dinner
Meal type: Lunch
Amount consumed: 100%
Amount consumed: 100%
Patient Education
--- NOTE | 2024-09-29 13:46 | PN.CDI ---
CDI
- -
CDI:
Physician Documentation Request
Admit Date: 09/27/24 17:04
Dear Doctor Osmin,
Please review the following and provide your response in the progress notes.
Clinical Indicators:
- Patient admit with worsening back pain with recent recurrent UTI's
- 09/29 PN 'Possible pyelonephritis'
- per H&P pmh recurrent kidney infections
- 'Urinalysis unremarkable due to being on Levaquin'
Please clarify which of the following accurately represents the acuity of the pyelonephritis
Acute
Acute on chronic
Chronic
Other (please specify)
Use of terms such as suspected, likely, concern for, or probable (associated with a specific diagnosis that is being evaluated, monitored, or treated as if it exists) are acceptable and can be coded in the inpatient setting, when documented at the
time of discharge.
Thank you,
Kenyon Saab RN
CDI Specialist
Please use your independent medical judgment in providing your response.
[2024-09-29 15:39] VITALS: BP 138/95
--- NOTE | 2024-09-29 16:20 | W.CON.NEPH ---
Consultation
-
Date/Time Consultation Requested: 09/29/24 1053
Date/Time Consultation Performed: 09/29/24 1620
Requesting Provider: Karthik Larson
Performing Provider: Svetlana Moran
Reason for Consultation: GERBER
Medical History
-
Chief Complaint: back pain
History of Present Illness:
24-year-old female past medical history of recurrent kidney infections status post nephrostomy tube 3 years ago, cyclical neutropenia follows hematology, HSV oralis, type 1 diabetes on insulin pump, hypothyroidism on levothyroxine, CKD 3 baseline cr
1.2-1.4 , iron deficiency anemia, presenting with worsening back pain on 09/27. 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 She saw her primary care physician the next day and
was prescribed Levaquin. A day after that she developed chills and fever associated with nausea and vomiting. She has urinary burning. Denies diarrhea. Denies chest pain or shortness of breath. CT abd with out contrast shows pyelonephritis
bilat. She started on IV Rocephin. Her cr has been stable at 1.4 but today increased upto 1.9 and potassium of 5.2 hence nephrology asked to evaluate. She still with mild nausea. Did get 1 dose of Toradol yesterday. Still some dysuria.
Uses medical marijuana. She quit smoking a few years ago. Denies alcohol use.
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 She follows [facility] but not seen in last 1yr. She saw JULIO CESAR [facility] in the past for PCN which she does not have now.
Past Medical History
recurrent kidney infections status post nephrostomy tube 3 years ago, cyclical neutropenia, HSV oralis, type 1 diabetes on insulin pump, hypothyroidism, CKD 3, iron deficiency anemia
Past Surgical History: Other ((Appendectomy, Tonsilectomy (T&A) and Other (tympanostomy, buttocks I&D, NEPHROSTOMY RIGHT))
Social History
Tobacco: Former Smoker (drpw5yy ago)
Alcohol: Occasional
Drug: None
Living: With Family (Mom and sister)
Employment: Employed (works at [employer] but likely losing her job)
Family History
paternal uncle with kidney disease
Mom side kidney stone
Allergies / Home Medications
Allergy/AdvReac Type Severity Reaction Status Date / Time
doxycycline Allergy Rash Verified 09/28/24 18:17
vancomycin Allergy Red Man Verified 09/10/24 18:20
Syndrome
�Medication �Instructions �Recorded �Confirmed �Type
Insulin Pump [Patient's Own 0 unit SC .CONTINOUS Diabetes 03/19/23 09/27/24 History
Insulin Pump]
Medical Marijuana 5 mg PO BIDPRN PRN ANXIETY 03/19/23 09/27/24 History
fluticasone 250 mcg-salmeterol 50 1 inh inhalation R DAILYPRN PRN sob 03/19/23 09/27/24 History
mcg/dose blistr powdr for
inhalation (Wixela Inhub)
albuterol sulfate 90 mcg/actuation 2 puff inhalation R Q4HPRN PRN sob 05/15/24 09/27/24 History
aerosol inhaler
medroxyprogesterone 150 mg/mL 150 mg IM [id number] Hormonal Agent 05/15/24 09/27/24 History
intramuscular syringe
famotidine 20 mg tablet (Pepcid) 20 mg PO DAILY Gastrointestinal 08/31/24 09/27/24 History
Issue
hydroxyzine HCl 25 mg tablet 25 mg PO HS Sleep 08/31/24 09/27/24 History
sumatriptan succinate 50 mg tablet 50 mg PO DAILYPRN PRN migraine 08/31/24 09/27/24 History
fluticasone propionate 50 1 spray intranasal DAILY 09/04/24 09/27/24 Rx
mcg/actuation nasal Congestion 5 days #16 grams
spray,suspension
levothyroxine 200 mcg tablet 200 mcg PO DAILY @ 0600 30 days 09/04/24 09/27/24 Rx
#30 tabs
acetaminophen 650 mg 1,300 mg PO DAILYPRN PRN mild pain 09/27/24 09/27/24 History
tablet,extended release
diphenhydramine HCl 25 mg capsule 25 mg PO HSPRN PRN rash 09/27/24 09/27/24 History
(Benadryl)
Review of Systems
-
All other systems: Negative unless noted
Physical Exam
Vital Signs
Vital Signs
Temp Pulse Resp BP Pulse Ox
98.1 F 87 22 138/95 98
09/29/24 15:39 09/29/24 15:39 09/29/24 15:39 09/29/24 15:39 09/29/24 15:39
Lab Results
WBC 3.7 10^3/uL (4.8-10.8) L 09/29/24 07:43
RBC 3.47 10^6/uL (4.20-5.40) L 09/29/24 07:43
Hgb 9.1 g/dL (12.0-16.0) L 09/29/24 07:43
Hct 27.0 % (37.0-47.0) L 09/29/24 07:43
Plt Count 226 10^3/uL (130-400) 09/29/24 07:43
Sodium 137 mmol/L (135-145) 09/29/24 07:43
Potassium 5.2 mmol/L (3.5-5.1) H 09/29/24 07:43
Chloride 112 mmol/L (98-107) H 09/29/24 07:43
Carbon Dioxide 22 mmol/L (22-30) 09/29/24 07:43
BUN 17 mg/dl (7-17) 09/29/24 07:43
Creatinine 1.9 mg/dL (0.6-1.0) H 09/29/24 07:43
eGFR 36.89 09/29/24 07:43
Glucose 205 mg/dl (70-99) H 09/29/24 07:43
Calcium 8.6 mg/dl (8.4-10.2) 09/29/24 07:43
Albumin 2.6 g/dl (3.5-5.0) L 09/28/24 07:59
Physical Exam
General: Awake, Alert, Oriented, AOx3, No Distress and Nontoxic
HEENT: EOMI, Anicteric, Conjunctivae Clear, Ear/Nose Intact and No JVD
Respiratory: Clear, Normal Excursion and Nonlabored Respirations
Cardiac: S1/S2, Regular Rate/Rhythm and Other
Breast: Deferred by me
Abdomen: Soft, Nondistended and Other (right CVA tenderness)
Musculoskeletal: No Cyanosis and No Edema
Skin: No Rash
Neuro: Nonfocal/Grossly Intact
Psych: Insight/judgement good and Appropriate
Data Reviewed
-
Radiology: Report Reviewed by me and Discussed with Patient
Labs: Labs Reviewed by me, Discussed with Nurse and Discussed with Patient
Assessment/Plan
-
IMP:
Possible pyelonephritis (possibility of interstitial cystitis as well)
GERBER on CKD stage3-baseline cr 1.2-1.4
mild Hyperkalemia
Neutropenia
History of cyclic neutropenia
Diabetes mellitus type 1 on pump
History of HSV oralis
Hypothyroidism
Plan:
A/w pyelonephritis noted bilat on CT
bld cx neg so far, cotn abx per primary
GERBER-possible EDUARDO, contrast exposure on 09/27
UTI sample, however she has underlying diabetic nephropathy -need to check U PCR
check Fena. start IVF back
follow bladder scan, no hydro on CT
avoid nephrotoxins, off Toradol
adjust meds renally
BP stable
low potassium diet for mild hyperkalemia
d/w pt in detail
high risk of progressive GERBER-pt aware
[2024-09-29 17:00] LABS: Glucose - Point of Care 84 mg/dl (70-99)
--- NOTE | 2024-09-29 17:08 | CON.ID ---
Consultation
-
Date/Time Consultation Requested: 09/29/2024 0957
Date/Time Consultation Performed: 09/29/2024 1657
Requesting Provider: Dr. Solorio
Performing Provider: Dr. Angel
Reason for Consultation: Pyelonephritis
Chief Complaint / Past History
History of Present Illness
Brooke Romeo is a 24-year-old female being evaluated at the request of Dr. Solorio in regards to possible pyelonephritis. History is obtained from chart review, along with patient interview.
The patient is known to the Infectious Disease service, having been seen in late August 2024. At that time she had had a 2 to 3-day of fever, cough myalgias and fatigue. Ultimately, she was found to be influenza positive and was started on
Tamiflu. A urine culture revealed the presence of Sammie, and she was started on a 7-day course of fluconazole. She was discharged to home on 09/04, but presented back to the emergency room on 09/10 with right flank pain. She was discharged from
the ER on Augmentin x 10 days.
She presents back to the ER on 09/27 with worsening back pain. She had noted back pain approximately 4 days prior to admission radiating across her back. She additionally admitted to nausea, vomiting and dysuria. She reports that she had reached
out to her PCP several days before she came to hospital and was started on Levaquin for a 5-day course. Because of ongoing fevers and chills and ongoing back pain she presented to the hospital for further evaluation. Once here, she was started on
empiric antibiotics (ceftriaxone). Blood cultures have been negative. Admission urinalysis revealed no white cells.
The present time she reports no significant improvement in her symptoms. She continues to have low back discomfort and reported stabbing pain on the right flank area. She notes that she still is having urinary frequency, but reports no current
dysuria. She notes that the urine still appears 'cloudy'.
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
Additional Past Medical History:
Cyclic Neutropenia
Bipolar Disorder
Anxiety
Posttraumatic stress disorder
Hypothyroidism
Type 1 diabetes
Asthma
Iron Deficiency Anemia
CKD stage II
Pyelonephritis
Endometriosis
PCOS
Additional Past Surgical History:
Tonsillectomy
Appendectomy
Allergy History:
doxycycline Allergy (Verified 09/28/24 18:17)
Rash
vancomycin Allergy (Verified 09/10/24 18:20)
Red Man Syndrome
Medications Reviewed: Yes
Current Antibiotics:
Rocephin 1 g IV every 24 hours
Social History
Tobacco: Former Smoker
Alcohol: None
Drug: Marijuana
Family History
Family History: Not Pertinent
Review of Systems
Vital Signs
Temp Pulse Resp BP Pulse Ox
98.1 F 87 22 138/95 98
09/29/24 15:39 09/29/24 15:39 09/29/24 15:39 09/29/24 15:39 09/29/24 15:39
Physical Exam
Physical Exam
Constitutional: No Acute Distress, Well Developed, Comfortable and Non-toxic
Eyes: Pupils Equal, Pupils Round, No Conjunctival Hemorrhage and Sclera Anicteric
Oral: No Thrush and No Ulcers
Cardiovascular: Regular Rate and S1/S2; Negative S3/S4
Pulmonary: Clear and Non Labored; Negative Wheezes, Rales or Rhonchi
Gastrointestinal: Soft, Tender (Diffusely; mild), Non Distended, Normal Bowel Sounds, No Rebound and No Guarding
Genito-Urinary: CVA Tenderness (Bilateral); Negative Vanegas
Extremities: Negative Edema, Cyanosis or Erythema
Skin: Warm and Dry; Negative Rash or Jaundice
Neurological: Awake and Alert
Psychological: Calm
Lab / Diagnostic Study Results
09/29/24 07:43
09/29/24 07:43
Abs Immat Gran (auto) 0.0 10^3/uL (0-0.05) 09/29/24 07:43
Absolute Neuts (auto) 1.5 10^3/uL (1.4-6.5) 09/29/24 07:43
Absolute Lymphs (auto) 1.7 10^3/uL (1.2-3.4) 09/29/24 07:43
Absolute Monos (auto) 0.5 10^3/uL (0.1-0.6) 09/29/24 07:43
Absolute Basos (auto) 0.0 10^3/uL (0-0.2) 09/29/24 07:43
Total Counted 100 09/27/24 12:41
Immature Gran % 0.3 % (0-0.5) 09/29/24 07:43
Neutrophils % 39.5 % (42.2-75.2) L 09/29/24 07:43
Lymphocytes % 45.5 % (20.5-51.1) 09/29/24 07:43
Monocytes % 14.4 % (1.7-9.3) H 09/29/24 07:43
Eosinophils % 0.0 % (0-6) 09/29/24 07:43
Basophils % 0.3 % (0-2) 09/29/24 07:43
Abs Neuts (Manual) 0.7 10^3/uL (1.4-6.5) L* 09/27/24 12:41
Segmented Neutrophils 22 % (42-75) L 09/27/24 12:41
Band Neutrophils 3 % (0-3) 09/27/24 12:41
Lymphocytes (Manual) 60 % (20-51) H 09/27/24 12:41
Ur Squamous Epith Cells 0-2 /LPF (Few) 09/27/24 12:41
Microbiology Results
Micro:
09/27/24 16:49 Blood Culture - Preliminary
Blood/Venous No Growth in 48 hours- Final report to follow
09/27/24 16:49 Blood Culture - Preliminary
Blood/Venous No Growth in 48 hours- Final report to follow
Imaging:
09/27/2024 CT abdomen/pelvis: Prominence of the bilateral renal collecting systems with mild urothelial thickening and enhancement of both renal pelves and bilateral ureters, most suspicious for ureteritis and pyelitis. Possible pyelonephritis with
bilateral perinephric fat stranding but no significant striated hypoenhancement. No nephrolithiasis or ureterolithiasis.
Assessment / Plan
Back pain/flank pain
-No current pyuria
Ureteritis/pyelitis suspected on CT imaging
Leukopenia; cyclic neutropenia
Anemia
GERBER on CKD
Cyclic Neutropenia
Bipolar Disorder
Anxiety
Posttraumatic stress disorder
Hypothyroidism
Type 1 diabetes
Asthma
Iron Deficiency Anemia
CKD stage II
Pyelonephritis
Endometriosis
PCOS
Recommendations:
At present, etiology of patient's back pain not entirely clear, although suspicion of ureteritis/pyelitis noted on CT scanning.
Difficult to interpret admission urinalysis in context of preadmission antibiotic administration.
Continue with ceftriaxone for the present and follow for clinical improvement.
May consider Urology evaluation to assess for other possible etiologies of renal inflammation and flank pain.
[2024-09-29] MEDS: COLACE 100 MG PO (17:27)
[2024-09-29] MEDS: NSS 1000 IV (17:28)
[2024-09-29] MEDS: MIRALAX 17 GRAMS PO (17:28)
[2024-09-29] MEDS: STERILE WATER FOR INJECTION 10 ML IV (17:28)
[2024-09-29] MEDS: ROCEPHIN 1000 MG IV (17:36)
[2024-09-29] MEDS: PT'S OWN INSULIN PUMP - HumaLOG SC (17:46)
[2024-09-29] MEDS: ULTRAM 25 MG PO (17:51)
[2024-09-29 19:55] LABS: Urine Sodium 103 mmol/L (30-90)
[2024-09-29] MEDS: COLACE PO (19:56)
[2024-09-29 20:08] LABS: Urine Protein 327 mg/dl
[2024-09-29 21:18] LABS: Glucose - Point of Care 378 mg/dl (70-99)
[2024-09-29] MEDS: PT'S OWN INSULIN PUMP - HumaLOG 3.8 UNIT SC (21:35)
[2024-09-29] MEDS: ATARAX 25 MG PO (22:32)
[2024-09-29 23:00] VITALS: BP 149/103
[2024-09-29] MEDS: LIDOCAINE 4% PATCH 1 PATCH TOPICAL (23:08)
[2024-09-30] MEDS: DILAUDID 0.5 MG IV ×6 (00:08→21:58)
[2024-09-30] MEDS: NSS 1000 IV ×2 (05:28→17:53)
[2024-09-30] MEDS: SYNTHROID 200 MCG PO (05:28)
[2024-09-30 07:29] VITALS: BP 152/104
[2024-09-30] MEDS: ADVAIR HFA 115/21 MCG INHALER 2 PUFF INH ×2 (07:48→19:29)
[2024-09-30 07:49] LABS: Glucose - Point of Care 248 mg/dl (70-99)
--- NOTE | 2024-09-30 08:12 | PN.DE.MGMTRT ---
Insulin Management
- -
09/30/2024 Diabetes Management Consult Insulin Pump
Patient admitted 09/27 with flank pain, pyelonephritis. Patient know to me from multiple prior admissions. PMH of recurrent kidney infections status post nephrostomy tube 3 years ago, cyclical neutropenia, HSV oralis, type 1 diabetes on insulin
pump, hypothyroidism, CKD 3, iron deficiency anemia. Prior to admission using OmniPod 5 with DexCom G6 and humalog insulin. A1C 10.2%, cr 1.9, eGFR 36.89.
Patient is awake alert and oriented, talking on phone, able to answer questions briefly. Insulin pump settings as follows:
Basal rate I:CHO ratio Correction Factor Target
12am .95 10 40 130
6am 1.75 10 40 130
6pm 1 10 40 130
24 hour basal total 32.6 units.
HS glucose 378, 3.8 correction taken, fasting glucose 248, 7.5 bolus taken for meal and correction. Patient states her friend visited yesterday and got a text that stressed patient. States my blood sugar goes up with stress and it takes a few
corrections to go down. Advised patient that most likely basal rates and ratios need adjustment, offered to work with patient as an outpatient when current illness resolved to improve glucose control. Patient receptive.
Will make no change to current pump settings. Patient states she sees [facility] but admits she has not been there in over a year.
Discussed with nurse.
Will follow.
Diabetes History
- -
Type of Diabetes: 1
Pre-Admission Diabetes Regimen
09/29/24
07:43
Creatinine 1.9 H
Insulin Pump Settings
IP Diabetes Regimen
09/29/24 09/29/24 09/29/24
07:43 12:08 16:59
Glucose 205 H
POC Glucose 164 H 84
09/29/24 09/30/24
21:17 07:47
Glucose
POC Glucose 378 H 248 H
Meal type: Dinner
Meal type: Lunch
Meal type: Breakfast
Amount consumed: 65%
Amount consumed: 75%
Amount consumed: 100%
Patient Education
[2024-09-30] MEDS: TYLENOL 1000 MG PO ×3 (08:38→23:09)
[2024-09-30] MEDS: PEPCID 20 MG PO (08:38)
[2024-09-30] MEDS: COLACE 100 MG PO ×2 (08:38→20:21)
[2024-09-30] MEDS: PT'S OWN INSULIN PUMP - HumaLOG SC (08:39)
[2024-09-30] MEDS: MIRALAX 17 GRAMS PO (08:39)
[2024-09-30] MEDS: HEPARIN 5000 UNITS SC ×2 (08:39→20:21)
--- NOTE | 2024-09-30 08:46 | W.PN.HOSP.TC ---
Today's Communication/Plan
-
Continue antibiotics
Assessment / Plan
Assessment / Plan
Physical exam:
General: Well Developed, Well Nourished and No Apparent Distress
HEENT: Normocephalic, Atraumatic and Moist Mucous Membranes
Respiratory: Clear to Auscultation; Negative Wheezes, Rales or Rhonchi
Cardiac: Regular Rhythm and S1/S2
GI: Soft, Nontender and Nondistended
Musculoskeletal: No Clubbing, No Cyanosis and No Edema
Neuro: Awake, Alert and Oriented
Psych: Calm
A/P:
Possible pyelonephritis (possibility of interstitial cystitis as well):
ID consult appreciated
Antibiotics per ID
ID recommended urology eval
Urology consulted today
All cultures negative today
Stop IV fluid
GERBER on CKD:
Hold NSAIDs
Started on IV fluids by nephrology
Monitor renal function and electrolyte
Nephrology consult appreciated
Hyperkalemia:
Mild
If more than 5.5 would use Lokelma
Continue to monitor
Neutropenia:
History of cyclic neutropenia
Continue monitor hematopoietic cell count
Diabetes mellitus type 1:
Restart insulin pump
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
History of HSV oralis:
Continue antiviral
Hypothyroidism:
Continue thyroid replacement
DVT prophylaxis:
Heparin SQ
CODE STATUS:
Full code
Total time spent on today's encounter was 52 minutes which included time spent in counseling the patient/family regarding diagnosis and treatment plan as listed above, goals of care, and symptom management. Case was discussed with nursing staff,
specialists, and care coordinators/case management. All labs and imaging personally reviewed by me. Remainder the time spent in detailed review of previous records, lab data, imaging, and other medical provider documentation.
Anticipated Discharge: 24 - 48 hours
Subjective/Interval History
-
Date of Service: September 30, 2024
Patient still continued to have flank pain. Afebrile
Objective Data
-
Labs:
Laboratory Results
09/30/24
08:31
WBC Pending
Hgb Pending
Hct Pending
Plt Count Pending
Sodium Pending
Potassium Pending
Chloride Pending
Carbon Dioxide Pending
BUN Pending
Creatinine Pending
Glucose Pending
Calcium Pending
Vital Signs:
Vital Signs
Temp Pulse Resp BP Pulse Ox
98.1 F 73 16 152/104 97
09/30/24 07:29 09/30/24 07:48 09/30/24 07:48 09/30/24 07:29 09/30/24 07:48
I&O
09/29/24 09/30/24 10/01/24
06:59 06:59 06:59
Intake Total 800 / 800 1080 / 1080
Output Total 350 / 350
Balance 800 / 800 730 / 730
[2024-09-30] MEDS: PT'S OWN INSULIN PUMP - HumaLOG 7.55 UNIT SC (09:23)
[2024-09-30 09:31] LABS: % Immature Granulocytes 0.5 % (0-0.5); % Lymphocytes 43.7 % (20.5-51.1); % Monocytes 13.2 % (1.7-9.3); % Neutrophils 42.6 % (42.2-75.2); Absolute Lymphocytes 1.7 10^3/uL (1.2-3.4); Absolute Monocytes 0.5 10^3/uL (0.1-0.6); Absolute Neutrophils 1.6 10^3/uL (1.4-6.5); Hematocrit 28.6 % (37.0-47.0); Hemoglobin 9.5 g/dL (12.0-16.0); Mean Corp Hgb Conc. 33.2 g/dL (33.0-37.0); Mean Corpuscular Volume 78.1 fL (81.0-99.0); Mean Platelet Volume 10.3 fL (7.4-10.4); Nucleated Red Blood Cells % 0 %; Platelet Count 201 10^3/uL (130-400); Red Blood Cell Count 3.66 10^6/uL (4.20-5.40); Red Cell Dist. Width 14.4 % (11.5-14.5); White Blood Cell Count 3.8 10^3/uL (4.8-10.8)
[2024-09-30 10:42] LABS: Blood Urea Nitrogen 21 mg/dl (7-17); Calcium 8.8 mg/dl (8.4-10.2); Carbon Dioxide 21 mmol/L (22-30); Chloride 111 mmol/L (98-107); Estimated Creatinine Clearance 41 ml/min; Glucose 235 mg/dl (70-99); Potassium 5.3 mmol/L (3.5-5.1); Sodium 137 mmol/L (135-145); eGFR 42.15
[2024-09-30 11:27] LABS: Glucose - Point of Care 163 mg/dl (70-99)
[2024-09-30] MEDS: ULTRAM 25 MG PO ×2 (12:28→20:28)
--- NOTE | 2024-09-30 12:38 | CM ---
CM reviewed chart, patient seen bedside, inquiring if FMLA paperwork can be completed at Hospital, informed patient likely will need to be completed by PCP. Patient remains on IV antibiotics. Will continue to follow for all discharge planning needs.
Plan; home no needs likely.
[2024-09-30] MEDS: PT'S OWN INSULIN PUMP - HumaLOG 3.95 UNIT SC (13:09)
--- NOTE | 2024-09-30 13:25 | W.PN.NEPH.PH ---
Today's Communication / Plan
-
IV fluids
Assessment/Plan
-
IMP:
Possible pyelonephritis (possibility of interstitial cystitis as well)
GERBER on CKD stage3-baseline cr 1.2-1.4
mild Hyperkalemia
Neutropenia
History of cyclic neutropenia
Diabetes mellitus type 1 on pump
History of HSV oralis
Hypothyroidism
Plan:
A/w pyelonephritis noted bilat on CT
bld cx neg so far, cotn abx per primary
GERBER-possible EDUARDO, contrast exposure on 09/27
UTI sample, however she has underlying diabetic nephropathy -protein creatinine ratio 8 g
no hydro on CT
avoid nephrotoxins, off Toradol
adjust meds renally
BP stable
Creatinine improving/continue IV fluid
Will need RAAS inhibitor going forward for diabetic nephropathy which could be initiated prior to discharge as she is hypertensive with understanding of toxicity as she is at childbearing age
Patient needs nephrology follow-up upon discharge with us
-
-
Date of Service: September 30, 2024
CC / HPI / ROS
-
Without chest pain or shortness of breath she claims that she feels stiff and somewhat bloated but she has no lower extremity edema.
No overnight events
Nonoliguric
Labs
-
Labs:
WBC 3.8 10^3/uL (4.8-10.8) L 09/30/24 08:31
RBC 3.66 10^6/uL (4.20-5.40) L 09/30/24 08:31
Hgb 9.5 g/dL (12.0-16.0) L 09/30/24 08:31
Hct 28.6 % (37.0-47.0) L 09/30/24 08:31
Plt Count 201 10^3/uL (130-400) 09/30/24 08:31
Sodium 137 mmol/L (135-145) 09/30/24 08:31
Potassium 5.3 mmol/L (3.5-5.1) H 09/30/24 08:31
Chloride 111 mmol/L (98-107) H 09/30/24 08:31
Carbon Dioxide 21 mmol/L (22-30) L 09/30/24 08:31
BUN 21 mg/dl (7-17) H 09/30/24 08:31
Creatinine 1.7 mg/dL (0.6-1.0) H 09/30/24 08:31
eGFR 42.15 09/30/24 08:31
Glucose 235 mg/dl (70-99) H 09/30/24 08:31
Calcium 8.8 mg/dl (8.4-10.2) 09/30/24 08:31
Albumin 2.6 g/dl (3.5-5.0) L 09/28/24 07:59
Physical Exam
-
Vital Signs:
Vital Signs
Temp Pulse Resp BP Pulse Ox
98.1 F 73 16 152/104 97
09/30/24 07:29 09/30/24 07:48 09/30/24 07:48 09/30/24 07:29 09/30/24 08:00
Respiratory:: Bilateral: CTA
Lung Excursion:: Normal
Abdomen:: Soft
Bowel Sounds:: Normal
Extremity Edema:: None: Bilateral:
[2024-09-30] MEDS: STERILE WATER FOR INJECTION 10 ML IV (15:36)
[2024-09-30] MEDS: ROCEPHIN 1000 MG IV (15:36)
[2024-09-30 15:52] VITALS: BP 156/100
--- NOTE | 2024-09-30 16:37 | W.PN.ID1 ---
Date of Service
Date of Service: September 30, 2024
Today's Communication
Continue antibiotics.
Assessment / Plan
Back pain/flank pain
-No current pyuria
Ureteritis/pyelitis suspected on CT imaging
Leukopenia; cyclic neutropenia
Anemia
GERBER on CKD
Cyclic Neutropenia
Bipolar Disorder
Anxiety
Posttraumatic stress disorder
Hypothyroidism
Type 1 diabetes
Asthma
Iron Deficiency Anemia
CKD stage II
Pyelonephritis
Endometriosis
PCOS
Recommendations:
At present, etiology of patient's back pain not entirely clear. Suspicion of ureteritis/pyelitis noted on CT scanning, although UA without pyuria.
Difficult to interpret admission urinalysis in context of preadmission antibiotic administration.
Continue with ceftriaxone for the present and follow for clinical improvement.
Urology to eval patient
Chief Complaint
-: Other (Back / flank pain)
Subjective / Review of Systems
Patient seen and examined. Reports ongoing back and flank pain. Denies dysuria, but notes frequency, possibly also related to IV fluid. No fevers or chills.
Vital Signs / Physical Exam
Vital Signs
Vital Signs
Temp Pulse Resp BP Pulse Ox
98.1 F 97 18 156/100 98
09/30/24 15:52 09/30/24 15:52 09/30/24 15:52 09/30/24 15:52 09/30/24 15:52
Physical Exam
Constitutional: No Acute Distress, Comfortable and Non-toxic
Eyes: No Conjunctival Hemorrhage and Sclera Anicteric
Cardiovascular: S1/S2; Negative S3/S4
Pulmonary: Non Labored
Gastrointestinal: Tender (mild; diffuse)
Genito-Urinary: CVA Tenderness
Neurological: Awake and Alert
Objective Data
Lab Data
Lab Results
09/30/24 08:31
09/30/24 08:31
Estimated Creat Clear 41 ml/min 09/30/24 08:31
Total Bilirubin 0.3 mg/dl (0.2-1.3) 09/28/24 07:59
AST 12 U/L (14-36) L 09/28/24 07:59
ALT 11 U/L (0-35) 09/28/24 07:59
Alkaline Phosphatase 78 U/L (38-126) 09/28/24 07:59
Most recent labs reviewed.
Micro Results:
09/27/24 16:49 Blood Culture - Preliminary
Blood/Venous No Growth in 48 hours- Final report to follow
09/27/24 16:49 Blood Culture - Preliminary
Blood/Venous No Growth in 48 hours- Final report to follow
Imaging:
09/27/2024 CT abdomen/pelvis: Prominence of the bilateral renal collecting systems with mild urothelial thickening and enhancement of both renal pelves and bilateral ureters, most suspicious for ureteritis and pyelitis. Possible pyelonephritis with
bilateral perinephric fat stranding but no significant striated hypoenhancement. No nephrolithiasis or ureterolithiasis.
[2024-09-30] MEDS: PT'S OWN INSULIN PUMP - HumaLOG 4 UNIT SC (16:58)
[2024-09-30 17:09] LABS: Glucose - Point of Care 201 mg/dl (70-99)
--- NOTE | 2024-09-30 17:27 | W.PN.URO.CBU ---
Today's Communication / Plan
-
no gu intervention
Assessment / Plan
-
by history uti with ascending infection Will follow id lead but difficult decisions on iv abs due to lack of pyuria and a sterile urine for now continue present care Will discuss prevention
Diagnosis
-
Date of Service: September 30, 2024
-
Patient Diagnosis:long h/o recurrent pyelonephritia a dn type 1 diabetes and n eutropenia Now self medicated at home for uti but conditioned [place] and was admitted cT BILATERAL PYELITIS AND CYSTITIS BUT U/A AND CXS ON PO ABS ARE NEGATIVE
Post Op Day:
Subjective
-
pelvic pain and and bilateral flank discomfort
Objective
-
Vital Signs
Temp Pulse Resp BP Pulse Ox
98.1 F 97 18 156/100 98
09/30/24 15:52 09/30/24 15:52 09/30/24 15:52 09/30/24 15:52 09/30/24 15:52
Intake and Output
09/29/24 09/30/24 10/01/24
06:59 06:59 06:59
Intake Total 800 / 800 1080 / 1080
Output Total 350 / 350
Balance 800 / 800 730 / 730
Intake:
Oral fluids 800 / 800
IV fluids (Total) 1080 / 1080
Output:
Urine, Voided 350 / 350
Other:
Number of approximated MODERATE 2
amounts of urine
Laboratory Results
09/30/24 08:31
09/30/24 08:31
Review of Systems
-
: Flank Pain and Difficulty Voiding
Physical Exam
-
General - well developed, well nourished, no acute distress
Chest - clear bilaterally
Abdomen - soft, non-tender, positive bowel sounds, no CVAT, no incisional pain or distention
Genitalia - normal
Rectal - normal
Skin - warm & dry with no rash
Neuro - AOx3, no motor deficits
Extremities - no clubbing, no cyanosis, no edema
Incision - clean, dry
Dressing - clean, dry, intact
Care Review
Data Reviewed
Discussed with: Hospitalist
CT Scan: Image Pers Reviewed
[2024-09-30] MEDS: ATARAX 25 MG PO (21:58)
[2024-09-30 22:14] LABS: Glucose - Point of Care 194 mg/dl (70-99)
[2024-09-30] MEDS: PT'S OWN INSULIN PUMP - HumaLOG 0.65 UNIT SC (23:19)
[2024-10-01 00:17] VITALS: BP 156/104
[2024-10-01] MEDS: DILAUDID 0.5 MG IV ×3 (02:06→12:56)
[2024-10-01] MEDS: SYNTHROID 200 MCG PO (05:10)
[2024-10-01] MEDS: NSS 1000 IV ×2 (06:23→18:46)
[2024-10-01 07:22] VITALS: BP 130/79
[2024-10-01] MEDS: ADVAIR HFA 115/21 MCG INHALER 2 PUFF INH ×2 (07:37→19:34)
[2024-10-01 07:49] LABS: Glucose - Point of Care 237 mg/dl (70-99)
[2024-10-01 07:59] LABS: % Basophils 0.2 % (0-2); % Immature Granulocytes 0.2 % (0-0.5); % Lymphocytes 38.9 % (20.5-51.1); % Monocytes 11.5 % (1.7-9.3); % Neutrophils 49.2 % (42.2-75.2); Absolute Lymphocytes 1.7 10^3/uL (1.2-3.4); Absolute Monocytes 0.5 10^3/uL (0.1-0.6); Absolute Neutrophils 2.1 10^3/uL (1.4-6.5); Hematocrit 27.9 % (37.0-47.0); Hemoglobin 9.3 g/dL (12.0-16.0); Mean Corp Hgb Conc. 33.3 g/dL (33.0-37.0); Mean Corpuscular Hgb 26.3 pg (27.0-31.0); Mean Corpuscular Volume 78.8 fL (81.0-99.0); Mean Platelet Volume 10.2 fL (7.4-10.4); Nucleated Red Blood Cells % 0 %; Platelet Count 214 10^3/uL (130-400); Red Blood Cell Count 3.54 10^6/uL (4.20-5.40); Red Cell Dist. Width 14.6 % (11.5-14.5); White Blood Cell Count 4.4 10^3/uL (4.8-10.8)
--- NOTE | 2024-10-01 08:01 | PN.DE.MGMTRT ---
Insulin Management
- -
10/01/2024 Diabetes Management Consult Insulin Pump
Patient admitted 09/27 with flank pain, pyelonephritis. Patient know to me from multiple prior admissions. PMH of recurrent kidney infections status post nephrostomy tube 3 years ago, cyclical neutropenia, HSV oralis, type 1 diabetes on insulin
pump, hypothyroidism, CKD 3, iron deficiency anemia. Prior to admission using OmniPod 5 with DexCom G6 and humalog insulin. A1C 10.2%, cr 1.9, eGFR 36.89.
Patient is awake alert and oriented, able to discuss glucose readings. Discussed with patient for 3 consecutive morning fasting glucose > 200. She is agreeable to change basal rate to 1.05 at 12am. 3 consecutive HS readings elevated, patient is
agreeable to change 6pm basal rate to 1.1. Revised Insulin pump settings as follows:
Basal rate I:CHO ratio Correction Factor Target
12am 1.05 10 40 130
6am 1.75 10 40 130
6pm 1.1 10 40 130
24 hour basal total 33.9 units.
Pump settings revised based on glucose results.
Advised patient that most likely basal rates and ratios will need further adjustment, offered to work with patient as an outpatient when current illness resolved to improve glucose control. Patient receptive.
Patient states she sees [facility] but admits she has not been there in over a year.
Discussed with nurse.
Will follow.
Diabetes History
- -
Type of Diabetes: 1
Pre-Admission Diabetes Regimen
09/30/24
08:31
Creatinine 1.7 H
Insulin Pump Settings
IP Diabetes Regimen
09/30/24 09/30/24 09/30/24
08:31 11:26 17:08
Glucose 235 H
POC Glucose 163 H 201 H
09/30/24 10/01/24
22:13 07:47
Glucose
POC Glucose 194 H 237 H
Patient Education
[2024-10-01] MEDS: COLACE 100 MG PO ×2 (08:36→21:14)
[2024-10-01] MEDS: HEPARIN 5000 UNITS SC ×2 (08:36→21:15)
[2024-10-01] MEDS: PEPCID 20 MG PO (08:36)
[2024-10-01] MEDS: TYLENOL 1000 MG PO ×2 (08:36→16:01)
[2024-10-01] MEDS: MIRALAX 17 GRAMS PO (08:36)
[2024-10-01] MEDS: PT'S OWN INSULIN PUMP - HumaLOG 8.7 UNIT SC (08:36)
--- NOTE | 2024-10-01 08:39 | W.PN.URO.CBU ---
Today's Communication / Plan
-
plan per id
Assessment / Plan
-
by history uti with ascending infection Will follow id lead but difficult decisions on iv abs due to lack of pyuria and a sterile urine for now continue present care Will discuss prevention . However worrisom euse of analgesics in ptwhose
pain s outof proportion to her ct scan and her demaenor Suggest painmangemnt consult and try and wean off narcoitc as labs and ct scan do not suggest obstrucion or abcess but sdo suggestt inflammation
Diagnosis
-
Date of Service: October 01, 2024
-
Patient Diagnosis:
Post Op Day:
Patient Diagnosis:long h/o recurrent pyelonephritia a dn type 1 diabetes and n eutropenia Now self medicated at home for uti but conditioned [place] and was admitted cT BILATERAL PYELITIS AND CYSTITIS BUT U/A AND CXS ON PO ABS ARE NEGATIVE
Post Op Day:
Subjective
-
stil sever pain requiring q4 iv diaudid and tramadoland tylenol
Objective
-
Vital Signs
Temp Pulse Resp BP Pulse Ox
98.6 F 82 16 130/79 99
10/01/24 07:22 10/01/24 07:40 10/01/24 07:40 10/01/24 07:22 10/01/24 07:22
Intake and Output
09/30/24 10/01/24 10/02/24
06:59 06:59 06:59
Intake Total 1080 / 1080 1919
Output Total 350 / 350
Balance 730 / 730 1919
Intake:
Oral fluids 960 / 960
IV fluids (Total) 1080 / 1080 960 / 960
Output:
Urine, Voided 350 / 350
Other:
Number of approximated MODERATE 2
amounts of urine
Laboratory Results
10/01/24 07:32
Review of Systems
-
Abdomen/GI: Pain
: Flank Pain
Physical Exam
-
General - well developed, well nourished, no acute distress
Chest - clear bilaterally
Abdomen - soft, non-tender, positive bowel sounds, no CVAT, no incisional pain or distention
Genitalia - normal
Rectal - normal
Skin - warm & dry with no rash
Neuro - AOx3, no motor deficits
Extremities - no clubbing, no cyanosis, no edema
Incision - clean, dry
Dressing - clean, dry, intact
[2024-10-01 08:57] LABS: Blood Urea Nitrogen 20 mg/dl (7-17); Calcium 8.9 mg/dl (8.4-10.2); Carbon Dioxide 24 mmol/L (22-30); Chloride 112 mmol/L (98-107); Estimated Creatinine Clearance 39 ml/min; Glucose 216 mg/dl (70-99); Sodium 138 mmol/L (135-145); eGFR 39.36
--- NOTE | 2024-10-01 09:03 | W.PN.HOSP.TC ---
Addendum entered and electronically signed by Karthik Solorio MD 10/01/24 15:03:
Opioid use with dependence
Original Note:
Today's Communication/Plan
-
Lokelma. IVF. Antibiotics
Assessment / Plan
Assessment / Plan
Physical exam:
General: Well Developed, Well Nourished and No Apparent Distress
HEENT: Normocephalic, Atraumatic and Moist Mucous Membranes
Respiratory: Clear to Auscultation; Negative Wheezes, Rales or Rhonchi
Cardiac: Regular Rhythm and S1/S2
GI: Soft, Nontender and Nondistended
Musculoskeletal: No Clubbing, No Cyanosis and No Edema
Neuro: Awake, Alert and Oriented
Psych: Calm
A/P:
Possible pyelonephritis (possibility of interstitial cystitis as well):
ID consult appreciated
Antibiotics per ID
ID recommended urology eval
Urology consult appreciated
All cultures negative today
Stop IV fluid
GERBER on CKD:
Hold NSAIDs
Started on IV fluids by nephrology
Monitor renal function and electrolyte
Nephrology consult appreciated
Hyperkalemia:
Worsened today--> use Lokelma stat
Continue to monitor
Neutropenia:
History of cyclic neutropenia
Continue monitor hematopoietic cell count
Diabetes mellitus type 1:
Restart insulin pump
Discussed with diabetic PATTERN WEAVER
History of HSV oralis:
Continue antiviral
Hypothyroidism:
Continue thyroid replacement
DVT prophylaxis:
Heparin SQ
CODE STATUS:
Full code
Total time spent on today's encounter was 52 minutes which included time spent in counseling the patient/family regarding diagnosis and treatment plan as listed above, goals of care, and symptom management. Case was discussed with nursing staff,
specialists, and care coordinators/case management. All labs and imaging personally reviewed by me. Remainder the time spent in detailed review of previous records, lab data, imaging, and other medical provider documentation.
Anticipated Discharge: 24 - 48 hours
Subjective/Interval History
-
Date of Service: October 01, 2024
Patient continues to have flank pain. Afebrile
Objective Data
-
Labs:
Laboratory Results
10/01/24
07:32
WBC 4.4 L
Hgb 9.3 L
Hct 27.9 L
Plt Count 214
Sodium 138
Potassium 6.0 H
Chloride 112 H
Carbon Dioxide 24
BUN 20 H
Creatinine 1.8 H
Glucose 216 H
Calcium 8.9
Vital Signs:
Vital Signs
Temp Pulse Resp BP Pulse Ox
98.6 F 82 16 130/79 99
10/01/24 07:22 10/01/24 07:40 10/01/24 07:40 10/01/24 07:22 10/01/24 07:22
I&O
09/30/24 10/01/24 10/02/24
06:59 06:59 06:59
Intake Total 1080 / 1080 1919
Output Total 350 / 350
Balance 730 / 730 1919
[2024-10-01] MEDS: LOKELMA 10 GRAM PO (10:23)
[2024-10-01 11:21] LABS: Glucose - Point of Care 290 mg/dl (70-99)
[2024-10-01] MEDS: PT'S OWN INSULIN PUMP - HumaLOG 2 UNIT SC (11:21)
[2024-10-01] MEDS: PT'S OWN INSULIN PUMP - HumaLOG 4 UNIT SC (12:58)
--- NOTE | 2024-10-01 14:29 | PN.CDI ---
CDI
- -
CDI:
Physician Documentation Request
Admit Date: 09/27/24 17:04
Dear Doctor Solorio,
Please review the following and provide your response in the progress notes.
Clinical Indicators:
- Patient admit with worsening back pain due to pyelonephritis
- 09/27 ER Physician indicates pmh polysubstance drug abuse
- 09/27 H&P home medication 'oxycodone 5 mg tablet 5 mg PO Q6H PRN Pain'
- Documented hydromorphone 0.5mg IV x 22
If possible, please provide further specificity as outlined below:
Opioid use with dependence
Opioid dependence
Other (please specify)
Use of terms such as suspected, likely, concern for, or probable (associated with a specific diagnosis that is being evaluated, monitored, or treated as if it exists) are acceptable and can be coded in the inpatient setting, when documented at the
time of discharge.
Thank you,
Kenyon Saab RN
CDI Specialist
Please use your independent medical judgment in providing your response.
--- NOTE | 2024-10-01 15:39 | W.PN.ID1 ---
Date of Service
Date of Service: October 01, 2024
Today's Communication
Change to oral Levaquin x 10 days.
Assessment / Plan
Back pain/flank pain
-No current pyuria
Ureteritis/pyelitis suspected on CT imaging
Leukopenia; cyclic neutropenia
Anemia
GERBER on CKD
Cyclic Neutropenia
Bipolar Disorder
Anxiety
Posttraumatic stress disorder
Hypothyroidism
Type 1 diabetes
Asthma
Iron Deficiency Anemia
CKD stage II
Pyelonephritis
Endometriosis
PCOS
Recommendations:
At present, etiology of patient's back pain not entirely clear. Suspicion of ureteritis/pyelitis noted on CT scanning, although UA without pyuria.
Difficult to interpret admission urinalysis in context of preadmission antibiotic administration.
If inflammation secondary to infection, it appears that prior Levaquin has rendered cultures negative.
Therefore, will place back on Levaquin for a 10-day course.
����������������������������������������������������������
Chief Complaint
-: Other (Back / flank pain)
Subjective / Review of Systems
Patient seen and examined. Notes ongoing back pain. No dysuria.
Review of Systems: No Fever and No Chills
Vital Signs / Physical Exam
Vital Signs
Vital Signs
Temp Pulse Resp BP Pulse Ox
98.6 F 82 16 130/79 99
10/01/24 07:22 10/01/24 07:40 10/01/24 07:40 10/01/24 07:22 10/01/24 08:00
Physical Exam
Constitutional: No Acute Distress, Comfortable and Non-toxic
Eyes: No Conjunctival Hemorrhage and Sclera Anicteric
Cardiovascular: S1/S2; Negative S3/S4
Pulmonary: Non Labored
Gastrointestinal: Tender (mild; diffuse)
Genito-Urinary: CVA Tenderness
Neurological: Awake and Alert
Objective Data
Lab Data
Lab Results
10/01/24 07:32
10/01/24 07:32
Estimated Creat Clear 39 ml/min 10/01/24 07:32
Total Bilirubin 0.3 mg/dl (0.2-1.3) 09/28/24 07:59
AST 12 U/L (14-36) L 09/28/24 07:59
ALT 11 U/L (0-35) 09/28/24 07:59
Alkaline Phosphatase 78 U/L (38-126) 09/28/24 07:59
Most recent labs reviewed.
Micro Results:
09/27/24 16:49 Blood Culture - Preliminary
Blood/Venous No Growth in 72 hours- Final report to follow
09/27/24 16:49 Blood Culture - Preliminary
Blood/Venous No Growth in 72 hours- Final report to follow
Imaging:
09/27/2024 CT abdomen/pelvis: Prominence of the bilateral renal collecting systems with mild urothelial thickening and enhancement of both renal pelves and bilateral ureters, most suspicious for ureteritis and pyelitis. Possible pyelonephritis with
bilateral perinephric fat stranding but no significant striated hypoenhancement. No nephrolithiasis or ureterolithiasis.
--- NOTE | 2024-10-01 15:47 | W.PN.NEPH.PH ---
Today's Communication / Plan
-
Lokelma
Assessment/Plan
-
IMP:
Possible pyelonephritis (possibility of interstitial cystitis as well)
GERBER on CKD stage3-baseline cr 1.2-1.4
mild Hyperkalemia
Neutropenia
History of cyclic neutropenia
Diabetes mellitus type 1 on pump
History of HSV oralis
Hypothyroidism
Plan:
A/w pyelonephritis noted bilat on CT
bld cx neg so far, cotn abx per primary
GERBER-possible EDUARDO, contrast exposure on 09/27
UTI sample, however she has underlying diabetic nephropathy -protein creatinine ratio 8 g
no hydro on CT
avoid nephrotoxins, off Toradol
adjust meds renally
BP stable
Creatinine improving/continue IV fluid
Will need RAAS inhibitor going forward for diabetic nephropathy which could be initiated prior to discharge as she is hypertensive with understanding of toxicity as she is at childbearing age.
Potassium elevated today at 6 as she was given Lokelma. 2 g potassium diet enforced
Patient needs nephrology follow-up upon discharge with us
-
-
Date of Service: October 01, 2024
CC / HPI / ROS
-
Without chest pain or shortness of breath she claims that she feels stiff and somewhat bloated but she has no lower extremity edema.
No overnight events
Nonoliguric
Labs
-
Labs:
WBC 4.4 10^3/uL (4.8-10.8) L 10/01/24 07:32
RBC 3.54 10^6/uL (4.20-5.40) L 10/01/24 07:32
Hgb 9.3 g/dL (12.0-16.0) L 10/01/24 07:32
Hct 27.9 % (37.0-47.0) L 10/01/24 07:32
Plt Count 214 10^3/uL (130-400) 10/01/24 07:32
Sodium 138 mmol/L (135-145) 10/01/24 07:32
Potassium 6.0 mmol/L (3.5-5.1) H 10/01/24 07:32
Chloride 112 mmol/L (98-107) H 10/01/24 07:32
Carbon Dioxide 24 mmol/L (22-30) 10/01/24 07:32
BUN 20 mg/dl (7-17) H 10/01/24 07:32
Creatinine 1.8 mg/dL (0.6-1.0) H 10/01/24 07:32
eGFR 39.36 10/01/24 07:32
Glucose 216 mg/dl (70-99) H 10/01/24 07:32
Calcium 8.9 mg/dl (8.4-10.2) 10/01/24 07:32
Albumin 2.6 g/dl (3.5-5.0) L 09/28/24 07:59
Physical Exam
-
Vital Signs:
Vital Signs
Temp Pulse Resp BP Pulse Ox
98.6 F 82 16 130/79 99
10/01/24 07:22 10/01/24 07:40 10/01/24 07:40 10/01/24 07:22 10/01/24 08:00
Respiratory:: Bilateral: CTA
Lung Excursion:: Normal
Abdomen:: Soft
Bowel Sounds:: Normal
Extremity Edema:: None: Bilateral:
[2024-10-01 15:51] VITALS: BP 149/93
[2024-10-01] MEDS: LEVAQUIN 500 MG PO (16:01)
--- NOTE | 2024-10-01 16:01 | CM ---
Home when stable, no needs.
Plan; Home no needs.
[2024-10-01] MEDS: PT'S OWN INSULIN PUMP - HumaLOG 2.45 UNIT SC (16:53)
[2024-10-01 17:07] LABS: Glucose - Point of Care 111 mg/dl (70-99)
[2024-10-01] MEDS: ULTRAM 25 MG PO (17:55)
[2024-10-01] MEDS: ATARAX 25 MG PO (21:14)
[2024-10-01] MEDS: DILAUDID 0.25 MG IV (21:14)
[2024-10-01 21:27] LABS: Glucose - Point of Care 138 mg/dl (70-99)
[2024-10-01] MEDS: PT'S OWN INSULIN PUMP - HumaLOG 1.1 UNIT SC (21:27)
[2024-10-02 00:16] VITALS: BP 132/85
[2024-10-02] MEDS: SYNTHROID 200 MCG PO (05:56)
[2024-10-02 07:00] VITALS: BP 170/95
--- NOTE | 2024-10-02 07:19 | PN.DE.MGMTRT ---
Insulin Management
- -
10/02/2024 Diabetes Management Consult Insulin Pump
Patient admitted 09/27 with flank pain, pyelonephritis. Patient know to me from multiple prior admissions. PMH of recurrent kidney infections status post nephrostomy tube 3 years ago, cyclical neutropenia, HSV oralis, type 1 diabetes on insulin
pump, hypothyroidism, CKD 3, iron deficiency anemia. Prior to admission using OmniPod 5 with DexCom G6 and humalog insulin. A1C 10.2%, cr 1.9, eGFR 36.89.
Patient is awake alert and oriented, able to discuss glucose readings. Basal rates changed 10/01 to 1.05 at 12am and 6pm basal rate to 1.1. Revised Insulin pump settings as follows:
Basal rate I:CHO ratio Correction Factor Target
12am 1.05 10 40 130
6am 1.75 10 40 130
6pm 1.1 10 40 130
24 hour basal total 33.9 units.
Will make no change to Pump settings based on improved glucose results, HS glucose 138.
Advised patient that most likely basal rates and ratios will need further adjustment, offered to work with patient as an outpatient when current illness resolved to improve glucose control. Patient receptive.
Patient states she sees [facility] but admits she has not been there in over a year.
Discussed with nurse.
Will follow.
Diabetes History
- -
Type of Diabetes: 1
Pre-Admission Diabetes Regimen
10/01/24
07:32
Creatinine 1.8 H
Insulin Pump Settings
IP Diabetes Regimen
10/01/24 10/01/24 10/01/24
07:32 07:47 11:19
Glucose 216 H
POC Glucose 237 H 290 H
10/01/24 10/01/24
17:06 21:25
Glucose
POC Glucose 111 H 138 H
Meal type: Lunch
Meal type: Breakfast
Amount consumed: 100%
Amount consumed: 95%
Patient Education
[2024-10-02] MEDS: ADVAIR HFA 115/21 MCG INHALER 2 PUFF INH (07:57)
[2024-10-02 08:02] LABS: Blood Urea Nitrogen 26 mg/dl (7-17); Calcium 8.9 mg/dl (8.4-10.2); Carbon Dioxide 23 mmol/L (22-30); Chloride 114 mmol/L (98-107); Estimated Creatinine Clearance 39 ml/min; Glucose 271 mg/dl (70-99); Potassium 5.3 mmol/L (3.5-5.1); Sodium 139 mmol/L (135-145); eGFR 39.36
[2024-10-02] MEDS: NSS 1000 IV (08:25)
--- NOTE | 2024-10-02 08:37 | W.PN.HOSP.TC ---
Today's Communication/Plan
-
Antibiotics. Pain control.
Assessment / Plan
Assessment / Plan
Physical exam:
General: Well Developed, Well Nourished and No Apparent Distress
HEENT: Normocephalic, Atraumatic and Moist Mucous Membranes
Respiratory: Clear to Auscultation; Negative Wheezes, Rales or Rhonchi
Cardiac: Regular Rhythm and S1/S2
GI: Soft, Nontender and Nondistended
Musculoskeletal: No Clubbing, No Cyanosis and No Edema
Neuro: Awake, Alert and Oriented
Psych: Calm
A/P:
Possible pyelonephritis (possibility of interstitial cystitis as well):
ID consult appreciated
Antibiotics per ID--> recommending switching to oral antibiotics with Levaquin for 10 days
ID recommended urology eval
Urology consult appreciated
All cultures negative today but had taken antibiotics prior to presentation
Off IV fluid
Flank pain:
Discussed about pain medications and I am not going to reorder IV. We are planning on doing oral pain medications transition for discharge planning.
GERBER on CKD:
Hold NSAIDs
Started on IV fluids by nephrology
Monitor renal function and electrolyte
Nephrology consult appreciated
Hyperkalemia:
Worsened yesterday--> used Lokelma stat.
Today remains mildly elevated so we will repeat a dose of lower dose of Lokelma today.
Would avoid Juni inh
Continue to monitor
Neutropenia:
History of cyclic neutropenia
Continue monitor hematopoietic cell count
Diabetes mellitus type 1:
Restart insulin pump
Discussed with diabetic [employer] ECONOMIST [employer]
History of HSV oralis:
Continue antiviral
Hypothyroidism:
Continue thyroid replacement
DVT prophylaxis:
Heparin SQ
CODE STATUS:
Full code
Anticipated Discharge: 24 - 48 hours
Subjective/Interval History
-
Date of Service: October 02, 2024
Patient continues to have flank pain. Afebrile
Objective Data
-
Labs:
Laboratory Results
10/02/24
07:05
Sodium 139
Potassium 5.3 H
Chloride 114 H
Carbon Dioxide 23
BUN 26 H
Creatinine 1.8 H
Glucose 271 H
Calcium 8.9
Vital Signs:
Vital Signs
Temp Pulse Resp BP Pulse Ox
98.3 F 91 18 132/85 96
10/02/24 00:16 10/02/24 08:00 10/02/24 08:00 10/02/24 00:16 10/02/24 08:00
I&O
10/01/24 10/02/24 10/03/24
06:59 06:59 06:59
Intake Total 1919 960 / 960
Balance 1919 960 / 960
[2024-10-02] MEDS: ULTRAM 25 MG PO (08:54)
[2024-10-02] MEDS: PEPCID 20 MG PO (08:54)
[2024-10-02] MEDS: LEVAQUIN 250 MG PO (08:54)
[2024-10-02] MEDS: HEPARIN 5000 UNITS SC ×2 (08:55→20:16)
[2024-10-02] MEDS: MIRALAX 17 GRAMS PO (08:55)
[2024-10-02] MEDS: COLACE 100 MG PO ×2 (08:55→20:16)
[2024-10-02 08:57] LABS: Glucose - Point of Care 287 mg/dl (70-99)
[2024-10-02] MEDS: PT'S OWN INSULIN PUMP - HumaLOG 8.5 UNIT SC (09:04)
--- NOTE | 2024-10-02 10:38 | W.PN.NEPH.PH ---
Today's Communication / Plan
-
ok dc and fu with us 2-4 wks
Assessment/Plan
-
IMP:
Possible pyelonephritis (possibility of interstitial cystitis as well)
GERBER on CKD stage3-baseline cr 1.2-1.4
mild Hyperkalemia
Neutropenia
History of cyclic neutropenia
Diabetes mellitus type 1 on pump
History of HSV oralis
Hypothyroidism
Plan:
A/w pyelonephritis noted bilat on CT
bld cx neg so far, cotn abx per primary
GERBER-possible EDUARDO, contrast exposure on 09/27
UTI sample, however she has underlying diabetic nephropathy -protein creatinine ratio 8 g
no hydro on CT
avoid nephrotoxins, off Toradol
adjust meds renally
BP stable
Creatinine improving/continue IV fluid
Will need RAAS inhibitor going forward for diabetic nephropathy which could be initiated prior to discharge as she is hypertensive with understanding of toxicity as she is at childbearing age.
Potassium 5.3 as she was given Lokelma yesterday . 2 g potassium diet enforced
Patient needs nephrology follow-up upon discharge with us
ok to DC [facility]
-
-
Date of Service: October 02, 2024
CC / HPI / ROS
-
Without chest pain or shortness of breath
No overnight events
Nonoliguric
Labs
-
Labs:
WBC 4.4 10^3/uL (4.8-10.8) L 10/01/24 07:32
RBC 3.54 10^6/uL (4.20-5.40) L 10/01/24 07:32
Hgb 9.3 g/dL (12.0-16.0) L 10/01/24 07:32
Hct 27.9 % (37.0-47.0) L 10/01/24 07:32
Plt Count 214 10^3/uL (130-400) 10/01/24 07:32
Sodium 139 mmol/L (135-145) 10/02/24 07:05
Potassium 5.3 mmol/L (3.5-5.1) H 10/02/24 07:05
Chloride 114 mmol/L (98-107) H 10/02/24 07:05
Carbon Dioxide 23 mmol/L (22-30) 10/02/24 07:05
BUN 26 mg/dl (7-17) H 10/02/24 07:05
Creatinine 1.8 mg/dL (0.6-1.0) H 10/02/24 07:05
eGFR 39.36 10/02/24 07:05
Glucose 271 mg/dl (70-99) H 10/02/24 07:05
Calcium 8.9 mg/dl (8.4-10.2) 10/02/24 07:05
Albumin 2.6 g/dl (3.5-5.0) L 09/28/24 07:59
Physical Exam
-
Vital Signs:
Vital Signs
Temp Pulse Resp BP Pulse Ox
98.4 F 91 18 170/95 96
10/02/24 07:00 10/02/24 08:00 10/02/24 08:00 10/02/24 07:00 10/02/24 08:00
Respiratory:: Bilateral: CTA
Lung Excursion:: Normal
Abdomen:: Soft
Bowel Sounds:: Normal
Extremity Edema:: None: Bilateral:
[2024-10-02] MEDS: ROXICODONE 5 MG PO (11:11)
[2024-10-02] MEDS: LOKELMA 5 GRAM PO (11:12)
[2024-10-02 12:30] VITALS: BP 157/101
[2024-10-02] MEDS: PT'S OWN INSULIN PUMP - HumaLOG 4.8 UNIT SC (12:30)
[2024-10-02 12:33] LABS: Glucose - Point of Care 330 mg/dl (70-99)
--- NOTE | 2024-10-02 13:19 | W.PN.URO.CBU ---
Today's Communication / Plan
-
try and transition to po pain relief
Assessment / Plan
-
by history uti with ascending infection Will follow id lead but difficult decisions on iv abs due to lack of pyuria and a sterile urine for now continue present care Will discuss prevention . However worrisom euse of analgesics in ptwhose
pain s outof proportion to her ct scan and her demaenor Suggest painmangemnt consult and try and wean off narcoitc as labs and ct scan do not suggest obstrucion or abcess but sdo suggestt inflammation
Diagnosis
-
Date of Service: October 02, 2024
-
Patient Diagnosis:
Post Op Day:
Patient Diagnosis:
Post Op Day:
Patient Diagnosis:long h/o recurrent pyelonephritia a dn type 1 diabetes and n eutropenia Now self medicated at home for uti but conditioned [place] and was admitted cT BILATERAL PYELITIS AND CYSTITIS BUT U/A AND CXS ON PO ABS ARE NEGATIVE
Post Op Day:
Subjective
-
still pain buit trying zuri transition to oral anlgesics and no tramadol
Objective
-
Vital Signs
Temp Pulse Resp BP Pulse Ox
98.4 F 99 18 157/101 96
10/02/24 07:00 10/02/24 12:30 10/02/24 08:00 10/02/24 12:30 10/02/24 08:00
Intake and Output
10/01/24 10/02/24 10/03/24
06:59 06:59 06:59
Intake Total 1919 960 / 960
Balance 1919 960 / 960
Intake:
Oral fluids 960 / 960 960 / 960
IV fluids (Total) 960 / 960
Other:
Number of approximated MODERATE 2 2
amounts of urine
Laboratory Results
10/01/24 07:32
10/02/24 07:05
Review of Systems
-
Abdomen/GI: Abdominal Pain
: Flank Pain
Physical Exam
-
General - well developed, well nourished, no acute distress
Chest - clear bilaterally
Abdomen - soft, non-tender, positive bowel sounds, no CVAT, no incisional pain or distention
Genitalia - normal
Rectal - normal
Skin - warm & dry with no rash
Neuro - AOx3, no motor deficits
Extremities - no clubbing, no cyanosis, no edema
Incision - clean, dry
Dressing - clean, dry, intact
Care Review
Data Reviewed
Discussed with: Hospitalist and Nursing
[2024-10-02 14:15] VITALS: BMI 22.5
[2024-10-02] MEDS: ROXICODONE 10 MG PO ×2 (14:23→21:23)
[2024-10-02 15:00] VITALS: BP 165/106
--- NOTE | 2024-10-02 15:11 | CM ---
CM reviewed chart, patient likely for discharge in the next 24-48 hrs. Plan remains home no needs. CM will continue to follow for all discharge planning needs.
Plan; home no needs.
[2024-10-02 16:00] VITALS: BP 148/100
[2024-10-02 16:42] LABS: Glucose - Point of Care 100 mg/dl (70-99)
[2024-10-02] MEDS: NORVASC 5 MG PO (17:40)
[2024-10-02] MEDS: PT'S OWN INSULIN PUMP - HumaLOG 6 UNIT SC (17:40)
[2024-10-02] MEDS: ADVAIR HFA 115/21 MCG INHALER INH (19:59)
[2024-10-02] MEDS: ATARAX 25 MG PO (21:24)
[2024-10-02 21:27] LABS: Glucose - Point of Care 180 mg/dl (70-99)
[2024-10-02] MEDS: PT'S OWN INSULIN PUMP - HumaLOG 1.1 UNIT SC (21:29)
[2024-10-02 23:29] VITALS: BP 159/106
[2024-10-03] MEDS: SYNTHROID 200 MCG PO (06:24)
[2024-10-03 07:00] VITALS: BP 136/95
[2024-10-03 07:04] LABS: Blood Urea Nitrogen 30 mg/dl (7-17); Carbon Dioxide 24 mmol/L (22-30); Chloride 110 mmol/L (98-107); Estimated Creatinine Clearance 37 ml/min; Glucose 212 mg/dl (70-99); Potassium 5.2 mmol/L (3.5-5.1); Sodium 140 mmol/L (135-145); eGFR 36.89
[2024-10-03] MEDS: ADVAIR HFA 115/21 MCG INHALER 2 PUFF INH ×2 (07:22→20:07)
--- NOTE | 2024-10-03 07:28 | W.PN.HOSP.TC ---
Today's Communication/Plan
-
Lokelma. Repeat potassium
Assessment / Plan
Assessment / Plan
Physical exam:
General: Well Developed, Well Nourished and No Apparent Distress
HEENT: Normocephalic, Atraumatic and Moist Mucous Membranes
Respiratory: Clear to Auscultation; Negative Wheezes, Rales or Rhonchi
Cardiac: Regular Rhythm and S1/S2
GI: Soft, Nontender and Nondistended
Musculoskeletal: No Clubbing, No Cyanosis and No Edema
Neuro: Awake, Alert and Oriented
Psych: Calm
A/P:
Possible pyelonephritis (possibility of interstitial cystitis as well):
ID consult appreciated
Antibiotics per ID--> recommending switching to oral antibiotics with Levaquin for 10 days
ID recommended urology eval
Urology consult appreciated
All cultures negative today but had taken antibiotics prior to presentation
Off IV fluid
Flank pain:
Discussed about pain medications and I am not going to reorder IV. We are planning on doing oral pain medications transition for discharge planning.
GERBER on CKD:
Hold NSAIDs
Started on IV fluids by nephrology
Monitor renal function and electrolyte
Nephrology consult appreciated
Hyperkalemia:
Worsened yesterday--> used Lokelma stat.
Today remains mildly elevated so we will repeat a dose of lower dose of Lokelma today.
Would avoid Juni inh
Continue to monitor
Hypertension:
Started amlodipine 5 mg p.o. daily
Ideally on JUNI inhibitor but due to hyperkalemia will need to be reevaluated as outpatient
Neutropenia:
History of cyclic neutropenia
Continue monitor hematopoietic cell count
Diabetes mellitus type 1:
Restart insulin pump
Discussed with diabetic [facility]
History of HSV oralis:
Continue antiviral
Hypothyroidism:
Continue thyroid replacement
DVT prophylaxis:
Heparin SQ
CODE STATUS:
Full code
Anticipated Discharge: Within 24 hours
Subjective/Interval History
-
Date of Service: October 03, 2024
Patient feels better overall. Afebrile
Objective Data
-
Labs:
Laboratory Results
10/03/24
06:07
Sodium 140
Potassium 5.2 H
Chloride 110 H
Carbon Dioxide 24
BUN 30 H
Creatinine 1.9 H
Glucose 212 H
Calcium 9.0
Vital Signs:
Vital Signs
Temp Pulse Resp BP Pulse Ox
98.5 F 107 20 159/106 98
10/02/24 23:29 10/02/24 23:29 10/02/24 23:29 10/02/24 23:29 10/02/24 23:29
I&O
10/02/24 10/03/24 10/04/24
06:59 06:59 06:59
Intake Total 960 / 960 0 / 0
Balance 960 / 960 0 / 0
[2024-10-03 08:11] LABS: Glucose - Point of Care 274 mg/dl (70-99)
[2024-10-03] MEDS: PT'S OWN INSULIN PUMP - HumaLOG 7 UNIT SC (08:30)
[2024-10-03] MEDS: ROXICODONE 10 MG PO ×3 (08:48→17:17)
[2024-10-03] MEDS: HEPARIN 5000 UNITS SC ×2 (08:54→21:24)
[2024-10-03] MEDS: NORVASC 5 MG PO (09:09)
[2024-10-03] MEDS: COLACE 100 MG PO ×2 (09:09→21:24)
[2024-10-03] MEDS: PEPCID 20 MG PO (09:09)
[2024-10-03] MEDS: LEVAQUIN 250 MG PO (09:10)
[2024-10-03] MEDS: MIRALAX 17 GRAMS PO (09:10)
[2024-10-03] MEDS: LOKELMA 10 GRAM PO (09:13)
[2024-10-03 11:54] LABS: Glucose - Point of Care 235 mg/dl (70-99)
[2024-10-03] MEDS: PT'S OWN INSULIN PUMP - HumaLOG 5.5 UNIT SC ×2 (12:30→17:00)
[2024-10-03 14:45] LABS: Glucose - Point of Care 77 mg/dl (70-99)
[2024-10-03 15:00] VITALS: BP 136/82
[2024-10-03 16:48] LABS: Glucose - Point of Care 118 mg/dl (70-99)
[2024-10-03 21:21] LABS: Glucose - Point of Care 132 mg/dl (70-99)
[2024-10-03] MEDS: ATARAX 25 MG PO (21:24)
[2024-10-03] MEDS: PT'S OWN INSULIN PUMP - HumaLOG 1.1 UNIT SC (21:26)
[2024-10-03] MEDS: ROXICODONE 5 MG PO (21:29)
[2024-10-03 23:46] VITALS: BP 136/96
[2024-10-04] MEDS: SYNTHROID 200 MCG PO (05:45)
[2024-10-04 07:25] VITALS: BP 125/82
[2024-10-04] MEDS: ADVAIR HFA 115/21 MCG INHALER 2 PUFF INH (07:45)
[2024-10-04 08:04] LABS: Glucose - Point of Care 379 mg/dl (70-99)
[2024-10-04] MEDS: PT'S OWN INSULIN PUMP - HumaLOG 4.7 UNIT SC (08:11)
[2024-10-04] MEDS: PEPCID 20 MG PO (08:14)
[2024-10-04] MEDS: LEVAQUIN 250 MG PO (08:14)
[2024-10-04] MEDS: HEPARIN 5000 UNITS SC (08:15)
[2024-10-04] MEDS: MIRALAX 17 GRAMS PO (08:15)
[2024-10-04] MEDS: NORVASC 5 MG PO (08:15)
[2024-10-04] MEDS: COLACE 100 MG PO (08:15)
[2024-10-04] MEDS: ROXICODONE 10 MG PO ×2 (08:25→12:36)
[2024-10-04 08:54] LABS: Blood Urea Nitrogen 34 mg/dl (7-17); Calcium 8.9 mg/dl (8.4-10.2); Carbon Dioxide 26 mmol/L (22-30); Chloride 107 mmol/L (98-107); Estimated Creatinine Clearance 39 ml/min; Glucose 417 mg/dl (70-99); Potassium 5.4 mmol/L (3.5-5.1); Sodium 136 mmol/L (135-145); eGFR 39.36
--- NOTE | 2024-10-04 08:57 | W.PN.HOSP.TC ---
Today's Communication/Plan
-
Discharge planning today
Assessment / Plan
Assessment / Plan
Physical exam:
General: Well Developed, Well Nourished and No Apparent Distress
HEENT: Normocephalic, Atraumatic and Moist Mucous Membranes
Respiratory: Clear to Auscultation; Negative Wheezes, Rales or Rhonchi
Cardiac: Regular Rhythm and S1/S2
GI: Soft, Nontender and Nondistended
Musculoskeletal: No Clubbing, No Cyanosis and No Edema
Neuro: Awake, Alert and Oriented
Psych: Calm
A/P:
Possible pyelonephritis (possibility of interstitial cystitis as well):
ID consult appreciated
Antibiotics per ID--> recommending switching to oral antibiotics with Levaquin for 10 days (she had already taken 7 days)
ID recommended urology eval
Urology consult appreciated
All cultures negative today but had taken antibiotics prior to presentation
Off IV fluid
Flank pain:
Discussed about pain medications and I am not going to reorder IV. We are planning on doing oral pain medications transition for discharge planning.
GERBER on CKD:
Hold NSAIDs
Started on IV fluids by nephrology
Monitor renal function and electrolyte
Nephrology consult appreciated
Hyperkalemia:
Worsened yesterday--> used Lokelma stat.
Today remains mildly elevated so we will repeat a dose of lower dose of Lokelma today.
Would avoid Juni inh
Would recheck as outpatient now
Hypertension:
Started amlodipine 5 mg p.o. daily
Ideally on JUNI inhibitor but due to hyperkalemia will need to be reevaluated as outpatient
Neutropenia:
History of cyclic neutropenia
Continue monitor hematopoietic cell count
Diabetes mellitus type 1:
Restart insulin pump
Discussed with diabetic [employer]
History of HSV oralis:
Continue antiviral
Hypothyroidism:
Continue thyroid replacement
DVT prophylaxis:
Heparin SQ
CODE STATUS:
Full code
Anticipated Discharge: Today
Subjective/Interval History
-
Date of Service: October 04, 2024
No new complaints today. Pain much better. Afebrile
Objective Data
-
Labs:
Laboratory Results
10/04/24
07:25
Sodium 136
Potassium 5.4 H
Chloride 107
Carbon Dioxide 26
BUN 34 H
Creatinine 1.8 H
Glucose 417 H
Calcium 8.9
Vital Signs:
Vital Signs
Temp Pulse Resp BP Pulse Ox
98.7 F 91 16 125/82 94
10/04/24 07:25 10/04/24 07:49 10/04/24 07:49 10/04/24 07:25 10/04/24 07:49
I&O
10/03/24 10/04/24 10/05/24
06:59 06:59 06:59
Intake Total 0 / 0 1500 / 1500
Balance 0 / 0 1500 / 1500
[2024-10-04] MEDS: LOKELMA 10 GRAM PO (09:28)
--- NOTE | 2024-10-04 10:59 | W.DCSUMMARY ---
Discharge Summary
Discharge Data
Date of Admission: 09/27/24
Date of Discharge: 10/04/24
-
Pending Results: No
Hospital Course
Patient 24-year-old female with diabetes mellitus type 1 and multiple other comorbidities presented to the hospital with persistent flank pain and urinary symptoms. She had taken some antibiotics prior to admission. She had a CT scan consistent
with pyelonephritis. ID and urology were consulted. She was placed on IV antibiotics and later on switched to oral antibiotic to complete a course at home. She also had electrolyte abnormalities and CKD and nephrology consulted. She received
multiple doses of Lokelma. Nephrology also noticed that she would be a good candidate for LAUREN inhibitor but given her hyperkalemia which held on and started on calcium channel mathieu and statin. We will have her follow-up with nephrology to see
if she would be a candidate later on for LAUREN inhibitor or ARB's if her electrolytes continues to improve. Her pain was difficult to control and she had to be placed on narcotics. Otherwise, patient hemodynamically stable and afebrile. She will be
discharged in stable condition today.
Discharge duration: 35 minutes
Discharge Plan
-
Patient Disposition: Home (Routine Discharge)
Discharge Diagnosis/Procedures: Pyelonephritis/urinary tract infection. Acute kidney injury. Chronic kidney disease. Hyperkalemia. Hypertension. Cyclic neutropenia. Diabetes mellitus type 1.
Diet: Diabetic, Carb Controlled
Activity: As tolerated
Blood Work: Please PCP to order CBC, BMP within 1 week
Specialty Instructions: Weigh Daily- Call MD for wt gain/loss 3 lbs overnight/5 lbs in 1 week
Referrals:
Juan A Martinez MD [Family Provider] - in less than 1 week
Maciej Gomez MD [Active] - (PLEASE FOLLOW UP WITH BOTH NEPHROLOGY AND ALSO DR RAY [phone] UROOGY TO DISCUSS UTIS AND PREVENTION )
Germain Angel DO [Active] - in two to four weeks
Svetlana Rosales MD [Active] - in one to two weeks
Prescriptions:
New
docusate sodium 100 mg Capsule
100 mg PO BID Qty: 20 0RF
levofloxacin 250 mg Tablet
250 mg PO DAILY 7 Days Qty: 7 0RF
amlodipine 5 mg Tablet
5 mg PO DAILY 30 Days Qty: 30 0RF
oxycodone 10 mg Tablet
10 mg PO Q4HPRN PRN (Reason: severe pain) Qty: 14 0RF
Continued
Medical Marijuana
5 mg PO BIDPRN PRN (Reason: ANXIETY)
fluticasone propion-salmeterol [Wixela Inhub] 250-50 mcg/dose blister with device
1 inh INHALATION R DAILYPRN PRN (Reason: sob)
Insulin Pump [Patient's Own Insulin Pump]
0 unit SC .CONTINOUS
Rx Instructions:
03/19/23 PATIENT USING HUMALOG AND PATIENT'S DEVICE HOLDS 175 UNITS
albuterol sulfate 90 mcg/actuation Hfa Aerosol Inhaler
2 puff INHALATION R Q4HPRN PRN (Reason: sob)
medroxyprogesterone 150 mg/mL Syringe
150 mg IM [id number]
sumatriptan succinate 50 mg Tablet
50 mg PO DAILYPRN PRN (Reason: migraine)
famotidine [Pepcid] 20 mg Tablet
20 mg PO DAILY
hydroxyzine HCl 25 mg Tablet
25 mg PO HS
levothyroxine 200 mcg Tablet
200 mcg PO DAILY @ 0600 30 Days Qty: 30 0RF
fluticasone propionate 50 mcg/actuation spray,suspension
1 spray INTRANASAL DAILY 5 Days Qty: 16 0RF
acetaminophen 650 mg Tablet Extended Release
1,300 mg PO DAILYPRN PRN (Reason: mild pain)
diphenhydramine HCl [Benadryl] 25 mg Capsule
25 mg PO HSPRN PRN (Reason: rash)
Discharge Orders:
Discharge Patient (As Directed); Ordered 10/04/24
Ordered By: Karthik Solorio
Discharge Date and Time
Print Language: POLISH
--- NOTE | 2024-10-04 11:07 | CM ---
Home today no needs.
Plan; Home
[2024-10-04 11:28] LABS: Glucose - Point of Care 269 mg/dl (70-99)
[2024-10-04] MEDS: PT'S OWN INSULIN PUMP - HumaLOG 5.6 UNIT SC (11:34)
[2024-10-04 14:22] VITALS: BP 122/85
== END 2024-10-04 14:49 | disposition home or self-care (01) | DRG 690 ==
LOC: 4 WEST ACU 17:04
PROVIDERS: Emergency Medicine; ADMITTING PHYSICIAN Hospitalist; ATTENDING PHYSICIAN Hospitalist; CONSULT PHYSICIAN Internal Medicine; CONSULT PHYSICIAN Specialist; EMERGENCY PHYSICIAN Student in an Organized Health Care Education/Training Program; FAMILY PHYSICIAN Family Medicine; OTHER PHYSICIAN Internal Medicine Infectious Disease
DX: N10 Acute pyelonephritis (principal); F11.20 Opioid dependence, uncomplicated; N30.90 Cystitis, unspecified without hematuria; N17.9 Acute kidney failure, unspecified; N18.30 Chronic kidney disease, stage 3 unspecified; I12.9 Hypertensive chronic kidney disease with stage 1 through stage 4 chronic kidney disease, or unspecified chronic kidney disease; E87.5 Hyperkalemia; D70.4 Cyclic neutropenia; E10.65 Type 1 diabetes mellitus with hyperglycemia; E10.22 Type 1 diabetes mellitus with diabetic chronic kidney disease; F41.9 Anxiety disorder, unspecified; Z79.4 Long term (current) use of insulin; Z96.41 Presence of insulin pump (external) (internal); Z79.899 Other long term (current) drug therapy; G43.909 Migraine, unspecified, not intractable, without status migrainosus; Z79.890 Hormone replacement therapy; E03.9 Hypothyroidism, unspecified; Z93.6 Other artificial openings of urinary tract status; D50.9 Iron deficiency anemia, unspecified; Z87.891 Personal history of nicotine dependence; Z88.1 Allergy status to other antibiotic agents; N34.2 Other urethritis; E10.649 Type 1 diabetes mellitus with hypoglycemia without coma; Z84.1 Family history of disorders of kidney and ureter; F31.9 Bipolar disorder, unspecified; F43.10 Post-traumatic stress disorder, unspecified; J45.909 Unspecified asthma, uncomplicated; N80.9 Endometriosis, unspecified; E28.2 Polycystic ovarian syndrome; A60.04 Herpesviral vulvovaginitis; Z87.440 Personal history of urinary (tract) infections
CPT/HCPCS: 74177; 80048; 80053; 81003; 81015; 82570; 82962; 84156; 84300; 84703; 85025; 87040; 94640; 96374; 99284; Q9967

== ENCOUNTER → 2024-10-19 08:43 | Outpatient (REF) | payer BC, SELFPAY ==
[2024-10-19 08:47] LABS: % Basophils 0.3 % (0-2); % Immature Granulocytes 0.3 % (0-0.5); % Lymphocytes 20.5 % (20.5-51.1); % Monocytes 6.5 % (1.7-9.3); % Neutrophils 72.4 % (42.2-75.2); Absolute Lymphocytes 1.6 10^3/uL (1.2-3.4); Absolute Monocytes 0.5 10^3/uL (0.1-0.6); Absolute Neutrophils 5.6 10^3/uL (1.4-6.5); Hematocrit 35.5 % (37.0-47.0); Hemoglobin 11.8 g/dL (12.0-16.0); Mean Corp Hgb Conc. 33.2 g/dL (33.0-37.0); Mean Corpuscular Hgb 26.6 pg (27.0-31.0); Mean Corpuscular Volume 80.1 fL (81.0-99.0); Mean Platelet Volume 10.1 fL (7.4-10.4); Platelet Count 254 10^3/uL (130-400); Red Blood Cell Count 4.43 10^6/uL (4.20-5.40); Red Cell Dist. Width 15.7 % (11.5-14.5); White Blood Cell Count 7.7 10^3/uL (4.8-10.8)
== END ==
LOC: OIDL 08:43
PROVIDERS: ATTENDING PHYSICIAN Internal Medicine Hematology & Oncology
DX: D50.9 Iron deficiency anemia, unspecified (principal)
CPT/HCPCS: 85025

== ENCOUNTER → 2024-11-02 08:19 | Outpatient (REF) | payer BC, SELFPAY ==
[2024-11-02 08:42] LABS: % Basophils 0.3 % (0-2); % Lymphocytes 45.2 % (20.5-51.1); % Monocytes 12.5 % (1.7-9.3); Absolute Lymphocytes 1.6 10^3/uL (1.2-3.4); Absolute Monocytes 0.4 10^3/uL (0.1-0.6); Absolute Neutrophils 1.4 10^3/uL (1.4-6.5); Hematocrit 32.2 % (37.0-47.0); Hemoglobin 10.8 g/dL (12.0-16.0); Mean Corp Hgb Conc. 33.5 g/dL (33.0-37.0); Mean Corpuscular Hgb 26.7 pg (27.0-31.0); Mean Corpuscular Volume 79.7 fL (81.0-99.0); Mean Platelet Volume 9.9 fL (7.4-10.4); Platelet Count 173 10^3/uL (130-400); Red Blood Cell Count 4.04 10^6/uL (4.20-5.40); White Blood Cell Count 3.4 10^3/uL (4.8-10.8)
== END ==
LOC: OIDL 08:19
PROVIDERS: ATTENDING PHYSICIAN Internal Medicine Hematology & Oncology; FAMILY PHYSICIAN Family Medicine
DX: D50.9 Iron deficiency anemia, unspecified (principal); D70.4 Cyclic neutropenia
CPT/HCPCS: 36415; 85025

== ENCOUNTER → 2024-11-16 08:04 | Outpatient (REF) | payer BC, SELFPAY ==
[2024-11-16 08:17] LABS: % Basophils 0.1 % (0-2); % Immature Granulocytes 0.1 % (0-0.5); % Lymphocytes 14.1 % (20.5-51.1); % Monocytes 6.5 % (1.7-9.3); % Neutrophils 79.2 % (42.2-75.2); Absolute Lymphocytes 1.3 10^3/uL (1.2-3.4); Absolute Monocytes 0.6 10^3/uL (0.1-0.6); Hematocrit 34.2 % (37.0-47.0); Hemoglobin 11.2 g/dL (12.0-16.0); Mean Corp Hgb Conc. 32.7 g/dL (33.0-37.0); Mean Corpuscular Hgb 26.4 pg (27.0-31.0); Mean Corpuscular Volume 80.5 fL (81.0-99.0); Mean Platelet Volume 10.4 fL (7.4-10.4); Platelet Count 198 10^3/uL (130-400); Red Blood Cell Count 4.25 10^6/uL (4.20-5.40); Red Cell Dist. Width 14.7 % (11.5-14.5); White Blood Cell Count 8.9 10^3/uL (4.8-10.8)
== END ==
LOC: OIDL 08:04
PROVIDERS: Nurse Practitioner Adult Health; ATTENDING PHYSICIAN Internal Medicine Hematology & Oncology; FAMILY PHYSICIAN Family Medicine
DX: D50.9 Iron deficiency anemia, unspecified (principal); D70.4 Cyclic neutropenia
CPT/HCPCS: 85025

== ENCOUNTER → 2024-12-02 08:26 | Outpatient (REF) | payer BC, SELFPAY ==
[2024-12-02 09:29] LABS: Hemoglobin 10.7 g/dL (12.0-16.0); Mean Corp Hgb Conc. 33.4 g/dL (33.0-37.0); Mean Corpuscular Hgb 26.4 pg (27.0-31.0); Platelet Count 225 10^3/uL (130-400); Red Blood Cell Count 4.05 10^6/uL (4.20-5.40); Red Cell Dist. Width 14.2 % (11.5-14.5); White Blood Cell Count 2.4 10^3/uL (4.8-10.8)
[2024-12-02 09:49] LABS: % Lymphocytes 60.3 % (20.5-51.1); % Neutrophils 20.7 % (42.2-75.2); Absolute Lymphocytes 1.5 10^3/uL (1.2-3.4); Absolute Monocytes 0.5 10^3/uL (0.1-0.6); Nucleated Red Blood Cells % 0 %
[2024-12-02 09:50] LABS: Absolute Neutrophils 0.5 10^3/uL (1.4-6.5)
== END ==
LOC: OIDL 08:26
PROVIDERS: ATTENDING PHYSICIAN Internal Medicine Hematology & Oncology; FAMILY PHYSICIAN Family Medicine
DX: D50.9 Iron deficiency anemia, unspecified (principal); D70.4 Cyclic neutropenia
CPT/HCPCS: 36415; 85025

== ENCOUNTER 2024-12-06 19:36 | Inpatient (IN) | payer BC, SELFPAY ==
[2024-12-06 16:05] VITALS: BMI 23.6
[2024-12-06 16:11] VITALS: BP 132/96
[2024-12-06 16:35] LABS: Urine Albumin 4+ (Neg - Trace); Urine Bilirubin Negative (Negative); Urine Character Clear (Clear); Urine Color Yellow; Urine Glucose 2+ (Negative); Urine Ketone Negative (Negative); Urine Leukocyte 1+ (Negative); Urine Nitrite Negative (Negative); Urine Occult Blood 3+ (Negative); Urine Urobilinogen Negative (Neg - 1+)
[2024-12-06 16:42] LABS: Urine Bacteria Many (Negative); Urine Squamous Cell 0-2 /LPF (Few); Urine White Cell 26-30 /HPF (0-5)
[2024-12-06 16:43] LABS: Urine Yeast Many (Negative)
[2024-12-06 16:47] LABS: ALT (SGPT) 12 U/L (0-35); AST (SGOT) 18 U/L (14-36); Albumin 3.3 g/dl (3.5-5.0); Alkaline Phosphatase 196 U/L (38-126); Blood Urea Nitrogen 32 mg/dl (7-17); Calcium 8.4 mg/dl (8.4-10.2); Carbon Dioxide 22 mmol/L (22-30); Chloride 112 mmol/L (98-107); Glucose 245 mg/dl (70-99); Lipase 34 U/L (23-300); Potassium 4.7 mmol/L (3.5-5.1); Sodium 137 mmol/L (135-145); Total Bilirubin 0.4 mg/dl (0.2-1.3); Total Protein 5.6 g/dl (6.3-8.2); eGFR 36.89
[2024-12-06 16:48] LABS: Hemoglobin 10.3 g/dL (12.0-16.0); Mean Corp Hgb Conc. 33.2 g/dL (33.0-37.0); Mean Corpuscular Hgb 26.4 pg (27.0-31.0); Mean Corpuscular Volume 79.5 fL (81.0-99.0); Mean Platelet Volume 10.8 fL (7.4-10.4); Platelet Count 182 10^3/uL (130-400); Red Cell Dist. Width 14.8 % (11.5-14.5)
[2024-12-06 17:14] LABS: % Basophils 0.1 % (0-2); % Immature Granulocytes 1.9 % (0-0.5); % Lymphocytes 12.7 % (20.5-51.1); % Monocytes 10.5 % (1.7-9.3); % Neutrophils 74.8 % (42.2-75.2); Absolute Immature Granulocytes 0.5 10^3/uL (0-0.05); Absolute Lymphocytes 3.1 10^3/uL (1.2-3.4); Absolute Monocytes 2.6 10^3/uL (0.1-0.6); Absolute Neutrophils 18.4 10^3/uL (1.4-6.5); Nucleated Red Blood Cells % 0 %; White Blood Cell Count 24.7 10^3/uL (4.8-10.8)
[2024-12-06 18:00] VITALS: BP 131/91
--- NOTE | 2024-12-06 18:11 | ED.GENMED ---
History of Present Illness
General
Chief Complaint: Abdominal Symptoms
Source: patient
Exam Limitations: none
Time Seen by Provider: 12/06/24 17:58
History of Present Illness
History of Present Illness:
See MDM
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
ED Past Medical History: Asthma, IDDM, Hypothyroidism, Psychiatric, Other (EMPHASEMATOUS PYELONEPHRITIS, neutropenia) and Other (Anemia, Escherichia coli sepsis, multiple abscesses, Cellulitis, Pyelonephritis, vaginal herpes, polysubstance drug
abuse)
ED Past Surgical History: Appendectomy, Tonsilectomy (T&A) and Other (tympanostomy, buttocks I&D, NEPHROSTOMY RIGHT)
Social History
Tobacco: Former smoker
Alcohol: None
Drug: Marijuana, Narcotics, IVDA (Heroin user) and Other (Methamphetamine)
Personal: Single
Living: with family
Employment: Employed ([employer])
Family History
Family History: Other (Noncontributory)
Phy Exam
Physical Exam
Physical Exam:
See MDM
Course
Orders/Labs/Results
Orders:
Orders
12/06/24 16:25
Complete Blood Count/With Diff Urgent
Comprehensive Metabolic Panel Urgent
Lipase Urgent
Urinalysis Reflex To Culture Urgent
Date Specimen was Collected: 12/06/24
Time Specimen was Collected: 16:14
Urine Microscopic Reflex Cult Urgent
Urine Culture Urgent
ROBE Source: U
Specimen Description:
Obtained by: Random
Date Specimen was Collected: 12/06/24
Time Specimen was Collected: 16:14
12/06/24 18:08
CefTRIAXone [Rocephin] 1,000 mg IV NOW STA
HYDROmorphone [Dilaudid] 1 mg IV NOW STA
Abnormal Lab Results
12/06/24
16:25
WBC 24.7 H 10^3/uL
(4.8-10.8)
RBC 3.90 L 10^6/uL
(4.20-5.40)
Hgb 10.3 L g/dL
(12.0-16.0)
Hct 31.0 L %
(37.0-47.0)
MCV 79.5 L fL
(81.0-99.0)
MCH 26.4 L pg
(27.0-31.0)
RDW 14.8 H %
(11.5-14.5)
MPV 10.8 H fL
(7.4-10.4)
Abs Immat Gran (auto) 0.5 H 10^3/uL
(0-0.05)
Absolute Neuts (auto) 18.4 H 10^3/uL
(1.4-6.5)
Absolute Monos (auto) 2.6 H 10^3/uL
(0.1-0.6)
Immature Gran % 1.9 H %
(0-0.5)
Lymphocytes % 12.7 L %
(20.5-51.1)
Monocytes % 10.5 H %
(1.7-9.3)
Chloride 112 H mmol/L
(98-107)
BUN 32 H mg/dl
(7-17)
Creatinine 1.9 H mg/dL
(0.6-1.0)
Glucose 245 H mg/dl
(70-99)
Alkaline Phosphatase 196 H U/L
(38-126)
Total Protein 5.6 L g/dl
(6.3-8.2)
Albumin 3.3 L g/dl
(3.5-5.0)
Ur Occult Blood Reflex 3+ A
(Negative)
Leukocyte Esterase Rfl 1+ A
(Negative)
Urine RBC 3-6 A /HPF
(0-2)
Urine WBC (Reflex) 26-30 A /HPF
(0-5)
Urine Bacteria (Reflex) Many A
(Negative)
Urine Yeast Many A
(Negative)
Urine Glucose 2+ A
(Negative)
Urine Albumin (Reflex) 4+ A
(Neg - Trace)
12/06/24 16:25
12/06/24 16:25
Vital Signs
Initial and Last Documented VS:
Initial Vital Signs
Temp Pulse Resp BP Pulse Ox
98.0 F 102 17 132/96 99
12/06/24 16:11 12/06/24 16:11 12/06/24 16:11 12/06/24 16:11 12/06/24 16:11
Last Documented Vital Signs
Temp Pulse Resp BP Pulse Ox
98.0 F 102 17 132/96 99
12/06/24 16:11 12/06/24 16:11 12/06/24 16:11 12/06/24 16:11 12/06/24 16:11
MDM/Problems Addressed
Differential Diagnosis Includes:
HPI and MDM Narrative:
24-year-old female presenting with several days of worsening bilateral back pain. Patient is concerned because she has a longstanding history of pyelonephritis. Patient states she has a history of kidney disease. She is currently being worked up
for the diagnosis of her ongoing symptoms. Patient believes she could have undiagnosed lupus but was told that her issues are related to several years of uncontrolled diabetes
Regardless, patient is uncomfortable. Given her chronic kidney disease with back pain and fevers at home, will treat as pyelonephritis. Her urinalysis is concerning for infection
Her creatinine appears to be at baseline. However, patient does have significant leukocytosis. Patient states she is also being treated for intermittent neutropenia and recently had shot of Neupogen
Physical exam
General: Mildly uncomfortable
HEENT: protecting airway
Neck: appears supple
CV: No evidence of cyanosis
Resp: No accessory muscle use
Abd: Non-distended
Back: Bilateral CVA tenderness without skin changes
Extremities: No deformities
Neuro: alert
Psych: Normal affect
Skin: Intact
Problems Addressed including Acute and Chronic Conditions affecting care:
1. Pyelonephritis
Acuity: acute
Prognosis: stable
Details: Given bilateral flank pain with fevers at home with her current urinalysis, will treat with IV antibiotics for pyelonephritis
Differential Diagnosis (but not limited to): UTI, pyelonephritis, kidney stone
Testing considered: CT abdomen/pelvis
Drug therapy (if applicable): OTC meds, please see d/c instruction regarding Rx drugs
Amount and/or Complexity of Data Reviewed
Clinical info obtained from: Patient
External data reviewed: Recent CT abdomen/pelvis shows no evidence of kidney stones
Labs I independently reviewed (but not limited to):
Radiology: N/A
Pulse Ox: not hypoxic
EKG independently reviewed: N/A
Hematologist: N/A
Critical Care: N/A
Risk of Complication:
Social Determinants of health: Good social support
Discussed with other providers: Hospitalist
Escalation of Care includes Admit/Obs: Chronic kidney disease with subjective fevers at home and evidence of pyelonephritis, will start IV antibiotics and admit
Occasional wrong word or 'sound a like' substitutions may have occurred due to the inherent limitations of voice recognition software. Read the chart carefully and recognize, using context, where substitutions have occurred.
*Critical Care Note
Total Time (30-74mins, 75-104mins- exclusive of procedures): Not Applicable
ED Attending Note
-
Portions of this chart may have been created with voice recognition software.� Occasional wrong word or��sound alike� substitutions may have occurred due to the inherent limitations of voice recognition software.
Discharge Plan
Departure
Patient Disposition: Admit
Date of Disposition: 12/06/24
Time of Disposition: 18:11
Admit to: Med/Surg
Presentation/result/management discussed w/ accepting MD/DO: Hospitalist
Discharge Problem:
Pyelonephritis
Prescriptions:
No Action
Medical Marijuana
5 mg PO BIDPRN PRN (Reason: ANXIETY)
fluticasone propion-salmeterol [Wixela Inhub] 250-50 mcg/dose blister with device
1 inh INHALATION R DAILYPRN PRN (Reason: sob)
Insulin Pump [Patient's Own Insulin Pump]
0 unit SC .CONTINOUS
Rx Instructions:
03/19/23 PATIENT USING HUMALOG AND PATIENT'S DEVICE HOLDS 175 UNITS
albuterol sulfate 90 mcg/actuation Hfa Aerosol Inhaler
2 puff INHALATION R Q4HPRN PRN (Reason: sob)
medroxyprogesterone 150 mg/mL Syringe
150 mg IM [id number]
sumatriptan succinate 50 mg Tablet
50 mg PO DAILYPRN PRN (Reason: migraine)
famotidine [Pepcid] 20 mg Tablet
20 mg PO DAILY
hydroxyzine HCl 25 mg Tablet
25 mg PO HS
levothyroxine 200 mcg Tablet
200 mcg PO DAILY @ 0600 30 Days Qty: 30 0RF
fluticasone propionate 50 mcg/actuation spray,suspension
1 spray INTRANASAL DAILY 5 Days Qty: 16 0RF
acetaminophen 650 mg Tablet Extended Release
1,300 mg PO DAILYPRN PRN (Reason: mild pain)
diphenhydramine HCl [Benadryl] 25 mg Capsule
25 mg PO HSPRN PRN (Reason: rash)
docusate sodium 100 mg Capsule
100 mg PO BID Qty: 20 0RF
levofloxacin 250 mg Tablet
250 mg PO DAILY 7 Days Qty: 7 0RF
amlodipine 5 mg Tablet
5 mg PO DAILY 30 Days Qty: 30 0RF
oxycodone 10 mg Tablet
10 mg PO Q4HPRN PRN (Reason: severe pain) Qty: 14 0RF
Interventions
Interventions:
*Risk Screen - Suicide Last Done: 12/06/24 16:14
*General Assessment Last Done: 12/06/24 16:14
*Neglect/Abuse Screening Last Done: 12/06/24 16:14
*ED- Fall Risk Assessment Last Done: 12/06/24 17:59
*ED COVID-19 Vaccine History Last Done: 12/06/24 16:14
QJ-Nkxwxc-Cjanbczrjj Assessment Last Done: 12/06/24 17:59
Discharge Date and Time
Print Language: BR[place]
[2024-12-06] MEDS: DILAUDID 1 MG IV (18:17)
[2024-12-06] MEDS: ROCEPHIN 1000 MG IV (18:17)
--- NOTE | 2024-12-06 19:10 | HPS.HSE ---
Addendum entered and electronically signed by Ofelia Choudhary MD 12/06/24 23:38:
Appears the patient's creatinine prior to September was around 1.4 at baseline. Currently 1.9 maybe new baseline. Hold nephrotoxic medications. Monitor with IV fluids.
Original Note:
Family Physician
-
Family Physician: Juan A Martinez
Chief Complaint
-
flank pain
History of Present Illness
24-year-old female past medical history of recurrent kidney infections status post nephrostomy tube 3 years ago, cyclical neutropenia, HSV oralis, type 1 diabetes on insulin pump, hypothyroidism, CKD 3, iron deficiency anemia, presenting with
bilateral lower back pain and fever. She started having pain in her left upper quadrant and back as well as right flank. She has urinary frequency which is chronic and also has some bladder pressure. Denies blood in the urine. She had nausea and
vomiting and fever.
Her blood sugars have been between 70-400 over the past few days but she has been managing with her insulin pump.
She received Neupogen injection yesterday.
She was recently admitted for flank pain and urinary symptoms. CT scan showed pyelonephritis. She was treated with antibiotics. She was seen by infectious disease and urology as well as nephrology for hyperkalemia.
She has medical marijuana card and uses marijuana sometimes. Alcohol occasionally. Denies smoking.
Medical History
Past Medical History
Past Medical History: Reports Other (recurrent kidney infections status post nephrostomy tube 3 years ago, cyclical neutropenia, HSV oralis, type 1 diabetes on insulin pump, hypothyroidism, CKD 3, iron deficiency anemia,)
Past Surgical History: Reports None
Social History
Tobacco: Non-smoker
Alcohol: None
Drug: None
Family History
Family History: Not pertinent
Allergies / Home Medications
Allergies reflects when Allergies were last updated in [employer].
Home Medications with original date entered in [employer]
Allergy/Medication List:
Allergies
Allergy/AdvReac Type Severity Reaction Status Date / Time
doxycycline Allergy Rash Verified 12/06/24 16:13
vancomycin Allergy Red Man Verified 12/06/24 16:13
Syndrome
Home Medications
Insulin Pump [Patient's Own Insulin Pump] 0 unit SC .CONTINOUS Diabetes 03/19/23
Medical Marijuana 5 mg PO BIDPRN PRN ANXIETY 03/19/23
fluticasone 250 mcg-salmeterol 50 mcg/dose blistr powdr for inhalation (Wixela Inhub) 1 inh inhalation R DAILYPRN PRN sob 03/19/23
albuterol sulfate 90 mcg/actuation aerosol inhaler 2 puff inhalation R Q4HPRN PRN sob 05/15/24
medroxyprogesterone 150 mg/mL intramuscular syringe 150 mg IM [id number] Hormonal Agent 05/15/24
famotidine 20 mg tablet (Pepcid) 20 mg PO DAILY Gastrointestinal Issue 08/31/24
hydroxyzine HCl 25 mg tablet 25 mg PO HS Sleep 08/31/24
sumatriptan succinate 50 mg tablet 50 mg PO DAILYPRN PRN migraine 08/31/24
fluticasone propionate 50 mcg/actuation nasal spray,suspension 1 spray intranasal DAILY Congestion 5 days #16 grams 09/04/24
levothyroxine 200 mcg tablet 200 mcg PO DAILY @ 0600 30 days #30 tabs 09/04/24
acetaminophen 650 mg tablet,extended release 1,300 mg PO DAILYPRN PRN mild pain 09/27/24
diphenhydramine HCl 25 mg capsule (Benadryl) 25 mg PO HSPRN PRN rash 09/27/24
amlodipine 5 mg tablet 5 mg PO DAILY 30 days #30 tabs 10/04/24
docusate sodium 100 mg capsule 100 mg PO BID #20 caps 10/04/24
levofloxacin 250 mg tablet 250 mg PO DAILY 7 days #7 tabs 10/04/24
oxycodone 10 mg tablet 10 mg PO Q4HPRN PRN severe pain #14 tabs 10/04/24
Review of Systems
-
History Source: Patient
A 12 point ROS was completed and negative except as noted: Yes
Constitutional: Reports No Symptoms
EENT: Reports No Symptoms
Respiratory: Reports No Symptoms
Cardiac: Reports No Symptoms
Abdomen/GI: Reports See HPI
: Reports No Symptoms
Musculoskeletal: Reports No Symptoms
Skin: Reports No Symptoms
Neurological: Reports No Symptoms
Endocrine: Reports No Symptoms
Hematologic/Lymphatic: Reports No Symptoms
Psych: Reports No Symptoms
Physical Exam
Vital Signs
Vital Signs
Temp Pulse Resp BP Pulse Ox
98.7 F 89 20 131/91 100
12/06/24 18:00 12/06/24 18:00 12/06/24 18:00 12/06/24 18:00 12/06/24 18:00
Physical Exam
General: Well Developed, Well Nourished and No Apparent Distress
HEENT: NormoCephalic, Moist mucous membranes and Atraumatic
Respiratory: Clear
Cardiac: S1/S2 and Regular Rhythm; No Murmur or Rub
GI: Soft, Non Tender, Non Distended, Normal Bowel Sounds and Tender (flank tenderness ); No Organomegaly
Rectal: Deferred by Provider
Musculoskeletal: No Clubbing, No Cyanosis and No Edema
Skin: No Rash
Neuro: Nonfocal/grossly intact
Laboratory Results
-
12/06/24 16:25
12/06/24 16:25
Laboratory Results
Total Bilirubin 0.4 mg/dl (0.2-1.3) 12/06/24 16:25
AST 18 U/L (14-36) 12/06/24 16:25
ALT 12 U/L (0-35) 12/06/24 16:25
Alkaline Phosphatase 196 U/L (38-126) H 12/06/24 16:25
Lipase 34 U/L (23-300) 12/06/24 16:25
Data Reviewed
-
Lab Data: Labs Reviewed by me
Old Records: Reviewed
Impression/Plan
-
IMPRESSION:
PLAN:
# Sepsis secondary to likely recurrent pyelonephritis
# History of recurrent kidney infections including pyelonephritis status post nephrostomy tube 3 years ago
-Urinalysis shows 26-30 WBC
- IV fluids
-Urine culture pending
- Ceftriaxone
- Check CT abdomen pelvis
# Type 1 diabetes with insulin pump
-Has been having labile blood sugars from infection
- Continue insulin pump
# Leukocytosis secondary to Neupogen
# History of cyclical neutropenia
- White cell count of 24
History of HSV oralis
Hypothyroidism
-Continue levothyroxine
CKD 3
-Renal function at baseline
History of iron deficiency anemia
-Continue iron supplement
Full code
DVT prophylaxis�heparin
Regular diet
[2024-12-06 19:45] LABS: HCG, Serum Qualitative Screen Negative
[2024-12-06 20:58] VITALS: BP 132/93
[2024-12-06 20:59] VITALS: BMI 23.2
[2024-12-06 21:15] LABS: Glucose - Point of Care 90 mg/dl (70-99)
[2024-12-06] MEDS: NSS 1000 IV (21:24)
[2024-12-06] MEDS: HEPARIN 5000 UNITS SC (21:24)
[2024-12-06] MEDS: DILAUDID 0.5 MG IV (21:24)
[2024-12-06] MEDS: ATARAX 25 MG PO (22:45)
[2024-12-06] MEDS: PT'S OWN INSULIN PUMP - HumaLOG SC (22:53)
--- NOTE | 2024-12-06 22:55 | PTCARENOTE ---
Patient arrived via stretcher to unit around 20:50 with dx of pyelonephritis. AAOx3. Pleasant and cooperative with care. Pain 8/10 to Lower left abd and lower right flank. Insulin pump to left thigh. No signs of distress. Vitals stable. Oriented to
unit. Call shabazz within reach.
[2024-12-06 23:59] VITALS: BP 108/78
[2024-12-06] MEDS: ZOVIRAX OINTMENT 5% 1 APPLIC TOPICAL (23:59)
[2024-12-07] MEDS: DILAUDID 0.5 MG IV ×6 (01:46→22:45)
[2024-12-07] MEDS: SYNTHROID 200 MCG PO (06:01)
[2024-12-07 07:00] VITALS: BP 110/78
[2024-12-07] MEDS: NSS 1000 IV (07:01)
[2024-12-07 08:17] LABS: Hematocrit 28.7 % (37.0-47.0); Hemoglobin 9.2 g/dL (12.0-16.0); Mean Corp Hgb Conc. 32.1 g/dL (33.0-37.0); Mean Corpuscular Hgb 26.4 pg (27.0-31.0); Mean Corpuscular Volume 82.2 fL (81.0-99.0); Platelet Count 166 10^3/uL (130-400); Red Blood Cell Count 3.49 10^6/uL (4.20-5.40); Red Cell Dist. Width 14.9 % (11.5-14.5); White Blood Cell Count 21.7 10^3/uL (4.8-10.8)
[2024-12-07 08:35] LABS: % Immature Granulocytes 1.3 % (0-0.5); % Lymphocytes 13.1 % (20.5-51.1); % Monocytes 8.4 % (1.7-9.3); % Neutrophils 77.2 % (42.2-75.2); Absolute Immature Granulocytes 0.3 10^3/uL (0-0.05); Absolute Lymphocytes 2.8 10^3/uL (1.2-3.4); Absolute Monocytes 1.8 10^3/uL (0.1-0.6); Absolute Neutrophils 16.7 10^3/uL (1.4-6.5); Nucleated Red Blood Cells % 0 %
[2024-12-07 08:37] LABS: Glucose - Point of Care 133 mg/dl (70-99)
[2024-12-07 09:06] LABS: ALT (SGPT) < 10 U/L (0-35); AST (SGOT) 14 U/L (14-36); Albumin 2.8 g/dl (3.5-5.0); Alkaline Phosphatase 140 U/L (38-126); Blood Urea Nitrogen 26 mg/dl (7-17); Calcium 7.9 mg/dl (8.4-10.2); Carbon Dioxide 22 mmol/L (22-30); Chloride 115 mmol/L (98-107); Estimated Creatinine Clearance 39 ml/min; Glucose 120 mg/dl (70-99); Potassium 4.3 mmol/L (3.5-5.1); Sodium 141 mmol/L (135-145); Total Bilirubin 0.2 mg/dl (0.2-1.3); Total Protein 4.9 g/dl (6.3-8.2); eGFR 39.36
[2024-12-07] MEDS: ZOVIRAX OINTMENT 5% 1 APPLIC TOPICAL ×5 (09:43→21:00)
[2024-12-07] MEDS: HEPARIN 5000 UNITS SC ×2 (09:46→20:59)
--- NOTE | 2024-12-07 09:46 | PN.DE.MGMTRT ---
Insulin Management
- -
12/07/2024: Diabetes Management Consult for Insulin Pump
24 year old female with PMH: Recurrent kidney infections s/p nephrostomy tube 3 years ago, cyclical neutropenia, HSV oralis, T1DM on insulin pump, hypothyroidism, CKD 3, iron deficiency anemia, presenting with B/L lower back pain and fever due to
sepsis 2/2 pyelonephritis. Patient well known to Diabetes team from multiple prior admissions. Prior to admission, was using OmniPod 5 with DexCom G6 and Humalog insulin. Patient states she sees [facility] and that glucose has been stable
at home over the last 3 months. Last A1C was 10.2% on 09/01/24. Cr 1.9, eGFR 36.89.
Patient is awake alert and oriented, sitting up in bed, appears very pale, states she feels better today, able to discuss diabetes care.
Glucose stable and in range, @ HS 90, fasting 133 POC this AM. Patient has insulin pump work sheet at bedside table, states she is very familiar with process of documentation at meal times.
Insulin pump settings as follows:
Basal rate I:CHO ratio Correction Factor Target
12am 1.05 10 40 130
6am 1.75 10 40 130
6pm 1.1 10 40 130
24 hour basal total 33.9 units.
Will update A1C.
Will make no changes to current pump settings. Discussed with nurse.
Will follow.
Diabetes History
- -
Type of Diabetes: 1
Pre-Admission Diabetes Regimen
12/06/24 12/07/24
16:25 07:51
Creatinine 1.9 H 1.8 H
Insulin Pump Settings
IP Diabetes Regimen
12/06/24 12/06/24 12/07/24
16:25 21:13 07:51
Glucose 245 H 120 H
POC Glucose 90
12/07/24
08:36
Glucose
POC Glucose 133 H
Patient Education
[2024-12-07] MEDS: PEPCID 20 MG PO (09:51)
[2024-12-07] MEDS: PT'S OWN INSULIN PUMP - HumaLOG SC ×4 (09:51→21:09)
--- NOTE | 2024-12-07 11:54 | W.PN.HOSP.TC ---
Today's Communication/Plan
-
IV antibiotics. Pain control
Assessment / Plan
Assessment / Plan
Physical exam:
General: Acutely ill
HEENT: Normocephalic, Atraumatic and Moist Mucous Membranes
Respiratory: Clear to Auscultation; Negative Wheezes, Rales or Rhonchi
Cardiac: Regular Rhythm and S1/S2
GI: Soft, Nontender and Nondistended. CVA tenderness
Musculoskeletal: No Clubbing, No Cyanosis and No Edema
Neuro: Awake, Alert and Oriented
Psych: Calm
A/P:
Sepsis due to pyelonephritis:
Continue IV ceftriaxone
Stop IV fluid
Pain control
Follow-up cultures
Leukocytosis:
Likely related to use of Neupogen recently and current infection
Monitor trend
CKD:
Avoid nephrotoxic
Monitor renal function
History of neutropenia:
History of cyclic neutropenia status post recent Neupogen
Continue monitor hematopoietic cell count
Diabetes mellitus type 1:
On insulin pump
Discussed with diabetic BRISKET PULLER
History of HSV oralis:
Continue antiviral topically
Hypothyroidism:
Continue thyroid replacement, levothyroxine 200 mcg p.o. daily
DVT prophylaxis:
Heparin SQ
CODE STATUS:
Full code
Total time spent on today's encounter was 52 minutes which included time spent in counseling the patient/family regarding diagnosis and treatment plan as listed above, goals of care, and symptom management. Case was discussed with nursing staff,
specialists, and care coordinators/case management. All labs and imaging personally reviewed by me. Remainder the time spent in detailed review of previous records, lab data, imaging, and other medical provider documentation.
Anticipated Discharge: > 48 hours
Subjective/Interval History
-
Date of Service: December 07, 2024
Patient still complaining of flank pain. Urinary symptoms improving. Afebrile
Objective Data
-
Labs:
Laboratory Results
12/07/24
07:51
WBC 21.7 H
Hgb 9.2 L
Hct 28.7 L
Plt Count 166
Sodium 141
Potassium 4.3
Chloride 115 H
Carbon Dioxide 22
BUN 26 H
Creatinine 1.8 H
Glucose 120 H
Calcium 7.9 L
Total Bilirubin 0.2
AST 14
ALT < 10
Alkaline Phosphatase 140 H
Vital Signs:
Vital Signs
Temp Pulse Resp BP Pulse Ox
98.5 F 89 17 110/78 99
12/07/24 07:00 12/07/24 07:00 12/07/24 07:00 12/07/24 07:00 12/07/24 07:00
I&O
12/06/24 12/07/24 12/08/24
06:59 06:59 06:59
Intake Total 1809
Balance 1809
[2024-12-07 12:15] LABS: Glucose - Point of Care 173 mg/dl (70-99)
--- NOTE | 2024-12-07 14:01 | CM ---
chiropractic practice manager reviewed patient's chart and met with patient and patient reports that she lives in a 2nd floor apartment, with her son, brother and mother. Patient is independent with adl's and ambulation, no dme, patient drives, home with family when
stable no needs, AD information provided to patient.
PCP: Dr. Martinez
Pharmacy; [facility]
Plan; Home no needs when stable.
[2024-12-07 16:24] VITALS: BP 126/72
[2024-12-07 16:45] LABS: Glucose - Point of Care 96 mg/dl (70-99)
[2024-12-07] MEDS: ROCEPHIN 1000 MG IV (18:36)
[2024-12-07] MEDS: STERILE WATER FOR INJECTION 10 ML IV (18:36)
[2024-12-07] MEDS: ATARAX 25 MG PO (20:59)
[2024-12-07] MEDS: ROXICODONE 5 MG PO (21:13)
[2024-12-07 21:23] LABS: Glucose - Point of Care 139 mg/dl (70-99)
[2024-12-07 23:42] VITALS: BP 136/83
[2024-12-08] MEDS: SYNTHROID 200 MCG PO (05:49)
[2024-12-08] MEDS: DILAUDID 0.5 MG IV ×5 (05:52→23:00)
[2024-12-08 07:06] VITALS: BP 131/84
[2024-12-08 08:12] LABS: % Basophils 0.8 % (0-2); % Immature Granulocytes 1.7 % (0-0.5); % Lymphocytes 14.7 % (20.5-51.1); % Neutrophils 74.8 % (42.2-75.2); Absolute Basophils 0.1 10^3/uL (0-0.2); Absolute Immature Granulocytes 0.3 10^3/uL (0-0.05); Absolute Lymphocytes 2.4 10^3/uL (1.2-3.4); Absolute Monocytes 1.3 10^3/uL (0.1-0.6); Absolute Neutrophils 12.1 10^3/uL (1.4-6.5); Hematocrit 29.2 % (37.0-47.0); Hemoglobin 9.1 g/dL (12.0-16.0); Mean Corp Hgb Conc. 31.2 g/dL (33.0-37.0); Mean Corpuscular Hgb 25.7 pg (27.0-31.0); Mean Corpuscular Volume 82.5 fL (81.0-99.0); Mean Platelet Volume 10.7 fL (7.4-10.4); Nucleated Red Blood Cells % 0 %; Platelet Count 140 10^3/uL (130-400); Red Blood Cell Count 3.54 10^6/uL (4.20-5.40); Red Cell Dist. Width 14.8 % (11.5-14.5); White Blood Cell Count 16.2 10^3/uL (4.8-10.8)
--- NOTE | 2024-12-08 08:13 | PN.DE.MGMTRT ---
Insulin Management
- -
12/08/2024: Diabetes Management Consult for Insulin Pump Follow up
Patient admitted 12/06 with B/L lower back pain and fever due to sepsis 2/2 pyelonephritis. PMH: Recurrent kidney infections s/p nephrostomy tube 3 years ago, cyclical neutropenia, HSV oralis, T1DM on insulin pump, hypothyroidism, CKD 3, iron
deficiency anemia, Patient well known to Diabetes team from multiple prior admissions. Prior to admission, was using OmniPod 5 with DexCom G6 and Humalog insulin. Patient states she sees [facility] and that glucose has been stable at
home over the last 3 months. Last A1C was 10.2% on 09/01/24. Cr 1.9, eGFR 36.89.
Patient is awake alert and oriented, sitting up in bed, states she feels better today, able to discuss diabetes care.
Glucose stable and in range, @ HS 139, fasting 181 POC this AM. Patient has insulin pump work sheet at bedside table, states she is very familiar with process of documentation at meal times.
Insulin pump settings as follows:
Basal rate I:CHO ratio Correction Factor Target
12am 1.05 10 40 130
6am 1.75 10 40 130
6pm 1.1 10 40 130
24 hour basal total 33.9 units.
Will update A1C.
Will make no changes to current pump settings. Discussed with nurse.
Will follow.
Diabetes History
- -
Type of Diabetes: 1
Pre-Admission Diabetes Regimen
12/07/24
07:51
Creatinine 1.8 H
Insulin Pump Settings
IP Diabetes Regimen
12/07/24 12/07/24 12/07/24
07:51 08:36 12:13
Glucose 120 H
POC Glucose 133 H 173 H
12/07/24 12/07/24
16:44 21:22
Glucose
POC Glucose 96 139 H
Patient Education
[2024-12-08 08:16] LABS: Glucose - Point of Care 181 mg/dl (70-99)
[2024-12-08 08:37] LABS: Blood Urea Nitrogen 29 mg/dl (7-17); Carbon Dioxide 21 mmol/L (22-30); Chloride 113 mmol/L (98-107); Estimated Creatinine Clearance 39 ml/min; Glucose 180 mg/dl (70-99); Potassium 4.8 mmol/L (3.5-5.1); Sodium 139 mmol/L (135-145); eGFR 39.36
--- NOTE | 2024-12-08 09:00 | W.PN.HOSP.TC ---
Addendum entered and electronically signed by Karthik Solorio MD 12/08/24 17:39:
Urine culture growing GBS. Cont IV abx and when ready can switch to Amox.
Original Note:
Today's Communication/Plan
-
Continue antibiotic
Assessment / Plan
Assessment / Plan
Physical exam:
General: Acutely ill
HEENT: Normocephalic, Atraumatic and Moist Mucous Membranes
Respiratory: Clear to Auscultation; Negative Wheezes, Rales or Rhonchi
Cardiac: Regular Rhythm and S1/S2
GI: Soft, Nontender and Nondistended. CVA tenderness
Musculoskeletal: No Clubbing, No Cyanosis and No Edema
Neuro: Awake, Alert and Oriented
Psych: Calm
A/P:
Sepsis due to pyelonephritis:
Continue IV ceftriaxone
Stop IV fluid
Pain control
Follow-up cultures
Abdominal discomfort:
Start Pepcid
Add Bentyl as needed as well
Antiemetics as needed
Add bowel regimen as well
Leukocytosis:
Trending down
Likely related to use of Neupogen recently and current infection
Monitor trend
CKD:
Avoid nephrotoxic
Monitor renal function
History of neutropenia:
History of cyclic neutropenia status post recent Neupogen
Continue monitor hematopoietic cell count
Diabetes mellitus type 1:
On insulin pump
Discussed with diabetic GROCERY ASSOCIATE-discussed with GROCERY ASSOCIATE today
History of HSV oralis:
Continue antiviral topically
Hypothyroidism:
Continue thyroid replacement, levothyroxine 200 mcg p.o. daily
DVT prophylaxis:
Heparin SQ
CODE STATUS:
Full code
Total time spent on today's encounter was 52 minutes which included time spent in counseling the patient/family regarding diagnosis and treatment plan as listed above, goals of care, and symptom management. Case was discussed with nursing staff,
specialists, and care coordinators/case management. All labs and imaging personally reviewed by me. Remainder the time spent in detailed review of previous records, lab data, imaging, and other medical provider documentation.
Anticipated Discharge: 24 - 48 hours
Subjective/Interval History
-
Date of Service: December 08, 2024
Patient still having flank pain. Also abdominal discomfort and nausea at times.
Objective Data
-
Labs:
Laboratory Results
12/08/24
07:12
WBC 16.2 H
Hgb 9.1 L
Hct 29.2 L
Plt Count 140
Sodium 139
Potassium 4.8
Chloride 113 H
Carbon Dioxide 21 L
BUN 29 H
Creatinine 1.8 H
Glucose 180 H
Calcium 8.0 L
Vital Signs:
Vital Signs
Temp Pulse Resp BP Pulse Ox
98.3 F 84 18 131/84 99
12/08/24 07:06 12/08/24 07:06 12/08/24 07:06 12/08/24 07:06 12/08/24 07:06
I&O
12/07/24 12/08/24 12/09/24
06:59 06:59 06:59
Intake Total 2049
Balance 2049
[2024-12-08] MEDS: PEPCID 20 MG PO (09:53)
[2024-12-08] MEDS: ZOVIRAX OINTMENT 5% 1 APPLIC TOPICAL ×4 (09:54→22:56)
[2024-12-08] MEDS: COLACE 100 MG PO ×2 (09:54→19:30)
[2024-12-08] MEDS: HEPARIN 5000 UNITS SC ×2 (09:54→19:33)
[2024-12-08] MEDS: ZOFRAN 4 MG IV ×2 (09:57→18:45)
[2024-12-08] MEDS: PT'S OWN INSULIN PUMP - HumaLOG 3.25 UNIT SC (09:58)
--- NOTE | 2024-12-08 09:59 | CM ---
Chart reviewed and plan is to home with family when stable.
Plan; Home with family when stable.
[2024-12-08 11:23] LABS: Glucose - Point of Care 265 mg/dl (70-99)
[2024-12-08] MEDS: COLACE PO (11:25)
[2024-12-08 12:24] LABS: Glycohemoglobin (HgbA1c) 8.5 % (4.0-5.6)
[2024-12-08] MEDS: PT'S OWN INSULIN PUMP - HumaLOG 2.6 UNIT SC (12:24)
[2024-12-08] MEDS: ROXICODONE 5 MG PO (12:27)
[2024-12-08] MEDS: MIRALAX 17 GRAMS PO (12:28)
[2024-12-08] MEDS: ZOVIRAX OINTMENT 5% TOPICAL (15:23)
[2024-12-08 15:33] VITALS: BP 129/88
[2024-12-08 16:28] LABS: Glucose - Point of Care 81 mg/dl (70-99)
[2024-12-08] MEDS: STERILE WATER FOR INJECTION 10 ML IV (17:15)
[2024-12-08] MEDS: ROCEPHIN 1000 MG IV (17:15)
[2024-12-08] MEDS: PT'S OWN INSULIN PUMP - HumaLOG 12.75 UNIT SC (17:18)
[2024-12-08] MEDS: BENTYL 10 MG PO (18:45)
[2024-12-08] MEDS: TYLENOL 1000 MG PO (18:45)
[2024-12-08] MEDS: FLORASTOR 250 MG PO (19:30)
[2024-12-08 21:56] LABS: Glucose - Point of Care 120 mg/dl (70-99)
[2024-12-08] MEDS: ATARAX 25 MG PO (22:57)
[2024-12-08] MEDS: PT'S OWN INSULIN PUMP - HumaLOG SC (22:58)
[2024-12-08 23:12] VITALS: BP 154/84
[2024-12-09] MEDS: TYLENOL 1000 MG PO ×3 (02:01→17:33)
[2024-12-09] MEDS: DILAUDID 0.5 MG IV ×3 (03:55→19:50)
[2024-12-09] MEDS: SYNTHROID 200 MCG PO (03:55)
[2024-12-09 07:25] VITALS: BP 129/84
--- NOTE | 2024-12-09 07:32 | PN.DE.MGMTRT ---
Insulin Management
- -
12/09/2024: Diabetes Management Consult for Insulin Pump Follow up
Patient admitted 12/06 with B/L lower back pain and fever due to sepsis 2/2 pyelonephritis. PMH: Recurrent kidney infections s/p nephrostomy tube 3 years ago, cyclical neutropenia, HSV oralis, T1DM on insulin pump, hypothyroidism, CKD 3, iron
deficiency anemia, Patient well known to Diabetes team from multiple prior admissions. Prior to admission, was using OmniPod 5 with DexCom G6 and Humalog insulin. Patient states she sees [facility] and that glucose has been stable at
home over the last 3 months. Current A1C was 8.5% 12/08/24 (improved from 10.2% 09/01). Cr 1.9, eGFR 36.89.
Patient is awake alert and oriented, sitting up in bed, states she feels better today, able to discuss diabetes care.
Glucose stable and in range, @ HS 120. This AM glucose trended up to 191 prior to patient eating. Discussed changing AM basal rate from 1.75 to 1.83, patient in agreement, changes made to pump settings.
Patient has insulin pump work sheet at bedside table, states she is very familiar with process of documentation at meal times.
Insulin pump settings as follows:
Basal rate I:CHO ratio Correction Factor Target
12am 1.05 10 40 130
6am * 1.85 10 40 130
6pm 1.1 10 40 130
24 hour basal total 35.1 units.
Discussed with nurse.
Will follow.
* changed 12/09/24
Diabetes History
- -
Type of Diabetes: 1
Pre-Admission Diabetes Regimen
12/08/24
07:12
Creatinine 1.8 H
Lab Results
Hemoglobin A1c Cancelled 12/08/24 08:18
Insulin Pump Settings
IP Diabetes Regimen
12/08/24 12/08/24 12/08/24
07:12 08:15 11:23
Glucose 180 H
POC Glucose 181 H 265 H
12/08/24 12/08/24
16:27 21:55
Glucose
POC Glucose 81 120 H
Patient Education
[2024-12-09 08:02] LABS: Glucose - Point of Care 168 mg/dl (70-99)
[2024-12-09] MEDS: PT'S OWN INSULIN PUMP - HumaLOG 5 UNIT SC (09:57)
[2024-12-09] MEDS: ZOVIRAX OINTMENT 5% 1 APPLIC TOPICAL ×4 (09:58→22:09)
[2024-12-09] MEDS: MIRALAX 17 GRAMS PO (09:59)
[2024-12-09] MEDS: COLACE 100 MG PO ×2 (09:59→19:44)
[2024-12-09] MEDS: PEPCID 20 MG PO (09:59)
[2024-12-09] MEDS: FLORASTOR 250 MG PO ×2 (10:00→19:44)
[2024-12-09] MEDS: HEPARIN 5000 UNITS SC ×2 (10:01→19:44)
[2024-12-09 11:01] LABS: Hematocrit 28.9 % (37.0-47.0); Hemoglobin 9.3 g/dL (12.0-16.0); Mean Corp Hgb Conc. 32.2 g/dL (33.0-37.0); Mean Corpuscular Hgb 26.2 pg (27.0-31.0); Mean Corpuscular Volume 81.4 fL (81.0-99.0); Mean Platelet Volume 11.2 fL (7.4-10.4); Platelet Count 133 10^3/uL (130-400); Red Blood Cell Count 3.55 10^6/uL (4.20-5.40); Red Cell Dist. Width 14.3 % (11.5-14.5); White Blood Cell Count 14.8 10^3/uL (4.8-10.8)
--- NOTE | 2024-12-09 11:21 | W.PN.HOSP.TC ---
Today's Communication/Plan
-
Antibiotics
Assessment / Plan
Assessment / Plan
Physical exam:
General: Acutely ill
HEENT: Normocephalic, Atraumatic and Moist Mucous Membranes
Respiratory: Clear to Auscultation; Negative Wheezes, Rales or Rhonchi
Cardiac: Regular Rhythm and S1/S2
GI: Soft, Nontender and Nondistended. Right CVA tenderness
Musculoskeletal: No Clubbing, No Cyanosis and No Edema
Neuro: Awake, Alert and Oriented
Psych: Calm
A/P:
Sepsis due to right pyelonephritis from GBS:
Improving
Continue IV ceftriaxone and will switch to oral amoxicillin 500 mg every 8 hours upon discharge
Urine culture with Streptococcus agalactiae
Off IV fluid
Pain control
Abdominal discomfort:
Continue Pepcid
Continue Bentyl as needed as well
Antiemetics as needed
Add bowel regimen as well
Leukocytosis:
Trending down
From 24.7 down to 14.8 today
Likely related to use of Neupogen recently and current infection
Monitor trend
CKD:
Avoid nephrotoxic
Monitor renal function
History of neutropenia:
History of cyclic neutropenia status post recent Neupogen
Continue monitor hematopoietic cell count
Diabetes mellitus type 1:
On insulin pump
On board diabetic RECRUITMENT INTERN
History of HSV oralis:
Continue antiviral topically
Hypothyroidism:
Continue thyroid replacement, levothyroxine 200 mcg p.o. daily
DVT prophylaxis:
Heparin SQ
CODE STATUS:
Full code
Anticipated Discharge: 24 - 48 hours
Subjective/Interval History
-
Date of Service: December 09, 2024
Patient has right flank pain still ongoing but improving. Less nausea. No vomiting. Afebrile
Objective Data
-
Labs:
Laboratory Results
12/09/24
09:50
WBC 14.8 H
Hgb 9.3 L
Hct 28.9 L
Plt Count 133
Sodium Pending
Potassium Pending
Chloride Pending
Carbon Dioxide Pending
BUN Pending
Creatinine Pending
Glucose Pending
Calcium Pending
Vital Signs:
Vital Signs
Temp Pulse Resp BP Pulse Ox
98.2 F 85 18 129/84 98
12/09/24 07:25 12/09/24 07:25 12/09/24 07:25 12/09/24 07:25 12/09/24 07:25
I&O
12/08/24 12/09/24 12/10/24
06:59 06:59 06:59
Intake Total 2049 1560 / 1560
Balance 2049 156 / 1560
[2024-12-09 11:28] LABS: % Basophils 0.5 % (0-2); % Immature Granulocytes 3.9 % (0-0.5); % Monocytes 6.8 % (1.7-9.3); % Neutrophils 72.8 % (42.2-75.2); Absolute Basophils 0.1 10^3/uL (0-0.2); Absolute Immature Granulocytes 0.6 10^3/uL (0-0.05); Absolute Lymphocytes 2.4 10^3/uL (1.2-3.4); Absolute Neutrophils 10.8 10^3/uL (1.4-6.5); Nucleated Red Blood Cells % 0 %
[2024-12-09 11:38] LABS: Blood Urea Nitrogen 31 mg/dl (7-17); Calcium 8.2 mg/dl (8.4-10.2); Carbon Dioxide 22 mmol/L (22-30); Chloride 112 mmol/L (98-107); Estimated Creatinine Clearance 39 ml/min; Glucose 186 mg/dl (70-99); Potassium 4.7 mmol/L (3.5-5.1); Sodium 139 mmol/L (135-145); eGFR 39.36
[2024-12-09 11:39] LABS: Glucose - Point of Care 189 mg/dl (70-99)
[2024-12-09] MEDS: ZOVIRAX OINTMENT 5% TOPICAL (12:25)
[2024-12-09] MEDS: PT'S OWN INSULIN PUMP - HumaLOG 10.25 UNIT SC (14:11)
[2024-12-09] MEDS: ZOFRAN 4 MG IV (14:16)
[2024-12-09 15:52] VITALS: BP 151/102
--- NOTE | 2024-12-09 15:55 | CM ---
Patient seen at bedside on . Patient with no needs at this time. CM will continue to follow for discharge planning needs.
Plan; home with no needs anticipated.
[2024-12-09 15:59] LABS: Glucose - Point of Care 59 mg/dl (70-99)
[2024-12-09 16:25] LABS: Glucose - Point of Care 79 mg/dl (70-99)
[2024-12-09] MEDS: PT'S OWN INSULIN PUMP - HumaLOG 11.2 UNIT SC (16:44)
[2024-12-09] MEDS: STERILE WATER FOR INJECTION 10 ML IV (17:33)
[2024-12-09] MEDS: ROCEPHIN 1000 MG IV (17:33)
[2024-12-09] MEDS: ROXICODONE 5 MG PO ×2 (17:38→22:12)
[2024-12-09 18:27] LABS: Glucose - Point of Care 95 mg/dl (70-99)
[2024-12-09 22:07] LABS: Glucose - Point of Care 139 mg/dl (70-99)
[2024-12-09] MEDS: ATARAX 25 MG PO (22:09)
[2024-12-09] MEDS: PT'S OWN INSULIN PUMP - HumaLOG SC (22:10)
[2024-12-09 23:44] VITALS: BP 125/87
[2024-12-10] MEDS: DILAUDID 0.5 MG IV ×2 (00:28→06:28)
[2024-12-10] MEDS: TYLENOL 1000 MG PO ×2 (01:50→10:03)
[2024-12-10 03:59] LABS: Glucose - Point of Care 177 mg/dl (70-99)
[2024-12-10] MEDS: SYNTHROID 200 MCG PO (06:24)
--- NOTE | 2024-12-10 07:32 | W.PN.HOSP.TC ---
Today's Communication/Plan
-
Discharge planning
Assessment / Plan
Assessment / Plan
Physical exam:
General: Acutely ill
HEENT: Normocephalic, Atraumatic and Moist Mucous Membranes
Respiratory: Clear to Auscultation; Negative Wheezes, Rales or Rhonchi
Cardiac: Regular Rhythm and S1/S2
GI: Soft, Nontender and Nondistended. Right CVA tenderness
Musculoskeletal: No Clubbing, No Cyanosis and No Edema
Neuro: Awake, Alert and Oriented
Psych: Calm
A/P:
Sepsis due to right pyelonephritis from GBS:
Improving
Change IV ceftriaxone and will switch to oral amoxicillin 500 mg every 8 hours upon discharge today
Urine culture with Streptococcus agalactiae
Off IV fluid
Pain control
Abdominal discomfort:
Continue Pepcid
Continue Bentyl as needed as well
Antiemetics as needed
Add bowel regimen as well
Leukocytosis:
Trending down
From 24.7 down to 13.9 today
Likely related to use of Neupogen recently and current infection
Monitor trend
CKD:
Avoid nephrotoxic
Monitor renal function
History of neutropenia:
History of cyclic neutropenia status post recent Neupogen
Continue monitor hematopoietic cell count
Diabetes mellitus type 1:
On insulin pump
On board diabetic GATEMAN
History of HSV oralis:
Continue antiviral topically
Hypothyroidism:
Continue thyroid replacement, levothyroxine 200 mcg p.o. daily
Thrombocytopenia:
Unclear etiology
Stop Rocephin and heparin and will have follow-up CBC as outpatient
DVT prophylaxis:
Heparin SQ
CODE STATUS:
Full code
Anticipated Discharge: Today
Subjective/Interval History
-
Date of Service: December 10, 2024
Patient feels better overall. Discomfort at times on and off
Objective Data
-
Labs:
Laboratory Results
12/10/24
07:02
WBC Pending
Hgb Pending
Hct Pending
Plt Count Pending
Sodium Pending
Potassium Pending
Chloride Pending
Carbon Dioxide Pending
BUN Pending
Creatinine Pending
Glucose Pending
Calcium Pending
Vital Signs:
Vital Signs
Temp Pulse Resp BP Pulse Ox
97.2 F 86 20 125/87 96
12/09/24 23:44 12/09/24 23:44 12/09/24 23:44 12/09/24 23:44 12/10/24 01:34
I&O
12/09/24 12/10/24 12/11/24
06:59 06:59 06:59
Intake Total 1560 / 1560 1440 / 1440
Balance 1560 / 1560 1440 / 1440
[2024-12-10 07:34] LABS: Glucose - Point of Care 167 mg/dl (70-99)
[2024-12-10 07:42] LABS: % Basophils 0.4 % (0-2); % Immature Granulocytes 2.9 % (0-0.5); % Lymphocytes 16.7 % (20.5-51.1); % Monocytes 5.5 % (1.7-9.3); % Neutrophils 74.5 % (42.2-75.2); Absolute Basophils 0.1 10^3/uL (0-0.2); Absolute Immature Granulocytes 0.4 10^3/uL (0-0.05); Absolute Lymphocytes 2.3 10^3/uL (1.2-3.4); Absolute Monocytes 0.8 10^3/uL (0.1-0.6); Absolute Neutrophils 10.4 10^3/uL (1.4-6.5); Hematocrit 27.8 % (37.0-47.0); Mean Corp Hgb Conc. 32.4 g/dL (33.0-37.0); Mean Corpuscular Hgb 26.3 pg (27.0-31.0); Mean Corpuscular Volume 81.3 fL (81.0-99.0); Mean Platelet Volume 11.1 fL (7.4-10.4); Nucleated Red Blood Cells % 0 %; Platelet Count 125 10^3/uL (130-400); Red Blood Cell Count 3.42 10^6/uL (4.20-5.40); Red Cell Dist. Width 14.2 % (11.5-14.5); White Blood Cell Count 13.9 10^3/uL (4.8-10.8)
[2024-12-10 07:50] VITALS: BP 138/87
--- NOTE | 2024-12-10 08:20 | PN.DE.MGMTRT ---
Insulin Management
- -
12/10/2024: Diabetes Management Consult for Insulin Pump Follow up
Patient admitted 12/06 with B/L lower back pain and fever due to sepsis 2/2 pyelonephritis. PMH: Recurrent kidney infections s/p nephrostomy tube 3 years ago, cyclical neutropenia, HSV oralis, T1DM on insulin pump, hypothyroidism, CKD 3, iron
deficiency anemia, Patient well known to Diabetes team from multiple prior admissions. Prior to admission, was using OmniPod 5 with DexCom G6 and Humalog insulin. Patient states she sees [facility] and that glucose has been stable at
home over the last 3 months. Current A1C was 8.5% 12/08/24 (improved from 10.2% 09/01). Cr 1.9, eGFR 36.89.
Patient is awake alert and oriented, sitting up in bed, states she feels better today, able to discuss diabetes care.
Glucose stable and in range. Basal rate changed yesterday (see below*), will add 2pm basal rate of 1.75, also changed I:CHO ratio from 1:10 to 1:8, patient in agreement, changes made to pump settings.
Patient has insulin pump work sheet at bedside table, states she is very familiar with process of documentation at meal times.
Insulin pump settings as follows:
Basal rate I:CHO ratio Correction Factor Target
12am 1.05 8 40 130
6am * 1.85 8 40 130
2pm * 1.75 8 40 130
6pm 1.1 8 40 130
24 hour basal total 35.1 units.
Diabetes History
- -
Type of Diabetes: 1
Pre-Admission Diabetes Regimen
12/09/24
09:50
Creatinine 1.8 H
Lab Results
Hemoglobin A1c Cancelled 12/08/24 08:18
Insulin Pump Settings
IP Diabetes Regimen
12/09/24 12/09/24 12/09/24
09:50 11:38 15:58
Glucose 186 H
POC Glucose 189 H 59 L
12/09/24 12/09/24 12/09/24
16:23 18:25 22:05
Glucose
POC Glucose 79 95 139 H
12/10/24 12/10/24
03:58 07:33
Glucose
POC Glucose 177 H 167 H
Patient Education
[2024-12-10 08:21] LABS: Blood Urea Nitrogen 32 mg/dl (7-17); Calcium 8.5 mg/dl (8.4-10.2); Carbon Dioxide 24 mmol/L (22-30); Chloride 113 mmol/L (98-107); Estimated Creatinine Clearance 41 ml/min; Glucose 135 mg/dl (70-99); Potassium 4.9 mmol/L (3.5-5.1); Sodium 140 mmol/L (135-145); eGFR 42.15
[2024-12-10] MEDS: PT'S OWN INSULIN PUMP - HumaLOG 5 UNIT SC (08:27)
--- NOTE | 2024-12-10 09:34 | W.DCSUMMARY ---
Discharge Summary
Discharge Data
Date of Admission: 12/06/24
Date of Discharge: 12/10/24
Total time spent discharging patient (in min): 35
-
Pending Results: No
Hospital Course
Patient 24-year-old female with past medical history of CKD, cyclic neutropenia, diabetes mellitus type 1, hypothyroidism, presented to the hospital with right flank pain leukocytosis and signs of sepsis related to UTI/pyelonephritis. Patient was
treated with IV antibiotics and initially IV fluids. IV fluids were discontinued since kidney function was close to her baseline. Urine cultures grew streptococcal agalactiae and she was treated appropriately with IV cephalosporin and switched to
amoxicillin upon discharge to finish course as outpatient. Her white blood cell count has trended down appropriately. He has remained afebrile. Her right flank pain has been improving throughout her hospital stay. She will be discharged in
stable condition today.
Discharge duration: 35 minutes
Discharge Plan
-
Patient Disposition: Home (Routine Discharge)
Discharge Diagnosis/Procedures: Sepsis due to group B Streptococcus pyelonephritis/urinary tract infection. Diabetes mellitus type 1. Chronic kidney disease stage III.
Diet: Diabetic, Carb Controlled
Activity: As tolerated
Blood Work: Please PCP to order CBC, BMP within 1 week
Referrals:
Juan A Martinez MD [Family Provider, Family Practice] - in less than 1 week
Prescriptions:
New
amoxicillin 500 mg Capsule
500 mg PO Q8H 7 Days Qty: 21 0RF
oxycodone 5 mg Tablet
5 mg PO Q4HPRN PRN (Reason: moderate pain) Qty: 10 0RF
Continued
Medical Marijuana
5 mg PO BIDPRN PRN (Reason: ANXIETY)
fluticasone propion-salmeterol [Wixela Inhub] 250-50 mcg/dose blister with device
1 inh INHALATION R DAILYPRN PRN (Reason: sob)
Insulin Pump [Patient's Own Insulin Pump]
0 unit SC .CONTINOUS
Rx Instructions:
03/19/23 PATIENT USING HUMALOG AND PATIENT'S DEVICE HOLDS 175 UNITS
albuterol sulfate 90 mcg/actuation Hfa Aerosol Inhaler
2 puff INHALATION R Q4HPRN PRN (Reason: sob)
medroxyprogesterone 150 mg/mL Syringe
150 mg IM [id number]
sumatriptan succinate 50 mg Tablet
50 mg PO DAILYPRN PRN (Reason: migraine)
famotidine [Pepcid] 20 mg Tablet
20 mg PO DAILY
hydroxyzine HCl 25 mg Tablet
25 mg PO HS
levothyroxine 200 mcg Tablet
200 mcg PO DAILY @ 0600 30 Days Qty: 30 0RF
fluticasone propionate 50 mcg/actuation spray,suspension
1 spray INTRANASAL DAILY 5 Days Qty: 16 0RF
diphenhydramine HCl [Benadryl] 25 mg Capsule
25 mg PO HSPRN PRN (Reason: rash)
docusate sodium 100 mg Capsule
100 mg PO BID Qty: 20 0RF
acetaminophen [Acetaminophen Extra Strength] 500 mg Tablet
1,000 mg PO Q6H PRN (Reason: pain)
losartan 25 mg Tablet
25 mg PO DAILY
Rx Instructions:
Losartan Potassium 25mg daily
hydrochlorothiazide 12.5 mg Capsule
12.5 mg PO DAILY
acyclovir 5 % Cream
1 applic TOPICAL ONCE PRN (Reason: herpes)
Discharge Orders:
Discharge Patient (As Directed); Ordered 12/10/24
Ordered By: Karthik Solorio
Discharge Date and Time
Print Language: TURKISH
--- NOTE | 2024-12-10 09:36 | CM ---
Chart reviewed home today no needs.
Plan; Home no needs.
[2024-12-10] MEDS: MIRALAX 17 GRAMS PO (10:03)
[2024-12-10] MEDS: PEPCID 20 MG PO (10:03)
[2024-12-10] MEDS: ZOVIRAX OINTMENT 5% 1 APPLIC TOPICAL (10:04)
[2024-12-10] MEDS: COLACE 100 MG PO (10:09)
[2024-12-10] MEDS: FLORASTOR 250 MG PO (10:10)
[2024-12-10] MEDS: AMOXIL 500 MG PO (10:15)
[2024-12-10] MEDS: ROXICODONE 5 MG PO (10:23)
[2024-12-10] MEDS: HEPARIN SC (10:27)
[2024-12-10 11:46] VITALS: BP 127/95
== END 2024-12-10 11:59 | disposition home or self-care (01) | DRG 872 ==
LOC: 4 WEST ACU 19:36
PROVIDERS: ADMITTING PHYSICIAN Hospitalist; ATTENDING PHYSICIAN Hospitalist; EMERGENCY PHYSICIAN Student in an Organized Health Care Education/Training Program; FAMILY PHYSICIAN Family Medicine
DX: A40.1 Sepsis due to streptococcus, group B (principal); N12 Tubulo-interstitial nephritis, not specified as acute or chronic; E10.22 Type 1 diabetes mellitus with diabetic chronic kidney disease; N18.30 Chronic kidney disease, stage 3 unspecified; D70.4 Cyclic neutropenia; D50.9 Iron deficiency anemia, unspecified; B95.1 Streptococcus, group B, as the cause of diseases classified elsewhere; Z79.4 Long term (current) use of insulin; Z79.890 Hormone replacement therapy; Z79.899 Other long term (current) drug therapy; Z87.891 Personal history of nicotine dependence; Z93.6 Other artificial openings of urinary tract status; Z96.41 Presence of insulin pump (external) (internal); F11.10 Opioid abuse, uncomplicated; E03.9 Hypothyroidism, unspecified
CPT/HCPCS: 74176; 80048; 80053; 81003; 81015; 82962; 83036; 83690; 84703; 85025; 87070; 87077; 87086; 87147; 96374; 96375; 99285

== ENCOUNTER → 2024-12-14 08:07 | Outpatient (REF) | payer BC, SELFPAY ==
[2024-12-14 08:24] LABS: % Basophils 0.1 % (0-2); % Immature Granulocytes 0.2 % (0-0.5); % Lymphocytes 16.6 % (20.5-51.1); % Monocytes 4.8 % (1.7-9.3); % Neutrophils 78.3 % (42.2-75.2); Absolute Lymphocytes 1.4 10^3/uL (1.2-3.4); Absolute Monocytes 0.4 10^3/uL (0.1-0.6); Absolute Neutrophils 6.5 10^3/uL (1.4-6.5); Hematocrit 33.7 % (37.0-47.0); Hemoglobin 10.9 g/dL (12.0-16.0); Mean Corp Hgb Conc. 32.3 g/dL (33.0-37.0); Mean Corpuscular Hgb 26.3 pg (27.0-31.0); Mean Corpuscular Volume 81.2 fL (81.0-99.0); Platelet Count 163 10^3/uL (130-400); Red Blood Cell Count 4.15 10^6/uL (4.20-5.40); Red Cell Dist. Width 14.4 % (11.5-14.5); White Blood Cell Count 8.3 10^3/uL (4.8-10.8)
[2024-12-14 10:32] LABS: Iron 62 ug/dl (37-170)
[2024-12-14 10:41] LABS: Percent Saturation 24 % (20-50); Total Iron Binding Capacity 253 ug/dl (265-497)
[2024-12-14 11:19] LABS: Ferritin 77.5 ng/ml (6.24-137)
== END ==
LOC: OIDL 08:07
PROVIDERS: ATTENDING PHYSICIAN Internal Medicine Hematology & Oncology; FAMILY PHYSICIAN Family Medicine
DX: D50.9 Iron deficiency anemia, unspecified (principal); D70.4 Cyclic neutropenia
CPT/HCPCS: 36415; 82728; 83540; 83550; 85025

== ENCOUNTER → 2024-12-21 08:12 | Outpatient (REF) | payer BC, SELFPAY ==
[2024-12-21 08:34] LABS: % Eosinophils 0.2 % (0-6); % Lymphocytes 26.2 % (20.5-51.1); % Monocytes 9.7 % (1.7-9.3); % Neutrophils 63.9 % (42.2-75.2); Absolute Lymphocytes 1.3 10^3/uL (1.2-3.4); Absolute Monocytes 0.5 10^3/uL (0.1-0.6); Absolute Neutrophils 3.1 10^3/uL (1.4-6.5); Hematocrit 28.7 % (37.0-47.0); Hemoglobin 9.8 g/dL (12.0-16.0); Mean Corp Hgb Conc. 34.1 g/dL (33.0-37.0); Mean Corpuscular Hgb 27.1 pg (27.0-31.0); Mean Corpuscular Volume 79.5 fL (81.0-99.0); Mean Platelet Volume 9.5 fL (7.4-10.4); Platelet Count 216 10^3/uL (130-400); Red Blood Cell Count 3.61 10^6/uL (4.20-5.40); Red Cell Dist. Width 14.3 % (11.5-14.5); White Blood Cell Count 4.8 10^3/uL (4.8-10.8)
== END ==
LOC: OIDL 08:12
PROVIDERS: Nurse Practitioner Adult Health; ATTENDING PHYSICIAN Internal Medicine Hematology & Oncology; FAMILY PHYSICIAN Family Medicine
DX: D50.9 Iron deficiency anemia, unspecified (principal); D70.4 Cyclic neutropenia
CPT/HCPCS: 36415; 85025

== ENCOUNTER → 2024-12-28 08:04 | Outpatient (REF) | payer BC, SELFPAY ==
[2024-12-28 10:13] LABS: % Basophils 0.4 % (0-2); % Immature Granulocytes 0.9 % (0-0.5); % Lymphocytes 54.8 % (20.5-51.1); % Monocytes 18.3 % (1.7-9.3); % Neutrophils 25.6 % (42.2-75.2); Absolute Lymphocytes 1.3 10^3/uL (1.2-3.4); Absolute Monocytes 0.4 10^3/uL (0.1-0.6); Absolute Neutrophils 0.6 10^3/uL (1.4-6.5); Hematocrit 29.4 % (37.0-47.0); Hemoglobin 10.1 g/dL (12.0-16.0); Mean Corp Hgb Conc. 34.4 g/dL (33.0-37.0); Mean Corpuscular Hgb 26.6 pg (27.0-31.0); Mean Corpuscular Volume 77.6 fL (81.0-99.0); Mean Platelet Volume 10.9 fL (7.4-10.4); Nucleated Red Blood Cells % 0 %; Platelet Count 181 10^3/uL (130-400); Red Blood Cell Count 3.79 10^6/uL (4.20-5.40); Red Cell Dist. Width 14.3 % (11.5-14.5); White Blood Cell Count 2.3 10^3/uL (4.8-10.8)
== END ==
LOC: OIDL 08:04
PROVIDERS: ATTENDING PHYSICIAN Internal Medicine Hematology & Oncology; FAMILY PHYSICIAN Family Medicine
DX: D50.9 Iron deficiency anemia, unspecified (principal); D70.4 Cyclic neutropenia
CPT/HCPCS: 36415; 85025

== ENCOUNTER → 2025-01-11 08:07 | Outpatient (REF) | payer BC, SELFPAY ==
[2025-01-11 08:30] LABS: Hematocrit 30.6 % (37.0-47.0); Hemoglobin 10.3 g/dL (12.0-16.0); Mean Corp Hgb Conc. 33.7 g/dL (33.0-37.0); Mean Corpuscular Volume 79.3 fL (81.0-99.0); Platelet Count 161 10^3/uL (130-400); Red Cell Dist. Width 14.4 % (11.5-14.5)
== END ==
LOC: OIDL 08:07
PROVIDERS: ATTENDING PHYSICIAN Internal Medicine Hematology & Oncology; FAMILY PHYSICIAN Family Medicine
DX: D50.9 Iron deficiency anemia, unspecified (principal); D70.4 Cyclic neutropenia
CPT/HCPCS: 36415; 85025

== ENCOUNTER → 2025-01-25 08:07 | Outpatient (REF) | payer BC, SELFPAY ==
[2025-01-25 08:39] LABS: Hematocrit 30.8 % (37.0-47.0); Hemoglobin 10.5 g/dL (12.0-16.0); Mean Corp Hgb Conc. 34.1 g/dL (33.0-37.0); Mean Corpuscular Volume 79.6 fL (81.0-99.0); Platelet Count 207 10^3/uL (130-400); Red Cell Dist. Width 15.1 % (11.5-14.5)
== END ==
LOC: OIDL 08:07
PROVIDERS: Nurse Practitioner Acute Care; ATTENDING PHYSICIAN Internal Medicine Hematology & Oncology; FAMILY PHYSICIAN Family Medicine
DX: D50.9 Iron deficiency anemia, unspecified (principal); D70.4 Cyclic neutropenia
CPT/HCPCS: 36415; 85025

== ENCOUNTER → 2025-02-01 08:04 | Outpatient (REF) | payer BC, SELFPAY ==
[2025-02-01 08:23] LABS: Hematocrit 30.8 % (37.0-47.0); Hemoglobin 10.3 g/dL (12.0-16.0); Mean Corp Hgb Conc. 33.4 g/dL (33.0-37.0); Mean Corpuscular Volume 80.8 fL (81.0-99.0); Platelet Count 177 10^3/uL (130-400); Red Cell Dist. Width 15.1 % (11.5-14.5)
== END ==
LOC: OIDL 08:04
PROVIDERS: ATTENDING PHYSICIAN Internal Medicine Hematology & Oncology; FAMILY PHYSICIAN Family Medicine
DX: D50.9 Iron deficiency anemia, unspecified (principal); D70.4 Cyclic neutropenia
CPT/HCPCS: 36415; 85025

== ENCOUNTER → 2025-02-15 08:13 | Outpatient (REF) | payer BC, SELFPAY ==
[2025-02-15 08:35] LABS: Hematocrit 35.1 % (37.0-47.0); Hemoglobin 11.7 g/dL (12.0-16.0); Mean Corp Hgb Conc. 33.3 g/dL (33.0-37.0); Mean Corpuscular Volume 80.5 fL (81.0-99.0); Platelet Count 167 10^3/uL (130-400); Red Cell Dist. Width 14.6 % (11.5-14.5)
== END ==
LOC: OIDL 08:13
PROVIDERS: ATTENDING PHYSICIAN Internal Medicine Hematology & Oncology; FAMILY PHYSICIAN Family Medicine
DX: D50.9 Iron deficiency anemia, unspecified (principal); D70.4 Cyclic neutropenia
CPT/HCPCS: 36415; 85025

== ENCOUNTER → 2025-03-09 11:25 | Outpatient (REF) | payer BC, SELFPAY ==
[2025-03-09 11:41] LABS: Hematocrit 34.0 % (37.0-47.0); Hemoglobin 11.5 g/dL (12.0-16.0); Mean Corp Hgb Conc. 33.8 g/dL (33.0-37.0); Mean Corpuscular Volume 80.0 fL (81.0-99.0); Platelet Count 154 10^3/uL (130-400); Red Cell Dist. Width 14.0 % (11.5-14.5)
[2025-03-09 12:49] LABS: Iron 43 ug/dl (37-170)
[2025-03-09 12:59] LABS: Total Iron Binding Capacity 174 ug/dl (265-497)
== END ==
LOC: OIDL 11:25
PROVIDERS: ATTENDING PHYSICIAN Internal Medicine Hematology & Oncology; FAMILY PHYSICIAN Family Medicine
DX: D50.9 Iron deficiency anemia, unspecified (principal); D70.4 Cyclic neutropenia
CPT/HCPCS: 36415; 83540; 83550; 85025

== ENCOUNTER → 2025-04-07 07:40 | Outpatient (REF) | payer BC, SELFPAY ==
[2025-04-07 09:09] LABS: Hematocrit 31.8 % (37.0-47.0); Hemoglobin 10.5 g/dL (12.0-16.0); Mean Corp Hgb Conc. 33.0 g/dL (33.0-37.0); Mean Corpuscular Volume 80.7 fL (81.0-99.0); Nucleated Red Blood Cells % 0 %; Platelet Count 165 10^3/uL (130-400); Red Cell Dist. Width 13.6 % (11.5-14.5)
== END ==
LOC: OIDL 07:40
PROVIDERS: ATTENDING PHYSICIAN Internal Medicine Hematology & Oncology; FAMILY PHYSICIAN Family Medicine
DX: D50.9 Iron deficiency anemia, unspecified (principal); D70.4 Cyclic neutropenia
CPT/HCPCS: 36415; 85025

== ENCOUNTER 2025-04-16 21:14 | Emergency (ER) | payer BC, SELFPAY ==
[2025-04-16 21:20] VITALS: BP 158/103
[2025-04-16 21:22] VITALS: BP 158/103
[2025-04-16 21:43] LABS: Glucose - Point of Care 178 mg/dl (70-99)
[2025-04-16 21:44] LABS: Urine Character Clear (Clear)
[2025-04-16 21:52] LABS: HCG, Serum Qualitative Screen Negative
[2025-04-16 21:53] LABS: Hematocrit 30.8 % (37.0-47.0); Hemoglobin 10.2 g/dL (12.0-16.0); Mean Corp Hgb Conc. 33.1 g/dL (33.0-37.0); Mean Corpuscular Volume 79.8 fL (81.0-99.0); Nucleated Red Blood Cells % 0 %; Platelet Count 116 10^3/uL (130-400); Red Cell Dist. Width 13.7 % (11.5-14.5)
[2025-04-16 21:57] LABS: ALT (SGPT) 17 U/L (0-35); AST (SGOT) 15 U/L (14-36); Albumin 3.5 g/dl (3.5-5.0); Alkaline Phosphatase 171 U/L (38-126); Blood Urea Nitrogen 27 mg/dl (7-17); Calcium 8.6 mg/dl (8.4-10.2); Carbon Dioxide 22 mmol/L (22-30); Chloride 110 mmol/L (98-107); Estimated Creatinine Clearance 50 ml/min; Glucose 183 mg/dl (70-99); Lipase 51 U/L (23-300); Potassium 4.7 mmol/L (3.5-5.1); Sodium 135 mmol/L (135-145); Total Protein 5.6 g/dl (6.3-8.2); eGFR 53.21
[2025-04-16 21:59] LABS: Urine Red Blood Cell 21-25 /HPF (0-2)
[2025-04-16 22:00] VITALS: BP 157/102
[2025-04-16 22:00] LABS: Urine White Cell 16-20 /HPF (0-5)
[2025-04-16 23:00] VITALS: BP 159/104
[2025-04-17] VITALS: BP 155/99
--- NOTE | 2025-04-17 00:15 | ED.GENMED ---
History of Present Illness
General
Chief Complaint: Headache
Time Seen by Provider: 04/16/25 23:36
Nursing documentation reviewed up to this point in time: agreed with
History of Present Illness
History of Present Illness:
24-year-old diabetic female presents to the ER for evaluation of diffuse throbbing headache which has been present most of today. Patient also reports that her blood sugar had been 600 earlier today. She has been checking her sugar and dosing
insulin throughout the day and states that it was closer to 200 at time of EMS arrival. Patient states that she was feeling very nauseated and had multiple episodes of emesis. She states that she has been having some lower back discomfort since
last Saturday, similar to prior episodes of urinary tract infections. She is not currently on an antibiotic. She does report urinary frequency along with intermittent episodes of foul-smelling urine. She denies unilateral flank pain at the current
time but states that the pain initially started on her right. She does have a prior history of headaches and has been managed by her primary care physician. She had Imitrex at home to take, which did not alleviate her symptoms. Headache started
after work today and came on gradually, similar to prior. She did receive Zofran and route to the ER. She denies fevers today.
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
ED Past Medical History: Asthma, IDDM, Hypothyroidism, Psychiatric, Other (EMPHASEMATOUS PYELONEPHRITIS, neutropenia) and Other (Anemia, Escherichia coli sepsis, multiple abscesses, Cellulitis, Pyelonephritis, vaginal herpes, polysubstance drug
abuse)
ED Past Surgical History: Appendectomy, Tonsilectomy (T&A) and Other (tympanostomy, buttocks I&D, NEPHROSTOMY RIGHT)
Social History
Tobacco: Former smoker
Alcohol: None
Drug: Marijuana, Narcotics, IVDA (Heroin user) and Other (Methamphetamine)
Personal: Single
Living: with family
Employment: Employed ([employer])
Family History
Family History: Other (Noncontributory)
Review of Systems
Review of Systems
Allergies reviewed?: Yes
Phy Exam
Physical Exam
Physical Exam:
Patient is awake, alert, appears in no acute distress, appears uncomfortable, head is NCAT, PERRL, EOMI mucous membranes tacky, conjunctiva pink, heart regular rate and rhythm without murmurs or ectopy, lungs are clear to auscultation without
wheezes rales or rhonchi, no JVD, bilateral CVA tenderness, abdomen is soft and nontender on palpation, extremities without edema, GCS is 15, moving all extremities symmetrically without focal deficit, moving neck spontaneously in all directions
without apparent discomfort
Course
Orders/Labs/Results
Orders:
Orders
04/16/25 21:32
Test Result ONCE
04/16/25 21:35
B-Hydroxybutyrate Urgent
Beta Hcg Serum Qualitative Screen [HCG, Serum Qualitative Screen] Urgent
CBC/With Diff [Complete Blood Count/With Diff] Urgent
CMP [Comprehensive Metabolic Panel] Urgent
Lipase Urgent
Urinalysis Reflex To Culture Urgent
Date Specimen was Collected: 04/16/25
Time Specimen was Collected: 21:32
Urine Microscopic Reflex Cult Urgent
Urine Culture Urgent
ROBE Source: U
Specimen Description:
Date Specimen was Collected: 04/16/25
Time Specimen was Collected: 21:32
04/16/25 23:51
Renal Only US [US Renal Only W/O Bladder] Urgent
Comment:
Reason For Exam: flank pain
04/16/25 23:52
0.9% Sodium Chloride 1000 ml [Nss] 1,000 ml IV BOLUS
Diphenhydramine [Benadryl] 25 mg 0.9% Sodium Chloride 50 ml [Nss] 50 ml IV ONCE
Metoclopramide [Reglan] 10 mg IV NOW STA
04/17/25 00:31
Diphenhydramine [Benadryl] 25 mg IV NOW STA
04/17/25 00:49
Diphenhydramine [Benadryl] 25 mg IV NOW STA
04/17/25 00:53
diazePAM [Valium Injection] 2 mg IV NOW STA
04/17/25 02:56
Amoxicillin 875 mg/Clav 125 mg [Augmentin 875 mg/125 mg] 1 tablet PO NOW STA
Abnormal Lab Results
04/16/25 04/16/25
21:35 21:39
WBC 13.2 H 10^3/uL
(4.8-10.8)
RBC 3.86 L 10^6/uL
(4.20-5.40)
Hgb 10.2 L g/dL
(12.0-16.0)
Hct 30.8 L %
(37.0-47.0)
MCV 79.8 L fL
(81.0-99.0)
MCH 26.4 L pg
(27.0-31.0)
Plt Count 116 L 10^3/uL
(130-400)
MPV 10.9 H fL
(7.4-10.4)
Abs Immat Gran (auto) 0.1 H 10^3/uL
(0-0.05)
Absolute Neuts (auto) 10.4 H 10^3/uL
(1.4-6.5)
Absolute Monos (auto) 0.7 H 10^3/uL
(0.1-0.6)
Immature Gran % 0.6 H %
(0-0.5)
Neutrophils % 79.3 H %
(42.2-75.2)
Lymphocytes % 14.7 L %
(20.5-51.1)
Chloride 110 H mmol/L
(98-107)
BUN 27 H mg/dl
(7-17)
Creatinine 1.4 H mg/dL
(0.6-1.0)
Glucose 183 H mg/dl
(70-99)
Alkaline Phosphatase 171 H U/L
(38-126)
Total Protein 5.6 L g/dl
(6.3-8.2)
Ur Occult Blood Reflex 3+ A
(Negative)
Urine RBC 21-25 A /HPF
(0-2)
Urine WBC (Reflex) 16-20 A /HPF
(0-5)
Urine Bacteria (Reflex) Few A
(Negative)
Urine Glucose 2+ A
(Negative)
Urine Albumin (Reflex) 4+ A
(Neg - Trace)
POC Glucose 178 H mg/dl
(70-99)
04/16/25 21:35
04/16/25 21:35
elevated white blood count, mild elevation in creatinine, similar to prior, urinalysis concerning for infection
Vital Signs
Initial and Last Documented VS:
Initial Vital Signs
BP
158/103
04/16/25 21:20
Last Documented Vital Signs
Temp Pulse Resp BP Pulse Ox
97.9 F 88 14 155/99 99
04/16/25 21:22 04/17/25 01:45 04/17/25 01:45 04/17/25 00:00 04/17/25 01:45
MDM/Problems Addressed
Differential Diagnosis Includes:
Differential diagnosis to consider but not limited to UTI, pyelonephritis, acute kidney injury, dehydration, sepsis, DKA along with other etiologies considered
Chronic conditions affecting care:
type 1 diabetes, migraines, renal failure
*Pulse Oximetry
SaO2: 99
Oxygen Mode of Delivery: Room air
Patient hypoxic: no
*Critical Care Note
Total Time (30-74mins, 75-104mins- exclusive of procedures): Not Applicable
Update Note
Update Note:
Will treat symptomatically for migraine headache. Will obtain renal ultrasound for further evaluation of flank pain concerning for pyelonephritis. Pt agrees with plan at current
0054: Patient reports that dramatic improvement in the headache but is feeling severely anxious, pacing at the bedside, heart rate 144. She believes that this is a poor reaction to Benadryl as she has experienced this before. I discussed with her
possible reaction to the Reglan, she is unsure. Will give valium
0255: Patient feeling much better, in fact would like to go home. No further vomiting. Headache improving. I discussed with patient all test results-normal kidney ultrasound. Urinalysis with mixed result. Given patient prior history of
complicated urinary tract infections along with diabetes, will treat presumptively with antibiotics pending culture. Patient agrees with this plan. Will also provide prescription for Zofran to use as needed. I also counseled patient on benefit of
follow-up with her primary care physician and a neurologist for better management of her headaches. Patient expressed understanding of discharge plan along with strict return precautions and has no questions prior to leaving the department.
ED Attending Note
-
Portions of this chart may have been created with voice recognition software.� Occasional wrong word or��sound alike� substitutions may have occurred due to the inherent limitations of voice recognition software.
Discharge Plan
Departure
Patient Disposition: Home (Routine Discharge)
Date of Disposition: 04/17/25
Time of Disposition: 02:57
Patient with high blood pressure during this ER visit?: Yes
Discharge Problem:
Migraine, Urinary tract infection
Instructions: Migraines (DC), Urinary tract infection (DC), BLOOD PRESSURE
Prescriptions:
New
amoxicillin-pot clavulanate 875-125 mg tablet
1 tab PO BID Qty: 14 0RF
ondansetron 4 mg tablet,disintegrating
4 mg PO Q8H PRN (Reason: nausea and vomiting) Qty: 14 0RF
No Action
Medical Marijuana
5 mg PO BIDPRN PRN (Reason: ANXIETY)
fluticasone propion-salmeterol [Wixela Inhub] 250-50 mcg/dose blister with device
1 inh INHALATION R DAILYPRN PRN (Reason: sob)
Insulin Pump [Patient's Own Insulin Pump]
0 unit SC .CONTINOUS
Rx Instructions:
03/19/23 PATIENT USING HUMALOG AND PATIENT'S DEVICE HOLDS 175 UNITS
albuterol sulfate 90 mcg/actuation Hfa Aerosol Inhaler
2 puff INHALATION R Q4HPRN PRN (Reason: sob)
medroxyprogesterone 150 mg/mL Syringe
150 mg IM [id number]
sumatriptan succinate 50 mg Tablet
50 mg PO DAILYPRN PRN (Reason: migraine)
famotidine [Pepcid] 20 mg Tablet
20 mg PO DAILY
hydroxyzine HCl 25 mg Tablet
25 mg PO HS
levothyroxine 200 mcg Tablet
200 mcg PO DAILY @ 0600 30 Days Qty: 30 0RF
fluticasone propionate 50 mcg/actuation spray,suspension
1 spray INTRANASAL DAILY 5 Days Qty: 16 0RF
diphenhydramine HCl [Benadryl] 25 mg Capsule
25 mg PO HSPRN PRN (Reason: rash)
docusate sodium 100 mg Capsule
100 mg PO BID Qty: 20 0RF
acetaminophen [Acetaminophen Extra Strength] 500 mg Tablet
1,000 mg PO Q6H PRN (Reason: pain)
losartan 25 mg Tablet
25 mg PO DAILY
Rx Instructions:
Losartan Potassium 25mg daily
hydrochlorothiazide 12.5 mg Capsule
12.5 mg PO DAILY
acyclovir 5 % Cream
1 applic TOPICAL ONCE PRN (Reason: herpes)
amoxicillin 500 mg Capsule
500 mg PO Q8H 7 Days Qty: 21 0RF
oxycodone 5 mg Tablet
5 mg PO Q4HPRN PRN (Reason: moderate pain) Qty: 10 0RF
Referrals:
Juan A Martinez MD [Family Provider, Family Practice]
Cheryl Lopez MD [Active, Neurology] - Next open appointment
Discharge Problem: Migraine
Activity Restrictions/Additional Instructions:
Encourage fluids. Please follow-up with your doctor on Saturday for reevaluation and further care. I have also provided you with referral information to see a neurologist to help with treatment of your headaches-please call their office on Saturday to
schedule an appointment for further care. Return to the ER for any concerns
Interventions
Interventions:
*Risk Screen - Suicide Last Done: 04/16/25 21:22
*General Assessment Last Done: 04/16/25 21:22
*Neglect/Abuse Screening Last Done: 04/16/25 21:22
*ED- Fall Risk Assessment Last Done: 04/16/25 21:22
*ED COVID-19 Vaccine History Last Done: 04/16/25 21:22
*ED Influenza Vaccine History Last Done: 04/16/25 21:22
ED- Neurological Assessment Last Done: 04/16/25 22:52
Discharge Date and Time
Print Language: NAMIBIAN
[2025-04-17] MEDS: BENADRYL 25 MG IV (00:37)
[2025-04-17] MEDS: NSS 1000 IV (00:37)
[2025-04-17] MEDS: REGLAN 10 MG IV (00:37)
[2025-04-17] MEDS: VALIUM INJECTION 2 MG IV (00:57)
[2025-04-17] MEDS: AUGMENTIN 875 MG/125 MG 1 TABLET PO (03:05)
--- NOTE | 2025-04-17 03:45 | ED.GENMED ---
History of Present Illness
General
Chief Complaint: Headache
Time Seen by Provider: 04/16/25 23:36
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
ED Past Medical History: Asthma, IDDM, Hypothyroidism, Psychiatric, Other (EMPHASEMATOUS PYELONEPHRITIS, neutropenia) and Other (Anemia, Escherichia coli sepsis, multiple abscesses, Cellulitis, Pyelonephritis, vaginal herpes, polysubstance drug
abuse)
ED Past Surgical History: Appendectomy, Tonsilectomy (T&A) and Other (tympanostomy, buttocks I&D, NEPHROSTOMY RIGHT)
Social History
Tobacco: Former smoker
Alcohol: None
Drug: Marijuana, Narcotics, IVDA (Heroin user) and Other (Methamphetamine)
Personal: Single
Living: with family
Employment: Employed ([employer])
Family History
Family History: Other (Noncontributory)
Course
Orders/Labs/Results
Orders:
Orders
04/16/25 21:32
Test Result ONCE
04/16/25 21:35
B-Hydroxybutyrate Urgent
Beta Hcg Serum Qualitative Screen [HCG, Serum Qualitative Screen] Urgent
CBC/With Diff [Complete Blood Count/With Diff] Urgent
CMP [Comprehensive Metabolic Panel] Urgent
Lipase Urgent
Urinalysis Reflex To Culture Urgent
Date Specimen was Collected: 04/16/25
Time Specimen was Collected: 21:32
Urine Microscopic Reflex Cult Urgent
Urine Culture Urgent
ROBE Source: U
Specimen Description:
Date Specimen was Collected: 04/16/25
Time Specimen was Collected: 21:32
04/16/25 23:51
Renal Only US [US Renal Only W/O Bladder] Urgent
Comment:
Reason For Exam: flank pain
04/16/25 23:52
0.9% Sodium Chloride 1000 ml [Nss] 1,000 ml IV BOLUS
Diphenhydramine [Benadryl] 25 mg 0.9% Sodium Chloride 50 ml [Nss] 50 ml IV ONCE
Metoclopramide [Reglan] 10 mg IV NOW STA
04/17/25 00:31
Diphenhydramine [Benadryl] 25 mg IV NOW STA
04/17/25 00:49
Diphenhydramine [Benadryl] 25 mg IV NOW STA
04/17/25 00:53
diazePAM [Valium Injection] 2 mg IV NOW STA
04/17/25 02:56
Amoxicillin 875 mg/Clav 125 mg [Augmentin 875 mg/125 mg] 1 tablet PO NOW STA
Abnormal Lab Results
04/16/25 04/16/25
21:35 21:39
WBC 13.2 H 10^3/uL
(4.8-10.8)
RBC 3.86 L 10^6/uL
(4.20-5.40)
Hgb 10.2 L g/dL
(12.0-16.0)
Hct 30.8 L %
(37.0-47.0)
MCV 79.8 L fL
(81.0-99.0)
MCH 26.4 L pg
(27.0-31.0)
Plt Count 116 L 10^3/uL
(130-400)
MPV 10.9 H fL
(7.4-10.4)
Abs Immat Gran (auto) 0.1 H 10^3/uL
(0-0.05)
Absolute Neuts (auto) 10.4 H 10^3/uL
(1.4-6.5)
Absolute Monos (auto) 0.7 H 10^3/uL
(0.1-0.6)
Immature Gran % 0.6 H %
(0-0.5)
Neutrophils % 79.3 H %
(42.2-75.2)
Lymphocytes % 14.7 L %
(20.5-51.1)
Chloride 110 H mmol/L
(98-107)
BUN 27 H mg/dl
(7-17)
Creatinine 1.4 H mg/dL
(0.6-1.0)
Glucose 183 H mg/dl
(70-99)
Alkaline Phosphatase 171 H U/L
(38-126)
Total Protein 5.6 L g/dl
(6.3-8.2)
Ur Occult Blood Reflex 3+ A
(Negative)
Urine RBC 21-25 A /HPF
(0-2)
Urine WBC (Reflex) 16-20 A /HPF
(0-5)
Urine Bacteria (Reflex) Few A
(Negative)
Urine Glucose 2+ A
(Negative)
Urine Albumin (Reflex) 4+ A
(Neg - Trace)
POC Glucose 178 H mg/dl
(70-99)
04/16/25 21:35
04/16/25 21:35
Vital Signs
Initial and Last Documented VS:
Initial Vital Signs
BP
158/103
04/16/25 21:20
Last Documented Vital Signs
Temp Pulse Resp BP Pulse Ox
97.9 F 88 14 155/99 99
04/16/25 21:22 04/17/25 01:45 04/17/25 01:45 04/17/25 00:00 04/17/25 01:45
*Pulse Oximetry
SaO2: 99
Oxygen Mode of Delivery: Room air
ED Attending Note
-
Portions of this chart may have been created with voice recognition software.� Occasional wrong word or��sound alike� substitutions may have occurred due to the inherent limitations of voice recognition software.
Discharge Plan
Departure
Patient Disposition: Home (Routine Discharge)
Date of Disposition: 04/17/25
Time of Disposition: 02:57
Patient with high blood pressure during this ER visit?: Yes
Discharge Problem:
Migraine, Urinary tract infection
Instructions: Migraines (DC), Urinary tract infection (DC), BLOOD PRESSURE
Prescriptions:
New
amoxicillin-pot clavulanate 875-125 mg tablet
1 tab PO BID Qty: 14 0RF
ondansetron 4 mg tablet,disintegrating
4 mg PO Q8H PRN (Reason: nausea and vomiting) Qty: 14 0RF
No Action
Medical Marijuana
5 mg PO BIDPRN PRN (Reason: ANXIETY)
fluticasone propion-salmeterol [Wixela Inhub] 250-50 mcg/dose blister with device
1 inh INHALATION R DAILYPRN PRN (Reason: sob)
Insulin Pump [Patient's Own Insulin Pump]
0 unit SC .CONTINOUS
Rx Instructions:
03/19/23 PATIENT USING HUMALOG AND PATIENT'S DEVICE HOLDS 175 UNITS
albuterol sulfate 90 mcg/actuation Hfa Aerosol Inhaler
2 puff INHALATION R Q4HPRN PRN (Reason: sob)
medroxyprogesterone 150 mg/mL Syringe
150 mg IM [id number]
sumatriptan succinate 50 mg Tablet
50 mg PO DAILYPRN PRN (Reason: migraine)
famotidine [Pepcid] 20 mg Tablet
20 mg PO DAILY
hydroxyzine HCl 25 mg Tablet
25 mg PO HS
levothyroxine 200 mcg Tablet
200 mcg PO DAILY @ 0600 30 Days Qty: 30 0RF
fluticasone propionate 50 mcg/actuation spray,suspension
1 spray INTRANASAL DAILY 5 Days Qty: 16 0RF
diphenhydramine HCl [Benadryl] 25 mg Capsule
25 mg PO HSPRN PRN (Reason: rash)
docusate sodium 100 mg Capsule
100 mg PO BID Qty: 20 0RF
acetaminophen [Acetaminophen Extra Strength] 500 mg Tablet
1,000 mg PO Q6H PRN (Reason: pain)
losartan 25 mg Tablet
25 mg PO DAILY
Rx Instructions:
Losartan Potassium 25mg daily
hydrochlorothiazide 12.5 mg Capsule
12.5 mg PO DAILY
acyclovir 5 % Cream
1 applic TOPICAL ONCE PRN (Reason: herpes)
amoxicillin 500 mg Capsule
500 mg PO Q8H 7 Days Qty: 21 0RF
oxycodone 5 mg Tablet
5 mg PO Q4HPRN PRN (Reason: moderate pain) Qty: 10 0RF
Referrals:
Juan A Martinez MD [Family Provider, Family Practice]
Cheryl Lopez MD [Active, Neurology] - Next open appointment
Discharge Problem: Migraine
Activity Restrictions/Additional Instructions:
Encourage fluids. Please follow-up with your doctor on Saturday for reevaluation and further care. I have also provided you with referral information to see a neurologist to help with treatment of your headaches-please call their office on Saturday to
schedule an appointment for further care. Return to the ER for any concerns
Interventions
Interventions:
*Risk Screen - Suicide Last Done: 04/16/25 21:22
*General Assessment Last Done: 04/16/25 21:22
*Neglect/Abuse Screening Last Done: 04/16/25 21:22
*ED- Fall Risk Assessment Last Done: 04/16/25 21:22
*ED COVID-19 Vaccine History Last Done: 04/16/25 21:22
*ED Influenza Vaccine History Last Done: 04/16/25 21:22
ED- Neurological Assessment Last Done: 04/16/25 22:52
Discharge Date and Time
Print Language: KINYARWANDA
[2025-04-17] MEDS: TYLENOL 1000 MG PO (03:50)
== END 2025-04-17 04:00 | disposition home or self-care (01) ==
LOC: EMR 21:14
PROVIDERS: Emergency Medicine; EMERGENCY PHYSICIAN Emergency Medicine; FAMILY PHYSICIAN Family Medicine
DX: G43.909 Migraine, unspecified, not intractable, without status migrainosus (principal); N39.0 Urinary tract infection, site not specified; E10.9 Type 1 diabetes mellitus without complications; J45.909 Unspecified asthma, uncomplicated; E03.9 Hypothyroidism, unspecified; Z79.4 Long term (current) use of insulin; Z87.440 Personal history of urinary (tract) infections; Z87.891 Personal history of nicotine dependence; Z90.49 Acquired absence of other specified parts of digestive tract
CPT/HCPCS: 99284; 96374; 96375; 96376; 96361; 76775; 80053; 81003; 81015; 82010; 82962; 83690; 84703; 85025; 87086

== ENCOUNTER → 2025-05-05 08:04 | Outpatient (REF) | payer BC, SELFPAY ==
[2025-05-05 08:18] LABS: Hematocrit 32.6 % (37.0-47.0); Hemoglobin 11.1 g/dL (12.0-16.0); Mean Corp Hgb Conc. 34.0 g/dL (33.0-37.0); Mean Corpuscular Volume 80.1 fL (81.0-99.0); Platelet Count 195 10^3/uL (130-400); Red Cell Dist. Width 13.7 % (11.5-14.5)
== END ==
LOC: OIDL 08:04
PROVIDERS: ATTENDING PHYSICIAN Internal Medicine Hematology & Oncology; FAMILY PHYSICIAN Family Medicine
DX: D50.9 Iron deficiency anemia, unspecified (principal); D70.4 Cyclic neutropenia
CPT/HCPCS: 36415; 85025

== ENCOUNTER 2025-05-31 18:00 | Emergency (ER) | payer BC, SELFPAY ==
[2025-05-31 18:05] VITALS: BP 153/88
--- NOTE | 2025-05-31 18:55 | ED.GENMED ---
History of Present Illness
General
Chief Complaint: Head Injury
Source: patient
Exam Limitations: none
Time Seen by Provider: 05/31/25 18:34
Nursing documentation reviewed up to this point in time: agreed with
History of Present Illness
History of Present Illness:
Patient to the emergency department for evaluation of head pain and neck pain. States she tripped and fell, hit forehead on her car. No LOC. Incident occurred yesterday. She had a mild headache yesterday. Today she went to work and reports
increasing head pain and neck pain. Neck pain does not radiate. She denies any weakness in extremities. Brought self to the emergency department for evaluation.
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
ED Past Medical History: Asthma, IDDM, Hypothyroidism, Psychiatric, Other (EMPHASEMATOUS PYELONEPHRITIS, neutropenia) and Other (Anemia, Escherichia coli sepsis, multiple abscesses, Cellulitis, Pyelonephritis, vaginal herpes, polysubstance drug
abuse)
ED Past Surgical History: Appendectomy, Tonsilectomy (T&A) and Other (tympanostomy, buttocks I&D, NEPHROSTOMY RIGHT)
Social History
Tobacco: Former smoker
Alcohol: None
Drug: Marijuana, Narcotics, IVDA (Heroin user) and Other (Methamphetamine)
Personal: Single
Living: with family
Employment: Employed ([employer])
Family History
Family History: Other (Noncontributory)
Review of Systems
Review of Systems
Allergies reviewed?: Yes
All Other Systems: ROS reviewed and negative except as documented in HPI and ROS
Constitutional: Reports no symptoms
EENT: Reports no symptoms
Respiratory: Reports no symptoms
Cardiac: Reports no symptoms
ABD/GI: Reports no symptoms
: Reports no symptoms
Musculoskeletal: Reports neck pain
Skin: Reports no symptoms
Neurological: Reports headache
Psychiatric: Reports no symptoms
Phy Exam
General Physical Exam
General Presentation: well appearing and no apparent distress
General age: appears stated age
General Skin: warm and dry
General Habitus: normal
General Mental: alert
ENT Exam
ENT Exam: EOMI, TM's normal, neck supple and normocephalic
Eye Exam
Eye Exam: PERRL, EOMI, conjunctiva normal and globe normal
Neurological Exam
Neurological Exam: alert, oriented x3, CN II-XII intact, no motor deficits, no sensory deficits, speech normal and normal gait
Rober Coma Scale
Eye Opening: Spontaneous
Verbal Response: Oriented
Motor Response: Obeys Commands
GCS Total Score: 15
Mental
Mental Status: oriented to person, oriented to place, oriented to time and usual mental status
Cranial
Cranial Nerves: normal
EOM (CN3/4/6): intact
Motor
Seizure Activity: none
Gait: normal
Tremors: none
Other Movement Disorders: none
Right upper extremity: 4
Right lower extremity: 4
Left upper extremity: 4
Left lower extremity: 4
Bilateral upper extremities: 4
Bilateral lower extremities: 4
Sensory
Sensory Exam: intact
Cerebellar
Cerebellar Function: normal finger to nose, normal heel to torres and normal Romberg test
Musculoskeletal Exam
Musculoskeletal Exam: neuro vasc intact
Skin Exam
Skin Exam: normal color, warm/dry and no rash
Psychiatric Exam
Psychiatric Exam: normal mood/affect
Course
Orders/Labs/Results
Orders:
Orders
05/31/25 18:53
Cervical Spine 4 or 5 Vw [CR Cervical Spine 4 Or 5 Vw] Urgent
Comment:
Reason For Exam: fall, pain
05/31/25 18:54
CT Head W/o Iv Contrast Urgent
Comment:
Reason For Exam: trauma
Vital Signs
Initial and Last Documented VS:
Initial Vital Signs
Temp Pulse Resp BP Pulse Ox
98.0 F 96 20 153/88 99
05/31/25 18:05 05/31/25 18:05 05/31/25 18:05 05/31/25 18:05 05/31/25 18:05
Last Documented Vital Signs
Temp Pulse Resp BP Pulse Ox
98.0 F 94 16 118/76 100
05/31/25 18:05 05/31/25 22:24 05/31/25 22:24 05/31/25 22:24 05/31/25 22:24
*Radiology
Radiology exam reviewed: radiology read reviewed
*Pulse Oximetry
SaO2: 99
Oxygen Mode of Delivery: Room air
Patient hypoxic: no
*Critical Care Note
Total Time (30-74mins, 75-104mins- exclusive of procedures): Not Applicable
Update Note
Update Note:
Patient to the emergency department for evaluation of head pain after falling and hitting her head on her car yesterday. No LOC. Neuroexam is unremarkable. Vital signs are stable she remains afebrile. Neurologically she is at her baseline. CT
of head was completed, no acute findings noted. Discussed CT results with her. She will be discharged home tonight with close follow-up with PCP. She was instructed to use Tylenol and ibuprofen for pain control. She was given instructions on
signs and symptoms to return to the emergency department and she is agreeable to this plan.
ED Attending Note
-
Portions of this chart may have been created with voice recognition software.� Occasional wrong word or��sound alike� substitutions may have occurred due to the inherent limitations of voice recognition software.
Discharge Plan
Departure
Patient Disposition: Home (Routine Discharge)
Date of Disposition: 05/31/25
Time of Disposition: 22:08
Patient with high blood pressure during this ER visit?: No
Condition: Good
Covid-19: Not Applicable
Discharge Problem:
Head injury
Instructions: Head Injury in Adults (DC), Contusion (DC), Neck pain - ED (DC)
Prescriptions:
No Action
Medical Marijuana
5 mg PO BIDPRN PRN (Reason: ANXIETY)
fluticasone propion-salmeterol [Wixela Inhub] 250-50 mcg/dose blister with device
1 inh INHALATION R DAILYPRN PRN (Reason: sob)
Insulin Pump [Patient's Own Insulin Pump]
0 unit SC .CONTINOUS
Rx Instructions:
03/19/23 PATIENT USING HUMALOG AND PATIENT'S DEVICE HOLDS 175 UNITS
albuterol sulfate 90 mcg/actuation Hfa Aerosol Inhaler
2 puff INHALATION R Q4HPRN PRN (Reason: sob)
medroxyprogesterone 150 mg/mL Syringe
150 mg IM [id number]
sumatriptan succinate 50 mg Tablet
50 mg PO DAILYPRN PRN (Reason: migraine)
famotidine [Pepcid] 20 mg Tablet
20 mg PO DAILY
hydroxyzine HCl 25 mg Tablet
25 mg PO HS
levothyroxine 200 mcg Tablet
200 mcg PO DAILY @ 0600 30 Days Qty: 30 0RF
fluticasone propionate 50 mcg/actuation spray,suspension
1 spray INTRANASAL DAILY 5 Days Qty: 16 0RF
diphenhydramine HCl [Benadryl] 25 mg Capsule
25 mg PO HSPRN PRN (Reason: rash)
docusate sodium 100 mg Capsule
100 mg PO BID Qty: 20 0RF
acetaminophen [Acetaminophen Extra Strength] 500 mg Tablet
1,000 mg PO Q6H PRN (Reason: pain)
losartan 25 mg Tablet
25 mg PO DAILY
Rx Instructions:
Losartan Potassium 25mg daily
hydrochlorothiazide 12.5 mg Capsule
12.5 mg PO DAILY
acyclovir 5 % Cream
1 applic TOPICAL ONCE PRN (Reason: herpes)
amoxicillin 500 mg Capsule
500 mg PO Q8H 7 Days Qty: 21 0RF
oxycodone 5 mg Tablet
5 mg PO Q4HPRN PRN (Reason: moderate pain) Qty: 10 0RF
amoxicillin-pot clavulanate 875-125 mg tablet
1 tab PO BID Qty: 14 0RF
ondansetron 4 mg tablet,disintegrating
4 mg PO Q8H PRN (Reason: nausea and vomiting) Qty: 14 0RF
Referrals:
Juan A Martinez MD [Family Provider, Family Practice] - Tomorrow
Stand Alone Forms: Return to Work
Interventions
Interventions:
*Risk Screen - Suicide Last Done: 05/31/25 19:50
*General Assessment Last Done: 05/31/25 18:05
*Neglect/Abuse Screening Last Done: 05/31/25 19:50
*ED- Fall Risk Assessment Last Done: 05/31/25 22:21
*ED COVID-19 Vaccine History Last Done: 05/31/25 22:21
*ED Influenza Vaccine History Last Done: 05/31/25 22:21
*Nursing Disposition Last Done: 05/31/25 22:24
ED- Neurological Assessment Last Done: 05/31/25 19:03
ED-Skin Assessment Last Done: 05/31/25 19:03
Discharge Date and Time
Discharge Date/Time: 05/31/25 22:26
Print Language: PERUVIAN
[2025-05-31 19:03] VITALS: BMI 25.0
[2025-05-31 22:24] VITALS: BP 118/76
== END 2025-05-31 22:26 | disposition home or self-care (01) ==
LOC: EMR 18:00
PROVIDERS: EMERGENCY PHYSICIAN Emergency Medicine; FAMILY PHYSICIAN Family Medicine
DX: S09.90XA Unspecified injury of head, initial encounter (principal); W01.198A Fall on same level from slipping, tripping and stumbling with subsequent striking against other object, initial encounter; E03.9 Hypothyroidism, unspecified; E11.9 Type 2 diabetes mellitus without complications; J45.909 Unspecified asthma, uncomplicated; Z79.4 Long term (current) use of insulin; Z87.891 Personal history of nicotine dependence; Z90.49 Acquired absence of other specified parts of digestive tract
CPT/HCPCS: 99284; 70450; 72050

== ENCOUNTER 2025-07-06 11:58 | Emergency (ER) | payer BC, SELFPAY ==
[2025-07-06 11:58] VITALS: BMI 25.7
[2025-07-06 12:08] VITALS: BP 173/118
[2025-07-06 13:11] LABS: HCG, Serum Qualitative Screen Negative
[2025-07-06 13:20] LABS: ALT (SGPT) 14 U/L (0-35); AST (SGOT) 16 U/L (14-36); Albumin 3.3 g/dl (3.5-5.0); Alkaline Phosphatase 68 U/L (38-126); Blood Urea Nitrogen 26 mg/dl (7-17); Calcium 8.4 mg/dl (8.4-10.2); Carbon Dioxide 16 mmol/L (22-30); Chloride 114 mmol/L (98-107); Glucose 105 mg/dl (70-99); Lipase 40 U/L (23-300); Potassium 4.8 mmol/L (3.5-5.1); Sodium 137 mmol/L (135-145); Total Protein 5.4 g/dl (6.3-8.2); eGFR 41.89
[2025-07-06 13:23] LABS: Troponin I 0.014 ng/ml
[2025-07-06 13:42] LABS: Hematocrit 30.7 % (37.0-47.0); Hemoglobin 10.4 g/dL (12.0-16.0); Mean Corp Hgb Conc. 33.9 g/dL (33.0-37.0); Mean Corpuscular Volume 81.4 fL (81.0-99.0); Platelet Count 123 10^3/uL (130-400); Red Cell Dist. Width 13.5 % (11.5-14.5)
[2025-07-06 16:24] LABS: Nucleated Red Blood Cells % 0 %
[2025-07-06 19:13] VITALS: BP 159/104
--- NOTE | 2025-07-06 19:29 | ED.GENMED ---
History of Present Illness
General
Chief Complaint: Chest Pain
Source: patient
Exam Limitations: none
Time Seen by Provider: 07/06/25 19:01
Nursing documentation reviewed up to this point in time: agreed with
History of Present Illness
History of Present Illness:
25-year-old female with past medical history of chronic kidney disease, stage III neutropenia diabetes hypothyroidism, GERD substance abuse(IVDA sober 5 years ) bipolar disorder anxiety depression PTSD presents to the ER for evaluation. She
reports around 4:30 in the morning she was awoken by burning sensation and chest discomfort. Around 10 AM while at work she felt some discomfort in her left arm. The burning has resolved however the pressure is still there. She was not sure if it
was reflux. She is on Omeprazole.
In addition she has had some mild left sided back pain but denies any urinary urgency or frequency.Denies any fevers. denies any n/v.
she had no associated shortness of breath. While in the waiting room however she developed an itchy rash/hives to chest /back.
She also has some low back pain .
She is followed by Dr. Caballero for chronic neutropenia and is scheduled for an appointment on Saturday in 3 days. She does get a neutrophil shot every 3 weeks.
She is not a smoker No cardiac history.
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
ED Past Medical History: Asthma, IDDM, Hypothyroidism, Psychiatric, Other (EMPHASEMATOUS PYELONEPHRITIS, neutropenia) and Other (Anemia, Escherichia coli sepsis, multiple abscesses, Cellulitis, Pyelonephritis, vaginal herpes, polysubstance drug
abuse)
ED Past Surgical History: Appendectomy, Tonsilectomy (T&A) and Other (tympanostomy, buttocks I&D, NEPHROSTOMY RIGHT)
Social History
Tobacco: Former smoker
Alcohol: None
Drug: Marijuana, Narcotics, IVDA (Heroin user) and Other (Methamphetamine)
Personal: Single
Living: with family
Employment: Employed ([employer])
Family History
Family History: Other (Noncontributory)
Phy Exam
General Physical Exam
General Presentation: no apparent distress
General age: appears stated age
General Skin: warm and dry
General Habitus: normal
General Mental: alert
General Hydration: appears well hydrated
Cardiovascular Exam
Cardiovascular Exam: regular rate/rhythm, no murmur and normal peripheral pulses
Pulmonary Exam
Pulmonary Exam: lungs clear and no respiratory distress
Neurological Exam
Neurological Exam: alert and oriented x3
Musculoskeletal Exam
Musculoskeletal Exam: full ROM
Scores
Heart Score for Chest Pain Patients
STEMI patient?: Not applicable
Course
Orders/Labs/Results
Orders:
Orders
07/06/25 12:10
Electrocardiogram (*1) Urgent
Reason for Study: Chest Pain
07/06/25 12:11
EKG- Treatment ONCE
Test Result ONCE
07/06/25 12:25
Complete Blood Count/With Diff Urgent
Comprehensive Metabolic Panel Urgent
HCG, Serum Qualitative Screen Urgent
Lipase Urgent
Troponin I Urgent
07/06/25 19:41
Electrocardiogram (*1) Urgent
Reason for Study: Chest Pain
EKG- Treatment ONCE
Chest [CR Chest - 2 Views ] Urgent
Comment:
Reason For Exam: cp
07/06/25 19:49
Troponin I Urgent
07/06/25 22:07
UA Reflex to Culture [Urinalysis Reflex To Culture] Urgent
Date Specimen was Collected: 07/06/25
Time Specimen was Collected: 22:06
Urine Microscopic Reflex Cult Urgent
Urine Culture Urgent
ROBE Source: U
Specimen Description:
Date Specimen was Collected: 07/06/25
Time Specimen was Collected: 22:06
07/06/25 22:19
Diphenhydramine [Benadryl] 25 mg IV NOW STA
Famotidine [Pepcid] 20 mg IV NOW STA
Lorazepam [Ativan] 0.5 mg IV NOW STA
07/06/25 22:43
0.9% Sodium Chloride 1000 ml [Nss] 1,000 ml IV BOLUS
Abnormal Lab Results
07/06/25 07/06/25
22:07
WBC 0.9 L* 10^3/uL
(4.8-10.8)
RBC 3.77 L 10^6/uL
(4.20-5.40)
Hgb 10.4 L g/dL
(12.0-16.0)
Hct 30.7 L %
(37.0-47.0)
Plt Count 123 L 10^3/uL
(130-400)
MPV 11.5 H fL
(7.4-10.4)
Absolute Neuts (auto) 0.3 L* 10^3/uL
(1.4-6.5)
Absolute Lymphs (auto) 0.4 L 10^3/uL
(1.2-3.4)
Neutrophils % 28.7 L %
(42.2-75.2)
Monocytes % 23.0 H %
(1.7-9.3)
Chloride 114 H mmol/L
(98-107)
Carbon Dioxide 16 L mmol/L
(22-30)
BUN 26 H mg/dl
(7-17)
Creatinine 1.7 H mg/dL
(0.6-1.0)
Glucose 105 H mg/dl
(70-99)
Total Protein 5.4 L g/dl
(6.3-8.2)
Albumin 3.3 L g/dl
(3.5-5.0)
Ur Occult Blood Reflex 3+ A
(Negative)
Urine WBC (Reflex) 21-25 A /HPF
(0-5)
Urine Bacteria (Reflex) Few A
(Negative)
Urine Yeast Moderate A
(Negative)
Urine Glucose 1+ A
(Negative)
Urine Albumin (Reflex) 4+ A
(Neg - Trace)
07/06/25 12:25
07/06/25 12:25
Vital Signs
Initial and Last Documented VS:
Initial Vital Signs
Temp Pulse Resp BP Pulse Ox
98.2 F 102 18 173/118 100
07/06/25 12:08 07/06/25 12:08 07/06/25 12:08 07/06/25 12:08 07/06/25 12:08
Last Documented Vital Signs
Temp Pulse Resp BP Pulse Ox
99.6 F 101 20 159/104 98
07/06/25 19:13 07/06/25 19:13 07/06/25 19:13 07/06/25 19:13 07/06/25 19:31
Box Fabricator consulted with Physician
Box Fabricator consulted with physician?: Yes
Name of Physician Consulted: Mery
MDM/Problems Addressed
Differential Diagnosis Includes:
not limited to: reflux, less likely UTI
MDM/Problems Addressed:
As documented patient is a young 25-year-old female with history of chronic kidney disease pyelonephritis diabetes reflux chronic cyclical neutropenia presents to the ER for evaluation. Patient has chest tightness and burning since this morning.
She had no relief with OTC meds for heartburn. She has no cardiac history. No acute findings on EKG. 2 negative cardiac troponins. Patient does have a history of spontaneous hives and did develop hives while she was here she stated that she gets
very hyper and overactive from Benadryl and usually gets Ativan or Valium with this. I did give her a small dose of Ativan with Benadryl along with fluids.
Patient had no chest pain or reflux while here. Her white count is low at 0.9 she is due to see Dr. Caballero for neutrophil injection this Saturday in 3 days. Her creatinine is 1.7 which is unchanged. Her urine appears dirty with significant
squamous cells and she is afebrile.
Case discussed with ED physician.
case reviewed also with oncologist DR Caballero who does feel the patient may receive her injection as planned on Saturday.
Will hydrate and plan for discharge home
Pt feeling much better hives improved. no complaints of chest pain or GERD. stable for dc/ home . to continue her omeprazole
*Pulse Oximetry
SaO2: 98
Oxygen Mode of Delivery: Room air
Patient hypoxic: not evaluated
*Critical Care Note
Total Time (30-74mins, 75-104mins- exclusive of procedures): Not Applicable
ED Attending Note
-
Portions of this chart may have been created with voice recognition software.� Occasional wrong word or��sound alike� substitutions may have occurred due to the inherent limitations of voice recognition software.
Discharge Plan
Departure
Patient Disposition: Home (Routine Discharge)
Date of Disposition: 07/07/25
Time of Disposition: 00:02
Patient with high blood pressure during this ER visit?: Yes
Condition: Fair
Covid-19: Not Applicable
Discharge Problem:
gerd, Hives, Neutropenia
Instructions: Neutropenia, Acid reflux and GERD in adults - ED (DC), BLOOD PRESSURE
Prescriptions:
No Action
Medical Marijuana
5 mg PO BIDPRN PRN (Reason: ANXIETY)
fluticasone propion-salmeterol [Wixela Inhub] 250-50 mcg/dose blister with device
1 inh INHALATION R DAILYPRN PRN (Reason: sob)
Insulin Pump [Patient's Own Insulin Pump]
0 unit SC .CONTINOUS
Rx Instructions:
03/19/23 PATIENT USING HUMALOG AND PATIENT'S DEVICE HOLDS 175 UNITS
albuterol sulfate 90 mcg/actuation Hfa Aerosol Inhaler
2 puff INHALATION R Q4HPRN PRN (Reason: sob)
medroxyprogesterone 150 mg/mL Syringe
150 mg IM [id number]
sumatriptan succinate 50 mg Tablet
50 mg PO DAILYPRN PRN (Reason: migraine)
famotidine [Pepcid] 20 mg Tablet
20 mg PO DAILY
hydroxyzine HCl 25 mg Tablet
25 mg PO HS
levothyroxine 200 mcg Tablet
200 mcg PO DAILY @ 0600 30 Days Qty: 30 0RF
fluticasone propionate 50 mcg/actuation spray,suspension
1 spray INTRANASAL DAILY 5 Days Qty: 16 0RF
diphenhydramine HCl [Benadryl] 25 mg Capsule
25 mg PO HSPRN PRN (Reason: rash)
docusate sodium 100 mg Capsule
100 mg PO BID Qty: 20 0RF
acetaminophen [Acetaminophen Extra Strength] 500 mg Tablet
1,000 mg PO Q6H PRN (Reason: pain)
losartan 25 mg Tablet
25 mg PO DAILY
Rx Instructions:
Losartan Potassium 25mg daily
hydrochlorothiazide 12.5 mg Capsule
12.5 mg PO DAILY
acyclovir 5 % Cream
1 applic TOPICAL ONCE PRN (Reason: herpes)
amoxicillin 500 mg Capsule
500 mg PO Q8H 7 Days Qty: 21 0RF
oxycodone 5 mg Tablet
5 mg PO Q4HPRN PRN (Reason: moderate pain) Qty: 10 0RF
amoxicillin-pot clavulanate 875-125 mg tablet
1 tab PO BID Qty: 14 0RF
ondansetron 4 mg tablet,disintegrating
4 mg PO Q8H PRN (Reason: nausea and vomiting) Qty: 14 0RF
Referrals:
Juan A Martinez MD [Family Provider, Family Practice]
Amie Caballero MD [Active, Oncology]
Activity Restrictions/Additional Instructions:
Follow-up with your mechanical engineer as scheduled on Saturday for your injection for your low neutrophil count.
Continue to take your omeprazole
Closely monitor your sugars.
Follow Up with your family doctor in the next several days for reevaluation of your symptoms return if any worsening of symptoms.
Interventions
Interventions:
*General Assessment Last Done: 07/06/25 12:08
*Neglect/Abuse Screening Last Done: 07/06/25 12:08
*ED COVID-19 Vaccine History Last Done: 07/06/25 12:08
*ED Influenza Vaccine History Last Done: 07/06/25 12:08
[facility] Risk Assessment Tool Last Done: 07/06/25 23:58
*Risk Screen - Suicide (C-SSRS) Last Done: 07/06/25 12:08
ED- Cardiac Assessment Last Done: 07/06/25 19:15
Discharge Date and Time
Print Language: SERBIAN
[2025-07-06 21:03] LABS: Troponin I < 0.012 ng/ml
[2025-07-06 22:18] LABS: Urine Character Clear (Clear)
[2025-07-06] MEDS: PEPCID 20 MG IV (22:25)
[2025-07-06] MEDS: BENADRYL 25 MG IV (22:25)
[2025-07-06] MEDS: ATIVAN 0.5 MG IV (22:26)
[2025-07-06] MEDS: NSS 1000 IV (22:45)
[2025-07-06 22:55] LABS: Urine Squamous Cell 21-25 /LPF (Few)
[2025-07-06 22:56] LABS: Urine Red Blood Cell 0-2 /HPF (0-2); Urine White Cell 21-25 /HPF (0-5)
[2025-07-07] VITALS: BP 156/115
== END 2025-07-07 01:29 | disposition home or self-care (01) ==
LOC: EMR 11:58
PROVIDERS: Emergency Medicine; Nurse Practitioner; EMERGENCY PHYSICIAN Emergency Medicine; FAMILY PHYSICIAN Family Medicine
DX: K21.9 Gastro-esophageal reflux disease without esophagitis (principal); L50.9 Urticaria, unspecified; D70.9 Neutropenia, unspecified; E10.22 Type 1 diabetes mellitus with diabetic chronic kidney disease; N18.30 Chronic kidney disease, stage 3 unspecified; J45.909 Unspecified asthma, uncomplicated; E03.9 Hypothyroidism, unspecified; F31.9 Bipolar disorder, unspecified; F41.9 Anxiety disorder, unspecified; F43.10 Post-traumatic stress disorder, unspecified; Z87.891 Personal history of nicotine dependence; Z79.4 Long term (current) use of insulin; Z96.41 Presence of insulin pump (external) (internal)
CPT/HCPCS: 99284; 96374; 96375 ×2; 96361 ×2; 71046; 80053; 81003; 81015; 83690; 84484; 84703; 85025; 87086; 93005